=== PATIENT | female | born 1930 | race Caucasian/White ===

== ENCOUNTER 2016-12-13 08:56 | Inpatient (IN) | payer MEDICARE ==
[~2016-12-13] VITALS: Ht 157.5 cm; Wt 67.2 kg
[~2016-12-13 08:56] MED LIST: ACET325T9 PO; ALPR0.25 PO; AMLO5TAB2 PO; ASPI-482 PO; ASPI-630 PO; ASPI325T11 PO; ATOR20TA PO; CA C1TAB28 PO; CHOL10003 PO; CITA20TA5 PO; CLOP75TA PO; CLOP75TA57 PO; DILT240C2 PO; DILT240C32 PO; FERR-26 PO; GABA-585 PO; GUAR1TAB6 PO; LOSA25TA4 PO; LOSA50TA6 PO; METO25TA4 PO; MULT-245 PO; NAPR-634 PO; NAPR500T3 PO; OMEG1CAP38 PO; PANT40TA3 PO; PRAV40TA2 PO; SUCR1TAB PO
--- NOTE | 2016-12-13 09:10 | PHYS DOC ---
Past Medical History Past Medical History: A-Fib, Arthritis, Depression, GERD, GI Bleed, High Cholesterol, Hypertension Additional Past Medical Histor: esophageal varices, GI bleedx2 Past Surgical History: Angioplasty, Appendectomy, Cholecystectomy, Hysterectomy , Knee Replacement, Pacemaker Additional Past Surgical Histo: esophageal dilation,STENT PLACEMENT Alcohol Use: None Drug Use: None Adult General HPI HPI Patient is a 86 year old female with history of upper GI bleed, A. fib, pacemaker, hypertension, depression and anxiety who presents today complaining of not feeling good for the last 2 weeks. Patient states she's had intermittent episodes of midepigastric abdominal pain sharp in nature rated at 7 out of 10 nonradiating for the last 2 weeks. Patient is also complaining of intermittent episodes of nausea and vomiting since this morning. Patient denies any hematemesis. Denies any diarrhea or melena. She states she was supposed to see her PCP this morning but she felt too sick to go to the doctor's office. PCP is Dr. Lucio Riley. Patient denies any fever or chest pain urgency frequency or dysuria. Review of Systems Review of Systems Constitutional: Denies fever or chills [] Eyes: Denies change in visual acuity, redness, or eye pain [] HENT: Denies nasal congestion or sore throat [] Respiratory: Denies cough or shortness of breath [] Cardiovascular: No additional information not addressed in HPI [] GI: epigastric abdominal pain, nausea, vomiting, denies bloody stools or diarrhea [] : Denies dysuria or hematuria [] Musculoskeletal: Denies back pain or joint pain [] Integument: Denies rash or skin lesions [] Neurologic: Denies headache, focal weakness or sensory changes [] Endocrine: Denies polyuria or polydipsia [] Current Medications Current Medications Current Medications Medications (Trade) Dose Ordered Sig/Mariajose Start Time Stop Time Status Last Admin Dose Admin Famotidine (Pepcid) 20 mg 1X ONCE 12/13/16 09:15 12/13/16 09:16 DC 12/13/16 09:26 20 MG Fentanyl Citrate (Fentanyl 2ml Vial) 50 mcg 1X ONCE 12/13/16 11:00 12/13/16 11:01 DC 12/13/16 11:13 50 MCG Ondansetron HCl (Zofran) 4 mg 1X ONCE 8/14/17 09:15 12/13/16 09:16 DC 12/13/16 09:25 4 MG Sodium Chloride 1,000 ml @ 1,000 mls/hr 1X ONCE 12/13/16 09:15 12/13/16 10:14 DC 12/13/16 09:26 1,000 MLS/HR Allergies Allergies Allergies Coded Allergies Type Severity Reaction Last Updated Verified No Known Drug Allergies 11/14/15 No Physical Exam Physical Exam Constitutional: Well developed, well nourished, no acute distress, non-toxic appearance. [] HENT: Normocephalic, atraumatic, bilateral external ears normal, oropharynx moist, no oral exudates, nose normal. [] Eyes: PERRLA, EOMI, conjunctiva normal, no discharge. [] Neck: Normal range of motion, no tenderness, supple, no stridor. [] Cardiovascular:Heart rate regular rhythm, no murmur [] Lungs & Thorax: Bilateral breath sounds clear to auscultation [] Abdomen: Hiatal hernia present. Mild mid epigastric tenderness. Bowel sounds normal, soft,no RLQ tenderness, no masses, no pulsatile masses. [] Skin: Warm, dry, no erythema, no rash. [] Back: No tenderness, no CVA tenderness. [] Extremities: No tenderness, no cyanosis, no clubbing, ROM intact, no edema. [] Neurologic: Alert and oriented X 3, normal motor function, normal sensory function, no focal deficits noted. [] Psychologic: Affect normal, judgement normal, mood normal. [] Current Patient Data Vital Signs Vital Signs Date Time Temp Pulse Resp B/P (MAP) Pulse Ox O2 Delivery O2 Flow Rate FiO2 12/13/16 11:13 20 98 Room Air 12/13/16 11:11 98.2 93 145/76 (99) 98.2 Lab Values Laboratory Tests Test 12/13/16 09:10 12/13/16 10:40 White Blood Count 7.5 x10^3/uL (4.0-11.0) Red Blood Count 4.47 x10^6/uL (3.50-5.40) Hemoglobin 12.6 g/dL (12.0-15.5) Hematocrit 37.5 % (36.0-47.0) Mean Corpuscular Volume 84 fL (79-100) Mean Corpuscular Hemoglobin 28 pg (25-35) Mean Corpuscular Hemoglobin Concent 34 g/dL (31-37) Red Cell Distribution Width 14.3 % (11.5-14.5) Platelet Count 260 x10^3/uL (140-400) Neutrophils (%) (Auto) 68 % (31-73) Lymphocytes (%) (Auto) 22 % (24-48) L Monocytes (%) (Auto) 7 % (0-9) Eosinophils (%) (Auto) 3 % (0-3) Basophils (%) (Auto) 1 % (0-3) Neutrophils # (Auto) 5.1 x10^3uL (1.8-7.7) Lymphocytes # (Auto) 1.6 x10^3/uL (1.0-4.8) Monocytes # (Auto) 0.5 x10^3/uL (0.0-1.1) Eosinophils # (Auto) 0.2 x10^3/uL (0.0-0.7) Basophils # (Auto) 0.1 x10^3/uL (0.0-0.2) Prothrombin Time 12.7 SEC (11.7-14.0) Prothrombin Time INR 1.0 (0.8-1.1) PTT 26 SEC (24-38) Sodium Level 138 mmol/L (136-145) Potassium Level 3.7 mmol/L (3.5-5.1) Chloride Level 103 mmol/L (98-107) Carbon Dioxide Level 27 mmol/L (21-32) Anion Gap 8 (6-14) Blood Urea Nitrogen 21 mg/dL (7-20) H Creatinine 1.2 mg/dL (0.6-1.0) H Estimated GFR (Cockcroft-Gault) 42.7 BUN/Creatinine Ratio 18 (6-20) Glucose Level 182 mg/dL (70-99) H Calcium Level 8.3 mg/dL (8.5-10.1) L Total Bilirubin 0.4 mg/dL (0.2-1.0) Aspartate Amino Transferase (AST) 16 U/L (15-37) Alanine Aminotransferase (ALT) 23 U/L (14-59) Alkaline Phosphatase 100 U/L (46-116) Creatine Kinase 35 U/L (26-192) Creatine Kinase MB (Mass) 0.5 ng/mL (0.0-3.6) Creatine Kinase MB Relative Index % (0-4) Troponin I Quantitative < 0.017 ng/mL (0.000-0.055) Total Protein 7.2 g/dL (6.4-8.2) Albumin 3.4 g/dL (3.4-5.0) Albumin/Globulin Ratio 0.9 (1.0-1.7) L Lipase 190 U/L (73-393) Urine Collection Type Unknown Urine Color Yellow Urine Clarity Clear Urine pH 5.5 Urine Specific [place] 1.010 Urine Protein Negative mg/dL (NEG-TRACE) Urine Glucose (UA) Negative mg/dL (NEG) Urine Ketones (Stick) Negative mg/dL (NEG) Urine Blood Negative (NEG) Urine Nitrite Negative (NEG) Urine Bilirubin Negative (NEG) Urine Urobilinogen Dipstick 0.2 mg/dL (0.2 mg/dL) Urine Leukocyte Esterase Trace (NEG) Urine RBC 0 /HPF (0-2) Urine WBC Occ /HPF (0-4) Urine Squamous Epithelial Cells Occ /LPF Urine Bacteria 0 /HPF (0-FEW) Urine Hyaline Casts Few /HPF Urine Mucus Mod /LPF Laboratory Tests 12/13/16 09:10 Laboratory Tests 12/13/16 09:10 EKG EKG 09:[address] Taylor sinus rhythm, leftward axis, HR 71 no STEMI[] Radiology/Procedures Radiology/Procedures [] Course & Med Decision Making Course & Med Decision Making Pertinent Labs and Imaging studies reviewed. (See chart for details) This is a 86-year-old female patient with history of upper GI bleed who presents today complaining of intermittent episodes of abdominal pain for 2 weeks and nausea and vomiting since this morning. Patient states she was supposed to follow up with GI today at 4 PM and is scheduled for an upper endoscopy. Patient has been given IV fluid nausea medicine and pain medicine with good relief of her symptoms. She wants to be admitted and hopefully get upper GI endoscopy in AM CBC CMP lipase with no acute findings. Vitals are stable. 11:[address] Riley who accepted patient for admission 11:19 Consulted with Erica Polanco who accepted patient for GI. [place] Disclaimer Dragon Disclaimer This electronic medical record was generated, in whole or in part, using a voice recognition dictation system. Departure Departure Impression: Primary Impression: Abdominal pain Additional Impression: Nausea & vomiting Disposition: ADMITTED INPATIENT Condition: STABLE Referrals: LUCIO RILEY MD (PCP) Problem Qualifiers Primary Impression: Abdominal pain Abdominal location: epigastric Qualified Codes: R10.13 - Epigastric pain Additional Impression: Nausea & vomiting Vomiting type: unspecified Vomiting Intractability: non-intractable Qualified Codes: R11.2 - Nausea with vomiting, unspecified MUTCHELITA ALEXANDRE CAROUSEL ATTENDANT Dec 13, 2016 09:10
[2016-12-13] MEDS ORDERED: FAMOTIDINE 20 MG/2 ML VIAL IVP ONE (09:15)
[2016-12-13] MEDS ORDERED: IV NORMAL SALINE 1000ML BAG 1,000 ML IV ONE ×2 (09:15→11:45)
[2016-12-13] MEDS ORDERED: ONDANSETRON PF 4 MG/2 ML VIAL. IV ONE (09:15)
--- NOTE | 2016-12-13 09:18 | EKG ---
[facility] [address] [place] [address] Test Date: 2016-12-13 Test Time: 09:14:52 Pat Name: SAILAJA SUTHERLAND Department: Room: Gender: F Tool Clerk: MAXIMILIANO : [id number] Requested By: CHELITA HARRIS Order Number: [id number] Reading MD: Miriam Magaña Measurements Intervals [place] Rate: 71 P: 24 ND: 192 QRS: -18 QRSD: 74 T: 75 QT: 408 QTc: 443 Interpretive Statements SINUS RHYTHM LEFTWARD AXIS QRS(T) CONTOUR ABNORMALITY CONSISTENT WITH ANTEROSEPTAL INFARCT PROBABLY OLD Electronically Signed On 12-15-2016 20:04:38 CDT by Miriam Magaña
[2016-12-13 09:30] LABS: BASO # 0.1 x10^3/uL (0.0-0.2); BASO % 1 % (0-3); EOS % 3 % (0-3); HEMATOCRIT 37.5 % (36.0-47.0); HEMOGLOBIN 12.6 g/dL (12.0-15.5); LYMPH # 1.6 x10^3/uL (1.0-4.8); LYMPH % 22 % (24-48); MEAN CORPUSCULAR HEMOGLOBIN 28 pg (25-35); MEAN CORPUSCULAR HGB CONC 34 g/dL (31-37); MEAN CORPUSCULAR VOLUME 84 fL (79-100); MONO % 7 % (0-9); NEUT % 68 % (31-73); PLATELET COUNT 260 x10^3/uL (140-400); RED BLOOD COUNT 4.47 x10^6/uL (3.50-5.40); RED CELL DISTRIBUTION WIDTH 14.3 % (11.5-14.5); WHITE BLOOD COUNT 7.5 x10^3/uL (4.0-11.0)
[2016-12-13 09:37] LABS: CALCIUM 8.3 mg/dL (8.5-10.1); CREATININE 1.2 mg/dL (0.6-1.0); GFR 42.7; POTASSIUM 3.7 mmol/L (3.5-5.1)
[2016-12-13 09:46] LABS: ALBUMIN 3.4 g/dL (3.4-5.0); ALBUMIN/GLOBULIN RATIO 0.9 (1.0-1.7); TOTAL BILIRUBIN 0.4 mg/dL (0.2-1.0); TOTAL PROTEIN 7.2 g/dL (6.4-8.2)
[2016-12-13 09:50] LABS: CKMB MASS 0.5 ng/mL (0.0-3.6); CREATINE KINASE 35 U/L (26-192)
[2016-12-13 09:53] LABS: PROTHROMBIN TIME PATIENT 12.7 SEC (11.7-14.0)
[2016-12-13] MEDS ORDERED: fentaNYL PF VIAL 100 MCG/2 ML VIAL IV ONE (11:00)
[2016-12-13 11:09] LABS: BILIRUBIN,URINE NEGATIVE (NEG); GLUCOSE,URINE NEGATIVE (NEG); NITRITE,URINE NEGATIVE (NEG); PH,URINE 5.5; PROTEIN,URINE NEGATIVE (NEG-TRACE); UROBILINOGEN,URINE 0.2 mg/dL (0.2 mg/dL)
[2016-12-13 11:27] LABS: SQUAMOUS EPITHELIAL CELL,UR OCC /LPF
[2016-12-13 11:28] LABS: BACTERIA,URINE 0 /HPF (0-FEW); RBC,URINE 0 /HPF (0-2); WBC,URINE OCC /HPF (0-4)
[2016-12-13] MEDS ORDERED: ONDANSETRON PF 4 MG/2 ML VIAL. IV PRN (11:45)
--- NOTE | 2016-12-13 12:24 | ACF ---
Admit Criteria Forms Admit Criteria Forms Admit Criteria Forms VOMITING Clinical Indications for Admission to Inpatient Care ( Place 'X' for any and all applicable criteria): Admission is indicated for 1 or more of the following(1)(2)(3): [ ]I. Complete or partial gastrointestinal obstruction [ ]II. Vomiting due to significant metabolic derangement (eg, severe hypercalcemia, diabetic ketoacidosis) [ ]III. Other cause of vomiting requiring hospitalization (eg, poisoning, increased intracranial pressure) [ ]IV. Inpatient admission required rather than observation care because of 1 or more of the following [ ]i) Hemodynamic instability [ ]ii) Vomiting that is severe or persistent indicated by 1 or more of the following 1) Numerous episodes of vomiting in past 24hours (eg, every 1 to 2 hours) 2) Suggests severe underlying cause or complication (eg , projectile, feculent, bilious, coffee ground, bloody) 3) Appropriate antiemetic treatment (eg, repeated oral or parenteral dosing) does not sufficiently reduce vomiting within 12 to 24 hours of treatment 4) Treatment regimen necessary to adequately control vomiting requires inpatient level of care (eg, not immediately available in outpatient setting) [ ]iii) Severe electrolyte abnormalities requiring inpatient care [X) iv) Severe pain requiring acute inpatient management( Continuous or frequent (eg, every 2 to 4 hours) parental analgesics or analgesic regimen that can only be performed or initiated in inpatient setting) [ ]v) High fever or infection requiring inpatient admission as indicated by 1 or more of the following(7)(8): [ ]1) Appropriate outpatient or observation care antimicrobial treatment unavailable, not effective, or not feasible [ ]2) Documented bacteremia [ ]3) Temp >104.9 degrees F (40.5 degrees C) (oral) [ ]4) Temp >103.1 degrees F (39.5 C) (oral) or <96.8 degrees F (36 C) (rectal) that does not respond to all emergency treatment measures [ ]vi) Acute renal failure [ ]vii) IV fluid required rather than oral rehydration to replace significant on going losses (greater than 3 L/m2 per day) [ ]viii) Parenteral nutrition regimen that must be implemented on inpatient basis [ ]ix) Other condition, treatment or monitoring requiring inpatient admission Extended stay beyond goal length of stay may be needed for(1)(4): [ ]a) Severe vomiting [ ]b) Persistent vomiting, vital sign changes, severe electrolyte imbalance , or diagnosed cause of vomiting that requires continued hospitalization (eg, gastrointestinal obstruction , increased intracranial pressure) [ ]c) Surgery to treat identified causes of vomiting (eg, bowel obstruction , intracranial process) [ ]d) Comorbid illness that requires inpatient care (eg, acute heart failure , renal failure) [ ]e) Need for inpatient endoscopy The original [employer] content created by [employer] has been revised. The portions of the content which have been revised are identified through the use of italic text or in bold, and [facility] has neither reviewed nor approved the modified material. All other unmodified content is copyright [employer]. Please see references footnoted in the original [employer] edition 2016 EMME ANDRADE Dec 13, 2016 12:24
[2016-12-13 12:59] VITALS: BP 123/60
[2016-12-13 13:00] VITALS: BP 123/60
--- NOTE | 2016-12-13 13:04 | PDOC2 ---
GI CONSULT Reason For Consult: Abd pain, n/v HPI: HPI: 86 y/o female seen in ER w/ planned admission to regular floor. Last evaluated by GI/Dr. Polanco in 10/2015 for epigastric pain w/ hematemesis, dark stools, and anemia. 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 At home, on PPI (pantoprazole 40mg-80mg QD) w/ good control of GERD for the most part, iron, ASA, and Plavix. Uses Tylenol, no NSAIDs. H/o dysphagia w/ solids, liquids, and pills. Last colonoscopy in 2003 w/ diverticulosis. On this occasion, reports 2 weeks of upper abdominal pain worse w/ eating and movement. Improved w/ laying still and nitro, "I couldn't tell if it was my heart or not." Actually has appt w/ Dr. Polanco this afternoon but pain was "unbearable" this morning, associated w / n/v, so came to ER. Bowels slower lately considering not eating as much, did had normal stool yesterday. No hematemesis, hematochezia, melena. Labs show unrevealing, note BUN 21 w/ Cr 1.2. Per ER notes, EKG w/o STEMI. No abd imaging. Case previously discussed w/ Marlen Lopez. YASMEEN, hopeful for EGD tomorrow. PMH: PMH: (per HPI) CAD s/p stents (last 04/2016), A Fib, HTN, HLD, peripheral neuropathy , OA, anxiety/depression, cholecystectomy, hysterectomy, cataract removal FH: Family History: No pertinent hx Social History: Smoke: No ALCOHOL: none Drugs: None ROS: GEN: Denies fevers, chills, sweats HEENT: Denies blurred vision, sore throat CV: Denies chest pain RESP: Denies shortness of air, cough GI: Per HPI : Denies hematuria, dysuria ENDO: Denies weight changes NEURO: Denies confusion, dizziness MSK: Denies weakness, joint pain/swelling SKIN: Denies jaundice, pruritus Vitals: Vitals: Vital Signs Date Time Temp Pulse Resp B/P (MAP) Pulse Ox O2 Delivery O2 Flow Rate FiO2 12/13/16 11:13 20 98 Room Air 12/13/16 11:11 98.2 93 145/76 (99) 98.2 Labs: Labs: Laboratory Tests Test 12/13/16 09:10 12/13/16 10:40 White Blood Count 7.5 x10^3/uL (4.0-11.0) Red Blood Count 4.47 x10^6/uL (3.50-5.40) Hemoglobin 12.6 g/dL (12.0-15.5) Hematocrit 37.5 % (36.0-47.0) Mean Corpuscular Volume 84 fL (79-100) Mean Corpuscular Hemoglobin 28 pg (25-35) Mean Corpuscular Hemoglobin Concent 34 g/dL (31-37) Red Cell Distribution Width 14.3 % (11.5-14.5) Platelet Count 260 x10^3/uL (140-400) Neutrophils (%) (Auto) 68 % (31-73) Lymphocytes (%) (Auto) 22 % (24-48) Monocytes (%) (Auto) 7 % (0-9) Eosinophils (%) (Auto) 3 % (0-3) Basophils (%) (Auto) 1 % (0-3) Neutrophils # (Auto) 5.1 x10^3uL (1.8-7.7) Lymphocytes # (Auto) 1.6 x10^3/uL (1.0-4.8) Monocytes # (Auto) 0.5 x10^3/uL (0.0-1.1) Eosinophils # (Auto) 0.2 x10^3/uL (0.0-0.7) Basophils # (Auto) 0.1 x10^3/uL (0.0-0.2) Prothrombin Time 12.7 SEC (11.7-14.0) Prothromb Time International Ratio 1.0 (0.8-1.1) Activated Partial Thromboplast Time 26 SEC (24-38) Sodium Level 138 mmol/L (136-145) Potassium Level 3.7 mmol/L (3.5-5.1) Chloride Level 103 mmol/L (98-107) Carbon Dioxide Level 27 mmol/L (21-32) Anion Gap 8 (6-14) Blood Urea Nitrogen 21 mg/dL (7-20) Creatinine 1.2 mg/dL (0.6-1.0) Estimated GFR (Cockcroft-Gault) 42.7 BUN/Creatinine Ratio 18 (6-20) Glucose Level 182 mg/dL (70-99) Calcium Level 8.3 mg/dL (8.5-10.1) Total Bilirubin 0.4 mg/dL (0.2-1.0) Aspartate Amino Transf (AST/SGOT) 16 U/L (15-37) Alanine Aminotransferase (ALT/SGPT) 23 U/L (14-59) Alkaline Phosphatase 100 U/L (46-116) Creatine Kinase 35 U/L (26-192) Creatine Kinase MB (Mass) 0.5 ng/mL (0.0-3.6) Creatine Kinase MB Relative Index % (0-4) Troponin I Quantitative < 0.017 ng/mL (0.000-0.055) Total Protein 7.2 g/dL (6.4-8.2) Albumin 3.4 g/dL (3.4-5.0) Albumin/Globulin Ratio 0.9 (1.0-1.7) Lipase 190 U/L (73-393) Urine Collection Type Unknown Urine Color Yellow Urine Clarity Clear Urine pH 5.5 Urine Specific [place] 1.010 Urine Protein Negative mg/dL (NEG-TRACE) Urine Glucose (UA) Negative mg/dL (NEG) Urine Ketones (Stick) Negative mg/dL (NEG) Urine Blood Negative (NEG) Urine Nitrite Negative (NEG) Urine Bilirubin Negative (NEG) Urine Urobilinogen Dipstick 0.2 mg/dL (0.2 mg/dL) Urine Leukocyte Esterase Trace (NEG) Urine RBC 0 /HPF (0-2) Urine WBC Occ /HPF (0-4) Urine Squamous Epithelial Cells Occ /LPF Urine Bacteria 0 /HPF (0-FEW) Urine Hyaline Casts Few /HPF Urine Mucus Mod /LPF Allergies: Coded Allergies: No Known Drug Allergies (Unverified , 11/14/15) Medications: Current Medications Medications (Trade) Dose Ordered Sig/Mariajose Route PRN Reason Start Time Stop Time Status Last Admin Dose Admin Famotidine (Pepcid) 20 mg 1X ONCE IVP 12/13/16 09:15 12/13/16 09:16 DC 12/13/16 09:26 Ondansetron HCl (Zofran) 4 mg 1X ONCE IV 12/13/16 09:15 12/13/16 09:16 DC 12/13/16 09:25 Sodium Chloride 1,000 ml @ 1,000 mls/hr 1X ONCE IV 12/13/16 09:15 12/13/16 10:14 DC 12/13/16 09:26 Fentanyl Citrate (Fentanyl 2ml Vial) 50 mcg 1X ONCE IV 12/13/16 11:00 12/13/16 11:01 DC 12/13/16 11:13 Imaging: Imaging: (previous) Abd US 01/2016 Impression: Suboptimal evaluation of the retroperitoneal structures, otherwise unremarkable study. MPI 12/2015 Conclusion 1. Regadenoson cardioisotope stress test did not show any evidence of ischemia or infarct. 2. Normal left ventricular systolic function with ejection fraction calculated at 84%. 3. Low risk for cardiac events. PE: GEN: NAD HEENT: Atraumatic, PERRL LUNGS: CTAB anteriorly HEART: RRR ABD: NABS, epigastric/periumbilical, some LUQ EXTREMITY: No edema SKIN: No rashes, no jaundice NEURO/PSYCH: A & O 3 A/P: A/P: Upper abd pain w/ n/v -pain bothersome x 2 weeks, worse w/ movement and after eating, improved w/ nitro and laying still GERD, hiatal hernia -last EGD 10/2015, Augusto lesions noted Dysphagia, h/o Schatzki's ring, presbyesophagus -felt w/ solids, liquids, pills -last esophageal dilation 10/2015 CRC screen -colonoscopy 2003 w/ diverticulosis CAD on Plavix, ASA -- Reviewed w/ Dr. Polanco - considering h/o hiatal hernia, will check acute abd series. Pending findings, upper GI series vs EGD later. NPO ordered, started on IV H2 eliezer. EDWIN BARROW Dec 13, 2016 13:04
[2016-12-13] MEDS ORDERED: OMEG100021 PO (13:06)
[2016-12-13] MEDS: fentaNYL PF VIAL 100 MCG/2 ML VIAL IV PRN ×2 (13:45→20:26)
[2016-12-13 14:44] VITALS: BP 138/56
--- NOTE | 2016-12-13 15:38 | RAD ---
Acute abdominal series with single view chest 12/13/2016 Indication: Abdominal pain, hiatal hernia Comparison: Chest radiograph 05/27/2015, abdominal radiograph 08/01/2008 Technique: Frontal view of the chest, upright view of the abdomen and supine view the abdomen are provided. Findings: Cardiomediastinal silhouette is within normal limits. Left chest wall cardiac device is identified with leads projecting over the right atrium and right ventricle. There is mild pulmonary vascular congestion. No pleural effusions or pneumothorax. Cholecystectomy clips are identified in the right upper quadrant. There is no free intraperitoneal air. No dilated loops of small or large bowel. No suspicious calcifications identified along the course of the kidneys, ureters or urinary bladder. Abdominal aortic vascular calcification is noted. Phleboliths are identified within the pelvis. Hiatal hernia is present. Impression: 1. Mild pulmonary vascular congestion. 2. Nonobstructive bowel gas pattern.
[2016-12-13 19:23] VITALS: BP 137/60
[2016-12-13] MEDS: GABAPENTIN 100 MG CAPSULE. PO SCH (21:48)
[2016-12-13] MEDS: FAMOTIDINE 20 MG/2 ML VIAL IVP SCH (21:48)
[2016-12-13] MEDS: ALPRAZolam 0.25 MG TABLET PO PRN (21:49)
[2016-12-13] MEDS: ATORVASTATIN CALCIUM 20 MG TABLET PO SCH (21:51)
[2016-12-13 23:12] VITALS: BP 123/62
[2016-12-14] MEDS: fentaNYL PF VIAL 100 MCG/2 ML VIAL IV PRN ×2 (01:00→10:09)
[2016-12-14 02:22] VITALS: BP 128/49
[2016-12-14 04:59] LABS: BASO # 0.1 x10^3/uL (0.0-0.2); BASO % 1 % (0-3); EOS % 5 % (0-3); HEMATOCRIT 32.3 % (36.0-47.0); HEMOGLOBIN 10.6 g/dL (12.0-15.5); LYMPH # 2.3 x10^3/uL (1.0-4.8); LYMPH % 33 % (24-48); MEAN CORPUSCULAR HEMOGLOBIN 28 pg (25-35); MEAN CORPUSCULAR HGB CONC 33 g/dL (31-37); MEAN CORPUSCULAR VOLUME 86 fL (79-100); MONO % 8 % (0-9); NEUT % 54 % (31-73); PLATELET COUNT 196 x10^3/uL (140-400); RED BLOOD COUNT 3.77 x10^6/uL (3.50-5.40); RED CELL DISTRIBUTION WIDTH 14.2 % (11.5-14.5)
[2016-12-14 05:24] LABS: ALBUMIN 2.8 g/dL (3.4-5.0); ALBUMIN/GLOBULIN RATIO 0.9 (1.0-1.7); CALCIUM 7.5 mg/dL (8.5-10.1); GFR 52.7; POTASSIUM 4.3 mmol/L (3.5-5.1); TOTAL BILIRUBIN 0.3 mg/dL (0.2-1.0); TOTAL PROTEIN 5.8 g/dL (6.4-8.2)
[2016-12-14 07:05] VITALS: BP 121/52
[2016-12-14] MEDS ORDERED: BARIUM SULFATE 60% 355 ML SUSP PO ONE (07:30)
[2016-12-14] MEDS ORDERED: SIMETHICONE/SOD BICARB/CITRIC ACID PACKET. PO ONE (07:30)
[2016-12-14] MEDS ORDERED: BARIUM SULFATE 340 GM SUSPENSION. PO ONE (07:30)
--- NOTE | 2016-12-14 08:31 | PDOC ---
Provider Note Provider Note [id number] LUCIO RILEY MD Dec 14, 2016 08:31
--- NOTE | 2016-12-14 08:46 | HP ---
ADMIT DATE: 12/13/2016 CHIEF COMPLAINT: Upper abdominal pain. HISTORY OF PRESENT ILLNESS: An 86-year-old white female who has had episodes of cardiac disease and also GI disease, came in with poorly-described upper abdominal discomfort. She has been taking pantoprazole, there is pretty good report of improvement, but has been having episodic upper abdominal pain associated with eating. She was scheduled to see Dr. Polanco for an EGD ____ came to the ER and was admitted for this. PAST MEDICAL HISTORY: Coronary stents, last about 8 months ago, she takes low-dose aspirin and Plavix for these as well as multiple other meds. She has had hysterectomy and cholecystectomy as well. SOCIAL HISTORY: , nonsmoker, nondrinker, not physically active. FAMILY HISTORY: Unremarkable. REVIEW OF SYSTEMS: No other problems. OBJECTIVE: ENT: All within normal limits. NECK: No masses, nodes, or thyroid enlargement. CARDIOVASCULAR: Regular rate. No irregular beat, murmur, or tachycardia. ABDOMEN: Soft, benign. Mildly tender in the epigastrium. No masses are felt. EXTREMITIES: Good pedal and radial pulses. No joint or skin lesions or nail bed findings. NEUROLOGIC: Physiologic and nonfocal. ASSESSMENT: Diffuse upper abdominal pain with history of both esophageal and gastric disease and coronary artery disease as well. PLAN: As ordered. LUCIO RILEY MD DR: GEETA/jenni JOB#: [id number] / [id number]
[2016-12-14] MEDS: CLOPIDOGREL BISULFATE 75 MG TABLET PO SCH (10:07)
[2016-12-14] MEDS: FERROUS SULFATE 325 MG TABLET. PO SCH (10:07)
[2016-12-14] MEDS: LOSARTAN POTASSIUM 50 MG TABLET. PO SCH (10:08)
[2016-12-14] MEDS: CHOLECALCIFEROL (VITAMIN D3) 1,000 UNIT TABLET PO SCH (10:08)
[2016-12-14] MEDS: PANTOPRAZOLE 40 MG TABLET.DR. PO SCH (10:08)
[2016-12-14] MEDS: CITALOPRAM 20 MG TABLET. PO SCH (10:08)
[2016-12-14] MEDS: FAMOTIDINE 20 MG/2 ML VIAL IVP SCH ×2 (10:08→20:08)
[2016-12-14] MEDS: ASPIRIN ENTERIC COATED 325 MG TABLET.DR. PO SCH (10:08)
--- NOTE | 2016-12-14 10:41 | RAD ---
Double contrast upper GI with small bowel follow-through, 12/14/2016: History: Abdominal pain and nausea The study was performed utilizing high density barium and gas-forming crystals followed by regular liquid barium. 4.4 minutes of fluoroscopy time was utilized. 18 fluoroscopic images were recorded. Comparison is made to a study from 07/20/2012. The preliminary abdominal image demonstrates a nonspecific gas pattern. Scattered arterial calcifications are present. There is a mild lumbar scoliosis with multilevel degenerative change. A small Zenker's diverticulum is again noted. No obstructive process is seen in the cervical esophagus. The thoracic esophageal peristalsis is poor with scattered tertiary contractions. There is a large hiatal hernia. There is mild smooth narrowing of the esophagus at the GE junction level which in conjunction with the abnormal esophageal peristalsis results in delay in passage of the barium from the esophagus into the stomach, particularly in the upright position. No gastric mass or ulceration is seen. The duodenal bulb is unremarkable. The small bowel loops are of normal caliber with no evidence of thickening of their folds. There is normal transit of the barium through the small bowel to the colon. The terminal ileum is unremarkable. IMPRESSION: 1. Large hiatal hernia. 2. Abnormal esophageal peristalsis with scattered tertiary contractions. 3. Mild smooth narrowing of the esophagus at the GE junction level. 4. Small Zenker's diverticulum. 5. No significant small bowel abnormality is detected.
[2016-12-14 10:54] VITALS: BP 148/64
--- NOTE | 2016-12-14 11:27 | PDOC ---
Subjective: Subjective: Not feeling well, says not ready to go home, really wants EGD while she's here. Epigastric pain. No vomiting. is ill at home, says she needs to get better so she can care for him. Objective: Objective: D/w RN - pt thought she was having UGI/SBFT and EGD today, really wants EGD. Vital Signs: Vital Signs Date Time Temp Pulse Resp B/P (MAP) Pulse Ox O2 Delivery O2 Flow Rate FiO2 12/14/16 10:54 97.6 59 18 148/64 (92) 90 Nasal Cannula 97.6 12/14/16 10:09 1.0 Labs: Laboratory Tests Test 12/14/16 04:21 White Blood Count 7.0 x10^3/uL Red Blood Count 3.77 x10^6/uL Hemoglobin 10.6 g/dL Hematocrit 32.3 % Mean Corpuscular Volume 86 fL Mean Corpuscular Hemoglobin 28 pg Mean Corpuscular Hemoglobin Concent 33 g/dL Red Cell Distribution Width 14.2 % Platelet Count 196 x10^3/uL Neutrophils (%) (Auto) 54 % Lymphocytes (%) (Auto) 33 % Monocytes (%) (Auto) 8 % Eosinophils (%) (Auto) 5 % Basophils (%) (Auto) 1 % Neutrophils # (Auto) 3.7 x10^3uL Lymphocytes # (Auto) 2.3 x10^3/uL Monocytes # (Auto) 0.6 x10^3/uL Eosinophils # (Auto) 0.3 x10^3/uL Basophils # (Auto) 0.1 x10^3/uL Sodium Level 142 mmol/L Potassium Level 4.3 mmol/L Chloride Level 109 mmol/L Carbon Dioxide Level 28 mmol/L Anion Gap 5 Blood Urea Nitrogen 17 mg/dL Creatinine 1.0 mg/dL Estimated GFR (Cockcroft-Gault) 52.7 BUN/Creatinine Ratio 17 Glucose Level 89 mg/dL Calcium Level 7.5 mg/dL Total Bilirubin 0.3 mg/dL Aspartate Amino Transf (AST/SGOT) 14 U/L Alanine Aminotransferase (ALT/SGPT) 19 U/L Alkaline Phosphatase 77 U/L Total Protein 5.8 g/dL Albumin 2.8 g/dL Albumin/Globulin Ratio 0.9 Imaging: UGI w/ SBFT 12/14/16 IMPRESSION: 1. Large hiatal hernia. 2. Abnormal esophageal peristalsis with scattered tertiary contractions. 3. Mild smooth narrowing of the esophagus at the GE junction level. 4. Small Zenker's diverticulum. 5. No significant small bowel abnormality is detected. 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 Chart reviewed. Pt has hx of esophageal dysphagia. Eval w/o evidence of oropharyngeal dysphagia or aspiration on tested consistencies. IMPRESSIONS: Functional oropharyngeal swallow. GI following re:esophageal issues. RECOMMENDATIONS: Diet as willy per GI. No need for consistency restrictions based on this eval. PE: GEN: NAD, laying in bed w/ breakfast tray LUNGS: clear HEART: S1S2 ABD: epigastric tenderness NEURO/PSYCH: A & O 3 A/P: Upper abd pain, hiatal hernia -UGI/SBFT as above -last EGD 10/2015, Augusto lesions noted Dysphagia -last esophageal dilation 10/2015 -h/o Schatzki's ring, presbyesophagus/tertiary contractions -narrowing of esophagus at GE junction as above, also Zenker's -- Reviewed w/ Dr. Polanco - EGD tomorrow afternoon. EDWIN BARROW Dec 14, 2016 11:27
[2016-12-14 15:23] VITALS: BP 135/48
[2016-12-14 19:00] VITALS: BP 144/67
[2016-12-14] MEDS: ATORVASTATIN CALCIUM 20 MG TABLET PO SCH (20:08)
[2016-12-14] MEDS: GABAPENTIN 100 MG CAPSULE. PO SCH (20:08)
[2016-12-14] MEDS: ALPRAZolam 0.25 MG TABLET PO PRN (20:27)
[2016-12-14] MEDS: ACETAMINOPHEN 325 MG TABLET. PO PRN (20:27)
[2016-12-14 23:00] VITALS: BP 123/50
[2016-12-15] VITALS (7 sets, daily range): BP systolic 106–132; BP diastolic 46–75
[2016-12-15] MEDS ORDERED: fentaNYL PF VIAL 100 MCG/2 ML VIAL IV PRN ×2 (07:00)
[2016-12-15] MEDS ORDERED: HYDROmorphone 2 MG/ML VIAL IV PRN (07:00)
[2016-12-15] MEDS ORDERED: MORPHINE SULFATE 2 MG/ML DISP.SYRIN. IV PRN (07:00)
[2016-12-15] MEDS ORDERED: IV RINGERS,LACTATED 1000ML 1,000 ML IV SCH (07:00)
[2016-12-15] MEDS ORDERED: LIDOCAINE 1% 1 ML SYRINGE. ID PRN (07:00)
[2016-12-15] MEDS ORDERED: PROCHLORPERAZINE 10 MG/2 ML VIAL. IV PRN (07:00)
[2016-12-15] MEDS: PANTOPRAZOLE 40 MG TABLET.DR. PO SCH (07:30)
[2016-12-15] MEDS: CLOPIDOGREL BISULFATE 75 MG TABLET PO SCH (08:00)
[2016-12-15] MEDS: ASPIRIN ENTERIC COATED 325 MG TABLET.DR. PO SCH (08:00)
--- NOTE | 2016-12-15 08:31 | PDOC ---
Provider Note Provider Note VSS, URINE CULT NEG, LABS OK- FOR EGD TODAY , LARGE HH ON BARIUM SWALLOW LUCIO RILEY MD Dec 15, 2016 08:31
[2016-12-15] MEDS: LOSARTAN POTASSIUM 50 MG TABLET. PO SCH (09:00)
[2016-12-15] MEDS: CHOLECALCIFEROL (VITAMIN D3) 1,000 UNIT TABLET PO SCH (09:00)
[2016-12-15] MEDS: FERROUS SULFATE 325 MG TABLET. PO SCH (09:00)
[2016-12-15] MEDS: FAMOTIDINE 20 MG/2 ML VIAL IVP SCH ×2 (09:00→21:03)
[2016-12-15] MEDS: CITALOPRAM 20 MG TABLET. PO SCH (09:00)
[2016-12-15] MEDS ORDERED: PROPOFOL 20 ML IV ONE (13:04)
--- NOTE | 2016-12-15 13:28 | PDOC4 ---
Operative Note Operative Note EGD with dilation Meds propofol per anesthesia Pre-op dx abd pain/dysphagia/abnl xray post-op dx hiatal hernia Schatzki ring non-erosive gastritis Plan advance diet and activity as tolerated release home if tolerates as patient poor candidate for Ramin fundoplication RO YARBROUGH MD Dec 15, 2016 13:28
[2016-12-15] MEDS: ATORVASTATIN CALCIUM 20 MG TABLET PO SCH (21:03)
[2016-12-15] MEDS: GABAPENTIN 100 MG CAPSULE. PO SCH (21:03)
[2016-12-15] MEDS: ALPRAZolam 0.25 MG TABLET PO PRN (21:07)
[2016-12-16] MEDS: ACETAMINOPHEN 325 MG TABLET. PO PRN (02:38)
[2016-12-16 02:40] VITALS: BP 126/77
[2016-12-16] MEDS: PANTOPRAZOLE 40 MG TABLET.DR. PO SCH (06:00)
[2016-12-16 07:15] VITALS: BP 135/75
--- NOTE | 2016-12-16 08:10 | DISCH ---
DISCHARGE INSTRUCTIONS Condition on Discharge Condition on Discharge: Stable Activity After Discharge Activity Instructions for Disc: No restrictions Diet after Discharge Diet after Discharge: Regular Follow-Up Follow up with: LUCIO Arambula MD Dec 16, 2016 08:10
--- NOTE | 2016-12-16 08:13 | PDOC ---
Provider Note Provider Note [id number] LUCIO RILEY MD Dec 16, 2016 08:13
--- NOTE | 2016-12-16 08:46 | DS ---
DATE OF DISCHARGE: 12/16/2016 HOSPITAL SUMMARY: An 86-year-old who came in with upper abdominal pain, with previous history of hiatal hernia and gastritis. Hence she was scheduled for endoscopy any way. CBC, chemistry profile, and cardiac enzymes were all within normal limits, as was urinalysis and urine culture. Barium swallow showed evidence of a large hiatal hernia, with some abnormal distal esophageal peristalsis, with no sign of any specific significant stenosis. She was given IV fluids GI saw her and scheduled an endoscopy, which was done 12/15, and the results are not available, but she was told that no new acute findings were found and she was not a surgical candidate for the hiatal hernia. She was comfortable to be discharged as an outpatient at this time. FINAL DIAGNOSES: Epigastric pain, secondary to hiatal hernia. OPERATIONS AND PROCEDURES: EGD. COMPLICATIONS: None. CONSULTATIONS: Dr. Polanco. DISPOSITION: All home meds remain the same. ACTIVITY: As tolerated: DIET: Regular. FOLLOWUP: As needed for medical concerns. PROGNOSIS: Guarded. LUCIO RILEY MD DR: GEETA/jenni JOB#: [id number] / [id number]
[2016-12-16] MEDS: FAMOTIDINE 20 MG/2 ML VIAL IVP SCH (08:51)
[2016-12-16] MEDS: CLOPIDOGREL BISULFATE 75 MG TABLET PO SCH (08:51)
[2016-12-16] MEDS: CITALOPRAM 20 MG TABLET. PO SCH (08:51)
[2016-12-16] MEDS: CHOLECALCIFEROL (VITAMIN D3) 1,000 UNIT TABLET PO SCH (08:51)
[2016-12-16] MEDS: ASPIRIN ENTERIC COATED 325 MG TABLET.DR. PO SCH (08:51)
[2016-12-16] MEDS: FERROUS SULFATE 325 MG TABLET. PO SCH (08:51)
[2016-12-16 08:52] VITALS: BP 135/75
[2016-12-16] MEDS: LOSARTAN POTASSIUM 50 MG TABLET. PO SCH (08:52)
== END 2016-12-16 10:29 | disposition home or self-care (01) | DRG 392 ==
LOC: ER 08:56 → 6 SOUTH 11:03
PROVIDERS: ADMIT Family Medicine; ATTEND Family Medicine
PROC: 0D758ZZ Dilation of Esophagus, Via Natural or Artificial Opening Endoscopic (ICD-10-PCS; principal; 2016-12-13)
DX: K44.9 Diaphragmatic hernia without obstruction or gangrene (principal); G62.9 Polyneuropathy, unspecified; I48.91 Unspecified atrial fibrillation; I10 Essential (primary) hypertension; E78.5 Hyperlipidemia, unspecified; F32.9 Major depressive disorder, single episode, unspecified; F41.9 Anxiety disorder, unspecified; I25.10 Atherosclerotic heart disease of native coronary artery without angina pectoris; K22.5 Diverticulum of esophagus, acquired; K21.9 Gastro-esophageal reflux disease without esophagitis; K29.70 Gastritis, unspecified, without bleeding; E78.00 Pure hypercholesterolemia, unspecified; Z96.659 Presence of unspecified artificial knee joint; M19.90 Unspecified osteoarthritis, unspecified site; Z90.710 Acquired absence of both cervix and uterus; Z90.49 Acquired absence of other specified parts of digestive tract; Z79.82 Long term (current) use of aspirin; Z95.5 Presence of coronary angioplasty implant and graft
CPT/HCPCS: 36415; 74022; 74249; 80053; 81001; 82553; 83690; 84484; 85025; 85610; 85730; 87086; 93005; 96361; 96374; 96375; J2405; J2704; J3010; J7030; J7120; S0028; 92610; 99285-25

== ENCOUNTER 2016-12-20 08:58 | Inpatient (IN) | payer MEDICARE ==
[~2016-12-20] VITALS: Ht 157.5 cm; Wt 67.1 kg
[~2016-12-20 08:58] MED LIST changes: +OMEG100021 PO
--- NOTE | 2016-12-20 09:09 | PHYS DOC ---
Past Medical History Past Medical History: A-Fib, Arthritis, Depression, GERD, GI Bleed, High Cholesterol, Hypertension Additional Past Medical Histor: esophageal varices, GI bleedx2 Past Surgical History: Angioplasty, Appendectomy, Cholecystectomy, Hysterectomy , Knee Replacement, Pacemaker Additional Past Surgical Histo: esophageal dilation,STENT PLACEMENT Alcohol Use: None Drug Use: None Adult General Chief Complaint Chief Complaint: ABDOMINAL PAIN HPI HPI Patient is a 86 year old female who presents with periumbilical abdominal pain. She states his same pain she had recently was admitted for but has not gotten better. She states it's constant pain surrounding her umbilical area and then radiated up into her chest. She took some Xanax and that hasn't made her feel better but this morning the pain got worse she took a nitroglycerin and that actually made her pain get better. She denies shortness of breath, but states she feels nauseated and did vomit once this morning. She states she hasn't had a bowel movement since Tuesday. She states that she had a scope by Dr. Salguero last week when she was here. Review of Systems Review of Systems Constitutional: Denies fever or chills [] Eyes: Denies change in visual acuity, redness, or eye pain [] HENT: Denies nasal congestion or sore throat [] Respiratory: Denies cough or shortness of breath [] Cardiovascular: No additional information not addressed in HPI [] GI: Denies abdominal pain, nausea, vomiting, bloody stools or diarrhea [] : Denies dysuria or hematuria [] Musculoskeletal: Denies back pain or joint pain [] Integument: Denies rash or skin lesions [] Neurologic: Denies headache, focal weakness or sensory changes [] Endocrine: Denies polyuria or polydipsia [] Current Medications Current Medications Current Medications Medications (Trade) Dose Ordered Sig/Mariajose Start Time Stop Time Status Last Admin Dose Admin Fentanyl Citrate (Fentanyl 2ml Vial) 25 mcg PRN Q15MIN PRN 12/20/16 09:45 12/21/16 09:44 12/20/16 11:23 25 MCG Info (Do NOT chart on this entry -- for MONITORING) 1 each PRN DAILY PRN 12/20/16 10:45 12/22/16 10:44 Iohexol (Omnipaque 240 Mg/ml) 30 ml 1X ONCE 12/20/16 10:30 12/20/16 10:31 DC 12/20/16 12:03 30 ML Iohexol (Omnipaque 300 Mg/ml) 60 ml 1X ONCE 12/20/16 10:30 12/20/16 10:31 DC 12/20/16 12:03 60 ML Ondansetron HCl (Zofran) 4 mg 1X ONCE 12/20/16 09:45 12/20/16 09:46 DC 12/20/16 09:50 4 MG Pantoprazole Sodium (Protonix Vial) 80 mg 1X ONCE 12/20/16 11:45 12/20/16 11:46 DC 12/20/16 12:31 80 MG Pantoprazole Sodium 80 mg/ Sodium Chloride 100 ml @ 10 mls/hr Q10H 12/20/16 12:00 12/20/16 11:57 10 MLS/HR Promethazine HCl 25 mg/Sodium Chloride 51 ml @ 101 mls/hr 1X ONCE 12/20/16 11:00 12/20/16 11:30 DC 12/20/16 11:24 101 MLS/HR Allergies Allergies Allergies Coded Allergies Type Severity Reaction Last Updated Verified No Known Drug Allergies 12/15/16 No Physical Exam Physical Exam Constitutional: Well developed, well nourished, no acute distress, non-toxic appearance. [] HENT: Normocephalic, atraumatic, bilateral external ears normal, oropharynx moist, no oral exudates, nose normal. [] Eyes: PERRLA, EOMI, conjunctiva normal, no discharge. [] Neck: Normal range of motion, no tenderness, supple, no stridor. [] Cardiovascular:Heart rate regular rhythm, no murmur [] Lungs & Thorax: Bilateral breath sounds clear to auscultation [] Abdomen: Bowel sounds normal, soft, no tenderness, no masses, no pulsatile masses. [] Skin: Warm, dry, no erythema, no rash. [] Back: No tenderness, no CVA tenderness. [] Extremities: No tenderness, no cyanosis, no clubbing, ROM intact, no edema. [] Neurologic: Alert and oriented X 3, normal motor function, normal sensory function, no focal deficits noted. [] Psychologic: Affect normal, judgement normal, mood normal. [] Current Patient Data Vital Signs Vital Signs Date Time Temp Pulse Resp B/P (MAP) Pulse Ox O2 Delivery O2 Flow Rate FiO2 12/20/16 11:23 24 94 Room Air 12/20/16 10:30 84 100/63 (75) 12/20/16 08:58 98.1 98.1 Lab Values Laboratory Tests Test 12/20/16 09:20 12/20/16 10:59 12/20/16 11:00 12/20/16 11:15 White Blood Count 8.8 x10^3/uL (4.0-11.0) Red Blood Count 3.88 x10^6/uL (3.50-5.40) Hemoglobin 10.9 g/dL (12.0-15.5) L Hematocrit 33.3 % (36.0-47.0) L Mean Corpuscular Volume 86 fL (79-100) Mean Corpuscular Hemoglobin 28 pg (25-35) Mean Corpuscular Hemoglobin Concent 33 g/dL (31-37) Red Cell Distribution Width 14.5 % (11.5-14.5) Platelet Count 238 x10^3/uL (140-400) Neutrophils (%) (Auto) 70 % (31-73) Lymphocytes (%) (Auto) 21 % (24-48) L Monocytes (%) (Auto) 6 % (0-9) Eosinophils (%) (Auto) 2 % (0-3) Basophils (%) (Auto) 1 % (0-3) Neutrophils # (Auto) 6.2 x10^3uL (1.8-7.7) Lymphocytes # (Auto) 1.8 x10^3/uL (1.0-4.8) Monocytes # (Auto) 0.5 x10^3/uL (0.0-1.1) Eosinophils # (Auto) 0.2 x10^3/uL (0.0-0.7) Basophils # (Auto) 0.1 x10^3/uL (0.0-0.2) Prothrombin Time 13.5 SEC (11.7-14.0) Prothrombin Time INR 1.1 (0.8-1.1) Sodium Level 143 mmol/L (136-145) Potassium Level 4.2 mmol/L (3.5-5.1) Chloride Level 107 mmol/L (98-107) Carbon Dioxide Level 27 mmol/L (21-32) Anion Gap 9 (6-14) Blood Urea Nitrogen 54 mg/dL (7-20) H Creatinine 0.9 mg/dL (0.6-1.0) Estimated GFR (Cockcroft-Gault) 59.5 Glucose Level 118 mg/dL (70-99) H Calcium Level 8.4 mg/dL (8.5-10.1) L Magnesium Level 2.0 mg/dL (1.8-2.4) Total Bilirubin 0.5 mg/dL (0.2-1.0) Direct Bilirubin 0.1 mg/dL (0.0-0.2) Aspartate Amino Transferase (AST) 15 U/L (15-37) Alanine Aminotransferase (ALT) 20 U/L (14-59) Alkaline Phosphatase 82 U/L (46-116) Creatine Kinase 28 U/L (26-192) Creatine Kinase MB (Mass) < 0.5 ng/mL (0.0-3.6) Creatine Kinase MB Relative Index % (0-4) Troponin I Quantitative < 0.017 ng/mL (0.000-0.055) PG-Wuc-A-Type Natriuretic Peptide 210 pg/mL (0-449) Total Protein 5.9 g/dL (6.4-8.2) L Albumin 3.2 g/dL (3.4-5.0) L Lipase 124 U/L (73-393) Urine Collection Type Void Urine Color Yellow Urine Clarity Clear Urine pH 6.0 Urine Specific [place] 1.025 Urine Protein Negative mg/dL (NEG-TRACE) Urine Glucose (UA) Negative mg/dL (NEG) Urine Ketones (Stick) Trace mg/dL (NEG) Urine Blood Negative (NEG) Urine Nitrite Negative (NEG) Urine Bilirubin Negative (NEG) Urine Urobilinogen Dipstick 0.2 mg/dL (0.2 mg/dL) Urine Leukocyte Esterase Trace (NEG) Urine RBC Occ /HPF (0-2) Urine WBC 1-4 /HPF (0-4) Urine Squamous Epithelial Cells Few /LPF Urine Bacteria Few /HPF (0-FEW) Urine Mucus Slight /LPF Gastric Fluid Occult Blood Positive (NEG) Stool Occult Blood Negative (NEG) Laboratory Tests 12/20/16 09:20 Laboratory Tests 12/20/16 09:20 EKG EKG EKG shows sinus rhythm with a rate of [address] elevations or T- wave inversions, axis deviation noted, QTC 463 ms, 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 PHYSICIAN: MERLY BAILEY MD REASON: chest pain, UPPER ABDOMEN PAIN, X 1 WEEK PROCEDURE: PORTABLE CHEST 1V Portable chest, 12/20/2016: History: Chest and upper abdominal pain Comparison is made to a study from 12/13/2016. A left-sided transvenous pacemaker remains in place with 2 leads extending into the right heart. There is a retrocardiac gas collection compatible with a moderate-sized hiatal hernia. The heart size is normal. No pulmonary infiltrate is seen. There is no evidence of pleural fluid. There are mild scattered degenerative changes in the spine. IMPRESSION: 1. Moderate sized hiatal hernia. 2. No acute cardiopulmonary abnormality is detected. DICTATED and SIGNED BY: ORIANA BRIGHT MD DATE: 12/20/16950 CC: MERLY BAILEY MD; LUCIO RILEY MD ~ Impressions: Abdominal pain GI bleed Course & Med Decision Making Course & Med Decision Making Pertinent Labs and Imaging studies reviewed. (See chart for details) Patient's was having abdominal pain and then vomited black emesis which was heme positive. She started on a Protonix drip and is in stable condition this time. She's being admitted to Dr. Lucio Riley consultations to GI. Interim orders have been written. Dragon Disclaimer Dragon Disclaimer This electronic medical record was generated, in whole or in part, using a voice recognition dictation system. Departure Departure Impression: Primary Impression: GI bleed Disposition: ADMITTED INPATIENT Admitting Physician: Lucio Riley Condition: STABLE Referrals: LUCIO RILEY MD (PCP) Problem Qualifiers Primary Impression: GI bleed GI bleed type/associated pathology: gastrointestinal hemorrhage with hematemesis Qualified Codes: K92.0 - HematemesMERLY Franco MD Dec 20, 2016 09:09
[2016-12-20 09:39] LABS: BASO # 0.1 x10^3/uL (0.0-0.2); BASO % 1 % (0-3); EOS % 2 % (0-3); HEMATOCRIT 33.3 % (36.0-47.0); HEMOGLOBIN 10.9 g/dL (12.0-15.5); LYMPH # 1.8 x10^3/uL (1.0-4.8); LYMPH % 21 % (24-48); MEAN CORPUSCULAR HEMOGLOBIN 28 pg (25-35); MEAN CORPUSCULAR HGB CONC 33 g/dL (31-37); MEAN CORPUSCULAR VOLUME 86 fL (79-100); MONO % 6 % (0-9); NEUT % 70 % (31-73); PLATELET COUNT 238 x10^3/uL (140-400); RED BLOOD COUNT 3.88 x10^6/uL (3.50-5.40); RED CELL DISTRIBUTION WIDTH 14.5 % (11.5-14.5); WHITE BLOOD COUNT 8.8 x10^3/uL (4.0-11.0)
[2016-12-20 09:44] LABS: CALCIUM 8.4 mg/dL (8.5-10.1); CREATININE 0.9 mg/dL (0.6-1.0); GFR 59.5; POTASSIUM 4.2 mmol/L (3.5-5.1)
[2016-12-20] MEDS ORDERED: ONDANSETRON PF 4 MG/2 ML VIAL. IV ONE (09:45)
[2016-12-20 09:49] LABS: ALBUMIN 3.2 g/dL (3.4-5.0); DIRECT BILIRUBIN 0.1 mg/dL (0.0-0.2); TOTAL BILIRUBIN 0.5 mg/dL (0.2-1.0); TOTAL PROTEIN 5.9 g/dL (6.4-8.2)
[2016-12-20] MEDS: fentaNYL PF VIAL 100 MCG/2 ML VIAL IV PRN ×2 (09:50→11:23)
--- NOTE | 2016-12-20 09:55 | RAD ---
Portable chest, 12/20/2016: History: Chest and upper abdominal pain Comparison is made to a study from 12/13/2016. A left-sided transvenous pacemaker remains in place with 2 leads extending into the right heart. There is a retrocardiac gas collection compatible with a moderate-sized hiatal hernia. The heart size is normal. No pulmonary infiltrate is seen. There is no evidence of pleural fluid. There are mild scattered degenerative changes in the spine. IMPRESSION: 1. Moderate sized hiatal hernia. 2. No acute cardiopulmonary abnormality is detected.
--- NOTE | 2016-12-20 09:59 | EKG ---
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
[2016-12-20 10:00] LABS: CREATINE KINASE 28 U/L (26-192)
[2016-12-20 10:01] LABS: CKMB MASS < 0.5 ng/mL (0.0-3.6)
[2016-12-20 10:04] LABS: INR 1.1 (0.8-1.1); PROTHROMBIN TIME PATIENT 13.5 SEC (11.7-14.0)
[2016-12-20] MEDS ORDERED: IOHEXOL 240 MG/ML 50ML VIAL. PO ONE (10:30)
[2016-12-20] MEDS ORDERED: IOHEXOL 300 MG/ML 75 ML VIAL IV ONE (10:30)
[2016-12-20] MEDS ORDERED: CONTRAST GIVEN MC PRN (10:45)
[2016-12-20] MEDS ORDERED: PROMETHAZINE 25 MG in IV NORMAL SALINE 50ML 50 ML IV ONE (11:00)
[2016-12-20 11:23] LABS: BILIRUBIN,URINE NEGATIVE (NEG); GLUCOSE,URINE NEGATIVE (NEG); NITRITE,URINE NEGATIVE (NEG); PROTEIN,URINE NEGATIVE (NEG-TRACE); UROBILINOGEN,URINE 0.2 mg/dL (0.2 mg/dL)
[2016-12-20 11:32] LABS: NEG OBC FOB NEG; POS OBC FOB POS
[2016-12-20 11:32] LABS: NEG OBC GOB NEG; POS OBC GOB POS
[2016-12-20 11:34] LABS: BACTERIA,URINE FEW /HPF (0-FEW); RBC,URINE OCC /HPF (0-2); SQUAMOUS EPITHELIAL CELL,UR FEW /LPF
[2016-12-20] MEDS ORDERED: PANTOPRAZOLE IV PUSH 40 MG VIAL. IVP ONE (11:45)
[2016-12-20] MEDS: PANTOPRAZOLE SODIUM IV 80 MG in IV NORMAL SALINE 100ML 100 ML IV SCH ×2 (11:57→22:10)
--- NOTE | 2016-12-20 12:39 | RAD ---
CT abdomen/pelvis with IV contrast Indication: 86-year-old female with abdominal pain. Technique: CT abdomen/pelvis with 60 mL of Omnipaque 300 and 30 mL of Omnipaque 240 with multiplanar reformats. Comparison: Prior CT abdomen/pelvis from 2010 Findings: Heart is normal in size. Pacemaker leads are seen projecting in the right atrium and right ventricle. Areas of groundglass opacity seen within the lung bases with bibasilar atelectasis. Scattered punctate calcifications seen within liver likely healed granulomatous disease. No suspicious liver lesion. Spleen within normal limits. Status post cholecystectomy. No intrahepatic biliary duct dilation. Large sliding hiatal hernia. Pancreas is within normal limits. Adrenal glands show no focal lesion. Stable 7 millimeter low attenuating lesion within the right kidney likely simple cyst. No hydronephrosis. No abdominal or pelvic adenopathy. Streak artifact from retained barium contrast from recent upper GI study limits evaluation of adjacent soft tissue. No bowel obstruction. The descending and sigmoid colon diverticulosis. Bladder within normal limits. Uterus not visualized. Scattered atherosclerotic disease of abdominal aorta and bilateral proximal iliac arteries. Evidence of healed right inferior pubic ramus fracture. Diffuse osteopenia of the bones. Degenerative disc disease in the lower lumbar spine. Levoscoliosis of the upper lumbar spine. Impression: 1. No bowel obstruction. 2. Large sliding hiatal hernia. Descending colon and sigmoid colon diverticulosis.
--- NOTE | 2016-12-20 12:57 | ACF ---
Admit Criteria Forms Admit Criteria Forms Admit Criteria Forms GASTROINTESTINAL BLEEDING, UPPER Clinical Indications for Admission to Inpatient Care ( curyung/check or initial the applicable condition/criteria) Admission is indicated for 1 or more of the following(1)(2)(3)(4)(5)(6): (X) I. Active bleeding (eg, fresh voluminous blood in emesis or nasogastric aspirate) II. High-risk endoscopic features (arterial bleeding, adherent clot, nonbleeding visible vessel, varices, flat red spots, ulcer size greater than 2 cm, or portal hypertensive gastropathy) III. Severe liver disease (eg, cirrhosis) IV. Significant active comorbid disease (e.g. symptomatic heart failure, COPD) V. Previous aortic graft placement or known aortic aneurysm . Coagulopathy (eg advanced liver disease, irreversible anticoagulation therapy) VII. Syncope VIII. Associated conditions requiring hospitalization (e.g., perforation, obstruction from ulcer) IX. Inpatient admission required rather than observation care (Also use Gastrointestinal Bleeding, Upper: Observation Care as appropriate) because of 1 or more of the following (7)(8) : a) Hemodynamic instability that is severe or persistent b) Anemia requiring inpatient admission as indicated by ALL of the followin) Presence of significant clinical finding indicated by 1 or more of the following: A. Tachycardia for age B. Orthostatic vital sign changes C. Cognitive impairment D. Heart failure E. Chest pain F. Exertional dyspnea G. Other findings suggesting inadequate perfusion (eg, peripheral or myocardial ischemia, end organ dysfunction) 2) Initial (eg, emergency department, observation care ) treatment with transfusion or volume replacement is judged inappropriate (due to severity of the finding) or has been ineffective c) Severe pain requiring acute inpatient management d) High-risk low platelet count e) IV fluid to replace significant ongoing losses (greater than 3 L/m2 per day) f) Immediate inpatient surgery g) Other condition, treatment or monitoring requiring inpatient admission Extended stay beyond goal length of stay may be needed for(1))(3)(4)(5)(18): a) Emergency surgery(19)(20) b) Persistent coagulation abnormalities(9) c) Recurrent, obscure, or persistent bleeding or continued Hemodynamic instability(2)(5)(9)(19)(20)(21)(22)(23)(24) d) Associated conditions requiring surgery (eg, perforated gastric ulcer, gastric outlet obstruction, aortoentric fistula) e) Active comorbidities (eg, renal insufficiency, malignancy, heart failure , liver disease,respiratory failure, malnutrition) (29)(30)(31) The original [facility] [employer] content created by [facility] has been revised. The portions of the content which have been revised are identified through the use of italic text or in bold, and [facility] has neither reviewed nor approved the modified material. All other unmodified content is copyright [facility]. Please see references footnoted in the original [facility] [employer] edition 2017 MEME ANDRADE Dec 20, 2016 12:57
[2016-12-20] MEDS ORDERED: ONDANSETRON PF 4 MG/2 ML VIAL. IV PRN (13:00)
--- NOTE | 2016-12-20 14:06 | PDOC ---
Subjective: Subjective: See GI consult from 12/13/16. Upper GI 12/14/16: large hiatal hernia, abnormal esophageal peristalsis with scattered tertiary contractions, mild smooth narrowing of the esophagus at the GE junction level, small Zenker's diverticulum. EGD 12/15/16: hiatal hernia, Schatzki's ring (dilated), non-erosive gastritis. Surgical consult was discussed; however, poor candidate considering age, co- morbidities, and presbyesophagus/dysphagia. Daughter reports didn't really feel better after discharge last week, disappointed she was sent home without "a fix." Not eating much at home (ate fish yesterday), still epigastric/LUQ pain, better w/ laying flat. They feel her hiatal hernia is not to blame but instead a ventral hernia - sometimes it "sticks out" causing pain and then gets better after laying flat. This morning vomited "dry black chunks" after drinking contrast for CT (below). Objective: Vital Signs: Vital Signs Date Time Temp Pulse Resp B/P (MAP) Pulse Ox O2 Delivery O2 Flow Rate FiO2 12/20/16 12:14 78 17 119/58 (78) 91 Nasal Cannula 2.0 12/20/16 08:58 98.1 98.1 Labs: Laboratory Tests Test 12/20/16 09:20 12/20/16 10:59 12/20/16 11:00 12/20/16 11:15 White Blood Count 8.8 x10^3/uL Red Blood Count 3.88 x10^6/uL Hemoglobin 10.9 g/dL Hematocrit 33.3 % Mean Corpuscular Volume 86 fL Mean Corpuscular Hemoglobin 28 pg Mean Corpuscular Hemoglobin Concent 33 g/dL Red Cell Distribution Width 14.5 % Platelet Count 238 x10^3/uL Neutrophils (%) (Auto) 70 % Lymphocytes (%) (Auto) 21 % Monocytes (%) (Auto) 6 % Eosinophils (%) (Auto) 2 % Basophils (%) (Auto) 1 % Neutrophils # (Auto) 6.2 x10^3uL Lymphocytes # (Auto) 1.8 x10^3/uL Monocytes # (Auto) 0.5 x10^3/uL Eosinophils # (Auto) 0.2 x10^3/uL Basophils # (Auto) 0.1 x10^3/uL Prothrombin Time 13.5 SEC Prothromb Time International Ratio 1.1 Sodium Level 143 mmol/L Potassium Level 4.2 mmol/L Chloride Level 107 mmol/L Carbon Dioxide Level 27 mmol/L Anion Gap 9 Blood Urea Nitrogen 54 mg/dL Creatinine 0.9 mg/dL Estimated GFR (Cockcroft-Gault) 59.5 Glucose Level 118 mg/dL Calcium Level 8.4 mg/dL Magnesium Level 2.0 mg/dL Total Bilirubin 0.5 mg/dL Direct Bilirubin 0.1 mg/dL Aspartate Amino Transf (AST/SGOT) 15 U/L Alanine Aminotransferase (ALT/SGPT) 20 U/L Alkaline Phosphatase 82 U/L Creatine Kinase 28 U/L Creatine Kinase MB (Mass) < 0.5 ng/mL Creatine Kinase MB Relative Index % Troponin I Quantitative < 0.017 ng/mL NR-Sgl-T-Type Natriuretic Peptide 210 pg/mL Total Protein 5.9 g/dL Albumin 3.2 g/dL Lipase 124 U/L Urine Collection Type Void Urine Color Yellow Urine Clarity Clear Urine pH 6.0 Urine Specific [place] 1.025 Urine Protein Negative mg/dL Urine Glucose (UA) Negative mg/dL Urine Ketones (Stick) Trace mg/dL Urine Blood Negative Urine Nitrite Negative Urine Bilirubin Negative Urine Urobilinogen Dipstick 0.2 mg/dL Urine Leukocyte Esterase Trace Urine RBC Occ /HPF Urine WBC 1-4 /HPF Urine Squamous Epithelial Cells Few /LPF Urine Bacteria Few /HPF Urine Mucus Slight /LPF Gastric Fluid Occult Blood Positive Stool Occult Blood Negative Imaging: CT A/P Impression: 1. No bowel obstruction. 2. Large sliding hiatal hernia. Descending colon and sigmoid colon diverticulosis. PE: GEN: looks uncomfortable LUNGS: clear HEART: RRR ABD: LUQ > epigastric tenderness, BS+ NEURO/PSYCH: A & O 3, drowsy A/P: Recurrent upper abd pain w/ coffee-ground emesis -recently admitted, workup as above -has large hiatal hernia, family also reports ventral hernia -Hgb stable from discharge w/ elevated BUN, on PPI drip, NPO -h/o CAD on Plavix, ASA -- Difficult situation w/ recurrent admissions. Will ask for surgical opinion. EDWIN BARROW Dec 20, 2016 14:05
[2016-12-20] MEDS ORDERED: BISACODYL 10 MG SUPP.RECT. PR ONE (14:15)
[2016-12-20 14:16] LABS: HEMATOCRIT 30.5 % (36.0-47.0); RED BLOOD COUNT 3.53 x10^6/uL (3.50-5.40); RED CELL DISTRIBUTION WIDTH 14.8 % (11.5-14.5); WHITE BLOOD COUNT 9.3 x10^3/uL (4.0-11.0)
[2016-12-20 18:10] VITALS: BP 97/47
[2016-12-20 19:00] VITALS: BP 95/57
[2016-12-20 23:00] VITALS: BP 113/60
[2016-12-21 03:00] VITALS: BP 124/57
[2016-12-21 06:28] LABS: BASO # 0.1 x10^3/uL (0.0-0.2); BASO % 1 % (0-3); EOS % 3 % (0-3); HEMATOCRIT 29.7 % (36.0-47.0); HEMOGLOBIN 9.7 g/dL (12.0-15.5); LYMPH # 2.3 x10^3/uL (1.0-4.8); LYMPH % 25 % (24-48); MEAN CORPUSCULAR HEMOGLOBIN 28 pg (25-35); MEAN CORPUSCULAR HGB CONC 33 g/dL (31-37); MEAN CORPUSCULAR VOLUME 86 fL (79-100); MONO % 7 % (0-9); NEUT % 64 % (31-73); PLATELET COUNT 214 x10^3/uL (140-400); RED BLOOD COUNT 3.44 x10^6/uL (3.50-5.40); WHITE BLOOD COUNT 8.9 x10^3/uL (4.0-11.0)
[2016-12-21 06:39] LABS: CALCIUM 8.2 mg/dL (8.5-10.1); CREATININE 1.4 mg/dL (0.6-1.0); GFR 35.7; POTASSIUM 3.7 mmol/L (3.5-5.1)
[2016-12-21 07:00] VITALS: BP 172/97
[2016-12-21] MEDS: LIDO:MAALOX:DONNATAL 1:1:1 15 ML SINGLE DOSE SWSW PRN ×2 (07:53→12:15)
--- NOTE | 2016-12-21 08:09 | PDOC ---
Provider Note Provider Note [id number] LUCIO RILEY MD Dec 21, 2016 08:09
--- NOTE | 2016-12-21 08:46 | HP ---
ADMIT DATE: 12/20/2016 CHIEF COMPLAINT: Vomiting, abdominal pain. HISTORY OF PRESENT ILLNESS: An 86-year-old white female with history of known large hiatal hernia and some episodic gastritis, had an EGD last week while in the hospital, which showed some nonerosive gastritis. She is felt to be a very poor operative candidate for the hiatal hernia repair and was sent home on meds, but came back in with abdominal pain, nausea and vomiting and "black emesis." Hemoglobin has remained stable around 10. BUN is elevated at 58, creatinine 1.4, where as last week it was 17 and 1.0 respectively. She denies melena, hematochezia, fever or other complaints. PAST MEDICAL HISTORY: Well documented in the old records. ALLERGIES: No allergies known. She has coronary artery disease and stents in place and takes aspirin and Plavix for that reason. SOCIAL HISTORY: , not physically active. Nonsmoker. FAMILY HISTORY: Unremarkable. REVIEW OF SYSTEMS: No other specific complaints. OBJECTIVE: ENT: All within normal limits. Mouth is dry. NECK: No masses, nodes or bruits. LUNGS: Decreased breath sounds. No wheezes. CARDIOVASCULAR: Regular rate. No irregular beat, murmur or tachycardia. ABDOMEN: Tender in the epigastrium. No discrete masses, hernias or lesions are felt. EXTREMITIES: Good pedal and radial pulses. SKIN: Turgor mildly decreased. NEUROLOGIC: Physiologic, nonfocal. Gait not tested, oriented x 4. ASSESSMENT: Recurrent upper abdominal pain with a history of hiatal hernia and nonerosive gastritis and some esophageal strictures. PLAN: We will rehydrate IV ____ regarding her preanal azotemia while she is on Protonix and surgical and GI consultations have been obtained. LUCIO RILEY MD DR: GEETA/jenni JOB#: [id number] / [id number]
[2016-12-21] MEDS: PANTOPRAZOLE SODIUM IV 80 MG in IV NORMAL SALINE 100ML 100 ML IV SCH (09:37)
[2016-12-21] MEDS: POTASSIUM CL 20MEQ D5-0.45NACL 1,000 ML IV SCH ×2 (09:37→20:51)
--- NOTE | 2016-12-21 10:40 | PDOC2 ---
DANGELO HOFFMAN SEAM FINISHER 12/21/16 1040: CONSULT Date of Consult Date of Consult DATE: 12/21/16 TIME: 10:32 Reason for Consult Reason for Consult: hiatal hernia Referring Physician Referring Physician: Dr Polanco Identification/Chief Complaint Chief Complaint abdominal pain Problems: Source Source: Chart review, Patient History of Present Illness Reason for Visit: She has been having abdominal pain, epigastric with radiation to her back for two weeks. She has had a poor appetite and increased weakness at home. Eating does seem to aggravate the pain. She reports a long standing history of vomiting and needing dilated by scope(she feels that this is not a new issue), however the epigastric pain is new. She also feels at times there is a bugle in her abdomen near RUQ scar and that will cause increased pain at times. Laying flat improves her pain. She did have coffee ground emesis in ER last night, she does have a history of bleeding ulcer per family. Past Medical History Cardiovascular: AFIB, CAD, HTN, Hyperlipidemia, Other CENTRAL NERVOUS SYSTEM: Periperal neuropathy Psych: Anxiety, Depression Musculoskeletal: Osteoarthritis Past Surgical History Past Surgical History: Pacemaker, Cholecystectomy, Cataract Removal, Hysterectomy, Other Family History Family History: Stroke, Other Social History No ALCOHOL: none Drugs: None Lives: with Family Domestic Violence: Neg Current Problem List Problem List Problems Medical Problems: (1) GI bleed Status: Acute Current Medications Current Medications Current Medications Fentanyl Citrate (Fentanyl 2ml Vial) 25 mcg PRN Q15MIN PRN IV PAIN GREATER THAN 3/10 Last administered on 12/20/16 11:23; Start 12/20/16 at 09:45; Stop at 09:44; Status DC Ondansetron HCl (Zofran) 4 mg 1X ONCE IV Last administered on 12/20/16 09:50 ; Start 12/20/16 at 09:45; Stop 12/20/16 at 09:46; Status DC Iohexol (Omnipaque 240 Mg/ml) 30 ml 1X ONCE PO Last administered on 12/20/16 12:03; Start 12/20/16 at 10:30; Stop 12/20/16 at 10:31; Status DC Iohexol (Omnipaque 300 Mg/ml) 60 ml 1X ONCE IV Last administered on 12/20/16 12:03; Start 12/20/16 at 10:30; Stop 12/20/16 at 10:31; Status DC Info (Do NOT chart on this entry -- for MONITORING) 1 each PRN DAILY PRN MC SEE COMMENTS; Start 12/20/16 at 10:45; Stop 12/22/16 at 10:44 Promethazine HCl 25 mg/Sodium Chloride 51 ml @ 101 mls/hr 1X ONCE IV Last administered on 12/20/16 11:24; Start 12/20/16 at 11:00; Stop 12/20/16 at 11:30 ; Status DC Pantoprazole Sodium (Protonix Vial) 80 mg 1X ONCE IVP Last administered on 12:31; Start 12/20/16 at 11:45; Stop 12/20/16 at 11:46; Status DC Pantoprazole Sodium 80 mg/ Sodium Chloride 100 ml @ 10 mls/hr Q10H IV Last administered on 12/21/16 09:37; Start 12/20/16 at 12:00 Ondansetron HCl (Zofran) 4 mg PRN Q8HRS PRN IV NAUSEA/VOMITING; Start 12/20/16 at 13:00; Stop 12/21/16 at 12:59 Bisacodyl (Dulcolax Supp) 10 mg 1X ONCE MO Last administered on 12/20/16 15: 35; Start 12/20/16 at 14:15; Stop 12/20/16 at 14:16; Status DC Multi-Ingredient Mouthwash/Gargle (Gi Cocktail Single Dose) 15 ml Q3HRS PRN SWSW CHEST PAIN Last administered on 12/21/16 07:53; Start 12/21/16 at 07:45 Potassium Chloride/Dextrose/ Sod Cl 1,000 ml @ 100 mls/hr Q10H IV Last administered on 12/21/16 09:37; Start 12/21/16 at 08:15 Active Scripts Active Lipitor (Atorvastatin Calcium) 20 Mg Tablet 20 Mg PO QHS Reported Fish Oil 1,000 mg Softgel ([place]-3/Dha/Epa/Fish Oil) 1,000 Mg Capsule 1,000 Mg PO Aspirin Ec (Aspirin) 325 Mg Tablet.dr 1 Tab PO DAILY Plavix (Clopidogrel Bisulfate) 75 Mg Tablet 1 Tab PO DAILY Ferrous Sulfate 325 Mg Tablet 325 Mg PO DAILY Vitamin D3 (Cholecalciferol (Vitamin D3)) 1,000 Unit Tablet 1,000 Unit PO DAILY Losartan Potassium 50 Mg Tablet 50 Mg PO DAILY Gabapentin 100 Mg Capsule 200 Mg PO QHS Protonix (Pantoprazole Sodium) 40 Mg Tablet.dr 40 Mg PO DAILY Diltiazem 24HR Cd (Diltiazem Hcl) 240 Mg Cap.er.24h 240 Mg PO DAILY Tylenol (Acetaminophen) 325 Mg Tablet 650 Mg PO PRN Q6HRS PRN as needed Xanax (Alprazolam) 0.25 Mg Tablet 0.125 Mg PO PRN Q8HRS PRN Next dose: as needed Citalopram Hbr (Citalopram Hydrobromide) 20 Mg Tablet 20 Mg PO DAILY Allergies Allergies: Coded Allergies: No Known Drug Allergies (Unverified , 12/15/16) ROS General: YES: Chills, Night Sweats, No: Other (fevers) PSYCHOLOGICAL ROS: YES: Anxiety, Depression Eyes: No Blurry vision, No Double vision HEENT: No: Heacaches, Sore Throat Hematological and Lymphatic: YES: Bleeding Problems, Brusing Respiratory: YES: SOB with excertion Cardiovascular: yes Chest Pain (due to acute upper abdominal pain) Gastrointestinal: Yes Constipation Genitourinary: No Dysuria, No Hematuria Musculoskeletal: No Joint Pain, No Muscle Pain Neurological: No Impaired Coord/balance, No Memory Loss Skin: No Pruritus, No Rash Physical Exam General: Alert, Oriented X3, Cooperative, No acute distress HEENT: PERRLA, Mucous membr. moist/pink Lungs: Clear to auscultation, Normal air movement Heart: Regular rate, Normal S1, Normal S2, No murmurs Abdomen: Soft, Other (ND, epigastric tenderness, I could not palpate a abdominal hernia on exam with patient laying and sitting, midline and RUQ scars from previous surgeries ) Extremities: No clubbing, No cyanosis Skin: No rashes, No breakdown Neuro: Normal gait, Normal speech Psych/Mental Status: Mental status NL, Mood NL MUSCULOSKELETAL: No deformity, No swelling Vitals VITALS Vital Signs Date Time Temp Pulse Resp B/P (MAP) Pulse Ox O2 Delivery O2 Flow Rate FiO2 12/21/16 07:00 98.2 63 20 172/97 (122) 98 Room Air 98.2 12/21/16 03:00 2.0 Labs Labs Laboratory Tests Test 12/20/16 09:20 12/20/16 10:59 12/20/16 11:00 12/20/16 11:15 White Blood Count 8.8 x10^3/uL (4.0-11.0) Red Blood Count 3.88 x10^6/uL (3.50-5.40) Hemoglobin 10.9 g/dL (12.0-15.5) Hematocrit 33.3 % (36.0-47.0) Mean Corpuscular Volume 86 fL (79-100) Mean Corpuscular Hemoglobin 28 pg (25-35) Mean Corpuscular Hemoglobin Concent 33 g/dL (31-37) Red Cell Distribution Width 14.5 % (11.5-14.5) Platelet Count 238 x10^3/uL (140-400) Neutrophils (%) (Auto) 70 % (31-73) Lymphocytes (%) (Auto) 21 % (24-48) Monocytes (%) (Auto) 6 % (0-9) Eosinophils (%) (Auto) 2 % (0-3) Basophils (%) (Auto) 1 % (0-3) Neutrophils # (Auto) 6.2 x10^3uL (1.8-7.7) Lymphocytes # (Auto) 1.8 x10^3/uL (1.0-4.8) Monocytes # (Auto) 0.5 x10^3/uL (0.0-1.1) Eosinophils # (Auto) 0.2 x10^3/uL (0.0-0.7) Basophils # (Auto) 0.1 x10^3/uL (0.0-0.2) Prothrombin Time 13.5 SEC (11.7-14.0) Prothromb Time International Ratio 1.1 (0.8-1.1) Sodium Level 143 mmol/L (136-145) Potassium Level 4.2 mmol/L (3.5-5.1) Chloride Level 107 mmol/L (98-107) Carbon Dioxide Level 27 mmol/L (21-32) Anion Gap 9 (6-14) Blood Urea Nitrogen 54 mg/dL (7-20) Creatinine 0.9 mg/dL (0.6-1.0) Estimated GFR (Cockcroft-Gault) 59.5 Glucose Level 118 mg/dL (70-99) Calcium Level 8.4 mg/dL (8.5-10.1) Magnesium Level 2.0 mg/dL (1.8-2.4) Total Bilirubin 0.5 mg/dL (0.2-1.0) Direct Bilirubin 0.1 mg/dL (0.0-0.2) Aspartate Amino Transf (AST/SGOT) 15 U/L (15-37) Alanine Aminotransferase (ALT/SGPT) 20 U/L (14-59) Alkaline Phosphatase 82 U/L (46-116) Creatine Kinase 28 U/L (26-192) Creatine Kinase MB (Mass) < 0.5 ng/mL (0.0-3.6) Creatine Kinase MB Relative Index % (0-4) Troponin I Quantitative < 0.017 ng/mL (0.000-0.055) HR-Zik-E-Type Natriuretic Peptide 210 pg/mL (0-449) Total Protein 5.9 g/dL (6.4-8.2) Albumin 3.2 g/dL (3.4-5.0) Lipase 124 U/L (73-393) Urine Collection Type Void Urine Color Yellow Urine Clarity Clear Urine pH 6.0 Urine Specific [place] 1.025 Urine Protein Negative mg/dL (NEG-TRACE) Urine Glucose (UA) Negative mg/dL (NEG) Urine Ketones (Stick) Trace mg/dL (NEG) Urine Blood Negative (NEG) Urine Nitrite Negative (NEG) Urine Bilirubin Negative (NEG) Urine Urobilinogen Dipstick 0.2 mg/dL (0.2 mg/dL) Urine Leukocyte Esterase Trace (NEG) Urine RBC Occ /HPF (0-2) Urine WBC 1-4 /HPF (0-4) Urine Squamous Epithelial Cells Few /LPF Urine Bacteria Few /HPF (0-FEW) Urine Mucus Slight /LPF Gastric Fluid Occult Blood Positive (NEG) Stool Occult Blood Negative (NEG) Test 12/20/16 13:53 12/20/16 18:55 12/21/16 00:42 12/21/16 05:20 White Blood Count 9.3 x10^3/uL (4.0-11.0) 8.9 x10^3/uL (4.0-11.0) Red Blood Count 3.53 x10^6/uL (3.50-5.40) 3.44 x10^6/uL (3.50-5.40) Hemoglobin 10.0 g/dL (12.0-15.5) 9.7 g/dL (12.0-15.5) Hematocrit 30.5 % (36.0-47.0) 29.7 % (36.0-47.0) Mean Corpuscular Volume 86 fL (79-100) 86 fL (79-100) Mean Corpuscular Hemoglobin 29 pg (25-35) 28 pg (25-35) Mean Corpuscular Hemoglobin Concent 33 g/dL (31-37) 33 g/dL (31-37) Red Cell Distribution Width 14.8 % (11.5-14.5) 15.0 % (11.5-14.5) Platelet Count 223 x10^3/uL (140-400) 214 x10^3/uL (140-400) Troponin I Quantitative < 0.017 ng/mL (0.000-0.055) < 0.017 ng/mL (0.000-0.055) Neutrophils (%) (Auto) 64 % (31-73) Lymphocytes (%) (Auto) 25 % (24-48) Monocytes (%) (Auto) 7 % (0-9) Eosinophils (%) (Auto) 3 % (0-3) Basophils (%) (Auto) 1 % (0-3) Neutrophils # (Auto) 5.7 x10^3uL (1.8-7.7) Lymphocytes # (Auto) 2.3 x10^3/uL (1.0-4.8) Monocytes # (Auto) 0.6 x10^3/uL (0.0-1.1) Eosinophils # (Auto) 0.3 x10^3/uL (0.0-0.7) Basophils # (Auto) 0.1 x10^3/uL (0.0-0.2) Sodium Level 143 mmol/L (136-145) Potassium Level 3.7 mmol/L (3.5-5.1) Chloride Level 108 mmol/L (98-107) Carbon Dioxide Level 28 mmol/L (21-32) Anion Gap 7 (6-14) Blood Urea Nitrogen 58 mg/dL (7-20) Creatinine 1.4 mg/dL (0.6-1.0) Estimated GFR (Cockcroft-Gault) 35.7 Glucose Level 99 mg/dL (70-99) Calcium Level 8.2 mg/dL (8.5-10.1) Laboratory Tests Test 12/20/16 10:59 12/20/16 11:00 12/20/16 11:15 12/20/16 13:53 Urine Collection Type Void Urine Color Yellow Urine Clarity Clear Urine pH 6.0 Urine Specific [place] 1.025 Urine Protein Negative mg/dL (NEG-TRACE) Urine Glucose (UA) Negative mg/dL (NEG) Urine Ketones (Stick) Trace mg/dL (NEG) Urine Blood Negative (NEG) Urine Nitrite Negative (NEG) Urine Bilirubin Negative (NEG) Urine Urobilinogen Dipstick 0.2 mg/dL (0.2 mg/dL) Urine Leukocyte Esterase Trace (NEG) Urine RBC Occ /HPF (0-2) Urine WBC 1-4 /HPF (0-4) Urine Squamous Epithelial Cells Few /LPF Urine Bacteria Few /HPF (0-FEW) Urine Mucus Slight /LPF Gastric Fluid Occult Blood Positive (NEG) Stool Occult Blood Negative (NEG) White Blood Count 9.3 x10^3/uL (4.0-11.0) Red Blood Count 3.53 x10^6/uL (3.50-5.40) Hemoglobin 10.0 g/dL (12.0-15.5) Hematocrit 30.5 % (36.0-47.0) Mean Corpuscular Volume 86 fL (79-100) Mean Corpuscular Hemoglobin 29 pg (25-35) Mean Corpuscular Hemoglobin Concent 33 g/dL (31-37) Red Cell Distribution Width 14.8 % (11.5-14.5) Platelet Count 223 x10^3/uL (140-400) Test 12/20/16 18:55 12/21/16 00:42 12/21/16 05:20 Troponin I Quantitative < 0.017 ng/mL (0.000-0.055) < 0.017 ng/mL (0.000-0.055) White Blood Count 8.9 x10^3/uL (4.0-11.0) Red Blood Count 3.44 x10^6/uL (3.50-5.40) Hemoglobin 9.7 g/dL (12.0-15.5) Hematocrit 29.7 % (36.0-47.0) Mean Corpuscular Volume 86 fL (79-100) Mean Corpuscular Hemoglobin 28 pg (25-35) Mean Corpuscular Hemoglobin Concent 33 g/dL (31-37) Red Cell Distribution Width 15.0 % (11.5-14.5) Platelet Count 214 x10^3/uL (140-400) Neutrophils (%) (Auto) 64 % (31-73) Lymphocytes (%) (Auto) 25 % (24-48) Monocytes (%) (Auto) 7 % (0-9) Eosinophils (%) (Auto) 3 % (0-3) Basophils (%) (Auto) 1 % (0-3) Neutrophils # (Auto) 5.7 x10^3uL (1.8-7.7) Lymphocytes # (Auto) 2.3 x10^3/uL (1.0-4.8) Monocytes # (Auto) 0.6 x10^3/uL (0.0-1.1) Eosinophils # (Auto) 0.3 x10^3/uL (0.0-0.7) Basophils # (Auto) 0.1 x10^3/uL (0.0-0.2) Sodium Level 143 mmol/L (136-145) Potassium Level 3.7 mmol/L (3.5-5.1) Chloride Level 108 mmol/L (98-107) Carbon Dioxide Level 28 mmol/L (21-32) Anion Gap 7 (6-14) Blood Urea Nitrogen 58 mg/dL (7-20) Creatinine 1.4 mg/dL (0.6-1.0) Estimated GFR (Cockcroft-Gault) 35.7 Glucose Level 99 mg/dL (70-99) Calcium Level 8.2 mg/dL (8.5-10.1) Images Images reviewed CT Impression: 1. No bowel obstruction. 2. Large sliding hiatal hernia. Descending colon and sigmoid colon diverticulosis. Assessment/Plan Assessment/Plan Hiatal hernia epigastric abdominal pain recent UGI and EGD multiple comorbidities including Afib, HTN, HLD. CAD, Stents, on ASA and Plavix Will review with RO Mathew MD 12/21/16 1655: CONSULT Allergies Allergies: Coded Allergies: No Known Drug Allergies (Unverified , 12/15/16) Assessment/Plan Assessment/Plan Pt seen and examined by myself; 86 year old female who reports having assisted problems with intermittent vomiting (nearly 30 years). She states that she normally can manage it with dietary changes, and occasionally gets her esophagus "stretched" which helps. She is aware of having a hiatal hernia but states she doesn't want anything for that. She is more concerned about a ventral hernia that she was told she has. She states someone noticed a bulge in the upper abdomen and she believes her pain is from that. PMH/PSH/ROS/SH as above; exam: alert, oriented, appears tired but no distress, no scleral icterus, neck supple, lungs clear, heart RR and R, abdomen soft, healed R subcostal scar, no palpable hernia defect noted, ext neg for edema, appears mildly weak in lower extremities; Recent upper GI reviewed, confirms large hiatal hernia without obstruction. A/P) Large hiatal hernia, difficult to know for certain its contribution to her symptoms particularly given her symptom duration. I did discuss details of surgical treatment, and at this time she is not interested. I discussed potential complications of large hiatal hernias, and she is aware. I am not able to identify a ventral hernia on exam or on CT scan. No surgical plans at this time. DANGELO HOFFMAN APRN Dec 21, 2016 10:40 RO BO MD Dec 21, 2016 16:55
[2016-12-21 11:00] VITALS: BP 124/57
--- NOTE | 2016-12-21 13:18 | PDOC ---
Subjective: Subjective: Daughter says Dr. Santoro stopped by. Pt doesn't want hiatal hernia repair. Discussed pain management and abd binder. She doesn't like the binder she has at home and plans to order on online. Still NPO, daughter wonders why and concerned for weakness. Objective: Vital Signs: Vital Signs Date Time Temp Pulse Resp B/P (MAP) Pulse Ox O2 Delivery O2 Flow Rate FiO2 12/21/16 07:00 98.2 63 20 172/97 (122) 98 Room Air 98.2 12/21/16 03:00 2.0 Labs: Laboratory Tests Test 12/20/16 13:53 12/20/16 18:55 12/21/16 00:42 12/21/16 05:20 White Blood Count 9.3 x10^3/uL 8.9 x10^3/uL Red Blood Count 3.53 x10^6/uL 3.44 x10^6/uL Hemoglobin 10.0 g/dL 9.7 g/dL Hematocrit 30.5 % 29.7 % Mean Corpuscular Volume 86 fL 86 fL Mean Corpuscular Hemoglobin 29 pg 28 pg Mean Corpuscular Hemoglobin Concent 33 g/dL 33 g/dL Red Cell Distribution Width 14.8 % 15.0 % Platelet Count 223 x10^3/uL 214 x10^3/uL Troponin I Quantitative < 0.017 ng/mL < 0.017 ng/mL Neutrophils (%) (Auto) 64 % Lymphocytes (%) (Auto) 25 % Monocytes (%) (Auto) 7 % Eosinophils (%) (Auto) 3 % Basophils (%) (Auto) 1 % Neutrophils # (Auto) 5.7 x10^3uL Lymphocytes # (Auto) 2.3 x10^3/uL Monocytes # (Auto) 0.6 x10^3/uL Eosinophils # (Auto) 0.3 x10^3/uL Basophils # (Auto) 0.1 x10^3/uL Sodium Level 143 mmol/L Potassium Level 3.7 mmol/L Chloride Level 108 mmol/L Carbon Dioxide Level 28 mmol/L Anion Gap 7 Blood Urea Nitrogen 58 mg/dL Creatinine 1.4 mg/dL Estimated GFR (Cockcroft-Gault) 35.7 Glucose Level 99 mg/dL Calcium Level 8.2 mg/dL PE: GEN: NAD, up to chair, looks better today ABD: NABS, S/ND/NT NEURO/PSYCH: A & O 3 A/P: Recurrent upper abd pain w/ coffee-ground emesis -previous workup per note 12/20; includes EGD, CT, UGI -large hiatal hernia -some drift in Hgb since last admission -- Has seen Dr. Santoro - says discussed pain management + abd binder. Try clears, ADAT. Stop IV PPI, change to PO. Add Miralax BID. DC per primary. EDWIN BARROW Dec 21, 2016 13:18
[2016-12-21 15:00] VITALS: BP 120/67
[2016-12-21] MEDS: POLYETHYLENE GLYCOL 3350 17 GM PACKET. PO SCH ×2 (15:08→20:52)
[2016-12-21 19:00] VITALS: BP 107/62
[2016-12-21] MEDS ORDERED: ACETAMINOPHEN 325 MG TABLET. PO PRN (22:45)
[2016-12-21] MEDS ORDERED: ALPRAZolam 0.25 MG TABLET PO PRN (22:45)
[2016-12-21 23:00] VITALS: BP 123/55
[2016-12-22 03:00] VITALS: BP 112/43
[2016-12-22] MEDS: POTASSIUM CL 20MEQ D5-0.45NACL 1,000 ML IV SCH (05:53)
[2016-12-22 07:00] VITALS: BP 130/58
[2016-12-22] MEDS ORDERED: PANTOPRAZOLE 40 MG TABLET.DR. PO SCH ×2 (07:30)
[2016-12-22 07:54] LABS: CALCIUM 7.9 mg/dL (8.5-10.1); GFR 52.7; POTASSIUM 3.6 mmol/L (3.5-5.1)
[2016-12-22] MEDS: POLYETHYLENE GLYCOL 3350 17 GM PACKET. PO SCH (08:31)
--- NOTE | 2016-12-22 08:36 | DISCH ---
DISCHARGE INSTRUCTIONS Condition on Discharge Condition on Discharge: Stable Activity After Discharge Activity Instructions for Disc: No restrictions Diet after Discharge Diet after Discharge: Regular Follow-Up Follow up with: dr kuhn as scheduled LUCIO RILEY MD Dec 22, 2016 08:36
--- NOTE | 2016-12-22 08:39 | PDOC ---
Provider Note Provider Note [id number] LUCIO RILEY MD Dec 22, 2016 08:39
[2016-12-22] MEDS ORDERED: CITALOPRAM 20 MG TABLET. PO SCH (09:00)
[2016-12-22] MEDS ORDERED: OMEGA-3 FATTY ACIDS/FISH OIL 1,000 MG CAPSULE. PO SCH (09:00)
[2016-12-22] MEDS ORDERED: FERROUS SULFATE 325 MG TABLET. PO SCH (09:00)
[2016-12-22] MEDS ORDERED: ASPIRIN ENTERIC COATED 325 MG TABLET.DR. PO SCH (09:00)
[2016-12-22] MEDS ORDERED: LOSARTAN POTASSIUM 50 MG TABLET. PO SCH (09:00)
[2016-12-22] MEDS ORDERED: CHOLECALCIFEROL (VITAMIN D3) 1,000 UNIT TABLET PO SCH (09:00)
[2016-12-22] MEDS ORDERED: CLOPIDOGREL BISULFATE 75 MG TABLET PO SCH (09:00)
--- NOTE | 2016-12-22 09:20 | DS ---
DATE OF DISCHARGE: 12/22/2016 HOSPITAL SUMMARY: An 86-year-old white female came in with nausea and epigastric pain that she attributes to hiatal hernia. Recent EGD had been unrevealing. Hemoglobin was stable around 10. Chemistry profile showed an elevated BUN of 58, creatinine 1.4, which came down to 29 and 1.0 with hydration. Urine was clear. Stool for occult blood was negative. Gastric occult blood was positive. Urine culture had no growth. CT scan and chest x-ray showed no acute change. Large hiatal hernia was noted. No obstruction was noted or evidence of any other ventral hernias. She was seen by GI and General Surgery and she decided against consideration of surgical repair of the hiatal hernia. She was eating and drinking and hydrated and comfortable to be followed as an outpatient at this time. FINAL DIAGNOSES: 1. Epigastric pain secondary to hiatal hernia and secondary gastritis. 2. Prerenal azotemia, resolved. OPERATIONS, PROCEDURES, COMPLICATIONS: None. CONSULTATIONS: Dr. Santoro, Dr. Polanco. DISPOSITION: I recommended reducing her aspirin dose to 81 mg every other day and considering stopping the Plavix that she takes as she has been on this for 18 months since her last stent. She will discuss this with her supervisor receiving and processing before making this decision. Rest of meds remain the same. DIET: Regular. ACTIVITY: As tolerated. She is considering abdominal binder, although I am not sure how physically compression from the outside would be of any physical benefit to her. PROGNOSIS: Guarded. LUCIO RILEY MD DR: GEETA/jenni JOB#: [id number] / [id number]
[2016-12-22 11:00] VITALS: BP 133/48
[2016-12-22] MEDS ORDERED: ATORVASTATIN CALCIUM 20 MG TABLET PO SCH (21:00)
[2016-12-22] MEDS ORDERED: GABAPENTIN 100 MG CAPSULE. PO SCH (21:00)
[2016-12-23] MEDS ORDERED: ASPIRIN ENTERIC COATED 81 MG TABLET.DR. PO SCH (16:00)
== END 2016-12-22 11:30 | disposition home or self-care (01) | DRG 391 ==
LOC: ER 08:58 → 6 SOUTH 11:45 → ED HOLD 14:11 → 5 SOUTH 16:56
PROVIDERS: ADMIT Family Medicine; ATTEND Family Medicine
DX: K29.70 Gastritis, unspecified, without bleeding (principal); K25.4 Chronic or unspecified gastric ulcer with hemorrhage; J96.10 Chronic respiratory failure, unspecified whether with hypoxia or hypercapnia; G62.9 Polyneuropathy, unspecified; D62 Acute posthemorrhagic anemia; I48.91 Unspecified atrial fibrillation; K22.2 Esophageal obstruction; I10 Essential (primary) hypertension; F32.9 Major depressive disorder, single episode, unspecified; K26.4 Chronic or unspecified duodenal ulcer with hemorrhage; K44.9 Diaphragmatic hernia without obstruction or gangrene; E78.5 Hyperlipidemia, unspecified; F41.9 Anxiety disorder, unspecified; I25.10 Atherosclerotic heart disease of native coronary artery without angina pectoris; M19.90 Unspecified osteoarthritis, unspecified site; Z95.5 Presence of coronary angioplasty implant and graft; Z79.02 Long term (current) use of antithrombotics/antiplatelets; Z79.82 Long term (current) use of aspirin; Z90.49 Acquired absence of other specified parts of digestive tract; Z90.710 Acquired absence of both cervix and uterus; Z82.3 Family history of stroke; K21.9 Gastro-esophageal reflux disease without esophagitis; E78.00 Pure hypercholesterolemia, unspecified
CPT/HCPCS: 36415; 71010; 74177; 80048; 80076; 81001; 82271; 82274; 82553; 83690; 83735; 83880; 84484; 85025; 85027; 85610; 86850; 86870; 86900; 86901; 87086; 93005; 96365; 96375; C9113; J2405; J2550; J3010; Q9966; Q9967; 99285-25

== ENCOUNTER 2017-02-11 14:24 | Inpatient (IN) | payer MEDICARE ==
[~2017-02-11] VITALS: Ht 157.5 cm; Wt 69.1 kg
[~2017-02-11 14:24] MED LIST changes: -NAPR500T3 PO; +NAPR500T4 PO
--- NOTE | 2017-02-11 15:18 | EKG ---
[facility] [address] [place] [address] Test Date: 2017-02-11 Test Time: 15:06:35 Pat Name: SAILAJA SUTHERLAND Department: Room: Gender: F Instrumentation Manager: : [id number] Requested By: MAIRA MADERA Order Number: [id number] Reading MD: Miriam Magaña Measurements Intervals [place] Rate: 76 P: IA: QRS: 0 QRSD: 80 T: 74 QT: 400 QTc: 455 Interpretive Statements SINUS RHYTHM, LEFTWARD AXIS T ABNORMALITY IN HIGH LATERAL LEADS Electronically Signed On 02-13-2017 19:08:57 CDT by Miriam Magaña
[2017-02-11 15:27] LABS: HEMOGLOBIN 9.5 g/dL (12.0-15.5); RED BLOOD COUNT 3.87 x10^6/uL (3.50-5.40)
[2017-02-11 15:28] LABS: BASO # 0.1 x10^3/uL (0.0-0.2); BASO % 2 % (0-3); EOS % 4 % (0-3); LYMPH # 1.9 x10^3/uL (1.0-4.8); LYMPH % 24 % (24-48); MEAN CORPUSCULAR HEMOGLOBIN 25 pg (25-35); MEAN CORPUSCULAR HGB CONC 33 g/dL (31-37); MEAN CORPUSCULAR VOLUME 75 fL (79-100); MONO % 8 % (0-9); NEUT % 63 % (31-73); PLATELET COUNT 342 x10^3/uL (140-400); RED CELL DISTRIBUTION WIDTH 18.9 % (11.5-14.5)
[2017-02-11 15:29] LABS: BILIRUBIN,URINE NEGATIVE (NEG); GLUCOSE,URINE NEGATIVE (NEG); NITRITE,URINE NEGATIVE (NEG); PROTEIN,URINE NEGATIVE (NEG-TRACE); UROBILINOGEN,URINE 0.2 mg/dL (0.2 mg/dL)
--- NOTE | 2017-02-11 15:38 | ED.ADGEN ---
Past Medical History Past Medical History: A-Fib, Arthritis, Depression, GERD, GI Bleed, High Cholesterol, Hypertension, Other Additional Past Medical Histor: esophageal varices, GI bleedx2 Past Surgical History: Angioplasty, Appendectomy, Cholecystectomy, Hysterectomy , Knee Replacement, Pacemaker Additional Past Surgical Histo: esophageal dilation,STENT PLACEMENT Alcohol Use: None Drug Use: None Adult General Chief Complaint Chief Complaint: MULTIPLE COMPLAINTS HPI HPI Patient is a 86 year old woman, with history of CAD status post stent placement , atrial fibrillation, hypertension, hyperlipidemia, hiatal hernia, GERD, who presents to the emergency department with multiple complaints. Patient states that she's been feeling increasing fatigue over the past several weeks. She states that she had a CAT scan of the chest performed last week which was "abnormal", as she is attended to follow-up with pulmonary however cannot get an appointment for about a month. She states that she is experiencing a cough productive of brownish sputum, with increasing chest pressure is worse today, and increasing dyspnea on exertion is worse today. She denies any fevers or chills, denies any focal weakness, numbness or tingling, although she states she sometimes does have tingling and weakness in the upper extremities. She denies any injuries, any changes in medication or missed doses of medication, any recent travel or surgery, any swelling extremities, any rashes. Review of Systems Review of Systems Constitutional: Denies fever or chills. []Generalized fatigue and malaise. Eyes: Denies change in visual acuity. [] HENT: Denies nasal congestion or sore throat. [] Respiratory: Cough productive of brownish sputum and worsening shortness of breath. Cardiovascular: Chest pressure, no edema. GI: Denies abdominal pain, nausea, vomiting, bloody stools or diarrhea. [] : Denies dysuria. [] Musculoskeletal: Denies back pain or joint pain. [] Integument: Denies rash. [] Neurologic: Denies headache, focal weakness or sensory changes. [] Endocrine: Denies polyuria or polydipsia. [] Lymphatic: Denies swollen glands. [] Psychiatric: Denies depression or anxiety. [] Current Medications Current Medications Current Medications Medications (Trade) Dose Ordered Sig/Mariajose Start Time Stop Time Status Last Admin Dose Admin Acetaminophen (Tylenol) 650 mg PRN Q4HRS PRN 02/11/17 18:15 02/12/17 18:14 Ondansetron HCl (Zofran) 4 mg PRN Q8HRS PRN 02/11/17 18:15 02/12/17 18:14 Allergies Allergies Allergies Coded Allergies Type Severity Reaction Last Updated Verified No Known Drug Allergies 12/15/16 No Physical Exam Physical Exam Constitutional: Well developed, well nourished, no acute distress, non-toxic appearance. [] HENT: Normocephalic, atraumatic, bilateral external ears normal, oropharynx moist, no oral exudates, nose normal. [] Eyes: PERRLA, EOMI, conjunctiva normal, no discharge. [] Neck: Normal range of motion, no tenderness, supple, no stridor. [] Cardiovascular:Heart rate regular rhythm, no murmur, S1, S2, no rubs or gallops. [] Lungs & Thorax: Patient with crackles noted throughout, no rhonchi, no wheezing. No chest or crepitus or tenderness.[] Abdomen: Bowel sounds normal, soft, no rebound, rigidity, guarding no tenderness , no masses, no pulsatile masses. [] Skin: Warm, dry, no erythema, no rash. [] Back: No tenderness, no CVA tenderness. [] Extremities: No tenderness, no cyanosis, no clubbing, ROM intact, no edema. Negative Homans sign.[] Neurologic: Alert and oriented X 3, normal motor function, normal sensory function, no focal deficits noted. [] Psychologic: Affect normal, judgement normal, mood normal. [] Current Patient Data Vital Signs Vital Signs Date Time Temp Pulse Resp B/P (MAP) Pulse Ox O2 Delivery O2 Flow Rate FiO2 02/11/17 18:23 79 19 155/73 (100) 96 Nasal Cannula 2.0 02/11/17 14:51 98.0 98.0 Lab Values Laboratory Tests Test 02/11/17 15:20 02/11/17 15:25 White Blood Count 8.0 x10^3/uL (4.0-11.0) Red Blood Count 3.87 x10^6/uL (3.50-5.40) Hemoglobin 9.5 g/dL (12.0-15.5) L Hematocrit 29.0 % (36.0-47.0) L Mean Corpuscular Volume 75 fL (79-100) L Mean Corpuscular Hemoglobin 25 pg (25-35) Mean Corpuscular Hemoglobin Concent 33 g/dL (31-37) Red Cell Distribution Width 18.9 % (11.5-14.5) H Platelet Count 342 x10^3/uL (140-400) Neutrophils (%) (Auto) 63 % (31-73) Lymphocytes (%) (Auto) 24 % (24-48) Monocytes (%) (Auto) 8 % (0-9) Eosinophils (%) (Auto) 4 % (0-3) H Basophils (%) (Auto) 2 % (0-3) Neutrophils # (Auto) 5.0 x10^3uL (1.8-7.7) Lymphocytes # (Auto) 1.9 x10^3/uL (1.0-4.8) Monocytes # (Auto) 0.6 x10^3/uL (0.0-1.1) Eosinophils # (Auto) 0.4 x10^3/uL (0.0-0.7) Basophils # (Auto) 0.1 x10^3/uL (0.0-0.2) Urine Collection Type Unknown Urine Color Yellow Urine Clarity Clear Urine pH 6.0 Urine Specific [place] <=1.005 Urine Protein Negative mg/dL (NEG-TRACE) Urine Glucose (UA) Negative mg/dL (NEG) Urine Ketones (Stick) Negative mg/dL (NEG) Urine Blood Negative (NEG) Urine Nitrite Negative (NEG) Urine Bilirubin Negative (NEG) Urine Urobilinogen Dipstick 0.2 mg/dL (0.2 mg/dL) Urine Leukocyte Esterase Negative (NEG) Urine RBC 1-2 /HPF (0-2) Urine WBC Rare /HPF (0-4) Urine Bacteria 0 /HPF (0-FEW) Sodium Level 141 mmol/L (136-145) Potassium Level 3.7 mmol/L (3.5-5.1) Chloride Level 105 mmol/L (98-107) Carbon Dioxide Level 27 mmol/L (21-32) Anion Gap 9 (6-14) Blood Urea Nitrogen 19 mg/dL (7-20) Creatinine 1.0 mg/dL (0.6-1.0) Estimated GFR (Cockcroft-Gault) 52.7 BUN/Creatinine Ratio 19 (6-20) Glucose Level 148 mg/dL (70-99) H Calcium Level 9.0 mg/dL (8.5-10.1) Total Bilirubin 0.2 mg/dL (0.2-1.0) Aspartate Amino Transferase (AST) 17 U/L (15-37) Alanine Aminotransferase (ALT) 21 U/L (14-59) Alkaline Phosphatase 91 U/L (46-116) Troponin I Quantitative < 0.017 ng/mL (0.000-0.055) EZ-Xjh-M-Type Natriuretic Peptide 290 pg/mL (0-449) Total Protein 7.4 g/dL (6.4-8.2) Albumin 3.5 g/dL (3.4-5.0) Albumin/Globulin Ratio 0.9 (1.0-1.7) L Influenza Type A Antigen Negative (NEGATIVE) Influenza Type B Antigen Negative (NEGATIVE) Laboratory Tests 02/11/17 15:20 Laboratory Tests 02/11/17 15:20 EKG EKG EC: Atrial fibrillation, heart rate of 76 bpm, left axis deviation, QTC of 455, QRS of 80, abnormal ECG, no ST depressions or elevations, does not meet STEMI criteria. As interpreted by me. Radiology/Procedures Radiology/Procedures [][facility] [address] [place], [place] [id number] IMAGING REPORT Signed PATIENT: SAILAJA SUTHERLAND ACCOUNT: [id number] : 1930 LOCATION: ER AGE: 86 SEX: F EXAM STATUS: PRE ER ORD. PHYSICIAN: MAIRA MADERA DO REASON: Cough/SHORT OF BREATH PROCEDURE: CHEST PA & LATERAL Indication cough and shortness of breath. Frontal and lateral views of the chest were obtained. Comparison is made to an exam 12/20/2016. There are background changes likely reflecting emphysema or fibrosis. Heart size is at the upper limits of normal. There is no consolidated pneumonia. Hiatus hernia is noted. There is a bipolar cardiac pacing device. There is probable bony demineralization. Moderate scoliosis is noted. IMPRESSION: Chronic changes. No definite acute finding apparent in the chest DICTATED and SIGNED BY: GUANAKITO CELESTIN MD DATE: 02/11/17 1602 CC: LUCIO RILEY MD; MAIRA MADERA DO ~ Course & Med Decision Making Course & Med Decision Making Pertinent Labs and Imaging studies reviewed. (See chart for details) Patient's laboratory studies revealed no significant changes from prior, CT chest results from 02/04/17 obtained from patient's primary care provider, report states that there is moderate diffuse interstitial infiltrates of uncertain chronicity, possibility the chronic fibrotic inflammatory or edema. No pleural effusion or edema. Hiatal hernia is again noted. Patient's laboratory studies, imaging, and complaints of generalized weakness and malaise discussed with Dr. Riley, the patient's primary care provider. As patient states that she feels increasingly weak, and short of breath, with the inability to follow-up with pulmonary for several weeks, Dr. Riley request the patient be admitted to the hospital as a full admission under his service, and a consultation placed for the patient be seen by pulmonary critical care, the patient be continued monitoring the hospital. Consultation placed for irlanda Muniz orders entered per discussion. Dragon Disclaimer Dragon Disclaimer This electronic medical record was generated, in whole or in part, using a voice recognition dictation system. Departure Impression: Primary Impression: Shortness of breath Additional Impression: Weakness Disposition: ADMITTED INPATIENT Admitting Physician: Lucio Riley Condition: STABLE Problem Qualifiers MAIRA MADERA DO Feb 11, 2017 15:38
[2017-02-11 15:42] LABS: GFR 52.7; POTASSIUM 3.7 mmol/L (3.5-5.1)
[2017-02-11 15:47] LABS: ALBUMIN 3.5 g/dL (3.4-5.0); ALBUMIN/GLOBULIN RATIO 0.9 (1.0-1.7); TOTAL BILIRUBIN 0.2 mg/dL (0.2-1.0); TOTAL PROTEIN 7.4 g/dL (6.4-8.2)
[2017-02-11 15:54] LABS: BACTERIA,URINE 0 /HPF (0-FEW); WBC,URINE RARE /HPF (0-4)
--- NOTE | 2017-02-11 16:07 | RAD ---
Indication cough and shortness of breath. Frontal and lateral views of the chest were obtained. Comparison is made to an exam 12/20/2016. There are background changes likely reflecting emphysema or fibrosis. Heart size is at the upper limits of normal. There is no consolidated pneumonia. Hiatus hernia is noted. There is a bipolar cardiac pacing device. There is probable bony demineralization. Moderate scoliosis is noted. IMPRESSION: Chronic changes. No definite acute finding apparent in the chest
[2017-02-11 16:35] LABS: OBC FLU VALID
[2017-02-11] MEDS ORDERED: ONDANSETRON PF 4 MG/2 ML VIAL. IV PRN (18:15)
[2017-02-11] MEDS ORDERED: ACETAMINOPHEN 325 MG TABLET. PO PRN ×2 (18:15→22:15)
[2017-02-11 19:00] VITALS: BP 140/62
[2017-02-11] MEDS ORDERED: ASPI-482 PO (21:58)
[2017-02-11] MEDS ORDERED: oxyCODONE/APAP 5/325 1 TAB TABLET PO PRN (22:30)
[2017-02-11] MEDS: ALPRAZolam 0.25 MG TABLET PO PRN (22:42)
[2017-02-11] MEDS: GABAPENTIN 100 MG CAPSULE. PO SCH (22:42)
[2017-02-11 23:00] VITALS: BP 139/54
[2017-02-12 03:06] VITALS: BP 102/46
[2017-02-12 05:20] LABS: BASO # 0.1 x10^3/uL (0.0-0.2); BASO % 1 % (0-3); EOS % 6 % (0-3); HEMATOCRIT 25.7 % (36.0-47.0); HEMOGLOBIN 8.2 g/dL (12.0-15.5); LYMPH # 2.1 x10^3/uL (1.0-4.8); LYMPH % 31 % (24-48); MEAN CORPUSCULAR HEMOGLOBIN 24 pg (25-35); MEAN CORPUSCULAR HGB CONC 32 g/dL (31-37); MEAN CORPUSCULAR VOLUME 75 fL (79-100); MONO % 8 % (0-9); NEUT % 54 % (31-73); PLATELET COUNT 291 x10^3/uL (140-400); RED BLOOD COUNT 3.42 x10^6/uL (3.50-5.40); RED CELL DISTRIBUTION WIDTH 18.4 % (11.5-14.5); WHITE BLOOD COUNT 6.9 x10^3/uL (4.0-11.0)
[2017-02-12 05:50] LABS: CALCIUM 8.5 mg/dL (8.5-10.1); CREATININE 1.1 mg/dL (0.6-1.0); GFR 47.2; POTASSIUM 3.9 mmol/L (3.5-5.1)
[2017-02-12 07:00] VITALS: BP 103/51
[2017-02-12] MEDS: PANTOPRAZOLE 40 MG TABLET.DR. PO SCH (08:40)
[2017-02-12] MEDS: CLOPIDOGREL BISULFATE 75 MG TABLET PO SCH (08:40)
[2017-02-12] MEDS: CHOLECALCIFEROL (VITAMIN D3) 1,000 UNIT TABLET PO SCH (08:40)
[2017-02-12] MEDS: OMEGA-3 FATTY ACIDS/FISH OIL 1,000 MG CAPSULE. PO SCH (08:41)
[2017-02-12] MEDS: CITALOPRAM 20 MG TABLET. PO SCH (08:41)
[2017-02-12] MEDS: LOSARTAN POTASSIUM 50 MG TABLET. PO SCH (08:41)
[2017-02-12] MEDS ORDERED: ASPIRIN ENTERIC COATED 81 MG TABLET.DR. PO SCH (09:00)
[2017-02-12] MEDS ORDERED: FERROUS SULFATE 325 MG TABLET. PO SCH (09:00)
[2017-02-12] MEDS ORDERED: IPRATRPIUM/ALBUTEROL 0.5/2.5MG 3 ML NEBU. NEB SCH (09:00)
[2017-02-12 11:00] VITALS: BP 118/56
[2017-02-12] MEDS: IPRATRPIUM/ALBUTEROL 0.5/2.5MG 3 ML NEBU. NEB SCH ×3 (11:08→20:59)
--- NOTE | 2017-02-12 11:10 | PDOC ---
Provider Note Provider Note dictated LUCIO RILEY MD Feb 12, 2017 11:10
[2017-02-12] MEDS: ALPRAZolam 0.25 MG TABLET PO PRN ×2 (12:11→21:19)
--- NOTE | 2017-02-12 12:48 | PDOC ---
Provider Note Provider Note [id number] dyspnea ? vte, cp, ? cardiac anemia cad gerd see orders DONOVAN ECHEVERRIA MD Feb 12, 2017 12:48
--- NOTE | 2017-02-12 13:10 | PDOC2 ---
CONSULT Date of Consult Date of Consult DATE: 02/12/17 TIME: 13:03 Reason for Consult Reason for Consult: SOB, chest pain Referring Physician Referring Physician: Dr. Chowdhury Identification/Chief Complaint Chief Complaint weakness, SOB Problems: Source Source: Patient History of Present Illness Reason for Visit: The patient is an 86-year-old female who was admitted from the emergency room with complaints of increasing weakness, shortness of breath and chest pain. Patient's initial chest x-ray showed a cardiac pacemaker and no acute changes. Initial troponin has been negative. EKG shows a sinus rhythm with nonspecific ST -T wave changes. Patient is been treated overnight and is feeling better today. Her pain has resolved. She is resting comfortably in bed but reports continued fatigue. Past Medical History Cardiovascular: AFIB, CAD, HTN, Hyperlipidemia, Other CENTRAL NERVOUS SYSTEM: Periperal neuropathy GI: GERD, GI bleed Psych: Anxiety, Depression Musculoskeletal: Osteoarthritis Past Surgical History Past Surgical History: Pacemaker, Cholecystectomy, Cataract Removal, Hysterectomy, Other (esophageal dilatation.) Family History Family History: Hypertension, Stroke, Other Social History No ALCOHOL: none Drugs: None Lives: with Family Domestic Violence: Neg Current Problem List Problem List Problems Medical Problems: (1) Shortness of breath Status: Acute (2) Weakness Status: Acute Current Medications Current Medications Current Medications Ondansetron HCl (Zofran) 4 mg PRN Q8HRS PRN IV NAUSEA/VOMITING; Start at 18:15; Stop 02/12/17 at 18:14 Acetaminophen (Tylenol) 650 mg PRN Q4HRS PRN PO FEVER; Start 02/11/17 at 18:15 ; Stop 02/11/17 at 22:14; Status DC Acetaminophen (Tylenol) 650 mg PRN Q6HRS PRN PO MILD PAIN; Start 02/11/17 at 22:15 Alprazolam (Xanax) 0.25 mg PRN Q8HRS PRN PO ANXIETY Last administered on 12:11; Start 02/11/17 at 22:15 Aspirin (Ecotrin) 81 mg DAILY PO Last administered on 02/12/17 08:40; Start 02/12/17 at 09:00; Stop 02/12/17 at 10:46; Status DC Vitamin D (Vitamin D3) 1,000 unit DAILY PO Last administered on 02/12/17 08: 40; Start 02/12/17 at 09:00 Citalopram Hydrobromide (CeleXA) 20 mg DAILY PO Last administered on 08:41; Start 02/12/17 at 09:00 Clopidogrel Bisulfate (Plavix) 75 mg DAILY PO Last administered on 02/12/17 08:40; Start 02/12/17 at 09:00 Diltiazem HCl (Cardizem 24hr Cd) 240 mg DAILY PO Last administered on 08:40; Start 02/12/17 at 09:00 Ferrous Sulfate (Feosol) 325 mg DAILY PO Last administered on 02/12/17 08:41 ; Start 02/12/17 at 09:00; Stop 02/12/17 at 10:44; Status DC Gabapentin (Neurontin) 200 mg QHS PO Last administered on 02/11/17 22:42; Start 02/11/17 at 23:00 Losartan Potassium (Cozaar) 50 mg DAILY PO Last administered on 02/12/17 08: 41; Start 02/12/17 at 09:00 Pantoprazole Sodium (Protonix) 40 mg DAILYAC PO Last administered on 08:40; Start 02/12/17 at 07:30 Fish Oil (Fish Oil) 1,000 mg DAILY PO Last administered on 02/12/17 08:41; Start 02/12/17 at 09:00 Oxycodone/ Acetaminophen (Percocet 5/325) 1 tab PRN Q6HRS PRN PO SEVERE PAIN Last administered on 02/11/17 22:42; Start 02/11/17 at 22:30 Albuterol/ Ipratropium (Duoneb) 3 ml Q4HRS NEB ; Start 02/12/17 at 09:00; Stop 02/12/17 at 10:44; Status DC Ferrous Sulfate (Feosol) 325 mg BIDAFTMEAL PO ; Start 02/12/17 at 18:00 Albuterol/ Ipratropium (Duoneb) 3 ml RTQID NEB Last administered on 02/12/17 11:08; Start 02/12/17 at 12:00 Aspirin (Ecotrin) 81 mg QODAY PO ; Start 02/14/17 at 09:00 Active Scripts Active Reported Aspir 81 (Aspirin) 81 Mg Tablet.dr 1 Tab PO DAILY Fish Oil 1,000 mg Softgel ([place]-3/Dha/Epa/Fish Oil) 1,000 Mg Capsule 1,000 Mg PO DAILY Plavix (Clopidogrel Bisulfate) 75 Mg Tablet 1 Tab PO DAILY Ferrous Sulfate 325 Mg Tablet 325 Mg PO DAILY Vitamin D3 (Cholecalciferol (Vitamin D3)) 1,000 Unit Tablet 1,000 Unit PO DAILY Losartan Potassium 50 Mg Tablet 50 Mg PO DAILY Gabapentin 100 Mg Capsule 200 Mg PO QHS Protonix (Pantoprazole Sodium) 40 Mg Tablet.dr 40 Mg PO DAILY Diltiazem 24HR Cd (Diltiazem Hcl) 240 Mg Cap.er.24h 240 Mg PO DAILY Tylenol (Acetaminophen) 325 Mg Tablet 650 Mg PO PRN Q6HRS PRN as needed Xanax (Alprazolam) 0.25 Mg Tablet 0.25 Mg PO PRN Q8HRS PRN Next dose: as needed Citalopram Hbr (Citalopram Hydrobromide) 20 Mg Tablet 20 Mg PO DAILY Allergies Allergies: Coded Allergies: No Known Drug Allergies (Unverified , 12/15/16) ROS General: YES: Fatigue, Malaise Respiratory: YES: Shortness of breath, SOB with excertion Cardiovascular: yes Chest Pain Physical Exam General: mild distress HEENT: Atraumatic Lungs: Other (slightly decreased breath sounds) Heart: Regular rate Abdomen: Normal bowel sounds Vitals VITALS Vital Signs Date Time Temp Pulse Resp B/P (MAP) Pulse Ox O2 Delivery O2 Flow Rate FiO2 02/12/17 11:11 97 Nasal Cannula 2.0 02/12/17 11:00 98.2 61 20 118/56 (76) 98.2 Labs Labs Laboratory Tests Test 02/11/17 15:20 02/11/17 15:25 02/12/17 05:00 02/12/17 11:45 White Blood Count 8.0 x10^3/uL (4.0-11.0) 6.9 x10^3/uL (4.0-11.0) Red Blood Count 3.87 x10^6/uL (3.50-5.40) 3.42 x10^6/uL (3.50-5.40) Hemoglobin 9.5 g/dL (12.0-15.5) 8.2 g/dL (12.0-15.5) Hematocrit 29.0 % (36.0-47.0) 25.7 % (36.0-47.0) Mean Corpuscular Volume 75 fL (79-100) 75 fL (79-100) Mean Corpuscular Hemoglobin 25 pg (25-35) 24 pg (25-35) Mean Corpuscular Hemoglobin Concent 33 g/dL (31-37) 32 g/dL (31-37) Red Cell Distribution Width 18.9 % (11.5-14.5) 18.4 % (11.5-14.5) Platelet Count 342 x10^3/uL (140-400) 291 x10^3/uL (140-400) Neutrophils (%) (Auto) 63 % (31-73) 54 % (31-73) Lymphocytes (%) (Auto) 24 % (24-48) 31 % (24-48) Monocytes (%) (Auto) 8 % (0-9) 8 % (0-9) Eosinophils (%) (Auto) 4 % (0-3) 6 % (0-3) Basophils (%) (Auto) 2 % (0-3) 1 % (0-3) Neutrophils # (Auto) 5.0 x10^3uL (1.8-7.7) 3.7 x10^3uL (1.8-7.7) Lymphocytes # (Auto) 1.9 x10^3/uL (1.0-4.8) 2.1 x10^3/uL (1.0-4.8) Monocytes # (Auto) 0.6 x10^3/uL (0.0-1.1) 0.5 x10^3/uL (0.0-1.1) Eosinophils # (Auto) 0.4 x10^3/uL (0.0-0.7) 0.4 x10^3/uL (0.0-0.7) Basophils # (Auto) 0.1 x10^3/uL (0.0-0.2) 0.1 x10^3/uL (0.0-0.2) Urine Collection Type Unknown Urine Color Yellow Urine Clarity Clear Urine pH 6.0 Urine Specific [place] <=1.005 Urine Protein Negative mg/dL (NEG-TRACE) Urine Glucose (UA) Negative mg/dL (NEG) Urine Ketones (Stick) Negative mg/dL (NEG) Urine Blood Negative (NEG) Urine Nitrite Negative (NEG) Urine Bilirubin Negative (NEG) Urine Urobilinogen Dipstick 0.2 mg/dL (0.2 mg/dL) Urine Leukocyte Esterase Negative (NEG) Urine RBC 1-2 /HPF (0-2) Urine WBC Rare /HPF (0-4) Urine Bacteria 0 /HPF (0-FEW) Sodium Level 141 mmol/L (136-145) 142 mmol/L (136-145) Potassium Level 3.7 mmol/L (3.5-5.1) 3.9 mmol/L (3.5-5.1) Chloride Level 105 mmol/L (98-107) 106 mmol/L (98-107) Carbon Dioxide Level 27 mmol/L (21-32) 29 mmol/L (21-32) Anion Gap 9 (6-14) 7 (6-14) Blood Urea Nitrogen 19 mg/dL (7-20) 20 mg/dL (7-20) Creatinine 1.0 mg/dL (0.6-1.0) 1.1 mg/dL (0.6-1.0) Estimated GFR (Cockcroft-Gault) 52.7 47.2 BUN/Creatinine Ratio 19 (6-20) Glucose Level 148 mg/dL (70-99) 90 mg/dL (70-99) Calcium Level 9.0 mg/dL (8.5-10.1) 8.5 mg/dL (8.5-10.1) Total Bilirubin 0.2 mg/dL (0.2-1.0) Aspartate Amino Transf (AST/SGOT) 17 U/L (15-37) Alanine Aminotransferase (ALT/SGPT) 21 U/L (14-59) Alkaline Phosphatase 91 U/L (46-116) Troponin I Quantitative < 0.017 ng/mL (0.000-0.055) GM-Qbm-M-Type Natriuretic Peptide 290 pg/mL (0-449) Total Protein 7.4 g/dL (6.4-8.2) Albumin 3.5 g/dL (3.4-5.0) Albumin/Globulin Ratio 0.9 (1.0-1.7) Influenza Type A Antigen Negative (NEGATIVE) Influenza Type B Antigen Negative (NEGATIVE) Erythrocyte Sedimentation Rate 27 (0-25) Thyroid Stimulating Hormone (TSH) 1.559 uIU/mL (0.358-3.74) Laboratory Tests Test 02/11/17 15:20 02/11/17 15:25 02/12/17 05:00 02/12/17 11:45 White Blood Count 8.0 x10^3/uL (4.0-11.0) 6.9 x10^3/uL (4.0-11.0) Red Blood Count 3.87 x10^6/uL (3.50-5.40) 3.42 x10^6/uL (3.50-5.40) Hemoglobin 9.5 g/dL (12.0-15.5) 8.2 g/dL (12.0-15.5) Hematocrit 29.0 % (36.0-47.0) 25.7 % (36.0-47.0) Mean Corpuscular Volume 75 fL (79-100) 75 fL (79-100) Mean Corpuscular Hemoglobin 25 pg (25-35) 24 pg (25-35) Mean Corpuscular Hemoglobin Concent 33 g/dL (31-37) 32 g/dL (31-37) Red Cell Distribution Width 18.9 % (11.5-14.5) 18.4 % (11.5-14.5) Platelet Count 342 x10^3/uL (140-400) 291 x10^3/uL (140-400) Neutrophils (%) (Auto) 63 % (31-73) 54 % (31-73) Lymphocytes (%) (Auto) 24 % (24-48) 31 % (24-48) Monocytes (%) (Auto) 8 % (0-9) 8 % (0-9) Eosinophils (%) (Auto) 4 % (0-3) 6 % (0-3) Basophils (%) (Auto) 2 % (0-3) 1 % (0-3) Neutrophils # (Auto) 5.0 x10^3uL (1.8-7.7) 3.7 x10^3uL (1.8-7.7) Lymphocytes # (Auto) 1.9 x10^3/uL (1.0-4.8) 2.1 x10^3/uL (1.0-4.8) Monocytes # (Auto) 0.6 x10^3/uL (0.0-1.1) 0.5 x10^3/uL (0.0-1.1) Eosinophils # (Auto) 0.4 x10^3/uL (0.0-0.7) 0.4 x10^3/uL (0.0-0.7) Basophils # (Auto) 0.1 x10^3/uL (0.0-0.2) 0.1 x10^3/uL (0.0-0.2) Urine Collection Type Unknown Urine Color Yellow Urine Clarity Clear Urine pH 6.0 Urine Specific [place] <=1.005 Urine Protein Negative mg/dL (NEG-TRACE) Urine Glucose (UA) Negative mg/dL (NEG) Urine Ketones (Stick) Negative mg/dL (NEG) Urine Blood Negative (NEG) Urine Nitrite Negative (NEG) Urine Bilirubin Negative (NEG) Urine Urobilinogen Dipstick 0.2 mg/dL (0.2 mg/dL) Urine Leukocyte Esterase Negative (NEG) Urine RBC 1-2 /HPF (0-2) Urine WBC Rare /HPF (0-4) Urine Bacteria 0 /HPF (0-FEW) Sodium Level 141 mmol/L (136-145) 142 mmol/L (136-145) Potassium Level 3.7 mmol/L (3.5-5.1) 3.9 mmol/L (3.5-5.1) Chloride Level 105 mmol/L (98-107) 106 mmol/L (98-107) Carbon Dioxide Level 27 mmol/L (21-32) 29 mmol/L (21-32) Anion Gap 9 (6-14) 7 (6-14) Blood Urea Nitrogen 19 mg/dL (7-20) 20 mg/dL (7-20) Creatinine 1.0 mg/dL (0.6-1.0) 1.1 mg/dL (0.6-1.0) Estimated GFR (Cockcroft-Gault) 52.7 47.2 BUN/Creatinine Ratio 19 (6-20) Glucose Level 148 mg/dL (70-99) 90 mg/dL (70-99) Calcium Level 9.0 mg/dL (8.5-10.1) 8.5 mg/dL (8.5-10.1) Total Bilirubin 0.2 mg/dL (0.2-1.0) Aspartate Amino Transf (AST/SGOT) 17 U/L (15-37) Alanine Aminotransferase (ALT/SGPT) 21 U/L (14-59) Alkaline Phosphatase 91 U/L (46-116) Troponin I Quantitative < 0.017 ng/mL (0.000-0.055) YN-Eje-J-Type Natriuretic Peptide 290 pg/mL (0-449) Total Protein 7.4 g/dL (6.4-8.2) Albumin 3.5 g/dL (3.4-5.0) Albumin/Globulin Ratio 0.9 (1.0-1.7) Influenza Type A Antigen Negative (NEGATIVE) Influenza Type B Antigen Negative (NEGATIVE) Erythrocyte Sedimentation Rate 27 (0-25) Thyroid Stimulating Hormone (TSH) 1.559 uIU/mL (0.358-3.74) Images Images Chest x-ray with no acute changes. Assessment/Plan Assessment/Plan 1. Progressive weakness. Patient has multiple medical problems. Patient being evaluated by her primary physician. Weakness has been gradually increasing. No severe abnormalities are noted on chest x-ray or lab testing. 2. Shortness of breath. Patient has a history of some pulmonary disease as well as coronary artery disease. No acute EKG changes. Will continue medications with mild diuresis. Check cardiac enzymes and monitor lab. Echocardiogram. 3. Chest discomfort. No acute EKG changes. Troponin 1 is normal. Patient does have a history 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 A nuclear stress test done on [id number] showed normal perfusion and normal ejection fraction. We'll rule out for myocardial infarction. Continue medical treatment. Consider further cardiac testing once troponins have been completed 4. Hypertension. Continue present medications and monitor. 5. Gastroesophageal reflux disease with previous esophageal dilatations. Continue medical treatment and monitor. 6. History of atrial fibrillation. Patient continues in a sinus rhythm. 7. Hyperlipidemia. Continue medications and check lab. 8. Permanent pacemaker. Will check recent interrogation. Thank you for allowing us to participate in the care of your patient. SILVIANO LESLIE MD Feb 12, 2017 13:10
--- NOTE | 2017-02-12 13:12 | CONS ---
DATE OF CONSULTATION: 02/12/2017 I was asked to see this 86-year-old lady for shortness of breath. HISTORY OF PRESENT ILLNESS: She is a lifelong nonsmoker. She does not have any pulmonary disease. She has not felt good for the past 2-3 weeks. She does have shortness of breath which is worse with activity. She has not been active. She has had chest pain. She has cough with some sputum production. She denies runny nose. She has gastroesophageal reflux symptoms. PAST MEDICAL HISTORY: Atrial fibrillation, arthritis, gastroesophageal reflux disease, hiatal hernia, GI bleeding, hyperlipidemia, hypertension, esophageal varices. Coronary artery disease, stent placement, pacemaker placement. ALLERGIES: No known drug allergies. MEDICATIONS: Currently, she is on aspirin, ferrous sulfate, DuoNeb, fish oil, Cozaar, Cardizem, Plavix, Celexa, vitamin D, Protonix, oxycodone. SOCIAL HISTORY: She is a lifelong nonsmoker. FAMILY HISTORY: Positive for hypertension. REVIEW OF SYSTEMS: As mentioned as above, other systems otherwise negative. PHYSICAL EXAMINATION: GENERAL: This is a well-developed lady. VITAL SIGNS: Her O2 saturation on 2 liters of oxygen is 97%, respiratory rate 20, heart rate 61, blood pressure 118/56, temperature 98.2. HEENT: Normocephalic, atraumatic. Pupils equal, round, reactive to light. Throat is clear. Nose is clear. NECK: There is no JVD, lymphadenopathy or thyromegaly. CARDIOVASCULAR: Irregularly irregular rate and rhythm. PMI is not displaced. CHEST: Inspection is normal. LUNGS: There are bibasilar crackles, dullness at the bases. ABDOMEN: Soft. Bowel sounds are good. There is no mass. EXTREMITIES: Trace edema. LYMPHATICS: There is no lymphadenopathy. NEUROLOGIC: Alert and oriented x 3. SKIN: Chronic changes. LYMPHATICS: There is no lymphadenopathy. LABORATORY DATA: I reviewed the following lab data: Chest x-ray shows chronic changes. WBC 6.9, hemoglobin 8.2, platelets 291. Sodium 142, potassium 3.9, chloride 106, CO2 of 29, glucose 90, BUN 20, creatinine 1.1. GFR 47.2. Troponin less than 0.017. BNP 290. IMPRESSION: 1. Dyspnea and chest pain ?etiology. Rule out thromboembolic disease versus cardiac etiology versus others. 2. Anemia, ?etiology. Rule out gastrointestinal bleeding. Anemia can cause dyspnea. 3. Acute versus chronic kidney injury. 4. Atrial fibrillation. 5. Gastroesophageal reflux disease. 6. Hypertension. 7. Coronary artery disease, status post stent placement. 8. Permanent pacemaker. PLAN AND RECOMMENDATIONS: 1. Titrate FiO2 to keep O2 saturation 92%. 2. I agree with bronchodilator. 3. I will do a lower extremity venous Doppler and V/Q scan to rule out thromboembolic disease. 4. She had a CT of the chest about a week ago, which reportedly has been abnormal. We need to obtain the results. We may need to repeat CT of the chest. 5. Monitor hemoglobin very closely. 6. Continue Protonix. 7. I agree with cardiology consultation. 8. The findings and recommendations were discussed with the patient and her daughter. They understood and agreed to proceed with the plan. I have answered all of their questions. Thank you very much for allowing me to participate in the care of this very nice lady. DONOVAN ECHEVERRIA M.D. : Juan Daniel JOB#: [id number] / [id number]
--- NOTE | 2017-02-12 13:37 | RAD ---
Right leg venous Doppler study: Clinical indications: Right leg swelling and pain. Shortness of breath. Findings: Duplex sonography (including costello scale evaluation and color flow and waveform spectral analysis) of the proximal aspect of the greater saphenous vein and proximal aspect of the profunda femoral vein and the entire length of the common femoral and superficial femoral and popliteal veins and the tibioperoneal trunk and the proximal aspect of the posterior tibial and peroneal veins of the right leg was performed. Normal compressibility, augmentation of color Doppler flow after calf compression, and respiratory variation of Doppler flow is seen. Thus, there are no sonographic findings of deep venous thrombosis within these veins. Impression: There are no sonographic findings of deep venous thrombosis within the veins discussed above of the right lower extremity. Left leg venous Doppler study: Clinical indications: Left leg swelling and pain. Shortness of breath. Findings: Duplex sonography (including costello scale evaluation and color flow and waveform spectral analysis) of the proximal aspect of the greater saphenous vein and the proximal aspect of the profunda femoral vein and the entire length of the common femoral and superficial femoral and popliteal veins and the tibioperoneal trunk and the proximal aspect of the posterior tibial and peroneal veins of the left leg was performed. Normal compressibility, augmentation of color Doppler flow after calf compression, and respiratory variation of Doppler flow is seen. Thus, there are no sonographic findings of deep venous thrombosis within these veins. Impression: There are no sonographic findings of deep venous thrombosis within the veins discussed above of the left lower extremity.
[2017-02-12 15:00] VITALS: BP 98/46
[2017-02-12] MEDS: FERROUS SULFATE 325 MG TABLET. PO SCH (17:36)
[2017-02-12 19:00] VITALS: BP 111/41
--- NOTE | 2017-02-12 19:40 | RAD ---
V/Q lung scan HISTORY: Shortness of breath. COMPARISON: Chest x-ray dated February 11, 2017. No previous lung scan available. TECHNIQUE: After inhalation of 15 mCi of xenon-133 gas, anterior and posterior planar images of both lung joshua were performed in the single breath and equilibrium and washout phases. After IV infusion of 5 mCi of technetium 99m MDP, multiplanar images of both lung joshua were performed. FINDINGS: Bilateral ventilatory defects are seen peripherally. No significant retention of radiotracer activity is seen otherwise. Matching perfusion defects are seen bilaterally. No other nonmatched segmental perfusion defects are seen. Interstitial lung disease is present on the chest x-ray. IMPRESSION: Matched ventilatory perfusion defects. Overall probability for pulmonary embolism is low. Electronically signed by: Tommy Sheets MD (02/12/2017 7:36 PM) [facility]
[2017-02-12] MEDS: GABAPENTIN 100 MG CAPSULE. PO SCH (21:04)
[2017-02-12 23:00] VITALS: BP 86/41
[2017-02-13] VITALS (8 sets, daily range): BP systolic 110–140; BP diastolic 50–65
[2017-02-13 05:41] LABS: CALCIUM 8.3 mg/dL (8.5-10.1); CREATININE 1.4 mg/dL (0.6-1.0); GFR 35.7; POTASSIUM 3.7 mmol/L (3.5-5.1)
[2017-02-13 07:48] LABS: HEMOGLOBIN 7.7 g/dL (12.0-15.5); RED BLOOD COUNT 3.19 x10^6/uL (3.50-5.40); RED CELL DISTRIBUTION WIDTH 18.4 % (11.5-14.5); WHITE BLOOD COUNT 7.2 x10^3/uL (4.0-11.0)
[2017-02-13] MEDS: IPRATRPIUM/ALBUTEROL 0.5/2.5MG 3 ML NEBU. NEB SCH ×4 (08:17→19:16)
[2017-02-13] MEDS: LOSARTAN POTASSIUM 50 MG TABLET. PO SCH (09:00)
--- NOTE | 2017-02-13 09:45 | HP ---
ADMIT DATE: 02/11/2017 CHIEF COMPLAINT: Weakness. HISTORY OF PRESENT ILLNESS: An 86-year-old white female who has had ongoing and persistent generalized weakness for several months. She has a history of coronary artery disease and had a stent placed, last in 04/[address] Trejo. She has known chronic anemia, but has been stable over several months and takes iron for what was presumed to be hiatal hernia source of irritation along with aspirin and Plavix. She does have a bit of chronic cough and some mild exertional dyspnea. She does have mildly abnormal CT scan of the chest and was scheduled to see a lung doctor, but her ____ month away and her weakness caused family to bring her to the ER for evaluation of patient. She has scant sputum production, does cough at times, but no overt wheezing, orthopnea, PND, hemoptysis, fever, chills, weight loss or other systemic symptoms. She just feels "weak" but does not really describe much chest pain ____ takes nitroglycerin. PAST MEDICAL HISTORY: Coronary stents in the past, last 04/2016. MEDICATIONS: Include aspirin, Plavix, pantoprazole and diltiazem as well as ____ for depression and iron pills. ALLERGIES: No allergies are known. SOCIAL HISTORY: , family in the area. Retired, sedentary, nonsmoker, nondrinker. FAMILY HISTORY: Unremarkable. REVIEW OF SYSTEMS: No other specific complaints. OBJECTIVE: ENT: Mild pallor, otherwise all within normal limits. NECK: No carotid bruits, nodes, thyroid enlargement or masses. LUNGS: A few basilar crackles. No overt wheezes are heard. CARDIOVASCULAR: Regular rate. Heart tones are distant. No murmurs heard. ABDOMEN: Soft, benign and nontender. EXTREMITIES: Good pedal and radial pulses. No clubbing, cyanosis or edema. There is no pretibial edema in the legs. NEUROLOGIC: Physiologic, alert and nonfocal. Mildly depressed, but oriented x 4. GENITOURINARY AND RECTAL: Deferred. ASSESSMENT: Ongoing nonspecific fatigue with some degree of exertional dyspnea. She has known coronary artery disease with no cardiomyopathy and also known chronic anemia which appears to be stable. She has some abnormal CT ____ findings, which are nonspecific and may or may not be contributing to these symptoms. PLAN: TSH, sed rate, exercise, oximetry, as well as pulmonary and cardiovascular consultation. We will follow the anemia as well and she may need to consider red cell transfusion. LUCIO RILEY MD DR: GEETA/nts JOB#: [id number] / [id number]
--- NOTE | 2017-02-13 09:47 | PDOC ---
Provider Note Provider Note will stop both losartan and diltiazem re low bp, perhaps contributing to weakness- give 1 u prbc re lower hct - cont duoneb- op ct showed no PE, and studies here confirm same - tsh, sed rate ok- have doubled po iron, need to consider stopping plavix now as risk> benefit, on x 10 months LUCIO RILEY MD Feb 13, 2017 09:47
[2017-02-13] MEDS: CLOPIDOGREL BISULFATE 75 MG TABLET PO SCH (09:55)
[2017-02-13] MEDS: CITALOPRAM 20 MG TABLET. PO SCH (09:55)
[2017-02-13] MEDS: OMEGA-3 FATTY ACIDS/FISH OIL 1,000 MG CAPSULE. PO SCH (09:55)
[2017-02-13] MEDS: PANTOPRAZOLE 40 MG TABLET.DR. PO SCH (09:55)
[2017-02-13] MEDS: CHOLECALCIFEROL (VITAMIN D3) 1,000 UNIT TABLET PO SCH (09:55)
[2017-02-13] MEDS: FERROUS SULFATE 325 MG TABLET. PO SCH ×2 (09:55→17:59)
[2017-02-13] MEDS: ALPRAZolam 0.25 MG TABLET PO PRN ×2 (09:56→20:44)
--- NOTE | 2017-02-13 12:04 | PDOC ---
PROGRESS NOTES Subjective Subjective Patient seen and examined The patient feels better today. Objective Objective Vital Signs Date Time Temp Pulse Resp B/P (MAP) Pulse Ox O2 Delivery O2 Flow Rate FiO2 02/13/17 11:00 98.1 76 18 130/65 (86) 92 Nasal Cannula 2.0 98.1 Physical Exam Abdomen: Normal bowel sounds Heart: Regular rate General: mild distress Lungs: Other (slightly decreased breath sounds) Assessment Assessment Problems Medical Problems: (1) Shortness of breath Status: Acute (2) Weakness Status: Acute 1. Progressive weakness. Patient has multiple medical problems. She is feeling better today. Medications are being tapered. Hemoglobin and hematocrit have fallen to 7.7 and 24.0 and the patient is being transfused. No severe abnormalities are noted on chest x-ray or lab testing. 2. Shortness of breath. Patient has a history of some pulmonary disease as well as coronary artery disease. No acute EKG changes. Improved. Echocardiogram pending. 3. Chest discomfort. No acute EKG changes. Troponin 1 is normal. Patient does have a history of coronary disease. Catheterization on 09-10-14 showed an occluded right coronary artery which was opened with a 2.5 drug-eluting stent. A nuclear stress test done on [id number] showed normal perfusion and normal ejection fraction. No acute myocardial infarction. Continue medical treatment. 4. Hypertension. Tapering medications. 5. Gastroesophageal reflux disease with previous esophageal dilatations. Continue medical treatment and monitor. 6. History of atrial fibrillation. Patient continues in a sinus rhythm. 7. Hyperlipidemia. Continue medications. 8. Permanent pacemaker. Will check recent interrogation. Comment Review of Relevant I have reviewed the following items arden (where applicable) has been applied. Labs Laboratory Tests Test 02/11/17 15:20 02/11/17 15:25 02/12/17 05:00 02/12/17 11:45 White Blood Count 8.0 x10^3/uL (4.0-11.0) 6.9 x10^3/uL (4.0-11.0) Red Blood Count 3.87 x10^6/uL (3.50-5.40) 3.42 x10^6/uL (3.50-5.40) Hemoglobin 9.5 g/dL (12.0-15.5) 8.2 g/dL (12.0-15.5) Hematocrit 29.0 % (36.0-47.0) 25.7 % (36.0-47.0) Mean Corpuscular Volume 75 fL (79-100) 75 fL (79-100) Mean Corpuscular Hemoglobin 25 pg (25-35) 24 pg (25-35) Mean Corpuscular Hemoglobin Concent 33 g/dL (31-37) 32 g/dL (31-37) Red Cell Distribution Width 18.9 % (11.5-14.5) 18.4 % (11.5-14.5) Platelet Count 342 x10^3/uL (140-400) 291 x10^3/uL (140-400) Neutrophils (%) (Auto) 63 % (31-73) 54 % (31-73) Lymphocytes (%) (Auto) 24 % (24-48) 31 % (24-48) Monocytes (%) (Auto) 8 % (0-9) 8 % (0-9) Eosinophils (%) (Auto) 4 % (0-3) 6 % (0-3) Basophils (%) (Auto) 2 % (0-3) 1 % (0-3) Neutrophils # (Auto) 5.0 x10^3uL (1.8-7.7) 3.7 x10^3uL (1.8-7.7) Lymphocytes # (Auto) 1.9 x10^3/uL (1.0-4.8) 2.1 x10^3/uL (1.0-4.8) Monocytes # (Auto) 0.6 x10^3/uL (0.0-1.1) 0.5 x10^3/uL (0.0-1.1) Eosinophils # (Auto) 0.4 x10^3/uL (0.0-0.7) 0.4 x10^3/uL (0.0-0.7) Basophils # (Auto) 0.1 x10^3/uL (0.0-0.2) 0.1 x10^3/uL (0.0-0.2) Urine Collection Type Unknown Urine Color Yellow Urine Clarity Clear Urine pH 6.0 Urine Specific Allen <=1.005 Urine Protein Negative mg/dL (NEG-TRACE) Urine Glucose (UA) Negative mg/dL (NEG) Urine Ketones (Stick) Negative mg/dL (NEG) Urine Blood Negative (NEG) Urine Nitrite Negative (NEG) Urine Bilirubin Negative (NEG) Urine Urobilinogen Dipstick 0.2 mg/dL (0.2 mg/dL) Urine Leukocyte Esterase Negative (NEG) Urine RBC 1-2 /HPF (0-2) Urine WBC Rare /HPF (0-4) Urine Bacteria 0 /HPF (0-FEW) Sodium Level 141 mmol/L (136-145) 142 mmol/L (136-145) Potassium Level 3.7 mmol/L (3.5-5.1) 3.9 mmol/L (3.5-5.1) Chloride Level 105 mmol/L (98-107) 106 mmol/L (98-107) Carbon Dioxide Level 27 mmol/L (21-32) 29 mmol/L (21-32) Anion Gap 9 (6-14) 7 (6-14) Blood Urea Nitrogen 19 mg/dL (7-20) 20 mg/dL (7-20) Creatinine 1.0 mg/dL (0.6-1.0) 1.1 mg/dL (0.6-1.0) Estimated GFR (Cockcroft-Gault) 52.7 47.2 BUN/Creatinine Ratio 19 (6-20) Glucose Level 148 mg/dL (70-99) 90 mg/dL (70-99) Calcium Level 9.0 mg/dL (8.5-10.1) 8.5 mg/dL (8.5-10.1) Total Bilirubin 0.2 mg/dL (0.2-1.0) Aspartate Amino Transf (AST/SGOT) 17 U/L (15-37) Alanine Aminotransferase (ALT/SGPT) 21 U/L (14-59) Alkaline Phosphatase 91 U/L (46-116) Troponin I Quantitative < 0.017 ng/mL (0.000-0.055) XK-Pif-M-Type Natriuretic Peptide 290 pg/mL (0-449) Total Protein 7.4 g/dL (6.4-8.2) Albumin 3.5 g/dL (3.4-5.0) Albumin/Globulin Ratio 0.9 (1.0-1.7) Influenza Type A Antigen Negative (NEGATIVE) Influenza Type B Antigen Negative (NEGATIVE) Erythrocyte Sedimentation Rate 27 (0-25) Thyroid Stimulating Hormone (TSH) 1.559 uIU/mL (0.358-3.74) Test 02/13/17 05:00 White Blood Count 7.2 x10^3/uL (4.0-11.0) Red Blood Count 3.19 x10^6/uL (3.50-5.40) Hemoglobin 7.7 g/dL (12.0-15.5) Hematocrit 24.0 % (36.0-47.0) Mean Corpuscular Volume 75 fL (79-100) Mean Corpuscular Hemoglobin 24 pg (25-35) Mean Corpuscular Hemoglobin Concent 32 g/dL (31-37) Red Cell Distribution Width 18.4 % (11.5-14.5) Platelet Count 277 x10^3/uL (140-400) Sodium Level 139 mmol/L (136-145) Potassium Level 3.7 mmol/L (3.5-5.1) Chloride Level 104 mmol/L (98-107) Carbon Dioxide Level 28 mmol/L (21-32) Anion Gap 7 (6-14) Blood Urea Nitrogen 23 mg/dL (7-20) Creatinine 1.4 mg/dL (0.6-1.0) Estimated GFR (Cockcroft-Gault) 35.7 Glucose Level 97 mg/dL (70-99) Calcium Level 8.3 mg/dL (8.5-10.1) Troponin I Quantitative < 0.017 ng/mL (0.000-0.055) Triglycerides Level 87 mg/dL (0-150) Cholesterol Level 113 mg/dL (0-200) LDL Cholesterol, Calculated 58 mg/dL (0-100) VLDL Cholesterol, Calculated 17 mg/dL (0-40) Non-HDL Cholesterol Calculated 75 mg/dL (0-129) HDL Cholesterol 38 mg/dL (40-60) Cholesterol/HDL Ratio 3.0 Laboratory Tests Test 02/13/17 05:00 White Blood Count 7.2 x10^3/uL (4.0-11.0) Red Blood Count 3.19 x10^6/uL (3.50-5.40) Hemoglobin 7.7 g/dL (12.0-15.5) Hematocrit 24.0 % (36.0-47.0) Mean Corpuscular Volume 75 fL (79-100) Mean Corpuscular Hemoglobin 24 pg (25-35) Mean Corpuscular Hemoglobin Concent 32 g/dL (31-37) Red Cell Distribution Width 18.4 % (11.5-14.5) Platelet Count 277 x10^3/uL (140-400) Sodium Level 139 mmol/L (136-145) Potassium Level 3.7 mmol/L (3.5-5.1) Chloride Level 104 mmol/L (98-107) Carbon Dioxide Level 28 mmol/L (21-32) Anion Gap 7 (6-14) Blood Urea Nitrogen 23 mg/dL (7-20) Creatinine 1.4 mg/dL (0.6-1.0) Estimated GFR (Cockcroft-Gault) 35.7 Glucose Level 97 mg/dL (70-99) Calcium Level 8.3 mg/dL (8.5-10.1) Troponin I Quantitative < 0.017 ng/mL (0.000-0.055) Triglycerides Level 87 mg/dL (0-150) Cholesterol Level 113 mg/dL (0-200) LDL Cholesterol, Calculated 58 mg/dL (0-100) VLDL Cholesterol, Calculated 17 mg/dL (0-40) Non-HDL Cholesterol Calculated 75 mg/dL (0-129) HDL Cholesterol 38 mg/dL (40-60) Cholesterol/HDL Ratio 3.0 Medications Current Medications Ondansetron HCl (Zofran) 4 mg PRN Q8HRS PRN IV NAUSEA/VOMITING; Start at 18:15; Stop 02/12/17 at 18:14; Status DC Acetaminophen (Tylenol) 650 mg PRN Q4HRS PRN PO FEVER; Start 02/11/17 at 18:15 ; Stop 02/11/17 at 22:14; Status DC Acetaminophen (Tylenol) 650 mg PRN Q6HRS PRN PO MILD PAIN Last administered on 02/12/17 21:19; Start 02/11/17 at 22:15 Alprazolam (Xanax) 0.25 mg PRN Q8HRS PRN PO ANXIETY Last administered on 09:56; Start 02/11/17 at 22:15 Aspirin (Ecotrin) 81 mg DAILY PO Last administered on 02/12/17 08:40; Start 02/12/17 at 09:00; Stop 02/12/17 at 10:46; Status DC Vitamin D (Vitamin D3) 1,000 unit DAILY PO Last administered on 02/13/17 09: 55; Start 02/12/17 at 09:00 Citalopram Hydrobromide (CeleXA) 20 mg DAILY PO Last administered on 09:55; Start 02/12/17 at 09:00 Clopidogrel Bisulfate (Plavix) 75 mg DAILY PO Last administered on 02/13/17 09:55; Start 02/12/17 at 09:00 Diltiazem HCl (Cardizem 24hr Cd) 240 mg DAILY PO Last administered on 08:40; Start 02/12/17 at 09:00; Stop 02/13/17 at 09:24; Status DC Ferrous Sulfate (Feosol) 325 mg DAILY PO Last administered on 02/12/17 08:41 ; Start 02/12/17 at 09:00; Stop 02/12/17 at 10:44; Status DC Gabapentin (Neurontin) 200 mg QHS PO Last administered on 02/12/17 21:04; Start 02/11/17 at 23:00 Losartan Potassium (Cozaar) 50 mg DAILY PO Last administered on 02/12/17 08: 41; Start 02/12/17 at 09:00; Stop 02/13/17 at 09:43; Status DC Pantoprazole Sodium (Protonix) 40 mg DAILYAC PO Last administered on 09:55; Start 02/12/17 at 07:30 Fish Oil (Fish Oil) 1,000 mg DAILY PO Last administered on 02/13/17 09:55; Start 02/12/17 at 09:00 Oxycodone/ Acetaminophen (Percocet 5/325) 1 tab PRN Q6HRS PRN PO SEVERE PAIN Last administered on 02/11/17 22:42; Start 02/11/17 at 22:30 Albuterol/ Ipratropium (Duoneb) 3 ml Q4HRS NEB ; Start 02/12/17 at 09:00; Stop 02/12/17 at 10:44; Status DC Ferrous Sulfate (Feosol) 325 mg BIDAFTMEAL PO Last administered on 02/13/17 09:55; Start 02/12/17 at 18:00 Albuterol/ Ipratropium (Duoneb) 3 ml RTQID NEB Last administered on 02/13/17 08:17; Start 02/12/17 at 12:00 Aspirin (Ecotrin) 81 mg QODAY PO ; Start 02/14/17 at 09:00 Active Scripts Active Reported Aspir 81 (Aspirin) 81 Mg Tablet.dr 1 Tab PO DAILY Fish Oil 1,000 mg Softgel ([place]-3/Dha/Epa/Fish Oil) 1,000 Mg Capsule 1,000 Mg PO DAILY Plavix (Clopidogrel Bisulfate) 75 Mg Tablet 1 Tab PO DAILY Ferrous Sulfate 325 Mg Tablet 325 Mg PO DAILY Vitamin D3 (Cholecalciferol (Vitamin D3)) 1,000 Unit Tablet 1,000 Unit PO DAILY Losartan Potassium 50 Mg Tablet 50 Mg PO DAILY Gabapentin 100 Mg Capsule 200 Mg PO QHS Protonix (Pantoprazole Sodium) 40 Mg Tablet.dr 40 Mg PO DAILY Diltiazem 24HR Cd (Diltiazem Hcl) 240 Mg Cap.er.24h 240 Mg PO DAILY Tylenol (Acetaminophen) 325 Mg Tablet 650 Mg PO PRN Q6HRS PRN as needed Xanax (Alprazolam) 0.25 Mg Tablet 0.25 Mg PO PRN Q8HRS PRN Next dose: as needed Citalopram Hbr (Citalopram Hydrobromide) 20 Mg Tablet 20 Mg PO DAILY Vitals/I & O Vital Sign - Last 24 Hours 02/12/17 02/12/17 02/12/17 02/12/17 15:00 15:13 19:00 20:00 Temp 98.5 97.6 98.5 97.6 Pulse 65 67 Resp 20 19 B/P (MAP) 98/46 (63) 111/41 (64) Pulse Ox 92 90 90 O2 Delivery Nasal Cannula Room Air Nasal Cannula Nasal Cannula O2 Flow Rate 2.0 2.0 02/12/17 02/12/17 02/13/17 02/13/17 21:00 23:00 03:00 07:00 Temp 97.6 97.6 97.8 97.6 97.6 97.8 Pulse 70 67 66 Resp 19 17 18 B/P (MAP) 86/41 (56) 110/51 (70) 114/63 (80) Pulse Ox 90 91 90 92 O2 Delivery Room Air Nasal Cannula Nasal Cannula Nasal Cannula O2 Flow Rate 2.0 2.0 2.0 02/13/17 02/13/17 02/13/17 08:00 08:19 11:00 Temp 98.1 98.1 Pulse 76 Resp 18 B/P (MAP) 130/65 (86) Pulse Ox 92 92 O2 Delivery Nasal Cannula Room Air Nasal Cannula O2 Flow Rate 2.0 2.0 SILVIANO LESLIE MD Feb 13, 2017 12:04
--- NOTE | 2017-02-13 15:25 | PDOC ---
PULMONARY PROGRESS NOTES Subjective PT STILL NOT WELL COUGH MOSTLY NON P Vitals Vital Signs Date Time Temp Pulse Resp B/P (MAP) Pulse Ox O2 Delivery O2 Flow Rate FiO2 02/13/17 12:18 Room Air 02/13/17 11:00 98.1 76 18 130/65 (86) 92 2.0 98.1 General: Alert Lungs: Wheezing, Crackles Cardiovascular: S1, S2 Abdomen: Soft Neuro Exam: Alert Skin: Warm Labs Laboratory Tests Test 02/12/17 05:00 02/12/17 11:45 02/13/17 05:00 White Blood Count 6.9 x10^3/uL (4.0-11.0) 7.2 x10^3/uL (4.0-11.0) Red Blood Count 3.42 x10^6/uL (3.50-5.40) 3.19 x10^6/uL (3.50-5.40) Hemoglobin 8.2 g/dL (12.0-15.5) 7.7 g/dL (12.0-15.5) Hematocrit 25.7 % (36.0-47.0) 24.0 % (36.0-47.0) Mean Corpuscular Volume 75 fL (79-100) 75 fL (79-100) Mean Corpuscular Hemoglobin 24 pg (25-35) 24 pg (25-35) Mean Corpuscular Hemoglobin Concent 32 g/dL (31-37) 32 g/dL (31-37) Red Cell Distribution Width 18.4 % (11.5-14.5) 18.4 % (11.5-14.5) Platelet Count 291 x10^3/uL (140-400) 277 x10^3/uL (140-400) Neutrophils (%) (Auto) 54 % (31-73) Lymphocytes (%) (Auto) 31 % (24-48) Monocytes (%) (Auto) 8 % (0-9) Eosinophils (%) (Auto) 6 % (0-3) Basophils (%) (Auto) 1 % (0-3) Neutrophils # (Auto) 3.7 x10^3uL (1.8-7.7) Lymphocytes # (Auto) 2.1 x10^3/uL (1.0-4.8) Monocytes # (Auto) 0.5 x10^3/uL (0.0-1.1) Eosinophils # (Auto) 0.4 x10^3/uL (0.0-0.7) Basophils # (Auto) 0.1 x10^3/uL (0.0-0.2) Sodium Level 142 mmol/L (136-145) 139 mmol/L (136-145) Potassium Level 3.9 mmol/L (3.5-5.1) 3.7 mmol/L (3.5-5.1) Chloride Level 106 mmol/L (98-107) 104 mmol/L (98-107) Carbon Dioxide Level 29 mmol/L (21-32) 28 mmol/L (21-32) Anion Gap 7 (6-14) 7 (6-14) Blood Urea Nitrogen 20 mg/dL (7-20) 23 mg/dL (7-20) Creatinine 1.1 mg/dL (0.6-1.0) 1.4 mg/dL (0.6-1.0) Estimated GFR (Cockcroft-Gault) 47.2 35.7 Glucose Level 90 mg/dL (70-99) 97 mg/dL (70-99) Calcium Level 8.5 mg/dL (8.5-10.1) 8.3 mg/dL (8.5-10.1) Erythrocyte Sedimentation Rate 27 (0-25) Thyroid Stimulating Hormone (TSH) 1.559 uIU/mL (0.358-3.74) Troponin I Quantitative < 0.017 ng/mL (0.000-0.055) Triglycerides Level 87 mg/dL (0-150) Cholesterol Level 113 mg/dL (0-200) LDL Cholesterol, Calculated 58 mg/dL (0-100) VLDL Cholesterol, Calculated 17 mg/dL (0-40) Non-HDL Cholesterol Calculated 75 mg/dL (0-129) HDL Cholesterol 38 mg/dL (40-60) Cholesterol/HDL Ratio 3.0 Laboratory Tests Test 02/13/17 05:00 White Blood Count 7.2 x10^3/uL (4.0-11.0) Red Blood Count 3.19 x10^6/uL (3.50-5.40) Hemoglobin 7.7 g/dL (12.0-15.5) Hematocrit 24.0 % (36.0-47.0) Mean Corpuscular Volume 75 fL (79-100) Mean Corpuscular Hemoglobin 24 pg (25-35) Mean Corpuscular Hemoglobin Concent 32 g/dL (31-37) Red Cell Distribution Width 18.4 % (11.5-14.5) Platelet Count 277 x10^3/uL (140-400) Sodium Level 139 mmol/L (136-145) Potassium Level 3.7 mmol/L (3.5-5.1) Chloride Level 104 mmol/L (98-107) Carbon Dioxide Level 28 mmol/L (21-32) Anion Gap 7 (6-14) Blood Urea Nitrogen 23 mg/dL (7-20) Creatinine 1.4 mg/dL (0.6-1.0) Estimated GFR (Cockcroft-Gault) 35.7 Glucose Level 97 mg/dL (70-99) Calcium Level 8.3 mg/dL (8.5-10.1) Troponin I Quantitative < 0.017 ng/mL (0.000-0.055) Triglycerides Level 87 mg/dL (0-150) Cholesterol Level 113 mg/dL (0-200) LDL Cholesterol, Calculated 58 mg/dL (0-100) VLDL Cholesterol, Calculated 17 mg/dL (0-40) Non-HDL Cholesterol Calculated 75 mg/dL (0-129) HDL Cholesterol 38 mg/dL (40-60) Cholesterol/HDL Ratio 3.0 Medications Active Scripts Medications Dose Route/Sig Max Daily Dose Days Date Category Dose Instructions Aspir 81 (Aspirin) 81 Mg Tablet.dr 1 Tab PO DAILY 02/11/17 Reported Fish Oil 1,000 mg Softgel (Winifred-3/Dha/Epa/Fish Oil) 1,000 Mg Capsule 1,000 Mg PO DAILY 12/13/16 Reported Plavix (Clopidogrel Bisulfate) 75 Mg Tablet 1 Tab PO DAILY 04/10/16 Reported Ferrous Sulfate 325 Mg Tablet 325 Mg PO DAILY 04/09/16 Reported Vitamin D3 (Cholecalciferol (Vitamin D3)) 1,000 Unit Tablet 1,000 Unit PO DAILY 04/09/16 Reported Losartan Potassium 50 Mg Tablet 50 Mg PO DAILY 04/09/16 Reported Gabapentin 100 Mg Capsule 200 Mg PO QHS 11/12/15 Reported Protonix (Pantoprazole Sodium) 40 Mg Tablet.dr 40 Mg PO DAILY 10/18/14 Reported Diltiazem 24HR Cd (Diltiazem Hcl) 240 Mg Cap.er.24h 240 Mg PO DAILY 02/16/14 Reported Tylenol (Acetaminophen) 325 Mg Tablet 650 Mg PO PRN Q6HRS PRN 09/30/13 Reported as needed Xanax (Alprazolam) 0.25 Mg Tablet 0.25 Mg PO PRN Q8HRS PRN 09/30/13 Reported Next dose: as needed Citalopram Hbr (Citalopram Hydrobromide) 20 Mg Tablet 20 Mg PO DAILY 09/30/13 Reported Impression . 1. Dyspnea sec to Acute Bronchit 2. Anemia work up per PCP 3. Chronic kidney injury. 4. Atrial fibrillation. 5. Gastroesophageal reflux disease. 6. Hypertension. 7. Coronary artery disease, status post stent placement. 8. Permanent pacemaker. Plan . V/Q SCAN REVIEWED NO UNMATCHED PERFUSION DEFECT VENOUS DOPPLER NEGATIVE AVOID CAFFEINE CONTINUE THE SAME ADD PRED LA TOVAR MD Feb 13, 2017 15:25
--- NOTE | 2017-02-13 15:59 | CARD ---
APPROVED REPORT EXAM: Two-dimensional and M-mode echocardiogram with Doppler and color Doppler. Other Information Quality : GoodHR: 73bpm Rhythm : Pacemaker INDICATION Chest Pain Surgery/Intervention Pacemaker: 2D DIMENSIONS Left Atrium(2D)2.7 (1.6-4.0cm)IVSd1.0 (0.7-1.1cm) Aortic Root(2D)2.9 (2.0-3.7cm)LVDd4.0 (3.9-5.9cm) LVOT Diameter1.9 (1.8-2.4cm)PWd1.0 (0.7-1.1cm) LVDs2.5 (2.5-4.0cm)FS (%) 38.6 % SV49.7 mlLVEF(%)69.4 (>50%) Aortic Valve AoV Peak Matias.202.0cm/sAoV VTI41.1cm AO Peak GR.16.3mmHgLVOT Peak Matias.138.1cm/s AO Mean GR.9mmHgAVA (VMAX)1.91cm2 AI P 1/2 Unfq445vq Mitral Valve MV E Wmiwfnsg71.4cm/sMV DECEL KEFT130ml MV A Bkwapylh04.7cm/sE/A Ratio0.9 Tricuspid Valve TR P. Nrfnngab181lv/sRAP FTNZHEID1akRd TR Peak Gr.34mmHg LEFT VENTRICLE The left ventricle is normal size. There is borderline concentric left ventricular hypertrophy. Left ventricle systolic function is normal. The Ejection Fraction is 60-65%. Transmitral Doppler flow luz kyle is Grade I-abnormal relaxation pattern. RIGHT VENTRICLE The right ventricle is normal size. There is normal right ventricular wall thickness. The right ventr icular systolic function is normal. There is a pacemaker lead in the right ventricle. ATRIA The left atrium size is normal. The right atrium size is normal. The interatrial septum is intact wit h no evidence for an atrial septal defect or patent foramen ovale as noted on 2-D or Doppler imaging. AORTIC VALVE The aortic valve is thickened but opens well. Doppler and Color Flow revealed trace significant aorti c regurgitation. There is no significant aortic valvular stenosis. MITRAL VALVE The mitral valve is normal in structure and function. There is no mitral valve stenosis. Doppler and Color-flow revealed trace mitral regurgitation. TRICUSPID VALVE The tricuspid valve is normal in structure and function. Doppler and Color Flow revealed mild tricusp id regurgitation. The PA pressure was estimated at 37 mmHg. There is no tricuspid valve stenosis. PULMONIC VALVE PV not well visualized. Doppler and Color Flow revealed no pulmonic valvular regurgitation. There is no pulmonic valvular stenosis. GREAT VESSELS The aortic root is normal in size. Normal pulmonary venous flow (Doppler). Due to poor image quality, the IVC could not be assessed. PERICARDIAL EFFUSION There is no evidence of significant pericardial effusion. Critical Notification Critical Value: No <Conclusion> The left ventricle is normal size. Left ventricle systolic function is normal. The Ejection Fraction is 60-65%. There is borderline concentric left ventricular hypertrophy. There is no significant aortic valvular stenosis. Doppler and Color Flow revealed trace significant aortic regurgitation. Doppler and Color-flow revealed trace mitral regurgitation. Doppler and Color Flow revealed mild tricuspid regurgitation. The PA pressure was estimated at 37 mmHg.
[2017-02-13] MEDS: predniSONE 10 MG TABLET PO SCH (20:44)
[2017-02-13] MEDS: GABAPENTIN 100 MG CAPSULE. PO SCH (20:44)
[2017-02-13] MEDS ORDERED: ATOR20TA PO (20:48)
[2017-02-14] VITALS (8 sets, daily range): BP systolic 117–148; BP diastolic 46–69
[2017-02-14 05:08] LABS: BASO % 1 % (0-3); EOS % 0 % (0-3); HEMOGLOBIN 10.5 g/dL (12.0-15.5); LYMPH # 0.6 x10^3/uL (1.0-4.8); LYMPH % 9 % (24-48); MEAN CORPUSCULAR HEMOGLOBIN 25 pg (25-35); MEAN CORPUSCULAR HGB CONC 33 g/dL (31-37); MEAN CORPUSCULAR VOLUME 77 fL (79-100); MONO % 1 % (0-9); NEUT % 90 % (31-73); PLATELET COUNT 295 x10^3/uL (140-400); RED BLOOD COUNT 4.15 x10^6/uL (3.50-5.40); RED CELL DISTRIBUTION WIDTH 19.2 % (11.5-14.5); WHITE BLOOD COUNT 7.2 x10^3/uL (4.0-11.0)
[2017-02-14 05:41] LABS: CALCIUM 8.7 mg/dL (8.5-10.1); GFR 52.7; MAGNESIUM 2.3 mg/dL (1.8-2.4); POTASSIUM 4.8 mmol/L (3.5-5.1)
[2017-02-14] MEDS: IPRATRPIUM/ALBUTEROL 0.5/2.5MG 3 ML NEBU. NEB SCH ×3 (07:14→19:38)
--- NOTE | 2017-02-14 08:35 | PDOC ---
Provider Note Provider Note bp better, still nsr, feels a litlle better w/ higher bp and hb 10- cont same, ? dc plavix as risk> benefit- wants to stay another day LUCIO RILEY MD Feb 14, 2017 08:35
[2017-02-14] MEDS ORDERED: ASPIRIN ENTERIC COATED 81 MG TABLET.DR. PO SCH (09:00)
[2017-02-14] MEDS: CITALOPRAM 20 MG TABLET. PO SCH (10:01)
[2017-02-14] MEDS: PANTOPRAZOLE 40 MG TABLET.DR. PO SCH (10:01)
[2017-02-14] MEDS: OMEGA-3 FATTY ACIDS/FISH OIL 1,000 MG CAPSULE. PO SCH (10:02)
[2017-02-14] MEDS: FERROUS SULFATE 325 MG TABLET. PO SCH ×2 (10:02→17:49)
[2017-02-14] MEDS: CLOPIDOGREL BISULFATE 75 MG TABLET PO SCH (10:02)
[2017-02-14] MEDS: predniSONE 10 MG TABLET PO SCH (10:03)
[2017-02-14] MEDS: CHOLECALCIFEROL (VITAMIN D3) 1,000 UNIT TABLET PO SCH (10:04)
[2017-02-14 11:18] LABS: % BASOS 1 % (0-3)
[2017-02-14 11:20] LABS: ANISOCYTOSIS SLIGHT; HYPOCHROMIA SLIGHT; PLT ESTIMATE ADEQUATE (ADEQUATE)
--- NOTE | 2017-02-14 15:16 | PDOC ---
PULMONARY PROGRESS NOTES Subjective LESS SOA AND COUGH Vitals Vital Signs Date Time Temp Pulse Resp B/P (MAP) Pulse Ox O2 Delivery O2 Flow Rate FiO2 02/14/17 10:34 96.1 86 18 141/68 (92) 93 Nasal Cannula 2.0 96.1 General: Alert Lungs: Wheezing, Crackles Cardiovascular: S1, S2 Abdomen: Soft Neuro Exam: Alert Skin: Warm Labs Laboratory Tests Test 02/13/17 05:00 02/14/17 04:50 White Blood Count 7.2 x10^3/uL (4.0-11.0) 7.2 x10^3/uL (4.0-11.0) Red Blood Count 3.19 x10^6/uL (3.50-5.40) 4.15 x10^6/uL (3.50-5.40) Hemoglobin 7.7 g/dL (12.0-15.5) 10.5 g/dL (12.0-15.5) Hematocrit 24.0 % (36.0-47.0) 32.0 % (36.0-47.0) Mean Corpuscular Volume 75 fL (79-100) 77 fL (79-100) Mean Corpuscular Hemoglobin 24 pg (25-35) 25 pg (25-35) Mean Corpuscular Hemoglobin Concent 32 g/dL (31-37) 33 g/dL (31-37) Red Cell Distribution Width 18.4 % (11.5-14.5) 19.2 % (11.5-14.5) Platelet Count 277 x10^3/uL (140-400) 295 x10^3/uL (140-400) Sodium Level 139 mmol/L (136-145) 141 mmol/L (136-145) Potassium Level 3.7 mmol/L (3.5-5.1) 4.8 mmol/L (3.5-5.1) Chloride Level 104 mmol/L (98-107) 107 mmol/L (98-107) Carbon Dioxide Level 28 mmol/L (21-32) 27 mmol/L (21-32) Anion Gap 7 (6-14) 7 (6-14) Blood Urea Nitrogen 23 mg/dL (7-20) 12 mg/dL (7-20) Creatinine 1.4 mg/dL (0.6-1.0) 1.0 mg/dL (0.6-1.0) Estimated GFR (Cockcroft-Gault) 35.7 52.7 Glucose Level 97 mg/dL (70-99) 166 mg/dL (70-99) Calcium Level 8.3 mg/dL (8.5-10.1) 8.7 mg/dL (8.5-10.1) Troponin I Quantitative < 0.017 ng/mL (0.000-0.055) Triglycerides Level 87 mg/dL (0-150) Cholesterol Level 113 mg/dL (0-200) LDL Cholesterol, Calculated 58 mg/dL (0-100) VLDL Cholesterol, Calculated 17 mg/dL (0-40) Non-HDL Cholesterol Calculated 75 mg/dL (0-129) HDL Cholesterol 38 mg/dL (40-60) Cholesterol/HDL Ratio 3.0 Neutrophils (%) (Auto) 90 % (31-73) Lymphocytes (%) (Auto) 9 % (24-48) Monocytes (%) (Auto) 1 % (0-9) Eosinophils (%) (Auto) 0 % (0-3) Basophils (%) (Auto) 1 % (0-3) Neutrophils # (Auto) 6.4 x10^3uL (1.8-7.7) Lymphocytes # (Auto) 0.6 x10^3/uL (1.0-4.8) Monocytes # (Auto) 0.1 x10^3/uL (0.0-1.1) Eosinophils # (Auto) 0.0 x10^3/uL (0.0-0.7) Basophils # (Auto) 0.0 x10^3/uL (0.0-0.2) Segmented Neutrophils % 86 % (35-66) Band Neutrophils % 4 % (0-9) Lymphocytes % 8 % (24-48) Monocytes % 1 % (0-10) Basophils % 1 % (0-3) Platelet Estimate Adequate (ADEQUATE) Hypochromasia Slight Anisocytosis Slight Magnesium Level 2.3 mg/dL (1.8-2.4) Laboratory Tests Test 02/14/17 04:50 White Blood Count 7.2 x10^3/uL (4.0-11.0) Red Blood Count 4.15 x10^6/uL (3.50-5.40) Hemoglobin 10.5 g/dL (12.0-15.5) Hematocrit 32.0 % (36.0-47.0) Mean Corpuscular Volume 77 fL (79-100) Mean Corpuscular Hemoglobin 25 pg (25-35) Mean Corpuscular Hemoglobin Concent 33 g/dL (31-37) Red Cell Distribution Width 19.2 % (11.5-14.5) Platelet Count 295 x10^3/uL (140-400) Neutrophils (%) (Auto) 90 % (31-73) Lymphocytes (%) (Auto) 9 % (24-48) Monocytes (%) (Auto) 1 % (0-9) Eosinophils (%) (Auto) 0 % (0-3) Basophils (%) (Auto) 1 % (0-3) Neutrophils # (Auto) 6.4 x10^3uL (1.8-7.7) Lymphocytes # (Auto) 0.6 x10^3/uL (1.0-4.8) Monocytes # (Auto) 0.1 x10^3/uL (0.0-1.1) Eosinophils # (Auto) 0.0 x10^3/uL (0.0-0.7) Basophils # (Auto) 0.0 x10^3/uL (0.0-0.2) Segmented Neutrophils % 86 % (35-66) Band Neutrophils % 4 % (0-9) Lymphocytes % 8 % (24-48) Monocytes % 1 % (0-10) Basophils % 1 % (0-3) Platelet Estimate Adequate (ADEQUATE) Hypochromasia Slight Anisocytosis Slight Sodium Level 141 mmol/L (136-145) Potassium Level 4.8 mmol/L (3.5-5.1) Chloride Level 107 mmol/L (98-107) Carbon Dioxide Level 27 mmol/L (21-32) Anion Gap 7 (6-14) Blood Urea Nitrogen 12 mg/dL (7-20) Creatinine 1.0 mg/dL (0.6-1.0) Estimated GFR (Cockcroft-Gault) 52.7 Glucose Level 166 mg/dL (70-99) Calcium Level 8.7 mg/dL (8.5-10.1) Magnesium Level 2.3 mg/dL (1.8-2.4) Medications Active Scripts Medications Dose Route/Sig Max Daily Dose Days Date Category Dose Instructions Aspir 81 (Aspirin) 81 Mg Tablet.dr 1 Tab PO DAILY 02/11/17 Reported Fish Oil 1,000 mg Softgel (Adams-3/Dha/Epa/Fish Oil) 1,000 Mg Capsule 1,000 Mg PO DAILY 12/13/16 Reported Plavix (Clopidogrel Bisulfate) 75 Mg Tablet 1 Tab PO DAILY 04/10/16 Reported Ferrous Sulfate 325 Mg Tablet 325 Mg PO DAILY 04/09/16 Reported Vitamin D3 (Cholecalciferol (Vitamin D3)) 1,000 Unit Tablet 1,000 Unit PO DAILY 04/09/16 Reported Losartan Potassium 50 Mg Tablet 50 Mg PO DAILY 04/09/16 Reported Gabapentin 100 Mg Capsule 200 Mg PO QHS 11/12/15 Reported Protonix (Pantoprazole Sodium) 40 Mg Tablet.dr 40 Mg PO DAILY 02/16/14 Reported Diltiazem 24HR Cd (Diltiazem Hcl) 240 Mg Cap.er.24h 240 Mg PO DAILY 02/16/14 Reported Tylenol (Acetaminophen) 325 Mg Tablet 650 Mg PO PRN Q6HRS PRN 09/30/13 Reported as needed Xanax (Alprazolam) 0.25 Mg Tablet 0.25 Mg PO PRN Q8HRS PRN 09/30/13 Reported Next dose: as needed Citalopram Hbr (Citalopram Hydrobromide) 20 Mg Tablet 20 Mg PO DAILY 09/30/13 Reported Impression . 1. Dyspnea sec to Acute Bronchit 2. Anemia work up per PCP 3. Chronic kidney injury. 4. Atrial fibrillation. 5. Gastroesophageal reflux disease. 6. Hypertension. 7. Coronary artery disease, status post stent placement. 8. Permanent pacemaker. Plan . CONTINUE THE SAME OK TO D/C IN AM V/Q SCAN REVIEWED NO UNMATCHED PERFUSION DEFECT VENOUS DOPPLER NEGATIVE AVOID CAFFEINE CONTINUE THE SAME ADD PRED LA TOVAR MD Feb 14, 2017 15:16
--- NOTE | 2017-02-14 16:03 | PDOC ---
CARDIO Progress Notes Date and Time Date of Service 02/14/2017 Time of Evaluation 1550 Subjective Subjective: No Chest Pain, No shortness of breath, No Palpitations Vitals Vitals Vital Signs Date Time Temp Pulse Resp B/P (MAP) Pulse Ox O2 Delivery O2 Flow Rate FiO2 02/14/17 10:34 96.1 86 18 141/68 (92) 93 Nasal Cannula 2.0 96.1 Weight Weight [ ] Laboratory Labs Laboratory Tests Test 02/14/17 04:50 White Blood Count 7.2 x10^3/uL (4.0-11.0) Red Blood Count 4.15 x10^6/uL (3.50-5.40) Hemoglobin 10.5 g/dL (12.0-15.5) Hematocrit 32.0 % (36.0-47.0) Mean Corpuscular Volume 77 fL (79-100) Mean Corpuscular Hemoglobin 25 pg (25-35) Mean Corpuscular Hemoglobin Concent 33 g/dL (31-37) Red Cell Distribution Width 19.2 % (11.5-14.5) Platelet Count 295 x10^3/uL (140-400) Neutrophils (%) (Auto) 90 % (31-73) Lymphocytes (%) (Auto) 9 % (24-48) Monocytes (%) (Auto) 1 % (0-9) Eosinophils (%) (Auto) 0 % (0-3) Basophils (%) (Auto) 1 % (0-3) Neutrophils # (Auto) 6.4 x10^3uL (1.8-7.7) Lymphocytes # (Auto) 0.6 x10^3/uL (1.0-4.8) Monocytes # (Auto) 0.1 x10^3/uL (0.0-1.1) Eosinophils # (Auto) 0.0 x10^3/uL (0.0-0.7) Basophils # (Auto) 0.0 x10^3/uL (0.0-0.2) Segmented Neutrophils % 86 % (35-66) Band Neutrophils % 4 % (0-9) Lymphocytes % 8 % (24-48) Monocytes % 1 % (0-10) Basophils % 1 % (0-3) Platelet Estimate Adequate (ADEQUATE) Hypochromasia Slight Anisocytosis Slight Sodium Level 141 mmol/L (136-145) Potassium Level 4.8 mmol/L (3.5-5.1) Chloride Level 107 mmol/L (98-107) Carbon Dioxide Level 27 mmol/L (21-32) Anion Gap 7 (6-14) Blood Urea Nitrogen 12 mg/dL (7-20) Creatinine 1.0 mg/dL (0.6-1.0) Estimated GFR (Cockcroft-Gault) 52.7 Glucose Level 166 mg/dL (70-99) Calcium Level 8.7 mg/dL (8.5-10.1) Magnesium Level 2.3 mg/dL (1.8-2.4) Physical Exam HEENT: Neck Supple W Full Motion Chest: Symmetric LUNGS: Other (basilar crackles) Heart: S1S2, RRR (SR) Abdomen: Soft N/T Extremities: No Edema, No Calf Tenderness Neurology: alert, oriented, follow commands Assessment Assessment 1. Progressive weakness; most likely from anemia 2. Anemia: Chronic? Also contributing to dyspnea. S/P blood transfusion. Hgb stable now at 10.5 3. CAD; 2014 PCI/stent. Recent MPI 12/2015 unremarkable. 4. HTN; controlled 5. PAFIB; SR 6. HLP 7. PPM insitu: likely for SSS. [employer] Recommendations 1. If no acute bleed and this is chronic then continue DAPT if ok with PCP. Continue with secondary prevention. 2. Not a candidate for high end anticoagulation with anemia, advanced age and risk for falls. 3. Will interrogate device. 4. Pulmonary following NEO DAVIS APRN Feb 14, 2017 16:03
[2017-02-14] MEDS: ALPRAZolam 0.25 MG TABLET PO PRN (17:49)
[2017-02-14] MEDS: GABAPENTIN 100 MG CAPSULE. PO SCH (21:30)
[2017-02-14] MEDS ORDERED: ALPRAZolam 0.25 MG TABLET PO ONE (22:00)
[2017-02-15 03:17] VITALS: BP 136/51
[2017-02-15 04:19] LABS: HEMATOCRIT 28.9 % (36.0-47.0); HEMOGLOBIN 9.2 g/dL (12.0-15.5); RED BLOOD COUNT 3.73 x10^6/uL (3.50-5.40); RED CELL DISTRIBUTION WIDTH 19.6 % (11.5-14.5); WHITE BLOOD COUNT 11.7 x10^3/uL (4.0-11.0)
[2017-02-15 07:00] VITALS: BP 152/69
[2017-02-15] MEDS: IPRATRPIUM/ALBUTEROL 0.5/2.5MG 3 ML NEBU. NEB SCH (07:45)
--- NOTE | 2017-02-15 08:10 | DISCH ---
DISCHARGE INSTRUCTIONS Condition on Discharge Condition on Discharge: Stable Activity After Discharge Activity Instructions for Disc: No restrictions Diet after Discharge Diet after Discharge: Low Sodium 4 gm Follow-Up Follow up with: LUCIO Corral MD Feb 15, 2017 08:10
--- NOTE | 2017-02-15 08:14 | PDOC ---
Provider Note Provider Note [id number] LUCIO RILEY MD Feb 15, 2017 08:14
[2017-02-15] MEDS: PANTOPRAZOLE 40 MG TABLET.DR. PO SCH (08:51)
[2017-02-15] MEDS: CITALOPRAM 20 MG TABLET. PO SCH (08:51)
[2017-02-15] MEDS: FERROUS SULFATE 325 MG TABLET. PO SCH (08:52)
[2017-02-15] MEDS: CLOPIDOGREL BISULFATE 75 MG TABLET PO SCH (08:52)
[2017-02-15] MEDS: OMEGA-3 FATTY ACIDS/FISH OIL 1,000 MG CAPSULE. PO SCH (08:52)
[2017-02-15] MEDS: CHOLECALCIFEROL (VITAMIN D3) 1,000 UNIT TABLET PO SCH (08:53)
[2017-02-15] MEDS: predniSONE 10 MG TABLET PO SCH (08:53)
--- NOTE | 2017-02-15 09:15 | DS ---
DATE OF DISCHARGE: 02/15/2017 HOSPITAL SUMMARY: An 86-year-old white female came in with weakness, generalized fatigue and some cough. Outpatient CT had shown some generalized pulmonary congestion, but no clots or pneumonia. V/Q scan showed no sign of clotting. Ultrasound of the lower extremity showed no DVT and the chest x-ray showed just chronic changes. Her hemoglobin was 9.5 on admission, dropped to a malik of 7.7, then up to 9.2 with 1 unit of packed red blood cells. Sed rate was unremarkable at 27. Chemistry profile was within normal limits with normal creatinine of 1.0 and cholesterol very low and TSH normal at 1.56. Flu test and urine test were negative. She was given 1 unit of packed red blood cells because of anemia and I decided to stop her diltiazem and her losartan because of her borderline low blood pressure to see if her fatigue and weakness would improve. She feels like that her weakness and fatigue has actually improved and is comfortable to be followed as an outpatient at this time. Dr. Swift had her on prednisone low dose, which has seemed to assist her recovery as well. FINAL DIAGNOSES: 1. Weakness secondary to drug-induced hypotension. 2. Chronic anemia secondary dual antiplatelet therapy. 3. History of coronary artery disease. OPERATIONS, PROCEDURES, AND COMPLICATIONS: None. CONSULTATIONS: Dr. Swift and group. DISPOSITION: She will stay off diltiazem and losartan for now and we will follow her in 1 week. Repeat hemoglobin 1 week and encouraged to take her ferrous sulfate tablets twice a day. She has been on Plavix for 10 months since her last stent and it might be briceño to consider stopping Plavix as it is certainly contributing to her chronic GI bleeding along with the aspirin that she has to maintain. This will be discussed with Cardiology as an outpatient whether or not this drug is greater risk than benefit. PROGNOSIS: Guarded. LUCIO RILEY MD DR: GEETA/jenni JOB#: [id number] / [id number]
== END 2017-02-15 10:20 | disposition home or self-care (01) | DRG 312 ==
LOC: ER 14:24 → 5 NORTH 17:47
PROVIDERS: ADMIT Family Medicine; ATTEND Family Medicine
PROC: 30233N1 Transfusion of Nonautologous Red Blood Cells into Peripheral Vein, Percutaneous Approach (ICD-10-PCS; principal; 2017-02-13)
DX: I95.2 Hypotension due to drugs (principal); G62.9 Polyneuropathy, unspecified; I48.0 Paroxysmal atrial fibrillation; D64.89 Other specified anemias; E78.00 Pure hypercholesterolemia, unspecified; E78.5 Hyperlipidemia, unspecified; F32.9 Major depressive disorder, single episode, unspecified; J20.9 Acute bronchitis, unspecified; F41.9 Anxiety disorder, unspecified; I10 Essential (primary) hypertension; Z96.659 Presence of unspecified artificial knee joint; M19.90 Unspecified osteoarthritis, unspecified site; I25.10 Atherosclerotic heart disease of native coronary artery without angina pectoris; K21.9 Gastro-esophageal reflux disease without esophagitis; Z82.3 Family history of stroke; Z82.49 Family history of ischemic heart disease and other diseases of the circulatory system; Z90.710 Acquired absence of both cervix and uterus; Z95.0 Presence of cardiac pacemaker; Z95.5 Presence of coronary angioplasty implant and graft; Z90.49 Acquired absence of other specified parts of digestive tract; Z98.49 Cataract extraction status, unspecified eye
CPT/HCPCS: 36415; 71020; 78582; 80048; 80053; 80061; 81001; 83735; 83880; 84443; 84484; 85007; 85025; 85027; 85651; 86850; 86870; 86900; 86901; 86922; 87804; 93005; 93306; 93970; 94250; 94620; 94640; 96374; A9540; A9558; J7512; J7620; P9016; 99285-25

== ENCOUNTER → 2017-05-19 | Outpatient (CLI) | payer MEDICARE | END | disposition home or self-care (01) | LOC: ECHO 08:09 | DX: I25.10 Atherosclerotic heart disease of native coronary artery without angina pectoris (principal); I35.1 Nonrheumatic aortic (valve) insufficiency; I07.1 Rheumatic tricuspid insufficiency | CPT/HCPCS: 93306 ==

== ENCOUNTER → 2017-07-04 | Outpatient (CLI) | payer MEDICARE ==
[~2017-07-04] MED LIST changes: -ACET325T9 PO; -ALPR0.25 PO; -AMLO5TAB2 PO; -ASPI-482 PO; -ASPI-630 PO; -ASPI325T11 PO; -ATOR20TA PO; -CA C1TAB28 PO; -CHOL10003 PO; -CITA20TA5 PO; -CLOP75TA PO; -CLOP75TA57 PO; -DILT240C2 PO; -DILT240C32 PO; -FERR-26 PO; -GABA-585 PO; -GUAR1TAB6 PO; +IODIXANOL 320 MG/ML 100 ML VIAL.; +IV 1/2 NORMAL SALINE 1,000 ML IV; +LIDOCAINE 2% 20 ML VIAL.; -LOSA25TA4 PO; -LOSA50TA6 PO; -METO25TA4 PO; +MIDAZOLAM HCL/PF 2 MG/2 ML VIAL.; -MULT-245 PO; -NAPR-634 PO; -NAPR500T4 PO; -OMEG100021 PO; -OMEG1CAP38 PO; -PANT40TA3 PO; -PRAV40TA2 PO; -SUCR1TAB PO; +fentaNYL PF VIAL 100 MCG/2 ML VIAL; +hydrALAZINE 20 MG/ML VIAL.
[2017-07-04 08:27] LABS: HEMATOCRIT 38.4 % (36.0-47.0); HEMOGLOBIN 12.9 g/dL (12.0-15.5); MEAN CORPUSCULAR HEMOGLOBIN 29 pg (25-35); MEAN CORPUSCULAR HGB CONC 33 g/dL (31-37); MEAN CORPUSCULAR VOLUME 88 fL (79-100); PLATELET COUNT 306 x10^3/uL (140-400); RED BLOOD COUNT 4.39 x10^6/uL (3.50-5.40); RED CELL DISTRIBUTION WIDTH 12.8 % (11.5-14.5); WHITE BLOOD COUNT 8.2 x10^3/uL (4.0-11.0)
[2017-07-04 08:39] LABS: ANION GAP 14 (6-14); BLOOD UREA NITROGEN 19 mg/dL (7-20); CALCIUM 8.9 mg/dL (8.5-10.1); CARBON DIOXIDE 25 mmol/L (21-32); CHLORIDE 106 mmol/L (98-107); CREATININE 1.2 mg/dL (0.6-1.0); GFR 42.7; GLUCOSE 110 mg/dL (70-99); POTASSIUM 3.8 mmol/L (3.5-5.1); SODIUM 145 mmol/L (136-145)
[2017-07-04] MEDS: LIDOCAINE 2% 20 ML VIAL. IJ (09:15)
[2017-07-04] MEDS: fentaNYL PF VIAL 100 MCG/2 ML VIAL IV (09:15)
[2017-07-04] MEDS: hydrALAZINE 20 MG/ML VIAL. IVP (09:15)
[2017-07-04] MEDS: MIDAZOLAM HCL/PF 2 MG/2 ML VIAL. IV (09:15)
[2017-07-04] MEDS: IODIXANOL 320 MG/ML 100 ML VIAL. IART (09:15)
== END ==
LOC: CCL 08:01
DX: I25.10 Atherosclerotic heart disease of native coronary artery without angina pectoris (principal); I34.0 Nonrheumatic mitral (valve) insufficiency; I25.2 Old myocardial infarction; E78.00 Pure hypercholesterolemia, unspecified; I48.91 Unspecified atrial fibrillation; K21.9 Gastro-esophageal reflux disease without esophagitis; M19.90 Unspecified osteoarthritis, unspecified site; F41.9 Anxiety disorder, unspecified; F32.9 Major depressive disorder, single episode, unspecified; Z82.3 Family history of stroke; Z98.42 Cataract extraction status, left eye; Z98.41 Cataract extraction status, right eye; Z95.5 Presence of coronary angioplasty implant and graft; Z95.0 Presence of cardiac pacemaker; Z90.49 Acquired absence of other specified parts of digestive tract; Z90.710 Acquired absence of both cervix and uterus; Z87.440 Personal history of urinary (tract) infections; Z96.652 Presence of left artificial knee joint; Z86.2 Personal history of diseases of the blood and blood-forming organs and certain disorders involving the immune mechanism; Z82.49 Family history of ischemic heart disease and other diseases of the circulatory system; Z82.5 Family history of asthma and other chronic lower respiratory diseases
CPT/HCPCS: 36415; 80048; 85027; 85610; 93458; 99152; 99153; C1713; C1769; C1892; G0269; J0360; J1644; J2250; J3010

== ENCOUNTER 2017-07-10 16:04 | Inpatient (IN) | payer MEDICARE ==
[2017-07-10] MEDS: MORPHINE SULFATE 4 MG/ML DISP.SYRIN. IV (16:15)
[2017-07-10 16:43] LABS: FECAL OB PT POSITIVE (NEG); NEG OBC FOB NEG; POS OBC FOB POS
[2017-07-10] MEDS: IV NORMAL SALINE 1000ML BAG 1,000 ML IV ×2 (16:43→20:59)
[2017-07-10] MEDS: PANTOPRAZOLE SODIUM IV DRIP 80 MG in IV NORMAL SALINE 100ML 100 ML IV (16:45)
[2017-07-10] MEDS: PANTOPRAZOLE IV PUSH 40 MG VIAL. IVP (16:47)
[2017-07-10] MEDS: ONDANSETRON PF 4 MG/2 ML VIAL. IV (16:49)
[2017-07-10 17:04] LABS: ADD MAN DIFF? NO
[2017-07-10 17:05] LABS: BASO # 0.1 x10^3/uL (0.0-0.2); BASO % 1 % (0-3); EOS # 0.1 x10^3/uL (0.0-0.7); EOS % 1 % (0-3); HEMATOCRIT 32.9 % (36.0-47.0); HEMOGLOBIN 10.6 g/dL (12.0-15.5); LYMPH # 1.6 x10^3/uL (1.0-4.8); LYMPH % 14 % (24-48); MEAN CORPUSCULAR HEMOGLOBIN 28 pg (25-35); MEAN CORPUSCULAR HGB CONC 32 g/dL (31-37); MEAN CORPUSCULAR VOLUME 88 fL (79-100); MONO # 0.5 x10^3/uL (0.0-1.1); MONO % 4 % (0-9); NEUT # 9.1 x10^3uL (1.8-7.7); NEUT % 80 % (31-73); PLATELET COUNT 285 x10^3/uL (140-400); RED BLOOD COUNT 3.73 x10^6/uL (3.50-5.40); WHITE BLOOD COUNT 11.3 x10^3/uL (4.0-11.0)
[2017-07-10 17:15] LABS: ANION GAP 12 (6-14); BLOOD UREA NITROGEN 69 mg/dL (7-20); BUN/CREATININE RATIO 69 (6-20); CALCIUM 8.8 mg/dL (8.5-10.1); CARBON DIOXIDE 25 mmol/L (21-32); CHLORIDE 108 mmol/L (98-107); GFR 52.7; GLUCOSE 143 mg/dL (70-99); SODIUM 145 mmol/L (136-145)
[2017-07-10 17:20] LABS: INR 1.2 (0.8-1.1); PARTIAL THROMBOPLASTIN TIME 24 SEC (24-38)
[2017-07-10 17:21] LABS: ALBUMIN 2.9 g/dL (3.4-5.0); ALBUMIN/GLOBULIN RATIO 0.8 (1.0-1.7); ALK PHOS 84 U/L (46-116); ALT (SGPT) 17 U/L (14-59); AST (SGOT) 14 U/L (15-37); LIPASE 121 U/L (73-393); TOTAL BILIRUBIN 0.4 mg/dL (0.2-1.0); TOTAL PROTEIN 6.4 g/dL (6.4-8.2)
[2017-07-10] MEDS ORDERED: ONDANSETRON PF 4 MG/2 ML VIAL. IV (17:45)
[2017-07-10] MEDS ORDERED: MORPHINE SULFATE 4 MG/ML DISP.SYRIN. IV (17:45)
[2017-07-10] MEDS ORDERED: CONTRAST GIVEN MC (17:45)
[2017-07-10] MEDS: IOHEXOL 300 MG/ML 100ML VIAL. IV (18:00)
[2017-07-10 20:04] LABS: ADD MAN DIFF? NO
[2017-07-10 20:07] LABS: BASO # 0.1 x10^3/uL (0.0-0.2); BASO % 1 % (0-3); EOS % 0 % (0-3); HEMATOCRIT 26.8 % (36.0-47.0); HEMOGLOBIN 8.8 g/dL (12.0-15.5); LYMPH # 1.7 x10^3/uL (1.0-4.8); LYMPH % 19 % (24-48); MEAN CORPUSCULAR HEMOGLOBIN 29 pg (25-35); MEAN CORPUSCULAR HGB CONC 33 g/dL (31-37); MEAN CORPUSCULAR VOLUME 88 fL (79-100); MONO # 0.4 x10^3/uL (0.0-1.1); MONO % 4 % (0-9); NEUT # 6.8 x10^3uL (1.8-7.7); NEUT % 75 % (31-73); PLATELET COUNT 257 x10^3/uL (140-400); RED BLOOD COUNT 3.04 x10^6/uL (3.50-5.40); WHITE BLOOD COUNT 9.1 x10^3/uL (4.0-11.0)
[2017-07-11] MEDS: PANTOPRAZOLE SODIUM IV DRIP 80 MG in IV NORMAL SALINE 100ML 100 ML IV (01:12)
[2017-07-11] MEDS: IV NORMAL SALINE 1000ML BAG 1,000 ML IV ×2 (04:06→07:20)
[2017-07-11 05:57] LABS: ADD MAN DIFF? NO
[2017-07-11 06:07] LABS: BASO # 0.1 x10^3/uL (0.0-0.2); BASO % 1 % (0-3); EOS # 0.2 x10^3/uL (0.0-0.7); EOS % 3 % (0-3); HEMOGLOBIN 7.8 g/dL (12.0-15.5); LYMPH # 2.2 x10^3/uL (1.0-4.8); LYMPH % 28 % (24-48); MEAN CORPUSCULAR HEMOGLOBIN 29 pg (25-35); MEAN CORPUSCULAR HGB CONC 33 g/dL (31-37); MEAN CORPUSCULAR VOLUME 88 fL (79-100); MONO # 0.5 x10^3/uL (0.0-1.1); MONO % 7 % (0-9); NEUT # 4.8 x10^3uL (1.8-7.7); NEUT % 62 % (31-73); PLATELET COUNT 242 x10^3/uL (140-400); RED BLOOD COUNT 2.72 x10^6/uL (3.50-5.40); WHITE BLOOD COUNT 7.8 x10^3/uL (4.0-11.0)
[2017-07-11 06:24] LABS: ALBUMIN 2.3 g/dL (3.4-5.0); ALBUMIN/GLOBULIN RATIO 0.9 (1.0-1.7); ALK PHOS 62 U/L (46-116); ALT (SGPT) 12 U/L (14-59); ANION GAP 10 (6-14); AST (SGOT) 11 U/L (15-37); BLOOD UREA NITROGEN 47 mg/dL (7-20); BUN/CREATININE RATIO 52 (6-20); CALCIUM 7.6 mg/dL (8.5-10.1); CARBON DIOXIDE 24 mmol/L (21-32); CHLORIDE 115 mmol/L (98-107); CREATININE 0.9 mg/dL (0.6-1.0); GFR 59.5; GLUCOSE 99 mg/dL (70-99); POTASSIUM 3.5 mmol/L (3.5-5.1); SODIUM 149 mmol/L (136-145); TOTAL BILIRUBIN 0.3 mg/dL (0.2-1.0)
[2017-07-11] MEDS ORDERED: PROPOFOL 20 ML IV (07:54)
[2017-07-11] MEDS: PANTOPRAZOLE 40 MG TABLET.DR. PO (11:27)
[2017-07-11] MEDS: CITALOPRAM 20 MG TABLET. PO (11:27)
[2017-07-11] MEDS: SUCRALFATE 1 GM/10 ML ORAL.SUSP. PO ×2 (11:27→16:05)
[2017-07-11] MEDS: ACETAMINOPHEN 325 MG TABLET. PO (19:47)
[2017-07-11 20:12] LABS: MRSA BY PCR Negative (Negative)
[2017-07-11] MEDS: ALPRAZolam 0.25 MG TABLET PO (20:36)
[2017-07-11 21:19] LABS: MEAN CORPUSCULAR HEMOGLOBIN 30 pg (25-35); MEAN CORPUSCULAR HGB CONC 34 g/dL (31-37); MEAN CORPUSCULAR VOLUME 88 fL (79-100); PLATELET COUNT 216 x10^3/uL (140-400); RED BLOOD COUNT 2.29 x10^6/uL (3.50-5.40); WHITE BLOOD COUNT 8.4 x10^3/uL (4.0-11.0)
[2017-07-11 21:22] LABS: HEMOGLOBIN 6.8 g/dL (12.0-15.5)
[2017-07-11 21:23] LABS: HEMATOCRIT 20.2 % (36.0-47.0)
[2017-07-12 00:44] LABS: CROSSMATCH AHG 1 1
[2017-07-12 05:20] LABS: HEMATOCRIT 24.3 % (36.0-47.0); MEAN CORPUSCULAR HEMOGLOBIN 30 pg (25-35); MEAN CORPUSCULAR HGB CONC 33 g/dL (31-37); MEAN CORPUSCULAR VOLUME 89 fL (79-100); PLATELET COUNT 219 x10^3/uL (140-400); RED BLOOD COUNT 2.72 x10^6/uL (3.50-5.40); RED CELL DISTRIBUTION WIDTH 13.2 % (11.5-14.5); WHITE BLOOD COUNT 7.2 x10^3/uL (4.0-11.0)
[2017-07-12] MEDS: SUCRALFATE 1 GM/10 ML ORAL.SUSP. PO ×4 (07:38→21:05)
[2017-07-12] MEDS: PANTOPRAZOLE 40 MG TABLET.DR. PO (07:38)
[2017-07-12] MEDS: ACETAMINOPHEN 325 MG TABLET. PO ×2 (07:48→21:07)
[2017-07-12] MEDS: CITALOPRAM 20 MG TABLET. PO (09:12)
[2017-07-12 20:55] LABS: HEMATOCRIT 24.1 % (36.0-47.0); HEMOGLOBIN 8.2 g/dL (12.0-15.5); MEAN CORPUSCULAR HEMOGLOBIN 30 pg (25-35); MEAN CORPUSCULAR HGB CONC 34 g/dL (31-37); MEAN CORPUSCULAR VOLUME 89 fL (79-100); PLATELET COUNT 223 x10^3/uL (140-400); RED BLOOD COUNT 2.71 x10^6/uL (3.50-5.40); WHITE BLOOD COUNT 7.1 x10^3/uL (4.0-11.0)
[2017-07-12] MEDS: ALPRAZolam 0.25 MG TABLET PO (21:07)
[2017-07-13 06:11] LABS: HEMATOCRIT 24.6 % (36.0-47.0); HEMOGLOBIN 8.4 g/dL (12.0-15.5); MEAN CORPUSCULAR HEMOGLOBIN 30 pg (25-35); MEAN CORPUSCULAR HGB CONC 34 g/dL (31-37); MEAN CORPUSCULAR VOLUME 88 fL (79-100); PLATELET COUNT 226 x10^3/uL (140-400); RED BLOOD COUNT 2.79 x10^6/uL (3.50-5.40); RED CELL DISTRIBUTION WIDTH 13.2 % (11.5-14.5); WHITE BLOOD COUNT 5.5 x10^3/uL (4.0-11.0)
[2017-07-13] MEDS: PANTOPRAZOLE 40 MG TABLET.DR. PO (07:40)
[2017-07-13] MEDS: SUCRALFATE 1 GM/10 ML ORAL.SUSP. PO ×4 (07:40→21:56)
[2017-07-13] MEDS: CITALOPRAM 20 MG TABLET. PO (07:41)
[2017-07-13] MEDS: IRON SUCROSE COMPLEX 500 MG in IV NORMAL SALINE 250ML 250 ML IV (09:29)
[2017-07-13] MEDS: ALPRAZolam 0.25 MG TABLET PO ×2 (09:32→21:55)
[2017-07-13 17:24] LABS: HEMATOCRIT 28.2 % (36.0-47.0); HEMOGLOBIN 9.5 g/dL (12.0-15.5); MEAN CORPUSCULAR HEMOGLOBIN 30 pg (25-35); MEAN CORPUSCULAR HGB CONC 34 g/dL (31-37); MEAN CORPUSCULAR VOLUME 89 fL (79-100); PLATELET COUNT 253 x10^3/uL (140-400); RED BLOOD COUNT 3.16 x10^6/uL (3.50-5.40); RED CELL DISTRIBUTION WIDTH 13.3 % (11.5-14.5); WHITE BLOOD COUNT 8.4 x10^3/uL (4.0-11.0)
[2017-07-13] MEDS: ACETAMINOPHEN 325 MG TABLET. PO (21:56)
[2017-07-14] MEDS: CITALOPRAM 20 MG TABLET. PO (08:57)
[2017-07-14] MEDS: ALPRAZolam 0.25 MG TABLET PO (08:57)
[2017-07-14] MEDS: PANTOPRAZOLE 40 MG TABLET.DR. PO (08:57)
[2017-07-14] MEDS: SUCRALFATE 1 GM/10 ML ORAL.SUSP. PO (08:57)
== END 2017-07-14 10:50 | disposition home or self-care (01) | DRG 378 ==
LOC: ER 16:04 → 1 WEST ICU 16:30 → 5 SOUTH 07-11 13:59
PROC: 0DJ08ZZ Inspection of Upper Intestinal Tract, Via Natural or Artificial Opening Endoscopic (ICD-10-PCS; principal; 2017-07-11 08:00)
PROC: 30233N1 Transfusion of Nonautologous Red Blood Cells into Peripheral Vein, Percutaneous Approach (ICD-10-PCS; 2017-07-11 08:00)
DX: K92.2 Gastrointestinal hemorrhage, unspecified (principal); E44.1 Mild protein-calorie malnutrition; D64.9 Anemia, unspecified; I48.91 Unspecified atrial fibrillation; E78.5 Hyperlipidemia, unspecified; I10 Essential (primary) hypertension; I25.10 Atherosclerotic heart disease of native coronary artery without angina pectoris; F32.9 Major depressive disorder, single episode, unspecified; F41.9 Anxiety disorder, unspecified; M19.90 Unspecified osteoarthritis, unspecified site; K21.9 Gastro-esophageal reflux disease without esophagitis; K44.9 Diaphragmatic hernia without obstruction or gangrene; K57.90 Diverticulosis of intestine, part unspecified, without perforation or abscess without bleeding; K59.00 Constipation, unspecified; Z96.659 Presence of unspecified artificial knee joint; Z79.82 Long term (current) use of aspirin; Z82.3 Family history of stroke; Z82.49 Family history of ischemic heart disease and other diseases of the circulatory system; Z90.710 Acquired absence of both cervix and uterus; Z95.5 Presence of coronary angioplasty implant and graft; Z68.27 Body mass index [BMI] 27.0-27.9, adult
CPT/HCPCS: 36415; 74177; 80053; 82274; 83690; 85025; 85027; 85610; 85730; 86850; 86870; 86900; 86901; 86902; 86922; 87641; 93005; 96361; 96374; 96375; 97110-GP; 97116-GP; 97162-GP; 97166-GO; 97530-GO; 97535-GO; 99285-25; C9113; J1756; J2405; J2704; J7030; J7050; P9016; Q9967

== ENCOUNTER 2018-01-27 13:11 | Emergency (ER) | payer MEDICARE ==
[~2018-01-27] VITALS: Ht 157.5 cm; Wt 65.3 kg
[~2018-01-27 13:11] MED LIST changes: +ACET325T9 PO; +ALPR0.25 PO; +AMLO5TAB7 PO; +ASPI-482 PO; +ASPI-630 PO; +ASPI325T11 PO; +ATOR20TA PO; +CA C1TAB28 PO; +CHOL10003 PO; +CITA20TA6 PO; +CLOP75TA PO; +CLOP75TA57 PO; +DILT240C2 PO; +DILT240C32 PO; +FERR325T14 PO; +GABA-585 PO; +GUAR1TAB6 PO; -IODIXANOL 320 MG/ML 100 ML VIAL.; -IV 1/2 NORMAL SALINE 1,000 ML IV; -LIDOCAINE 2% 20 ML VIAL.; +LOSA25TA5 PO; +LOSA50TA7 PO; +METO25TA4 PO; -MIDAZOLAM HCL/PF 2 MG/2 ML VIAL.; +MULT-245 PO; +NAPR-514 PO; +NAPR-634 PO; +OMEG100021 PO; +OMEG1CAP38 PO; +PANT40TA3 PO; +PRAV40TA2 PO; +SUCR1TAB PO; -fentaNYL PF VIAL 100 MCG/2 ML VIAL; -hydrALAZINE 20 MG/ML VIAL.
[2018-01-27] MEDS ORDERED: ONDANSETRON PF 4 MG/2 ML VIAL. IV ONE (14:45)
[2018-01-27] MEDS ORDERED: fentaNYL PF VIAL 100 MCG/2 ML VIAL IV ONE (14:45)
[2018-01-27 15:05] LABS: BASO # 0.1 x10^3/uL (0.0-0.2); BASO % 1 % (0-3); EOS # 0.1 x10^3/uL (0.0-0.7); EOS % 1 % (0-3); HEMATOCRIT 39.2 % (36.0-47.0); LYMPH # 1.4 x10^3/uL (1.0-4.8); LYMPH % 11 % (24-48); MEAN CORPUSCULAR HEMOGLOBIN 28 pg (25-35); MEAN CORPUSCULAR HGB CONC 33 g/dL (31-37); MEAN CORPUSCULAR VOLUME 83 fL (79-100); MONO # 0.9 x10^3/uL (0.0-1.1); MONO % 7 % (0-9); NEUT % 80 % (31-73); PLATELET COUNT 266 x10^3/uL (140-400); RED BLOOD COUNT 4.71 x10^6/uL (3.50-5.40); RED CELL DISTRIBUTION WIDTH 14.1 % (11.5-14.5); WHITE BLOOD COUNT 12.5 x10^3/uL (4.0-11.0)
[2018-01-27 15:30] LABS: CALCIUM 9.1 mg/dL (8.5-10.1); CREATININE 1.1 mg/dL (0.6-1.0); GFR 47.1; POTASSIUM 3.7 mmol/L (3.5-5.1)
--- NOTE | 2018-01-27 15:33 | EKG ---
[facility] [address] [place] [address] Test Date: 2018-01-27 Test Time: 14:54:20 Pat Name: SAILAJA SUTHERLAND Department: Room: Gender: F [employer]: : 1930 Requested By: BASSAM WOODRUFF Order Number: [id number] Reading MD: Carlos Trejo Measurements Intervals [place] Rate: 80 P: 4 TX: 192 QRS: -32 QRSD: 70 T: 54 QT: 374 QTc: 434 Interpretive Statements SINUS RHYTHM ABNORMAL LEFT AXIS DEVIATION QRS(T) CONTOUR ABNORMALITY CONSISTENT WITH ANTERIOR INFARCT AGE UNDETERMINED CONSISTENT WITH INFERIOR INFARCT PROBABLY OLD ABNORMAL ECG Electronically Signed On 01-30-2018 12:25:21 CDT by Carlos Trejo
[2018-01-27 15:36] LABS: ALBUMIN/GLOBULIN RATIO 0.7 (1.0-1.7); TOTAL BILIRUBIN 0.5 mg/dL (0.2-1.0); TOTAL PROTEIN 7.1 g/dL (6.4-8.2)
[2018-01-27] MEDS ORDERED: IOHEXOL 300 MG/ML 100ML VIAL. IV ONE (15:45)
[2018-01-27] MEDS ORDERED: CONTRAST GIVEN. MC PRN (15:45)
--- NOTE | 2018-01-27 16:13 | RAD ---
CT abdomen and pelvis with contrast History: Lower abdominal and bilateral groin pain Technique: After the administration of intravenous contrast, CT imaging was performed of the abdomen and pelvis. No oral contrast was given as per request. Multiplanar images are reviewed. Exposure: One or more of the following individualized dose reduction techniques were utilized for this examination: 1. Automated exposure control 2. Adjustment of the mA and/or kV according to patient size 3. Use of iterative reconstruction technique. Contrast: 60 cc Omnipaque 300 Comparison: July 10, 2017 Findings: Leads from electronic cardiac device are noted. There is coronary calcification. There is small to moderate size hiatal hernia containing part of the stomach. There is mild patchy groundglass density/mosaic attenuation of the visualized lung parenchyma at the lung bases. No focal abnormality is identified of the liver, spleen, small pancreas. There has been cholecystectomy. Both kidneys enhance, no hydronephrosis. There is scattered plaque of the abdominal aorta. Evaluation of bowel is limited without oral contrast. There is now mild to moderate wall thickening of the mid to distal sigmoid colon with adjacent hazy and strandy inflammatory type change and trace nonorganized extraluminal fluid. No discrete abscess or free air is identified. There is again fairly extensive diverticulosis of the colon greatest of the sigmoid colon. Appendix is not seen if still present. There is lipomatosis hypertrophy of the cecal valve. Urinary bladder is somewhat distended. There is [id number] lumbar levoscoliosis. There is multilevel thoracolumbar degenerative disc disease and facet degenerative change. There is lateral recess stenosis most notable right greater than left at L3-L4. Impression: 1. There is wall thickening of the mid to distal sigmoid colon, associated pericolonic inflammatory change and mild nonorganized extraluminal fluid, evidence of diverticulitis. There is extensive diverticulosis of the colon greatest of the sigmoid colon. 2. There is lumbar levoscoliosis and multilevel thoracolumbar degenerative disc disease and facet degenerative change. Electronically signed by: Steven Coleman MD (01/27/2018 4:09 PM) [facility]
[2018-01-27 16:51] LABS: BILIRUBIN,URINE NEGATIVE (NEG); CLARITY,URINE CLEAR; COLOR,URINE YELLOW; NITRITE,URINE NEGATIVE (NEG); PH,URINE 6.5; PROTEIN,URINE NEGATIVE (NEG-TRACE); UROBILINOGEN,URINE 0.2 mg/dL (0.2 mg/dL)
[2018-01-27 16:59] LABS: BACTERIA,URINE 0 /HPF (0-FEW); RBC,URINE OCC /HPF (0-2); SQUAMOUS EPITHELIAL CELL,UR FEW /LPF
[2018-01-27] MEDS ORDERED: SULF1TAB24 PO (17:00)
[2018-01-27] MEDS ORDERED: HYDR-2758 PO (17:00)
--- NOTE | 2018-01-27 17:09 | PHYS DOC ---
Past Medical History Past Medical History: A-Fib, Arthritis, Depression, GERD, GI Bleed, High Cholesterol, Hypertension, Other Additional Past Medical Histor: esophageal varices, GI bleedx2 Past Surgical History: Angioplasty, Appendectomy, Cholecystectomy, Hysterectomy , Knee Replacement, Pacemaker Additional Past Surgical Histo: esophageal dilation,STENT PLACEMENT Alcohol Use: None Drug Use: None Adult General Chief Complaint Chief Complaint: ABDOMINAL PAIN HPI HPI Patient is a 87 year old female with history of chronic intermittent bilateral pelvic pain who presents with increased left lower pelvic pain yesterday with generalized fatigue. Patient has been spending the past 3 days in bed. She was evaluated by her PCP yesterday and prescribed antibiotics. She has a history of extensive and recurrent diverticulitis. She denies nausea, fever chills, sweats. No flank pain, urinary frequency urgency. No other acute symptoms or complaints. Patient's GI physician is Dr. Polanco. [] Review of Systems Review of Systems ROS as per HPI All other systems were reviewed and found to be within normal limits, except as documented in this note. Current Medications Current Medications Current Medications Medications (Trade) Dose Ordered Sig/Mariajose Start Time Stop Time Status Last Admin Dose Admin Fentanyl Citrate (Fentanyl 2ml Vial) 50 mcg 1X ONCE 01/27/18 14:45 01/27/18 14:46 DC 01/27/18 14:44 50 MCG Info (CONTRAST GIVEN -- Rx MONITORING) 1 each PRN DAILY PRN 01/27/18 15:45 01/29/18 15:44 Iohexol (Omnipaque 300 Mg/ml) 75 ml 1X ONCE 01/27/18 15:45 01/27/18 15:46 DC 01/27/18 15:53 60 ML Ondansetron HCl (Zofran) 4 mg 1X ONCE 01/27/18 14:45 01/27/18 14:46 DC 01/27/18 14:43 4 MG Allergies Allergies Allergies Coded Allergies Type Severity Reaction Last Updated Verified No Known Drug Allergies 07/11/17 No Physical Exam Physical Exam Constitutional: Well developed, well nourished, no acute distress, non-toxic appearance. [] HENT: Normocephalic, atraumatic, bilateral external ears normal, oropharynx moist, nose normal. [] Eyes: PERRLA, EOMI, conjunctiva normal, no discharge. [] Neck: Normal range of motion, no tenderness. [] Cardiovascular:Heart rate regular rhythm, no murmur [] Lungs & Thorax: Bilateral breath sounds clear to auscultation [] Abdomen: Bowel sounds normal, soft, suprapubic pain, tenderness, no rebound rigidity or guarding. No palpable masses. [] Skin: Warm, dry, no erythema, no rash. [] Back: No tenderness, no CVA tenderness. [] Neurologic: Alert and oriented X 3, normal motor function, normal sensory function, no focal deficits noted. [] Psychologic: Affect normal, judgement normal, mood normal. [] Current Patient Data Vital Signs Vital Signs Date Time Temp Pulse Resp B/P (MAP) Pulse Ox O2 Delivery O2 Flow Rate FiO2 01/27/18 15:30 74 18 155/70 (98) 98 Room Air 01/27/18 13:22 97.8 97.8 Lab Values Laboratory Tests Test 01/27/18 14:54 01/27/18 16:30 White Blood Count 12.5 x10^3/uL (4.0-11.0) H Red Blood Count 4.71 x10^6/uL (3.50-5.40) Hemoglobin 13.0 g/dL (12.0-15.5) Hematocrit 39.2 % (36.0-47.0) Mean Corpuscular Volume 83 fL (79-100) Mean Corpuscular Hemoglobin 28 pg (25-35) Mean Corpuscular Hemoglobin Concent 33 g/dL (31-37) Red Cell Distribution Width 14.1 % (11.5-14.5) Platelet Count 266 x10^3/uL (140-400) Neutrophils (%) (Auto) 80 % (31-73) H Lymphocytes (%) (Auto) 11 % (24-48) L Monocytes (%) (Auto) 7 % (0-9) Eosinophils (%) (Auto) 1 % (0-3) Basophils (%) (Auto) 1 % (0-3) Neutrophils # (Auto) 10.0 x10^3uL (1.8-7.7) H Lymphocytes # (Auto) 1.4 x10^3/uL (1.0-4.8) Monocytes # (Auto) 0.9 x10^3/uL (0.0-1.1) Eosinophils # (Auto) 0.1 x10^3/uL (0.0-0.7) Basophils # (Auto) 0.1 x10^3/uL (0.0-0.2) Sodium Level 141 mmol/L (136-145) Potassium Level 3.7 mmol/L (3.5-5.1) Chloride Level 103 mmol/L (98-107) Carbon Dioxide Level 26 mmol/L (21-32) Anion Gap 12 (6-14) Blood Urea Nitrogen 13 mg/dL (7-20) Creatinine 1.1 mg/dL (0.6-1.0) H Estimated GFR (Cockcroft-Gault) 47.1 BUN/Creatinine Ratio 12 (6-20) Glucose Level 110 mg/dL (70-99) H Calcium Level 9.1 mg/dL (8.5-10.1) Total Bilirubin 0.5 mg/dL (0.2-1.0) Aspartate Amino Transferase (AST) 15 U/L (15-37) Alanine Aminotransferase (ALT) 16 U/L (14-59) Alkaline Phosphatase 107 U/L (46-116) Total Protein 7.1 g/dL (6.4-8.2) Albumin 3.0 g/dL (3.4-5.0) L Albumin/Globulin Ratio 0.7 (1.0-1.7) L Lipase 105 U/L (73-393) Urine Collection Type Unknown Urine Color Yellow Urine Clarity Clear Urine pH 6.5 Urine Specific [place] 1.020 Urine Protein Negative mg/dL (NEG-TRACE) Urine Glucose (UA) Negative mg/dL (NEG) Urine Ketones (Stick) Negative mg/dL (NEG) Urine Blood Negative (NEG) Urine Nitrite Negative (NEG) Urine Bilirubin Negative (NEG) Urine Urobilinogen Dipstick 0.2 mg/dL (0.2 mg/dL) Urine Leukocyte Esterase Small (NEG) Urine RBC Occ /HPF (0-2) Urine WBC 1-4 /HPF (0-4) Urine Squamous Epithelial Cells Few /LPF Urine Bacteria 0 /HPF (0-FEW) Laboratory Tests 01/27/18 14:54 Laboratory Tests 01/27/18 14:54 EKG EKG [EKG: reviewed] Radiology/Procedures Radiology/Procedures [CT abdomen pelvis: Mild wall thickening of the distal sigmoid colon with associated. Call on a cat inflammatory changes and mild nonorganized extraluminal fluid evidence of diverticulitis per radiology report.] Course & Med Decision Making Course & Med Decision Making Pertinent Labs and Imaging studies reviewed. (See chart for details) [Since consistent with exacerbation of diverticulitis. Patient currently on Bactrim. Will continue Bactrim and extend to 10 days and tx pain. patient [place] hypoxic the ED after receiving fentanyl requiring oxygen and weaned off oxygen prior to departure.] Dragon Disclaimer Dragon Disclaimer This electronic medical record was generated, in whole or in part, using a voice recognition dictation system. Departure Departure Impression: Primary Impression: Abdominal pain Disposition: HOME, SELF-CARE Condition: GOOD Referrals: LUCIO RILEY MD (PCP) Patient Instructions: Diverticulitis, [id number] Additional Instructions: You were evaluated in the emergency department for lower abdominal pain. Lab and imaging studies were performed. Your white blood cell count was mildly elevated and CT scan of your abdomen and pelvis showed diverticulitis of your lower colon. Please continue Bactrim for the next 7 days and follow up with your PCP next week. Take pain medications as directed. Return to the ED if new or worsening symptoms. Scripts Hydrocodone Bit/Acetaminophen (HYDROCODONE-APAP 5-325 ) 1 Each Tablet 1 TAB PO PRN Q6HRS PRN for PAIN for 7 Days, #15 TAB 0 Refills Prov: BASSAM WOODRUFF DO 01/27/18 Sulfamethoxazole/Trimethoprim (BACTRIM DS TABLET) 1 Each Tablet 1 TAB PO BID, #14 TAB Prov: BASSAM WOODRUFF DO 01/27/18 BASSAM WOODRUFF DO Jan 27, 2018 17:09
[2018-01-27 17:40] VITALS: BP 139/65
== END 2018-01-27 17:40 | disposition home or self-care (01) ==
LOC: ER 13:11
DX: R10.30 Lower abdominal pain, unspecified (principal); R10.2 Pelvic and perineal pain; R53.83 Other fatigue; I48.91 Unspecified atrial fibrillation; K21.9 Gastro-esophageal reflux disease without esophagitis; E78.00 Pure hypercholesterolemia, unspecified; I10 Essential (primary) hypertension; Z95.5 Presence of coronary angioplasty implant and graft; Z95.0 Presence of cardiac pacemaker; Z90.89 Acquired absence of other organs; Z90.710 Acquired absence of both cervix and uterus; Z90.49 Acquired absence of other specified parts of digestive tract; Z98.890 Other specified postprocedural states; Z87.19 Personal history of other diseases of the digestive system
CPT/HCPCS: 36415; 74177; 80053; 81001; 83690; 85025; 87086; 93005; 96374; 96375; 99285; J2405; J3010; Q9967

== ENCOUNTER 2018-06-14 12:31 | Inpatient (IN) | payer MEDICARE ==
[~2018-06-14] VITALS: Ht 167.6 cm; Wt 66.9 kg
[~2018-06-14 12:31] MED LIST changes: +AMLO5TAB10 PO; -AMLO5TAB7 PO; +HYDR-2761 PO; +LOSA-73 PO; -LOSA25TA5 PO; +LOSA25TA54 PO; -LOSA50TA7 PO; +SULF1TAB24 PO
[2018-06-14] MEDS ORDERED: ASPIRIN CHEWABLE 81 MG TABLET. PO ONE (12:45)
[2018-06-14 12:55] LABS: BASO # 0.1 x10^3/uL (0.0-0.2); BASO % 1 % (0-3); EOS # 0.1 x10^3/uL (0.0-0.7); EOS % 1 % (0-3); HEMATOCRIT 39.2 % (36.0-47.0); HEMOGLOBIN 12.9 g/dL (12.0-15.5); LYMPH % 29 % (24-48); MEAN CORPUSCULAR HEMOGLOBIN 28 pg (25-35); MEAN CORPUSCULAR HGB CONC 33 g/dL (31-37); MEAN CORPUSCULAR VOLUME 84 fL (79-100); MONO # 0.5 x10^3/uL (0.0-1.1); MONO % 7 % (0-9); NEUT # 4.1 x10^3uL (1.8-7.7); NEUT % 61 % (31-73); PLATELET COUNT 390 x10^3/uL (140-400); RED BLOOD COUNT 4.65 x10^6/uL (3.50-5.40); WHITE BLOOD COUNT 6.8 x10^3/uL (4.0-11.0)
[2018-06-14 13:03] LABS: CALCIUM 9.6 mg/dL (8.5-10.1); CREATININE 1.1 mg/dL (0.6-1.0); GFR 47.1; POTASSIUM 3.6 mmol/L (3.5-5.1)
--- NOTE | 2018-06-14 13:05 | EKG ---
[facility] [address] [place] [address] Test Date: 2018-06-14 Test Time: 12:53:53 Pat Name: SAILAJA SUTHERLAND Department: Room: Gender: F Nurse'S Companion: MAXIMILIANO : [id number] Requested By: SONNY DONAHUE Order Number: [id number] Reading MD: Carlos Trejo Measurements Intervals [place] Rate: 69 P: 2 NV: 180 QRS: -32 QRSD: 74 T: 84 QT: 408 QTc: 439 Interpretive Statements ATRIAL PACED RHYTHM ABNORMAL LEFT AXIS DEVIATION T ABNORMALITY IN HIGH LATERAL LEADS ABNORMAL ECG Electronically Signed On 06-21-2018 8:13:34 LATH HAND by Carlos Trejo
[2018-06-14 13:09] LABS: ALBUMIN 3.3 g/dL (3.4-5.0); ALBUMIN/GLOBULIN RATIO 0.8 (1.0-1.7); TOTAL BILIRUBIN 0.4 mg/dL (0.2-1.0); TOTAL PROTEIN 7.5 g/dL (6.4-8.2)
[2018-06-14] MEDS ORDERED: LIDO:MAALOX 1:1 20 ML SINGLE DOSE. SWSW ONE (13:15)
--- NOTE | 2018-06-14 13:20 | RAD ---
Portable chest, 06/14/2018: HISTORY: Chest pain Comparison is made to a study from 02/11/2017. A left-sided transvenous pacing device remains in place with 2 leads extending into the right heart. The heart appears to be within normal limits in size. There is a moderate size retrocardiac mass containing gas compatible with a hiatal hernia. There is mild tortuosity of the thoracic aorta. There are prominent pulmonary markings, particularly in the lung bases. Previous CT images have suggested the presence of a chronic fibrosing process. No pulmonary consolidation is seen. There is no evidence of pleural fluid. IMPRESSION: 1. Moderate sized hiatal hernia. 2. Prominent bilateral pulmonary markings likely due to fibrosis. An active component such as atypical pneumonia cannot be excluded. Electronically signed by: David Carty MD (06/14/2018 1:18 PM) [facility]
[2018-06-14 13:25] LABS: PROTHROMBIN TIME PATIENT 12.5 SEC (11.7-14.0)
[2018-06-14] MEDS ORDERED: AZITHROMYCIN 250 MG TABLET. PO ONE (13:30)
--- NOTE | 2018-06-14 14:16 | PDOC2 ---
SUBHASH PATRICK RIM FIRE PRIMING OPERATOR 06/14/18 1416: CARDIAC CONSULT DATE OF CONSULT Date of Consult DATE: 06/14/18 TIME: 14:08 REASON FOR CONSULT Reason for Consult: Chest pain REFERRING PHYSICIAN Referring Physician: Dr. Cheng SOURCE Source: Chart review, Patient HISTORY OF PRESENT ILLNESS HISTORY OF PRESENT ILLNESS This is a 87 yo female who presented secondary to chest pain. Patients reports experiencing intermittent chest pressure for the last 3 days. Located across he central chest. Radiated to her left arm and up to the left neck. . No specific worsening or relieving factors. Took nitro x2 with no relief. No precipitating factors. Associated with shortness of breath. Report SBP running in the 180 range over the last couple of days. Hasn't felt well overall. C/o body aches for the last couple of days. Had low fever two days ago. Has also been intermittently dizzy when she gets out of bed in the morning. passed earlier this year and reports decreased stamina since. Gets fatigued quickly with activity. Also reports felling intermittent palpitations, recently. Rell any recent orthopnea or PND. Recently completed round of antibiotics for diverticulitis. Does report pain under her left breast, which is worsened with palpation. Reports this pain is different and not related to the pressure she has been experiencing in her central chest. PAST MEDICAL HISTORY Cardiovascular: AFIB, CAD (s/p PCI/JUNIE to RCA in 2014 and again in 04/2016), CHF, HTN, Other (SSS) Pulmonary: No pertinent hx CENTRAL NERVOUS SYSTEM: Periperal neuropathy GI: Diverticulosis (diverticulitis ), GERD, Peptic Ulcer disease, Other (GI bleed) Heme/Onc: No pertinent hx Hepatobiliary: No pertinent hx Psych: Anxiety, Depression Musculoskeletal: Osteoarthritis Rheumatologic: No pertinent hx Infectious disease: No pertinent hx ENT: No pertinent hx Renal/: No pertinent hx Endocrine: No pertinent hx Dermatology: No pertinent hx PAST SURGICAL HISTORY Past Surgical History: Pacemaker (Medtronic ), Cholecystectomy, Cataract Removal, Total knee replacement (right ), Hysterectomy FAMILY HISTORY Family History: Hypertension SOCIAL HISTORY Smoke: No ALCOHOL: none Drugs: None Lives: with Family CURRENT MEDICATIONS CURRENT MEDICATIONS Current Medications Medications (Trade) Dose Ordered Sig/Mariajose Route PRN Reason Start Time Stop Time Status Last Admin Dose Admin Multi-Ingredient Mouthwash/Gargle (Gi Cocktail) 20 ml 1X ONCE SWSW 06/14/18 13:15 06/14/18 13:16 DC 06/14/18 13:55 Azithromycin (Zithromax) 500 mg 1X ONCE PO 06/14/18 13:30 06/14/18 13:35 DC 06/14/18 13:55 ALLERGIES ALLERGIES: Coded Allergies: No Known Drug Allergies (Unverified , 07/11/17) ROS Review of System 14 point ROS conducted with pertinent positives noted above in HPI. PHYSICAL EXAM General: Alert, Oriented X3, Cooperative, No acute distress HEENT: Atraumatic Lungs: Clear to auscultation, Other (bibasilar crackles ) Heart: Regular rate, Normal S1, Normal S2 Abdomen: Soft, No tenderness Extremities: Normal pulses, Other (trace bilateral LE edema ) Skin: No breakdown, No significant lesion Neuro: Normal speech, Sensation intact Psych/Mental Status: Mental status NL, Other (flat affect) VITALS VITALS Vital Signs Date Time Temp Pulse Resp B/P (MAP) Pulse Ox O2 Delivery O2 Flow Rate FiO2 06/14/18 12:38 97.8 67 18 156/74 (101) 93 Room Air 97.8 LABS Lab: Laboratory Tests Test 06/14/18 12:47 White Blood Count 6.8 x10^3/uL (4.0-11.0) Red Blood Count 4.65 x10^6/uL (3.50-5.40) Hemoglobin 12.9 g/dL (12.0-15.5) Hematocrit 39.2 % (36.0-47.0) Mean Corpuscular Volume 84 fL (79-100) Mean Corpuscular Hemoglobin 28 pg (25-35) Mean Corpuscular Hemoglobin Concent 33 g/dL (31-37) Red Cell Distribution Width 14.0 % (11.5-14.5) Platelet Count 390 x10^3/uL (140-400) Neutrophils (%) (Auto) 61 % (31-73) Lymphocytes (%) (Auto) 29 % (24-48) Monocytes (%) (Auto) 7 % (0-9) Eosinophils (%) (Auto) 1 % (0-3) Basophils (%) (Auto) 1 % (0-3) Neutrophils # (Auto) 4.1 x10^3uL (1.8-7.7) Lymphocytes # (Auto) 2.0 x10^3/uL (1.0-4.8) Monocytes # (Auto) 0.5 x10^3/uL (0.0-1.1) Eosinophils # (Auto) 0.1 x10^3/uL (0.0-0.7) Basophils # (Auto) 0.1 x10^3/uL (0.0-0.2) Prothrombin Time 12.5 SEC (11.7-14.0) Prothromb Time International Ratio 1.0 (0.8-1.1) Sodium Level 142 mmol/L (136-145) Potassium Level 3.6 mmol/L (3.5-5.1) Chloride Level 104 mmol/L (98-107) Carbon Dioxide Level 25 mmol/L (21-32) Anion Gap 13 (6-14) Blood Urea Nitrogen 13 mg/dL (7-20) Creatinine 1.1 mg/dL (0.6-1.0) Estimated GFR (Cockcroft-Gault) 47.1 BUN/Creatinine Ratio 12 (6-20) Glucose Level 171 mg/dL (70-99) Calcium Level 9.6 mg/dL (8.5-10.1) Total Bilirubin 0.4 mg/dL (0.2-1.0) Aspartate Amino Transf (AST/SGOT) 21 U/L (15-37) Alanine Aminotransferase (ALT/SGPT) 22 U/L (14-59) Alkaline Phosphatase 90 U/L (46-116) Troponin I Quantitative < 0.017 ng/mL (0.000-0.055) FS-Sdo-C-Type Natriuretic Peptide 122 pg/mL (0-449) Total Protein 7.5 g/dL (6.4-8.2) Albumin 3.3 g/dL (3.4-5.0) Albumin/Globulin Ratio 0.8 (1.0-1.7) ECHOCARDIOGRAM ECHOCARDIOGRAM <Conclusion> The left ventricular systolic function is normal and the ejection fraction is within normal range. The Ejection Fraction is 60-65%. There is normal LV segmental wall motion. Pacermaker leads noted in the RA/RV Doppler and Color Flow revealed mild aortic regurgitation. Doppler and Color Flow revealed trace to mild tricuspid regurgitation. RVSP 33 mm Hg. DATE: 05/19/17 1039 HEART CATH HEART CATH FINDINGS 1. Hemodynamics: Left ventricular end-diastolic pressure 24 mmHg. No pullback gradient across the aortic valve. 2. Left ventriculography: Normal left ventricle systolic function with ejection fraction estimated at 60%. Significant mitral regurgitation seen. 3. Coronary angiography: a. The left main coronary artery arose from the left sinus of Valsalva, gave rise to the left anterior descending and left circumflex arteries and showed 20 % stenosis involving the ostial segment. b. The left anterior descending artery did not show any significant stenosis. c. The left circumflex artery was a codominant vessel and did not show any significant stenosis. d. The right coronary artery was a codominant vessel arising from the right sinus of Valsalva that showed a widely patent previously placed stent in the midsegment. Conclusion 1. No significant coronary artery disease with widely patent previously placed stent in the right coronary artery 2. Normal left ventricle systolic function with ejection fraction estimated at 60% Recommendations Medical Therapy DATE: 07/04/17 1107 ASSESSMENT/PLAN ASSESSMENT/PLAN Chest pain, mixed features. Initial troponin negative. Possibly secondary to accelerated HTN. Anxiety possible contributing factor as well. Accelerated HTN; CAD: s/p PCI/JUNIE to RCA. Cath last year showed patent stent as noted above. Has been taken off ASA and Plavix in past due to GI bleeding. Hyperlipemia; statin AFIB/flutter; maintaining SR; device check 01/2018 AT/AF <0.1% SSS s/p PPM implantation (Medtronic). Most recent device check with normal function. Depression/anxiety; as per PCP Recommendations check lipids trend troponin Obtain echo to assess LV systolic function/presence of WMA Resume secondary prevention measures. No ASA/Plavix secondary to h/o GI bleeding BP control; Resume home antiHTN therapy. Hydralazine IV PRN Further recommendations pending above diagnostics. HARDY NORRIS MD 06/14/18 1722: CARDIAC CONSULT ASSESSMENT/PLAN ASSESSMENT/PLAN Patient seen and examined. Agree with DEBT RECOVERY OFFICER's assessment and plan. Chest pain with atypical features, reproducible to palpation and most probably musculoskeletal Myocardial infarction has been ruled out Recent cardiac catheterization showed patent RCA stent Resume home antihypertensives and titrate for better blood pressure control Patient refusing statin therapy Continue other medications Thank you for your consultation SUBHASH PATRICK APRN Jun 14, 2018 14:16 HARDY NORRIS MD Jun 14, 2018 17:22
[2018-06-14] MEDS ORDERED: ALPRAZolam 0.25 MG TABLET PO ONE (15:00)
[2018-06-14] MEDS ORDERED: hydrALAZINE 20 MG/ML VIAL. IVP PRN (15:45)
--- NOTE | 2018-06-14 15:55 | PHYS DOC ---
Past Medical History Past Medical History: A-Fib, Arthritis, Depression, Diverticulitis, GERD, GI Bleed, High Cholesterol, Hypertension, Other Additional Past Medical Histor: esophageal varices, GI bleedx2 Past Surgical History: Angioplasty, Appendectomy, Cholecystectomy, Hysterectomy , Knee Replacement, Pacemaker Additional Past Surgical Histo: esophageal dilation,STENT PLACEMENT, CARDIAC CATH IN JULY 2017 Alcohol Use: None Drug Use: None Adult General Chief Complaint Chief Complaint: CHEST PAIN HPI HPI Patient is a 87 year old he female presenting with chest pain positive by ambulance described as a pressure center of the chest lasted for about an hour started after she was eating and then she laid down and is gradually going away she was shaking and tearful on arrival pain was nonradiating no abdominal pain no vomiting similar to prior esophagitis pain but also has a coronary artery history Review of Systems Review of Systems Constitutional: Denies fever or chills [] Eyes: Denies change in visual acuity, redness, or eye pain [] HENT: Denies nasal congestion or sore throat [] Respiratory: Mild shortness of breath GI: Integument: Denies rash or skin lesions [] Neurologic: Denies headache, focal weakness or sensory changes [] Endocrine: Denies polyuria or polydipsia [] All other systems were reviewed and found to be within normal limits, except as documented in this note. Current Medications Current Medications Current Medications Medications (Trade) Dose Ordered Sig/Mariajose Start Time Stop Time Status Last Admin Dose Admin Aspirin (Children'S Aspirin) 324 mg 1X ONCE 06/14/18 12:45 06/14/18 12:46 DC Azithromycin (Zithromax) 500 mg 1X ONCE 06/14/18 13:30 06/14/18 13:35 DC 06/14/18 13:55 500 MG Lorazepam (Ativan) 1 mg 1X ONCE 06/14/18 12:45 06/14/18 12:46 DC Multi-Ingredient Mouthwash/Gargle (Gi Cocktail) 20 ml 1X ONCE 06/14/18 13:15 06/14/18 13:16 DC 06/14/18 13:55 20 ML Allergies Allergies Allergies Coded Allergies Type Severity Reaction Last Updated Verified No Known Drug Allergies 07/11/17 No Physical Exam Physical Exam Constitutional: Well developed, , tearful cachectic, non-toxic appearance. [] HENT: Normocephalic, atraumatic, bilateral external ears normal, oropharynx moist, no oral exudates, nose normal. [] Eyes: PERRLA, EOMI, conjunctiva normal, no discharge. [] Neck: Normal range of motion, no tenderness, supple, no stridor. [] Cardiovascular:Heart rate regular rhythm, 2 a 6 systolic murmur Lungs & Thorax: Bilateral breath sounds clear to auscultation [] Abdomen: Bowel sounds normal, soft, no tenderness, no masses, no pulsatile masses. [] Skin: Warm, dry, no erythema, no rash. [] Back: No tenderness, no CVA tenderness. [] Extremities: No tenderness, no cyanosis, no clubbing, ROM intact, no edema. [] Neurologic: Alert and oriented X 3, normal motor function, normal sensory function, no focal deficits noted. [] Psychologic: Affect normal, judgement normal, mood normal. [] Current Patient Data Vital Signs Vital Signs Date Time Temp Pulse Resp B/P (MAP) Pulse Ox O2 Delivery O2 Flow Rate FiO2 06/14/18 14:36 66 16 187/89 (121) 96 Room Air 06/14/18 12:38 97.8 97.8 Lab Values Laboratory Tests Test 06/14/18 12:47 White Blood Count 6.8 x10^3/uL (4.0-11.0) Red Blood Count 4.65 x10^6/uL (3.50-5.40) Hemoglobin 12.9 g/dL (12.0-15.5) Hematocrit 39.2 % (36.0-47.0) Mean Corpuscular Volume 84 fL (79-100) Mean Corpuscular Hemoglobin 28 pg (25-35) Mean Corpuscular Hemoglobin Concent 33 g/dL (31-37) Red Cell Distribution Width 14.0 % (11.5-14.5) Platelet Count 390 x10^3/uL (140-400) Neutrophils (%) (Auto) 61 % (31-73) Lymphocytes (%) (Auto) 29 % (24-48) Monocytes (%) (Auto) 7 % (0-9) Eosinophils (%) (Auto) 1 % (0-3) Basophils (%) (Auto) 1 % (0-3) Neutrophils # (Auto) 4.1 x10^3uL (1.8-7.7) Lymphocytes # (Auto) 2.0 x10^3/uL (1.0-4.8) Monocytes # (Auto) 0.5 x10^3/uL (0.0-1.1) Eosinophils # (Auto) 0.1 x10^3/uL (0.0-0.7) Basophils # (Auto) 0.1 x10^3/uL (0.0-0.2) Prothrombin Time 12.5 SEC (11.7-14.0) Prothrombin Time INR 1.0 (0.8-1.1) Sodium Level 142 mmol/L (136-145) Potassium Level 3.6 mmol/L (3.5-5.1) Chloride Level 104 mmol/L (98-107) Carbon Dioxide Level 25 mmol/L (21-32) Anion Gap 13 (6-14) Blood Urea Nitrogen 13 mg/dL (7-20) Creatinine 1.1 mg/dL (0.6-1.0) H Estimated GFR (Cockcroft-Gault) 47.1 BUN/Creatinine Ratio 12 (6-20) Glucose Level 171 mg/dL (70-99) H Calcium Level 9.6 mg/dL (8.5-10.1) Total Bilirubin 0.4 mg/dL (0.2-1.0) Aspartate Amino Transferase (AST) 21 U/L (15-37) Alanine Aminotransferase (ALT) 22 U/L (14-59) Alkaline Phosphatase 90 U/L (46-116) Troponin I Quantitative < 0.017 ng/mL (0.000-0.055) DG-Qfg-I-Type Natriuretic Peptide 122 pg/mL (0-449) Total Protein 7.5 g/dL (6.4-8.2) Albumin 3.3 g/dL (3.4-5.0) L Albumin/Globulin Ratio 0.8 (1.0-1.7) L Laboratory Tests 06/14/18 12:47 Laboratory Tests 06/14/18 12:47 EKG EKG [] Interpretation Time: EKG shows a normal sinus rhythm there are some nonspecific ST changes noted in the anterior leads similar to January 27, 2018 no STEMI interpreted by me the timing encounter Radiology/Procedures Radiology/Procedures [] Impressions: IMPRESSION: 1. Moderate sized hiatal hernia. 2. Prominent bilateral pulmonary markings likely due to fibrosis. An active component such as atypical pneumonia cannot be excluded. Electronically signed by: David Carty MD (06/14/2018 1:18 PM) [facility] DICTATED and SIGNED BY: DAVID CARTY MD DATE: 06/14/18 1736 Course & Med Decision Making Course & Med Decision Making Pertinent Labs and Imaging studies reviewed. (See chart for details) []I spoke with Demetra nurse practitioner from cardiology who will consult on this patient I spoke with Dr. aniyah bryant admitted to the hospital for rule out and further evaluation. In summary 87 female known coronary disease presenting with chest pain apparently there was some positional component after eating and she does have a known hiatal hernia she is feeling much better at this time the abdominal exam was benign no chest pain when away first troponin was negative no aspirin because it has caused a GI bleed in the past Dragon Disclaimer Dragon Disclaimer This electronic medical record was generated, in whole or in part, using a voice recognition dictation system. Departure Departure Impression: Primary Impression: Chest pain Disposition: ADMITTED INPATIENT Admitting Physician: Liliana Pelayo Condition: STABLE Referrals: LUCIO RILEY MD (PCP) SONNY DONAHUE MD Jun 14, 2018 15:55
[2018-06-14 16:00] VITALS: BP 190/78
[2018-06-14] MEDS ORDERED: LOSA-73 PO (16:45)
[2018-06-14] MEDS ORDERED: DILT240C2 PO (16:45)
--- NOTE | 2018-06-14 16:56 | NUR ---
Patient admitted to 248 with daughter at bedside. Patient states that she is feeling better with a slight pain under her L breast. Spoke to Dr. Trejo about patient taking lipitor because patient states she decided with Dr. Pelayo to not take it anymore because she "just doesn't". I asked Dr. Trejo about it and he stated that he was ok with the decision. Spoke to Dr. Pelayo about restarting meds and changing code status. Dr. Pelayo stated she is ok with restarting meds today and switching patient to DNR. Order verbalized with ERNESTINA Baker.
[2018-06-14] MEDS ORDERED: C.DIFF MED SCREEN BY RX. MC ONE (18:00)
[2018-06-14] MEDS: PANTOPRAZOLE 40 MG TABLET.DR. PO SCH (18:21)
[2018-06-14] MEDS: CHOLECALCIFEROL (VITAMIN D3) 1,000 UNIT TABLET PO SCH (18:21)
[2018-06-14] MEDS: CITALOPRAM 20 MG TABLET. PO SCH (18:21)
[2018-06-14] MEDS: OMEGA-3 FATTY ACIDS/FISH OIL 1,000 MG CAPSULE. PO SCH (18:21)
[2018-06-14] MEDS: LOSARTAN POTASSIUM 25 MG TABLET. PO SCH (18:21)
[2018-06-14] MEDS ORDERED: ACETAMINOPHEN 325 MG TABLET. PO PRN (18:45)
[2018-06-14 18:52] LABS: INFLUENZA A PATIENT NEGATIVE (NEGATIVE); INFLUENZA B PATIENT NEGATIVE (NEGATIVE)
[2018-06-14 19:05] VITALS: BP 120/55
[2018-06-14] MEDS ORDERED: ATORVASTATIN CALCIUM 20 MG TABLET PO SCH (21:00)
[2018-06-14 23:05] VITALS: BP 112/50
[2018-06-15 02:53] VITALS: BP 132/50
[2018-06-15 05:14] LABS: CHOLESTEROL/HDL RATIO 5.5
[2018-06-15 07:00] VITALS: BP 143/61
--- NOTE | 2018-06-15 09:16 | PDOC ---
Provider Note Provider Note [id number] LUCIO RILEY MD Jun 15, 2018 09:16
[2018-06-15] MEDS: CITALOPRAM 20 MG TABLET. PO SCH (09:28)
[2018-06-15] MEDS: OMEGA-3 FATTY ACIDS/FISH OIL 1,000 MG CAPSULE. PO SCH (09:33)
[2018-06-15] MEDS: CHOLECALCIFEROL (VITAMIN D3) 1,000 UNIT TABLET PO SCH (09:33)
[2018-06-15] MEDS: PANTOPRAZOLE 40 MG TABLET.DR. PO SCH (09:33)
[2018-06-15] MEDS: LOSARTAN POTASSIUM 25 MG TABLET. PO SCH (09:34)
[2018-06-15] MEDS: ALPRAZolam 0.25 MG TABLET PO PRN ×2 (09:35)
--- NOTE | 2018-06-15 09:51 | NUR ---
Pharmacy Medication Review S: Consulted for medication review re: C.diff Risk Assessment score of 4 O: SAILAJA SUTHERLAND is a 87 year old with: Previous C.diff infection: No Previous hospitalization: No Recent antibiotics: Within 30 days Use of gastric acid suppressor: Yes Transfer from [facility]/LTAC: No Current antibiotic regimen: NONE Current acid suppression regimen: protonix 40mg daily A: Patient has been identified as having risk factors for C.diff infection as noted above. P: Antibiotic Regimen recommendation made: n/a Probiotic ordered: n/a (not on antibiotics) PPI changed to [id number]: yes Diana Hatch RPH, 06/15/18 0951
--- NOTE | 2018-06-15 09:52 | SSS ---
ADMIT DATE: 06/14/2018 HISTORY OF PRESENT ILLNESS: The patient came in with chest pain, was felt to be chest wall pain in nature after examination. Laboratory studies including cardiac enzymes and chest x-ray were all within normal limits and an echocardiogram is pending at this time. She will be observed today and discharged later today if Cardiology is comfortable and the patient is comfortable, but her symptoms are reproducible and chest wall noncardiac in origin as she has had multiple cardiac evaluations in the past. FINAL DIAGNOSES: 1. Chest wall pain. 2. Mild coronary artery disease. 3. Anxiety disorder. OPERATIONS, PROCEDURES, COMPLICATIONS: None. CONSULTATIONS: Dr. Trejo. DISPOSITION: Home meds remain the same. Follow up as needed. PROGNOSIS: Good. LUCIO RILEY MD DR: GEETA/nts JOB#: [id number] / [id number]
--- NOTE | 2018-06-15 09:54 | CARD ---
MR#: [id number] Date of Study: 06/15/2018 Ordering Physician: SUBHASH PATRICK, Referring Physician: JAKOB GALLEGOS, Tech: Haley Calderón APPROVED REPORT EXAM: Two-dimensional and M-mode echocardiogram with Doppler and color Doppler. Other Information Quality : AverageHR: 60bpm INDICATION Chest Pain Surgery/Intervention Pacemaker: RISK FACTORS Hypertension 2D DIMENSIONS RVDd3.3 (2.9-3.5cm)Left Atrium(2D)2.5 (1.6-4.0cm) IVSd1.1 (0.7-1.1cm)Aortic Root(2D)3.1 (2.0-3.7cm) LVDd3.8 (3.9-5.9cm)LVOT Diameter2.1 (1.8-2.4cm) PWd0.8 (0.7-1.1cm)LVDs2.4 (2.5-4.0cm) FS (%) 38.1 %SV44.0 ml LVEF(%)69.0 (>50%) Aortic Valve AoV Peak Matias.168.3cm/sAoV VTI36.0cm AO Peak GR.11.3mmHgLVOT Peak Matias.120.1cm/s LVOT VTI 25.81cmAO Mean GR.5mmHg RENZO (VMAX)1.94jw4XVQ (VTI)2.51cm2 AI P 1/2 Ucvi317rp Mitral Valve MV E Cyccbcfp89.5cm/sMV DECEL APFQ681ew MV A Lfodcxkh15.0cm/sMV GSG58es E/A Ratio0.9MVA (PHT)3.23cm2 TDI E/Lateral E'12.0E/Medial E'12.4 Pulmonary Valve PV Peak Qoroonhj390.7cm/sPV Peak Grad.4mmHg Tricuspid Valve TR P. Abztlapg137fb/sRAP WZNKRNTT8ynWe TR Peak Gr.77mlXjUWJL72aeMe Pulmonary Vein S1 Qckiuzdy10.2cm/sD2 Ahklqnxe93.1cm/s LEFT VENTRICLE The left ventricle is normal size. There is borderline to mild concentric left ventricular hypertroph y. The left ventricular systolic function is normal and the ejection fraction is within normal range. The Ejection Fraction is 50-55%. There is normal LV segmental wall motion. Transmitral Doppler flow pattern is Grade I-abnormal relaxation pattern. RIGHT VENTRICLE The right ventricle is mildly dilated. There is normal right ventricular wall thickness. The right ve ntricular systolic function is normal. There is a pacemaker lead in the right ventricle. ATRIA The left atrium size is normal. The right atrium size is normal. The interatrial septum is intact wit h no evidence for an atrial septal defect or patent foramen ovale as noted on 2-D or Doppler imaging. AORTIC VALVE The aortic valve is calcified but opens well. Doppler and Color Flow revealed mild aortic regurgitati on. There is no significant aortic valvular stenosis. MITRAL VALVE The mitral valve is normal in structure and function. There is no evidence of mitral valve prolapse. There is no mitral valve stenosis. Doppler and Color-flow revealed trace mitral regurgitation. TRICUSPID VALVE The tricuspid valve is normal in structure and function. Doppler and Color Flow revealed mild to mode rate tricuspid regurgitation with an estimated PAP of 40 mmHg. There is no tricuspid valve stenosis. PULMONIC VALVE Doppler and Color Flow revealed trace pulmonic valvular regurgitation. There is no pulmonic valvular stenosis. GREAT VESSELS The aortic root is normal in size. The IVC is normal in size and collapses >50% with inspiration. PERICARDIAL EFFUSION There is no evidence of significant pericardial effusion. Critical Notification Critical Value: No <Conclusion> The left ventricular systolic function is normal and the ejection fraction is within normal range. Th e Ejection Fraction is 50-55%. There is normal LV segmental wall motion. There is a pacemaker lead in the right ventricle. Doppler and Color Flow revealed mild aortic regurgitation. Doppler and Color Flow revealed mild to moderate tricuspid regurgitation with an estimated PAP of 40 mmHg. Signed by : Alejandro Sinha, Electronically Approved : 06/15/2018 09:53:26
[2018-06-15 11:00] VITALS: BP 105/42
[2018-06-15 15:00] VITALS: BP 109/52
--- NOTE | 2018-06-15 15:14 | PDOC ---
NEO DAVIS LAYOUT TECHNICIAN 06/15/18 1514: CARDIO Progress Notes Date and Time Date of Service 06/15/2018 Time of Evaluation 1510 Subjective Subjective: No Chest Pain, No shortness of breath, No Palpitations Vitals Vitals Vital Signs Date Time Temp Pulse Resp B/P (MAP) Pulse Ox O2 Delivery O2 Flow Rate FiO2 06/15/18 11:00 98.0 63 18 105/42 (63) 94 Room Air 98.0 Weight Weight [ ] Input and Output Intake and Output Intake and Output 06/15/18 07:00 Intake Total 200 ml Output Total 250 ml Balance -50 ml Intake Oral 200 ml Output Urine Total 250 ml Laboratory Labs Laboratory Tests Test 06/14/18 18:05 06/14/18 18:25 06/14/18 21:00 06/15/18 04:20 Troponin I Quantitative < 0.017 ng/mL (0.000-0.055) < 0.017 ng/mL (0.000-0.055) Influenza Type A Antigen Negative (NEGATIVE) Influenza Type B Antigen Negative (NEGATIVE) Triglycerides Level 113 mg/dL (0-150) Cholesterol Level 197 mg/dL (0-200) LDL Cholesterol, Calculated 138 mg/dL (0-100) VLDL Cholesterol, Calculated 23 mg/dL (0-40) Non-HDL Cholesterol Calculated 161 mg/dL (0-129) HDL Cholesterol 36 mg/dL (40-60) Cholesterol/HDL Ratio 5.5 Physical Exam HEENT: Neck Supple W Full Motion Chest: Symmetric LUNGS: Clear to Auscultation Heart: S1S2, RRR (SR) Abdomen: Soft N/T Extremities: No Calf Tenderness Neurology: alert, oriented, follow commands Assessment Assessment 1. Chest pain, mixed features. Trops normal. possibly anxiety. EF and WM nml 2. Accelerated HTN: controlled 3. CAD: s/p PCI/JUNIE to RCA. Cath last year showed patent stent as noted above. Has been taken off ASA and Plavix in past due to GI bleeding. 4. Hyperlipemia: LDL 138 5. AFIB/flutter; maintaining SR; device check 01/2018 AT/AF <0.1% 6. SSS s/p PPM implantation ([employer]). Most recent device check with normal function. 7. Depression/anxiety; as per PCP 8. Moderate pulmonary HTN Recommendations 1. Recommend statin 2. Continue with current BP regimen including cardizem 3. Again no ASA/plavix, discontinued due to past due to high susceptibility to GI bleed. 4. Follow up in 4 weeks. HARDY NORRIS MD 06/15/18 0107: CARDIO Progress Notes Assessment Assessment Patient seen and examined. Agree with AIRCRAFT PART ASSEMBLER's assessment and plan. Chest pain improved. Blood pressure better controlled. 2-D echo showed normal LV function without any wall motion abnormalities. Recent device check showed normal function. Follow-up with our office in 1 month. NEO DAVIS APRN Jun 15, 2018 15:14 HARDY NORRIS MD Jun 15, 2018 16:57
[2018-06-15] MEDS ORDERED: ATOR20TA58 PO (15:33)
[2018-06-15] MEDS ORDERED: FAMOTIDINE 20 MG TABLET. PO SCH (21:00)
== END 2018-06-15 17:48 | disposition home or self-care (01) | DRG 206 ==
LOC: ER 12:31 → 2 SOUTH 14:50
PROVIDERS: ADMIT Family Medicine; ATTEND Family Medicine
DX: M94.0 Chondrocostal junction syndrome [Tietze] (principal); I48.92 Unspecified atrial flutter; R07.89 Other chest pain; E78.00 Pure hypercholesterolemia, unspecified; E78.5 Hyperlipidemia, unspecified; F32.9 Major depressive disorder, single episode, unspecified; F41.9 Anxiety disorder, unspecified; I11.0 Hypertensive heart disease with heart failure; I25.10 Atherosclerotic heart disease of native coronary artery without angina pectoris; I27.20 Pulmonary hypertension, unspecified; I48.91 Unspecified atrial fibrillation; I50.9 Heart failure, unspecified; K21.9 Gastro-esophageal reflux disease without esophagitis; K44.9 Diaphragmatic hernia without obstruction or gangrene; Z82.49 Family history of ischemic heart disease and other diseases of the circulatory system; Z90.710 Acquired absence of both cervix and uterus; Z95.5 Presence of coronary angioplasty implant and graft; Z96.651 Presence of right artificial knee joint; Z87.11 Personal history of peptic ulcer disease; G62.9 Polyneuropathy, unspecified; K57.90 Diverticulosis of intestine, part unspecified, without perforation or abscess without bleeding; M19.90 Unspecified osteoarthritis, unspecified site
CPT/HCPCS: 36415; 71045; 80053; 80061; 83880; 84484; 85025; 85610; 87804; 93005; 93306; Q0144; 99285-25

== ENCOUNTER 2018-08-03 11:07 | Inpatient (IN) | payer MEDICARE ==
[~2018-08-03] VITALS: Ht 157.5 cm; Wt 66.2 kg
[~2018-08-03 11:07] MED LIST changes: +ATOR20TA58 PO
[2018-08-03] MEDS ORDERED: ALBUTEROL SULFATE 2.5 MG/3 ML NEBU. ONE (11:29)
--- NOTE | 2018-08-03 11:32 | PHYS DOC ---
Past Medical History Past Medical History: A-Fib, Arthritis, Depression, Diverticulitis, GERD, GI Bleed, High Cholesterol, Hypertension, Other Additional Past Medical Histor: esophageal varices, GI bleedx2 Past Surgical History: Angioplasty, Appendectomy, Cholecystectomy, Hysterectomy , Knee Replacement, Pacemaker Additional Past Surgical Histo: esophageal dilation,STENT PLACEMENT, CARDIAC CATH IN JULY 2017 Alcohol Use: None Drug Use: None Adult General Chief Complaint Chief Complaint: DYSPNEA/RESPIRATOY DISTRESS HPI HPI Patient is a 87 year old female who brought in from her home by EMS because of shortness of breath. The patient complaining of nasal congestion and nonproductive cough and chills for 3-4 days and complaining of episodes of shortness of breath that getting worse gradually. Patient denies chest pain, fever, vomiting and diarrhea, urinary symptoms, sick contact. Patient is very anxious and shaking while giving history. Review of Systems Review of Systems Constitutional: Denies fever, reports chills [] Eyes: Denies change in visual acuity, redness, or eye pain [] HENT: Reports nasal congestion Respiratory: Reports cough and shortness of breath Cardiovascular: No additional information not addressed in HPI [] GI: Denies abdominal pain, nausea, vomiting, bloody stools or diarrhea [] : Denies dysuria or hematuria [] Musculoskeletal: Denies back pain or joint pain [] Integument: Denies rash or skin lesions [] Neurologic: Denies headache, focal weakness or sensory changes [] Endocrine: Denies polyuria or polydipsia [] All other systems were reviewed and found to be within normal limits, except as documented in this note. Current Medications Current Medications Current Medications Medications (Trade) Dose Ordered Sig/Mariajose Start Time Stop Time Status Last Admin Dose Admin Albuterol Sulfate (Ventolin Neb Soln) 2.5 mg STK-MED ONCE 08/03/18 11:29 08/03/18 11:30 DC Albuterol/ Ipratropium (Duoneb) 3 ml 1X ONCE 08/03/18 12:00 08/03/18 12:01 DC 08/03/18 11:39 3 ML Lorazepam (Ativan) 0.5 mg 1X ONCE 08/03/18 12:00 08/03/18 12:01 DC 08/03/18 12:11 0.5 MG Methylprednisolone Sodium Succinate (SOLU-Medrol 125MG VIAL) 125 mg 1X ONCE 4/4/19 13:00 08/03/18 13:01 DC 08/03/18 13:03 125 MG Sodium Chloride 1,000 ml @ 1,000 mls/hr 1X ONCE 08/03/18 13:30 08/03/18 14:29 DC 08/03/18 14:27 1,000 MLS/HR Allergies Allergies Allergies Coded Allergies Type Severity Reaction Last Updated Verified No Known Drug Allergies 07/11/17 No Physical Exam Physical Exam Constitutional: Well developed, well nourished, no acute distress, non-toxic appearance. [] HENT: Normocephalic, atraumatic, bilateral external ears normal, oropharynx moist, no oral exudates, nose normal. [] Eyes: PERRLA, EOMI, conjunctiva normal, no discharge. [] Neck: Normal range of motion, no tenderness, supple, no stridor. [] Cardiovascular:Heart rate regular rhythm, no murmur [] Lungs & Thorax: Bilateral breath sounds clear to auscultation [] Abdomen: Bowel sounds normal, soft, no tenderness, no masses, no pulsatile masses. [] Skin: Warm, dry, no erythema, no rash. [] Back: No tenderness, no CVA tenderness. [] Extremities: No tenderness, no cyanosis, no clubbing, ROM intact, no edema. [] Neurologic: Alert and oriented X 3, normal motor function, normal sensory function, no focal deficits noted. [] Psychologic: Affect normal, judgement normal, mood normal. [] Current Patient Data Vital Signs Vital Signs Date Time Temp Pulse Resp B/P (MAP) Pulse Ox O2 Delivery O2 Flow Rate FiO2 08/03/18 13:10 88 20 159/75 (103) 93 Nasal Cannula 2.0 08/03/18 11:20 97.9 97.9 Lab Values Laboratory Tests Test 08/03/18 11:44 08/03/18 12:45 White Blood Count 12.5 x10^3/uL (4.0-11.0) H Red Blood Count 4.42 x10^6/uL (3.50-5.40) Hemoglobin 11.7 g/dL (12.0-15.5) L Hematocrit 36.9 % (36.0-47.0) Mean Corpuscular Volume 84 fL (79-100) Mean Corpuscular Hemoglobin 26 pg (25-35) Mean Corpuscular Hemoglobin Concent 32 g/dL (31-37) Red Cell Distribution Width 15.4 % (11.5-14.5) H Platelet Count 291 x10^3/uL (140-400) Neutrophils (%) (Auto) 72 % (31-73) Lymphocytes (%) (Auto) 20 % (24-48) L Monocytes (%) (Auto) 6 % (0-9) Eosinophils (%) (Auto) 2 % (0-3) Basophils (%) (Auto) 1 % (0-3) Neutrophils # (Auto) 9.1 x10^3uL (1.8-7.7) H Lymphocytes # (Auto) 2.4 x10^3/uL (1.0-4.8) Monocytes # (Auto) 0.7 x10^3/uL (0.0-1.1) Eosinophils # (Auto) 0.2 x10^3/uL (0.0-0.7) Basophils # (Auto) 0.1 x10^3/uL (0.0-0.2) Sodium Level 143 mmol/L (136-145) Potassium Level 3.2 mmol/L (3.5-5.1) L Chloride Level 103 mmol/L (98-107) Carbon Dioxide Level 25 mmol/L (21-32) Anion Gap 15 (6-14) H Blood Urea Nitrogen 12 mg/dL (7-20) Creatinine 1.0 mg/dL (0.6-1.0) Estimated GFR (Cockcroft-Gault) 52.6 BUN/Creatinine Ratio 12 (6-20) Glucose Level 124 mg/dL (70-99) H Lactic Acid Level 2.9 mmol/L (0.4-2.0) H Calcium Level 8.9 mg/dL (8.5-10.1) Total Bilirubin 0.4 mg/dL (0.2-1.0) Aspartate Amino Transferase (AST) 19 U/L (15-37) Alanine Aminotransferase (ALT) 16 U/L (14-59) Alkaline Phosphatase 111 U/L (46-116) Troponin I Quantitative < 0.017 ng/mL (0.000-0.055) DB-Zaf-P-Type Natriuretic Peptide 326 pg/mL (0-449) Total Protein 6.8 g/dL (6.4-8.2) Albumin 3.2 g/dL (3.4-5.0) L Albumin/Globulin Ratio 0.9 (1.0-1.7) L Laboratory Tests 08/03/18 11:44 Laboratory Tests 08/03/18 12:45 EKG EKG EKG interpreted by me. EKG at 1122 showed normal sinus rhythm at rate of 84 with multiple artifacts, left christianson axis, prolonged QT at 434, normal [place] intervals, no acute distress and T-wave abnormalities. Radiology/Procedures Radiology/Procedures [facility] [address] [place] [address] IMAGING REPORT Signed PATIENT: SAILAJA SUTHERLAND ACCOUNT: [id number] : 1930 LOCATION: ER AGE: 87 SEX: F EXAM STATUS: REG ER ORD. PHYSICIAN: MINAL HEBERT MD REASON: shortness of breath PROCEDURE: PORTABLE CHEST 1V EXAM: AP View of the chest DATE: 08/03/2018 11:49 AM INDICATION: Shortness of air COMPARISON: 06/14/2018, 02/11/2017 FINDINGS: Cardiac generator pack obscures a portion left chest with leads projecting over the right atrium and ventricle. The heart is not enlarged. Aorta is tortuous without scarring calcifications. Bilateral perihilar interstitial predominant opacities are seen. Superimposed airspace opacities are seen in the right upper lung. No pleural effusion or pneumothorax. IMPRESSION: There is a background of interstitial opacities with superimposed airspace opacities in the right upper lung. The interstitial opacities may represent interstitial lung disease/fibrosis with superimposed consolidation. Atypical infection may also have similar appearance. Electronically signed by: Sekou Kirk MD (08/03/2018 12:10 PM) [id number] DICTATED and SIGNED BY: SEKOU KIRK MD DATE: 08/03/18 1210 Course & Med Decision Making Course & Med Decision Making Pertinent Labs and Imaging studies reviewed. (See chart for details) Evaluation of patient in ER showed 87-year-old female patient with complaining of shortness of breath and nasal congestion for several days. Patient had O2 sat of 90 bathroom and that improved with nasal cannula. X-ray showed consultation. Patient had mild elevation of lactic acid. Patient treated with IV fluid and antibiotic. Plan to admit patient with diagnose of shortness of breath and SIRS. Dragon Disclaimer Dragon Disclaimer This electronic medical record was generated, in whole or in part, using a voice recognition dictation system. Departure Departure Impression: Primary Impression: SIRS (systemic inflammatory response syndrome) Additional Impressions: Dyspnea Hypoxia Anxiety Hypokalemia Disposition: ADMITTED INPATIENT (at 1331) Admitting Physician: Liliana Pelayo (for Dr. Lucio Chowdhury at 1431) Condition: IMPROVED Referrals: LUCIO CHOWDHURY MD (PCP) Problem Qualifiers Additional Impressions: Dyspnea Dyspnea type: dyspnea on exertion Qualified Codes: R06.09 - Other forms of dyspnea MINAL HEBERT MD Aug 03, 2018 11:32
[2018-08-03 12:00] LABS: BASO # 0.1 x10^3/uL (0.0-0.2); BASO % 1 % (0-3); EOS # 0.2 x10^3/uL (0.0-0.7); EOS % 2 % (0-3); HEMATOCRIT 36.9 % (36.0-47.0); HEMOGLOBIN 11.7 g/dL (12.0-15.5); LYMPH # 2.4 x10^3/uL (1.0-4.8); LYMPH % 20 % (24-48); MEAN CORPUSCULAR HEMOGLOBIN 26 pg (25-35); MEAN CORPUSCULAR HGB CONC 32 g/dL (31-37); MEAN CORPUSCULAR VOLUME 84 fL (79-100); MONO # 0.7 x10^3/uL (0.0-1.1); MONO % 6 % (0-9); NEUT # 9.1 x10^3uL (1.8-7.7); NEUT % 72 % (31-73); PLATELET COUNT 291 x10^3/uL (140-400); RED BLOOD COUNT 4.42 x10^6/uL (3.50-5.40); RED CELL DISTRIBUTION WIDTH 15.4 % (11.5-14.5); WHITE BLOOD COUNT 12.5 x10^3/uL (4.0-11.0)
[2018-08-03] MEDS ORDERED: IPRATRPIUM/ALBUTEROL 0.5/2.5MG 3 ML NEBU. NEB ONE (12:00)
--- NOTE | 2018-08-03 12:13 | RAD ---
EXAM: AP View of the chest DATE: 08/03/2018 11:49 AM INDICATION: Shortness of air COMPARISON: 06/14/2018, 02/11/2017 FINDINGS: Cardiac generator pack obscures a portion left chest with leads projecting over the right atrium and ventricle. The heart is not enlarged. Aorta is tortuous without scarring calcifications. Bilateral perihilar interstitial predominant opacities are seen. Superimposed airspace opacities are seen in the right upper lung. No pleural effusion or pneumothorax. IMPRESSION: There is a background of interstitial opacities with superimposed airspace opacities in the right upper lung. The interstitial opacities may represent interstitial lung disease/fibrosis with superimposed consolidation. Atypical infection may also have similar appearance. Electronically signed by: Sekou Matta MD (08/03/2018 12:10 PM) [id number]
--- NOTE | 2018-08-03 12:36 | EKG ---
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
[2018-08-03] MEDS ORDERED: methylPREDNISolone SOD SUCC PF 125 MG/2 ML VIAL. IV ONE (13:00)
[2018-08-03 13:06] LABS: CALCIUM 8.9 mg/dL (8.5-10.1); GFR 52.6; POTASSIUM 3.2 mmol/L (3.5-5.1)
[2018-08-03 13:11] LABS: ALBUMIN 3.2 g/dL (3.4-5.0); ALBUMIN/GLOBULIN RATIO 0.9 (1.0-1.7); TOTAL BILIRUBIN 0.4 mg/dL (0.2-1.0); TOTAL PROTEIN 6.8 g/dL (6.4-8.2)
[2018-08-03] MEDS ORDERED: IV NORMAL SALINE 1000ML BAG 1,000 ML IV ONE (13:30)
[2018-08-03] MEDS ORDERED: POTASSIUM CHLORIDE 20 MEQ TABLET.ER. PO ONE (13:45)
[2018-08-03] MEDS ORDERED: cefTRIAXone IV Push 1 GM VIAL. IVP ONE (14:00)
[2018-08-03 15:30] VITALS: BP 156/67
[2018-08-03] MEDS ORDERED: guaiFENesin DM 200MG/20MG 10 ML SYRUP PO PRN (17:00)
[2018-08-03] MEDS: DOCUSATE SODIUM 100 MG CAPSULE. PO SCH (17:14)
[2018-08-03] MEDS ORDERED: ACETAMINOPHEN 325 MG TABLET. PO PRN (17:15)
[2018-08-03 19:00] VITALS: BP 158/67
[2018-08-03] MEDS: ALPRAZolam 0.25 MG TABLET PO PRN (21:06)
[2018-08-03 22:58] VITALS: BP 139/70
[2018-08-04 03:00] VITALS: BP 173/84
[2018-08-04 07:00] VITALS: BP 151/69
[2018-08-04] MEDS ORDERED: AZITHRMYCN 500MG IVPB FOR OMNI 250 ML IV ONE (09:00)
[2018-08-04] MEDS: DOCUSATE SODIUM 100 MG CAPSULE. PO SCH (09:00)
--- NOTE | 2018-08-04 09:01 | PDOC1 ---
H & P. HPI: Ms. Hunt is an 87-year-old female with a past medical history of coronary artery disease status post stents 3 in 2015, hypertension, chronic kidney disease stage II, paroxysmal A. fib, hyperlipidemia, GERD with history of recurrent GI bleeding, pacemaker placement, who presented to the emergency room yesterday for increased dyspnea, mildly productive cough, chills, subjective fever at home. She reports the symptoms started approximately 3-4 days ago. She continued to have worsening of her symptoms and presented to the ER yesterday via EMS. Her labs were remarkable for mildly elevated lactic acid at 2.9, mild hypokalemia, mild leukocytosis without left shift, mildly elevated magnesium level. Chest x-ray was significant for interstitial opacies throughout with possible right upper lobe infiltrate. She was given Rocephin, IV fluids and solumedrol in the emergency room. She was admitted for likely pneumonia, sepsis. ROS: Constitutional: Denies fever, fatigue, chills HEENT: Denies sore throat, vision changes Cardio: Denies chest pain, dyspnea with exertion, syncope, palpitations, edema Pulmonary: Denies shortness of breath, cough, wheezing GI: Denies nausea, vomiting, diarrhea, constipation : Denies dysuria, frequency, urgency, incontinence Skin: Denies new lesions Neuro: Denies weakness, paresthesias PMH: As above. FAMILY HX: Mother had hypertension and stroke. Father had no known medical history. Son had cancer of unknown source. SOCIAL HX: Nonsmoker, no significant alcohol use, no recreational drug use. SURGICAL HX: Coronary artery stent placement x 3 in April 2016, hysterectomy, cholecystectomy, right knee replacement, cataract removal. MEDS: Reviewed and reconciled ALLERGIES: Reviewed PE: Alert, oriented, no acute distress EOMI, sclera non-icteric Neck supple RRR, 2/6 systolic murmur Crackles in bilateral bases with few wheezes Soft, NT, ND No edema, cyanosis. Normal capillary refill. Calm, cooperative, mood/affect within normal limits ASSESSMENT & PLAN: Sepsis secondary to likely community acquired pneumonia Acute hypoxic respiratory secondary to above Coronary artery disease status post stents 3 in 2015 Hypertension Chronic kidney disease stage II Paroxysmal A. fib Hyperlipidemia GERD H/o recurrent GI bleeds Supportive care with O2 supplementation as needed Obtain flu test to confirm negative Continue Rocephin and and azithromycin for coverage of community-acquired pneumonia Obtain sputum culture if possible Repeat labs this a.m. including lactic acid Breathing treatments as needed JAKOB GALLEGOS MD Aug 04, 2018 09:01
[2018-08-04 09:53] LABS: BASO % 0 % (0-3); EOS % 0 % (0-3); HEMOGLOBIN 9.9 g/dL (12.0-15.5); LYMPH # 1.2 x10^3/uL (1.0-4.8); LYMPH % 11 % (24-48); MEAN CORPUSCULAR HEMOGLOBIN 27 pg (25-35); MEAN CORPUSCULAR HGB CONC 32 g/dL (31-37); MEAN CORPUSCULAR VOLUME 83 fL (79-100); MONO # 0.3 x10^3/uL (0.0-1.1); MONO % 2 % (0-9); NEUT # 9.6 x10^3uL (1.8-7.7); NEUT % 87 % (31-73); PLATELET COUNT 250 x10^3/uL (140-400); RED BLOOD COUNT 3.74 x10^6/uL (3.50-5.40); RED CELL DISTRIBUTION WIDTH 15.6 % (11.5-14.5); WHITE BLOOD COUNT 11.1 x10^3/uL (4.0-11.0)
[2018-08-04 10:05] LABS: CALCIUM 8.6 mg/dL (8.5-10.1); CREATININE 0.9 mg/dL (0.6-1.0); GFR 59.4
[2018-08-04] MEDS: ALPRAZolam 0.25 MG TABLET PO PRN ×2 (10:06→18:15)
[2018-08-04] MEDS: cefTRIAXone IV Push 1 GM VIAL. IVP SCH (10:07)
[2018-08-04] MEDS: FLUTICASONE 50MCG/NASAL SPRAY 16GM BOTTLE. NS SCH (10:07)
[2018-08-04] MEDS: OMEGA-3 FATTY ACIDS/FISH OIL 1,000 MG CAPSULE. PO SCH (10:07)
[2018-08-04] MEDS: CETIRIZINE HCL 10 MG TABLET. PO SCH (10:07)
[2018-08-04] MEDS: LOSARTAN POTASSIUM 50 MG TABLET. PO SCH (10:10)
[2018-08-04] MEDS: CITALOPRAM 20 MG TABLET. PO SCH (10:10)
[2018-08-04] MEDS: CHOLECALCIFEROL (VITAMIN D3) 1,000 UNIT TABLET PO SCH (10:10)
--- NOTE | 2018-08-04 10:10 | NUR ---
SW consulted for dc needs. Chart reviewed and discussed with RN. Pt lives at home alone. PT/OT pending. SW will await for PT/OT recommendation to assess skilled needs. Will continue to follow.
[2018-08-04] MEDS: PANTOPRAZOLE 40 MG TABLET.DR. PO SCH (10:11)
[2018-08-04 11:00] VITALS: BP 157/71
[2018-08-04 11:45] LABS: INFLUENZA A PATIENT NEGATIVE (NEGATIVE); INFLUENZA B PATIENT NEGATIVE (NEGATIVE)
[2018-08-04] MEDS: ALBUTEROL SULFATE 2.5 MG/3 ML NEBU. NEB PRN (12:33)
[2018-08-04 13:06] LABS: % LYMPHS 12 % (24-48); % MONOS 4 % (0-10); % SEGS 84 % (35-66); ANISOCYTOSIS SLIGHT; PLT ESTIMATE ADEQUATE (ADEQUATE)
--- NOTE | 2018-08-04 16:02 | NUR ---
MANJEET following pt. PT/OT recommends SNU. Spoke with pt at bedside regarding SNU and benefits. Pt agreeable with SNU and chose [facility]. MANJEET phoned and faxed referral to [facility]. Pt admission and acceptance pending. will continue to follow. GERALDO DO. Addendum: 08/04/18 at 1603 by AMMY BURROUGHS Left a voice mail to pt's daughter, Katt regarding dc plan.
[2018-08-04 19:55] VITALS: BP 172/70
[2018-08-04 23:37] VITALS: BP 139/50
[2018-08-05 03:59] VITALS: BP 116/56
[2018-08-05 07:10] VITALS: BP 122/46
[2018-08-05] MEDS: OMEGA-3 FATTY ACIDS/FISH OIL 1,000 MG CAPSULE. PO SCH (08:41)
[2018-08-05] MEDS: CHOLECALCIFEROL (VITAMIN D3) 1,000 UNIT TABLET PO SCH (08:42)
[2018-08-05] MEDS: CETIRIZINE HCL 10 MG TABLET. PO SCH (08:42)
[2018-08-05] MEDS: PANTOPRAZOLE 40 MG TABLET.DR. PO SCH (08:43)
[2018-08-05] MEDS: CITALOPRAM 20 MG TABLET. PO SCH (08:43)
[2018-08-05] MEDS: LOSARTAN POTASSIUM 50 MG TABLET. PO SCH (08:43)
[2018-08-05] MEDS: FLUTICASONE 50MCG/NASAL SPRAY 16GM BOTTLE. NS SCH (08:45)
[2018-08-05] MEDS: DOCUSATE SODIUM 100 MG CAPSULE. PO SCH (08:45)
[2018-08-05] MEDS ORDERED: AZITHROMYCIN 250 MG in IV NORMAL SALINE 250ML 250 ML IV SCH (09:00)
[2018-08-05] MEDS: cefTRIAXone IV Push 1 GM VIAL. IVP SCH (10:47)
[2018-08-05 11:00] VITALS: BP 141/56
--- NOTE | 2018-08-05 11:24 | PDOC ---
Provider Note Provider Note vss, no temp- wbc and lactic better on meds- feels better , not much sputum, some rhonchi- O2 ok on RA- po azith/rocephin another day, then maybe [facility] re PT needs as she is immobile at home LUCIO RILEY MD Aug 05, 2018 11:24
[2018-08-05 15:00] VITALS: BP 127/63
[2018-08-05] MEDS: ALBUTEROL SULFATE 2.5 MG/3 ML NEBU. NEB PRN ×2 (15:56→21:10)
[2018-08-05 19:34] VITALS: BP 142/61
[2018-08-05] MEDS: ALPRAZolam 0.25 MG TABLET PO PRN (20:11)
[2018-08-05] MEDS: LACTOBACILLUS RHAMNOSUS GG 1 CAPSULE. PO SCH (20:11)
[2018-08-05 23:50] VITALS: BP 126/45
[2018-08-06 03:42] VITALS: BP 132/54
[2018-08-06 07:10] VITALS: BP 137/62
[2018-08-06] MEDS: CITALOPRAM 20 MG TABLET. PO SCH (08:32)
[2018-08-06] MEDS: OMEGA-3 FATTY ACIDS/FISH OIL 1,000 MG CAPSULE. PO SCH (08:32)
[2018-08-06] MEDS: DOCUSATE SODIUM 100 MG CAPSULE. PO SCH (08:32)
[2018-08-06] MEDS: CHOLECALCIFEROL (VITAMIN D3) 1,000 UNIT TABLET PO SCH (08:32)
[2018-08-06] MEDS: LACTOBACILLUS RHAMNOSUS GG 1 CAPSULE. PO SCH ×2 (08:33→20:43)
[2018-08-06] MEDS: CETIRIZINE HCL 10 MG TABLET. PO SCH (08:33)
[2018-08-06] MEDS: AZITHROMYCIN 250 MG TABLET. PO SCH (08:33)
[2018-08-06] MEDS: PANTOPRAZOLE 40 MG TABLET.DR. PO SCH (08:33)
[2018-08-06] MEDS: LOSARTAN POTASSIUM 50 MG TABLET. PO SCH (08:34)
[2018-08-06] MEDS: FLUTICASONE 50MCG/NASAL SPRAY 16GM BOTTLE. NS SCH (08:35)
--- NOTE | 2018-08-06 10:15 | PDOC ---
Provider Note Provider Note still tired and coughing, scant sputum, no new sxs- no temp, vss- pt sayss no [facility] eneded- will likely dc home in am, ra today- add LUCIO Foster MD Aug 06, 2018 10:15
[2018-08-06] MEDS: cefTRIAXone IV Push 1 GM VIAL. IVP SCH (10:25)
[2018-08-06] MEDS ORDERED: BENZONATATE 100 MG CAPSULE. PO PRN (10:30)
[2018-08-06 11:14] VITALS: BP 129/52
[2018-08-06 15:06] VITALS: BP 136/77
[2018-08-06] MEDS: ALBUTEROL SULFATE 2.5 MG/3 ML NEBU. NEB PRN (18:37)
[2018-08-06 19:00] VITALS: BP 130/39
[2018-08-06] MEDS: ALPRAZolam 0.25 MG TABLET PO PRN (20:43)
[2018-08-06 23:00] VITALS: BP 136/56
[2018-08-07 03:00] VITALS: BP 127/59
[2018-08-07 07:00] VITALS: BP 146/61
[2018-08-07] MEDS: ALBUTEROL SULFATE 2.5 MG/3 ML NEBU. NEB PRN (07:08)
[2018-08-07] MEDS: FLUTICASONE 50MCG/NASAL SPRAY 16GM BOTTLE. NS SCH (07:46)
[2018-08-07] MEDS: CHOLECALCIFEROL (VITAMIN D3) 1,000 UNIT TABLET PO SCH (07:47)
[2018-08-07] MEDS: LACTOBACILLUS RHAMNOSUS GG 1 CAPSULE. PO SCH (07:47)
[2018-08-07] MEDS: CITALOPRAM 20 MG TABLET. PO SCH (07:47)
[2018-08-07] MEDS: OMEGA-3 FATTY ACIDS/FISH OIL 1,000 MG CAPSULE. PO SCH (07:47)
[2018-08-07] MEDS: AZITHROMYCIN 250 MG TABLET. PO SCH (07:48)
[2018-08-07] MEDS: PANTOPRAZOLE 40 MG TABLET.DR. PO SCH (07:48)
[2018-08-07] MEDS: LOSARTAN POTASSIUM 50 MG TABLET. PO SCH (07:48)
[2018-08-07] MEDS: DOCUSATE SODIUM 100 MG CAPSULE. PO SCH (07:48)
[2018-08-07 07:49] VITALS: BP 146/61
[2018-08-07] MEDS: CETIRIZINE HCL 10 MG TABLET. PO SCH (07:49)
[2018-08-07] MEDS: ALPRAZolam 0.25 MG TABLET PO PRN (07:55)
--- NOTE | 2018-08-07 08:18 | PDOC ---
Provider Note Provider Note [id number] LUCIO RILEY MD Aug 07, 2018 08:18
--- NOTE | 2018-08-07 09:47 | DS ---
DATE OF DISCHARGE: 08/07/2018 HOSPITAL SUMMARY: The patient came in with cough, dyspnea and weakness. She was afebrile with mildly elevated white count of 12,500 and a left shift was present. Chemistry profile was unremarkable except for potassium of 3.2 and this came up to normal the next day. Flu tests were negative. Chest x-ray was read as a scant possible infiltrate in the right upper lobe, but interstitial changes were present from previous exams. She was treated with IV Rocephin and IV and oral azithromycin and felt better the next day and is feeling better at this time and comfortable to be discharged and followed as an outpatient. Oxygen saturations on room air are 91 to 94 and she is qualified through physical therapy to get home therapy, but not necessarily needing a [facility]. FINAL DIAGNOSIS: Acute bacterial bronchitis OPERATIONS, PROCEDURES, COMPLICATIONS AND CONSULTATIONS: None. DISPOSITION: Two more days of azithromycin 250 mg daily and Tessalon 200 t.i.d. as needed. Rest of home meds remain all the same. Office followup in 1 week. Home physical therapy to do home health as she has been depressed and has lost her desire to live given her 's and she wishes to try to improve this mental status at this time. Prognosis is guarded. She remains a DNR patient. LUCIO RILEY MD DR: GEETA/nts JOB#: [id number] / [id number]
[2018-08-07] MEDS: cefTRIAXone IV Push 1 GM VIAL. IVP SCH (10:00)
--- NOTE | 2018-08-07 11:11 | NUR ---
SW following pt. PT/OT recommends home health. Spoke with pt and daughter in room regarding home health. Both agreeable to speak with Tiffanie, nurse navigator from [facility]. GERALDO DO.
--- NOTE | 2018-08-07 13:23 | NUR ---
Discharge Note: SAILAJA SUTHERLAND [address] Discharge instructions and discharge home medications reviewed with Patient and a copy given. All questions have been answered and understanding verbalized. The following instructions and handouts were given: follow up instructions. Discontinued lines and drains: 22 gauge left FA, tip intact. patient tolerated well. Patient discharged to home with home health via daughter.
== END 2018-08-07 13:00 | disposition home health service (06) | DRG 871 ==
LOC: ER 11:07 → 6 SOUTH 13:30
PROVIDERS: ADMIT Family Medicine; ATTEND Family Medicine
DX: A41.9 Sepsis, unspecified organism (principal); J96.01 Acute respiratory failure with hypoxia; E87.6 Hypokalemia; K21.9 Gastro-esophageal reflux disease without esophagitis; E78.00 Pure hypercholesterolemia, unspecified; F41.9 Anxiety disorder, unspecified; J20.9 Acute bronchitis, unspecified; Z90.710 Acquired absence of both cervix and uterus; Z96.659 Presence of unspecified artificial knee joint; F32.9 Major depressive disorder, single episode, unspecified; M19.90 Unspecified osteoarthritis, unspecified site; I25.10 Atherosclerotic heart disease of native coronary artery without angina pectoris; N18.2 Chronic kidney disease, stage 2 (mild); I12.9 Hypertensive chronic kidney disease with stage 1 through stage 4 chronic kidney disease, or unspecified chronic kidney disease; I48.0 Paroxysmal atrial fibrillation; E78.5 Hyperlipidemia, unspecified; Z90.49 Acquired absence of other specified parts of digestive tract
CPT/HCPCS: 36415; 71045; 80048; 80053; 83605; 83880; 84484; 85007; 85025; 87040; 87070; 87205; 87804; 93005; 94640; 94760; 96361; 96374; 96375; J0456; J0696; J2060; J2930; J7030; J7050; J7613; J7620; Q0144; 97110; 97116; 99285-25

== ENCOUNTER 2019-01-30 10:19 | Inpatient (IN) | payer MEDICARE ==
[~2019-01-30] VITALS: Ht 157.5 cm; Wt 60.8 kg
[~2019-01-30 10:19] MED LIST changes: -PANT40TA3 PO; +PANT40TA77 PO
[2019-01-30] MEDS ORDERED: IPRATRPIUM/ALBUTEROL 0.5/2.5MG 3 ML NEBU. NEB ONE (10:45)
[2019-01-30] MEDS ORDERED: methylPREDNISolone SOD SUCC PF 125 MG/2 ML VIAL. IV ONE (10:45)
[2019-01-30 11:04] LABS: CALCIUM 9.8 mg/dL (8.5-10.1); GFR 52.4; POTASSIUM 3.6 mmol/L (3.5-5.1)
--- NOTE | 2019-01-30 11:05 | RAD ---
Examination: PORTABLE CHEST 1V History: Shortness of breath Comparison/Correlation: 08/03/2018 Portable Chest X-ray Exam Findings: Portable upright frontal view of the chest was performed. Dual-lead left-sided pacemaker is present. Heart size is normal. Vasculature congestion is present. No pneumothorax. No pleural effusion. Osteopenia noted. Right upper quadrant surgical clips are present. Dextroconvexity of the thoracic spine noted. Impression: Mild pulmonary vascular congestion. No focal infiltrate. Electronically signed by: Prabhakar Winkler MD (01/30/2019 11:01 AM) [facility]
[2019-01-30 11:06] LABS: BASO # 0.1 x10^3/uL (0.0-0.2); BASO % 1 % (0-3); EOS # 0.3 x10^3/uL (0.0-0.7); EOS % 4 % (0-3); HEMATOCRIT 41.8 % (36.0-47.0); LYMPH # 2.3 x10^3/uL (1.0-4.8); LYMPH % 33 % (24-48); MEAN CORPUSCULAR HEMOGLOBIN 29 pg (25-35); MEAN CORPUSCULAR HGB CONC 33 g/dL (31-37); MEAN CORPUSCULAR VOLUME 86 fL (79-100); MONO # 0.5 x10^3/uL (0.0-1.1); MONO % 7 % (0-9); NEUT # 3.9 x10^3/uL (1.8-7.7); NEUT % 56 % (31-73); PLATELET COUNT 283 x10^3/uL (140-400); RED BLOOD COUNT 4.85 x10^6/uL (3.50-5.40); RED CELL DISTRIBUTION WIDTH 13.6 % (11.5-14.5)
[2019-01-30 11:10] LABS: BASE EXCESS ABG 0 mmol/L (-3-3); HCO3 ABG 24 mmol/L (21-28); PCO2 ABG 38 mmHg (35-46); PO2 ABG 73 mmHg (65-108); SAT O2 ABG 95 % (92-99)
[2019-01-30 11:13] LABS: FIO2 ABG 28
[2019-01-30 11:17] LABS: ALBUMIN 3.5 g/dL (3.4-5.0); ALBUMIN/GLOBULIN RATIO 0.8 (1.0-1.7); TOTAL BILIRUBIN 0.6 mg/dL (0.2-1.0); TOTAL PROTEIN 7.8 g/dL (6.4-8.2)
[2019-01-30 11:44] LABS: BILIRUBIN,URINE NEGATIVE (NEG); CLARITY,URINE CLEAR; COLOR,URINE YELLOW; NITRITE,URINE NEGATIVE (NEG); PH,URINE 6.5; PROTEIN,URINE NEGATIVE (NEG-TRACE); UROBILINOGEN,URINE 0.2 mg/dL (0.2 mg/dL)
[2019-01-30 11:57] LABS: BACTERIA,URINE 0 /HPF (0-FEW); RBC,URINE OCC /HPF (0-2); SQUAMOUS EPITHELIAL CELL,UR MOD /LPF
--- NOTE | 2019-01-30 11:57 | PHYS DOC ---
Past Medical History Past Medical History: A-Fib, Arthritis, Depression, Diverticulitis, GERD, GI Bleed, High Cholesterol, Hypertension, Pneumonia, Other Additional Past Medical Histor: esophageal varices, GI bleedx2, HERNIA Past Surgical History: Angioplasty, Appendectomy, Cholecystectomy, Hysterectomy, Knee Replacement, Pacemaker Additional Past Surgical Histo: esophageal dilation,STENT PLACEMENT, CARDIAC CATH IN JULY 2017 Alcohol Use: None Drug Use: None Adult General Chief Complaint Chief Complaint: CHEST PAIN HPI HPI Patient is a 88 year old female who presents with complaining of shortness of breath and chest pain. Patient was treated for diverticulitis with Flagyl and Cipro and finished a course of medication to weeks ago but at the same time has had exertional shortness of breath and productive cough that became more clear. She had decrease of activity and appetite and complaining of generalized weakness. Patient mother states she had O2 sat of 70s at room air without having home oxygen. Patient had a long history of secondhand exposure without history of smoking. Patient complaining of chest pain intermittently with episodes of shortness of breath today and her daughter decided to bring her to emergency room instead of going for obtaining CT of chest ordered by primary care physician. She had O2 sat of 88% at room air at arrival to ER that increased to 95% with 2 L of oxygen. Review of Systems Review of Systems Constitutional: Denies fever or chills [] Eyes: Denies change in visual acuity, redness, or eye pain [] HENT: Denies nasal congestion or sore throat [] Respiratory: Reports cough and shortness of breath Cardiovascular: No additional information not addressed in HPI [] GI: Denies abdominal pain, nausea, vomiting, bloody stools or diarrhea [] : Denies dysuria or hematuria [] Musculoskeletal: Denies back pain or joint pain [] Integument: Denies rash or skin lesions [] Neurologic: Denies headache, focal weakness or sensory changes [] Endocrine: Denies polyuria or polydipsia [] All other systems were reviewed and found to be within normal limits, except as documented in this note. Current Medications Current Medications Current Medications Medications (Trade) Dose Ordered Sig/Mariajose Start Time Stop Time Status Last Admin Dose Admin Albuterol/ Ipratropium (Duoneb) 3 ml 1X ONCE 01/30/19 10:45 01/30/19 10:46 DC 01/30/19 10:55 3 ML Info (CONTRAST GIVEN -- Rx MONITORING) 1 each PRN DAILY PRN 01/30/19 13:15 02/01/19 13:14 Iohexol (Omnipaque 350 Mg/ml) 75 ml 1X ONCE 01/30/19 13:15 01/30/19 13:16 DC 01/30/19 13:11 75 ML Methylprednisolone Sodium Succinate (SOLU-Medrol 125MG VIAL) 125 mg 1X ONCE 01/30/19 10:45 01/30/19 10:46 DC 01/30/19 11:00 125 MG Sodium Chloride 1,000 ml @ 100 mls/hr Q10H 01/30/19 12:48 01/31/19 12:47 Allergies Allergies Allergies Coded Allergies Type Severity Reaction Last Updated Verified No Known Drug Allergies 07/11/17 No Physical Exam Physical Exam Constitutional: Well developed, well nourished, mild distress, non-toxic appearance. [] HENT: Normocephalic, atraumatic. Eyes: PERRLA, EOMI, conjunctiva normal, no discharge. [] Neck: Normal range of motion, no tenderness, supple, no stridor. [] Cardiovascular:Heart rate regular rhythm, no murmur [] Lungs & Thorax: Decreased air movement bilaterally Abdomen: Bowel sounds normal, soft, no tenderness, no masses, no pulsatile masses. [] Skin: Warm, dry, no erythema, no rash. [] Back: No tenderness, no CVA tenderness. [] Extremities: No tenderness, no cyanosis, no clubbing, ROM intact, no edema. [] Neurologic: Alert and oriented X 3, no focal deficits noted. [] Psychologic: Affect normal, judgement normal, mood normal. [] Current Patient Data Vital Signs Vital Signs Date Time Temp Pulse Resp B/P (MAP) Pulse Ox O2 Delivery O2 Flow Rate FiO2 01/30/19 13:34 73 20 153/67 (95) 93 Nasal Cannula 2.0 01/30/19 10:25 98.3 98.3 Lab Values Laboratory Tests Test 01/30/19 10:30 01/30/19 11:00 01/30/19 11:10 White Blood Count 7.0 x10^3/uL (4.0-11.0) Red Blood Count 4.85 x10^6/uL (3.50-5.40) Hemoglobin 14.0 g/dL (12.0-15.5) Hematocrit 41.8 % (36.0-47.0) Mean Corpuscular Volume 86 fL (79-100) Mean Corpuscular Hemoglobin 29 pg (25-35) Mean Corpuscular Hemoglobin Concent 33 g/dL (31-37) Red Cell Distribution Width 13.6 % (11.5-14.5) Platelet Count 283 x10^3/uL (140-400) Neutrophils (%) (Auto) 56 % (31-73) Lymphocytes (%) (Auto) 33 % (24-48) Monocytes (%) (Auto) 7 % (0-9) Eosinophils (%) (Auto) 4 % (0-3) H Basophils (%) (Auto) 1 % (0-3) Neutrophils # (Auto) 3.9 x10^3/uL (1.8-7.7) Lymphocytes # (Auto) 2.3 x10^3/uL (1.0-4.8) Monocytes # (Auto) 0.5 x10^3/uL (0.0-1.1) Eosinophils # (Auto) 0.3 x10^3/uL (0.0-0.7) Basophils # (Auto) 0.1 x10^3/uL (0.0-0.2) D-Dimer (Elizabeth) 0.88 ug/mlFEU (0.00-0.50) H Sodium Level 143 mmol/L (136-145) Potassium Level 3.6 mmol/L (3.5-5.1) Chloride Level 104 mmol/L (98-107) Carbon Dioxide Level 27 mmol/L (21-32) Anion Gap 12 (6-14) Blood Urea Nitrogen 10 mg/dL (7-20) Creatinine 1.0 mg/dL (0.6-1.0) Estimated GFR (Cockcroft-Gault) 52.4 BUN/Creatinine Ratio 10 (6-20) Glucose Level 106 mg/dL (70-99) H Lactic Acid Level 1.4 mmol/L (0.4-2.0) Calcium Level 9.8 mg/dL (8.5-10.1) Total Bilirubin 0.6 mg/dL (0.2-1.0) Aspartate Amino Transferase (AST) 15 U/L (15-37) Alanine Aminotransferase (ALT) 13 U/L (14-59) L Alkaline Phosphatase 99 U/L (46-116) Creatine Kinase 19 U/L (26-192) L Troponin I Quantitative < 0.017 ng/mL (0.000-0.055) ES-Rui-O-Type Natriuretic Peptide 147 pg/mL (0-449) Total Protein 7.8 g/dL (6.4-8.2) Albumin 3.5 g/dL (3.4-5.0) Albumin/Globulin Ratio 0.8 (1.0-1.7) L O2 Saturation 95 % (92-99) Arterial Blood pH 7.43 (7.35-7.45) Arterial Blood pCO2 at Patient Temp 38 mmHg (35-46) Arterial Blood pO2 at Patient Temp 73 mmHg (65-108) Arterial Blood HCO3 24 mmol/L (21-28) Arterial Blood Base Excess 0 mmol/L (-3-3) FiO2 28 Urine Collection Type Unknown Urine Color Yellow Urine Clarity Clear Urine pH 6.5 Urine Specific [place] 1.010 Urine Protein Negative mg/dL (NEG-TRACE) Urine Glucose (UA) Negative mg/dL (NEG) Urine Ketones (Stick) Negative mg/dL (NEG) Urine Blood Negative (NEG) Urine Nitrite Negative (NEG) Urine Bilirubin Negative (NEG) Urine Urobilinogen Dipstick 0.2 mg/dL (0.2 mg/dL) Urine Leukocyte Esterase Moderate (NEG) Urine RBC Occ /HPF (0-2) Urine WBC 1-4 /HPF (0-4) Urine Squamous Epithelial Cells Mod /LPF Urine Bacteria 0 /HPF (0-FEW) Urine Mucus Mod /LPF Laboratory Tests 01/30/19 10:30 Laboratory Tests 01/30/19 10:30 EKG EKG EKG interpreted by me. EKG at 1031 showed sinus rhythm at rate of 77, left axis deviation, poor R-wave progress in the inferior leads and anterior leads, no acute ST and T-wave elevation. Radiology/Procedures Radiology/Procedures [][facility] [address] [place] [address] IMAGING REPORT Signed PATIENT: SAILAJA SUTHERLAND ACCOUNT: [id number] : 1930 LOCATION: ER AGE: 88 SEX: F EXAM STATUS: REG ER ORD. PHYSICIAN: MINAL HEBERT MD REASON: shortness of breath PROCEDURE: PORTABLE CHEST 1V Examination: PORTABLE CHEST 1V History: Shortness of breath Comparison/Correlation: 08/03/2018 Portable Chest X-ray Exam Findings: Portable upright frontal view of the chest was performed. Dual-lead left-sided pacemaker is present. Heart size is normal. Vasculature congestion is present. No pneumothorax. No pleural effusion. Osteopenia noted. Right upper quadrant surgical clips are present. Dextroconvexity of the thoracic spine noted. Impression: Mild pulmonary vascular congestion. No focal infiltrate. Electronically signed by: Prabhakar Tamayo MD (01/30/2019 11:01 AM) [facility] DICTATED and SIGNED BY: PRABHAKAR TAMAYO MD DATE: 01/30/[address] [facility] [address] [place] [address] IMAGING REPORT Signed PATIENT: SAILAJA SUTHERLAND ACCOUNT: [id number] : 1930 LOCATION: ED HOLD AGE: 88 SEX: F EXAM STATUS: ADM IN ORD. PHYSICIAN: MINAL HEBERT MD REASON: hypoxia, elevated d-dimer PROCEDURE: CT ANGIOGRAPHY CHEST Examination: CT ANGIOGRAPHY CHEST History: Hypoxia, elevated d-dimer Comparison/Correlation: 08/03/2018 Portable Chest X-ray Exam , 02/09/2019 portable chest x-ray exam Findings: Axial images of the chest were obtained following IV contrast according to pulmonary arteriography protocol. Sagittal and coronal reformatted images were provided. Maximum intensity projection images were provided. Respiratory motion limits evaluation in the lower lung field level. Large hiatal hernia incidentally is seen. Main pulmonary artery measures up to 3.6 cm diameter. Right pulmonary artery diameter of up to 2.2 cm identified. No central pulmonary arterial thromboembolic disease is identified. Exam is limited for evaluation more distally due to respiratory motion. No definite pulmonary arterial trauma board to the rotoscoliosis delineated no enlarged supraclavicular lymph nodes and right lower paratracheal borderline size lymph node with diameter of 0.8 cm in short axis is present. Atheromatous involvement of the aortic arch distal to the left subclavian artery is noted. Mild diffuse interstitial fibrotic involvement of the lung joshua is noted. This predominates at the lower lung field region. Mosaic attenuation of the lung joshua is noted. No focal dense consolidation is identified. No pleural or pericardial effusion. Cholecystectomy noted. High-grade left main renal artery stenosis appears to be present with significant atheromatous calcific involvement of the left main artery at the origin. Diverticulosis of the colon. No acute bony process. Impression: Large hiatal hernia. No central pulmonary arterial thromboembolic disease. Evaluation more distally is limited due to motion although no thromboembolic disease is definitely delineated. Dilated main pulmonary artery of concern for pulmonary arterial hypertension. Diffuse fibrotic involvement of the lung joshua with mosaic attenuation which may represent small airways disease. No focal infiltrate or nodule. Left Main renal artery high-grade stenosis. PQRS Compliance Statement: One or more of the following individualized dose reduction techniques were utilized for this examination: 1. Automated exposure control 2. Adjustment of the mA and/or kV according to patient size 3. Use of iterative reconstruction technique Electronically signed by: Prabhakar Tamayo MD (01/30/2019 2:04 PM) [facility] DICTATED and SIGNED BY: PRABHAKAR TAMAYO MD DATE: 01/30/19 140 Course & Med Decision Making Course & Med Decision Making Pertinent Labs and Imaging studies reviewed. (See chart for details) Evaluation of patient in ER showed 88-year-old male patient with complaining of generalized weakness and cough and shortness of breath with unremarkable outpatient evaluation. Patient had O2 sats of 88% at room air that improved with 2 L of oxygen to 95%.Patient requiring admission for further evaluation and treatment. Discussed with Dr. Chowdhury who is in agreement with admission. Discussed findings and plan with patient and family, who acknowledge understanding and agreement. Dragon Disclaimer Dragon Disclaimer This electronic medical record was generated, in whole or in part, using a voice recognition dictation system. Departure Departure Impression: Primary Impression: Hypoxia Additional Impressions: Shortness of breath Generalized weakness Elevated d-dimer Pulmonary hypertension Disposition: ADMITTED INPATIENT (at 1246) Admitting Physician: Lucio Chowdhury (accepted admission at 1245) Condition: IMPROVED Referrals: LUCIO CHOWDHURY MD (PCP) Problem Qualifiers MINAL HEBERT MD Jan 30, 2019 11:57
[2019-01-30] MEDS ORDERED: IV NORMAL SALINE 1000ML BAG 1,000 ML IV SCH (12:48)
--- NOTE | 2019-01-30 13:09 | EKG ---
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
[2019-01-30] MEDS ORDERED: CONTRAST GIVEN. MC PRN (13:15)
[2019-01-30] MEDS ORDERED: IOHEXOL 350 MG/ML 100 ML VIAL. IV ONE (13:15)
--- NOTE | 2019-01-30 14:07 | RAD ---
Examination: CT ANGIOGRAPHY CHEST History: Hypoxia, elevated d-dimer Comparison/Correlation: 08/03/2018 Portable Chest X-ray Exam , 02/09/2019 portable chest x-ray exam Findings: Axial images of the chest were obtained following IV contrast according to pulmonary arteriography protocol. Sagittal and coronal reformatted images were provided. Maximum intensity projection images were provided. Respiratory motion limits evaluation in the lower lung field level. Large hiatal hernia incidentally is seen. Main pulmonary artery measures up to 3.6 cm diameter. Right pulmonary artery diameter of up to 2.2 cm identified. No central pulmonary arterial thromboembolic disease is identified. Exam is limited for evaluation more distally due to respiratory motion. No definite pulmonary arterial trauma board to the rotoscoliosis delineated no enlarged supraclavicular lymph nodes and right lower paratracheal borderline size lymph node with diameter of 0.8 cm in short axis is present. Atheromatous involvement of the aortic arch distal to the left subclavian artery is noted. Mild diffuse interstitial fibrotic involvement of the lung ojshua is noted. This predominates at the lower lung field region. Mosaic attenuation of the lung joshua is noted. No focal dense consolidation is identified. No pleural or pericardial effusion. Cholecystectomy noted. High-grade left main renal artery stenosis appears to be present with significant atheromatous calcific involvement of the left main artery at the origin. Diverticulosis of the colon. No acute bony process. Impression: Large hiatal hernia. No central pulmonary arterial thromboembolic disease. Evaluation more distally is limited due to motion although no thromboembolic disease is definitely delineated. Dilated main pulmonary artery of concern for pulmonary arterial hypertension. Diffuse fibrotic involvement of the lung joshua with mosaic attenuation which may represent small airways disease. No focal infiltrate or nodule. Left Main renal artery high-grade stenosis. PQRS Compliance Statement: One or more of the following individualized dose reduction techniques were utilized for this examination: 1. Automated exposure control 2. Adjustment of the mA and/or kV according to patient size 3. Use of iterative reconstruction technique Electronically signed by: Prabhakar Winkler MD (01/30/2019 2:04 PM) [facility]
[2019-01-30 15:30] VITALS: BP 133/83
[2019-01-30 19:25] VITALS: BP 142/81
[2019-01-30 23:18] VITALS: BP 147/78
[2019-01-30] MEDS: ACETAMINOPHEN 325 MG TABLET. PO PRN (23:42)
[2019-01-30] MEDS: ALPRAZolam 0.25 MG TABLET PO PRN (23:42)
[2019-01-31 03:00] VITALS: BP 149/89
[2019-01-31 07:56] VITALS: BP 142/52
--- NOTE | 2019-01-31 08:26 | PDOC ---
Provider Note Provider Note [id number] LUCIO RILEY MD Jan 31, 2019 08:26
--- NOTE | 2019-01-31 08:42 | HP ---
ADMIT DATE: 01/30/2019 CHIEF COMPLAINT: Weakness. HISTORY OF PRESENT ILLNESS: An 88-year-old who "just felt weak" on the way to get a CT scan of her chest and came to the ER. CTA and chest x-ray were clear and all labs were normal and she was admitted for observation and has no complaints except generally feeling weak and some pain in her upper chest wall area. Denies dysphagia, swallowing, cough, sputum or other specific symptoms. PAST MEDICAL HISTORY: Well documented in the old records. ALLERGIES: No allergies. SOCIAL HISTORY: chronically depressed, nondrinker, lives with family. FAMILY HISTORY: Unremarkable. REVIEW OF SYSTEMS: No other complaints. OBJECTIVE: ENT: All within normal limits. NECK: No masses, nodes or bruits. LUNGS: Clear, without tachypnea. CARDIOVASCULAR: Regular rate. No murmur or irregular beat. Chest wall is tender in the upper sternal area. No masses or swelling are noted. ABDOMEN: Benign, soft and nontender. EXTREMITIES: Reasonably good pedal and radial pulses. No edema. No acute joint or skin lesions. NEUROLOGIC: She is oriented x 4. She is depressed with flat affect. She has no focal findings. Gait was not tested. No tremors are noted. ASSESSMENT: Just general deconditioning and deterioration associated with age. Depression certainly part of the problem despite the antidepressant she is taking. PLAN: Rehab consult at her request, we will try Lidoderm patch for her chest wall pain. She remains a DNR patient. We will consider adding low-dose Wellbutrin for depression. LUCIO RILEY MD DR: GEETA/jenni JOB#: [id number] / [id number]
[2019-01-31] MEDS: LIDOCAINE (700MG/PATCH) PATCH. TD SCH (09:00)
[2019-01-31] MEDS ORDERED: FLU VAX QS 2019-20 (36MOS+)/PF 0.5 ML SYRINGE. VAX IM ONE (09:45)
[2019-01-31] MEDS: OMEGA-3 FATTY ACIDS/FISH OIL 1,000 MG CAPSULE. PO SCH (10:15)
[2019-01-31] MEDS: CHOLECALCIFEROL (VITAMIN D3) 1,000 UNIT TABLET PO SCH (10:15)
[2019-01-31] MEDS: buPROPion XL 150 MG TAB.ER.24H. PO SCH (10:16)
[2019-01-31] MEDS: LOSARTAN POTASSIUM 25 MG TABLET. PO SCH (10:16)
[2019-01-31] MEDS: CITALOPRAM 20 MG TABLET. PO SCH (10:16)
[2019-01-31] MEDS: PANTOPRAZOLE 40 MG TABLET.DR. PO SCH (10:16)
[2019-01-31] MEDS: ALPRAZolam 0.25 MG TABLET PO PRN ×2 (10:37→20:21)
[2019-01-31 11:14] VITALS: BP 118/67
[2019-01-31 14:36] VITALS: BP 141/62
[2019-01-31 19:12] VITALS: BP 137/56
[2019-01-31] MEDS: ACETAMINOPHEN 325 MG TABLET. PO PRN (20:21)
[2019-01-31] MEDS: PATCH REMOVAL. MC SCH (20:25)
[2019-01-31 23:22] VITALS: BP 135/60
[2019-02-01 03:37] VITALS: BP 143/69
[2019-02-01 07:49] VITALS: BP 123/54
--- NOTE | 2019-02-01 07:51 | PDOC ---
Provider Note Provider Note vss, no change- added lidoderm and wellbutrin- awaiting rehab, 6 min walk na LUCIO RILEY MD Feb 01, 2019 07:51
[2019-02-01] MEDS: PANTOPRAZOLE 40 MG TABLET.DR. PO SCH (08:23)
[2019-02-01] MEDS: OMEGA-3 FATTY ACIDS/FISH OIL 1,000 MG CAPSULE. PO SCH (08:24)
[2019-02-01] MEDS: CITALOPRAM 20 MG TABLET. PO SCH (08:24)
[2019-02-01] MEDS: CHOLECALCIFEROL (VITAMIN D3) 1,000 UNIT TABLET PO SCH (08:24)
[2019-02-01] MEDS: buPROPion XL 150 MG TAB.ER.24H. PO SCH (08:24)
[2019-02-01] MEDS: LOSARTAN POTASSIUM 25 MG TABLET. PO SCH (08:25)
[2019-02-01] MEDS: LIDOCAINE (700MG/PATCH) PATCH. TD SCH (08:26)
[2019-02-01 11:00] VITALS: BP 139/61
[2019-02-01 14:59] VITALS: BP 135/54
[2019-02-01 19:55] VITALS: BP 129/52
[2019-02-01] MEDS: ACETAMINOPHEN 325 MG TABLET. PO PRN (21:53)
[2019-02-01] MEDS: ALPRAZolam 0.25 MG TABLET PO PRN (21:53)
[2019-02-01] MEDS: PATCH REMOVAL. MC SCH (21:55)
[2019-02-01 23:15] VITALS: BP 103/50
[2019-02-02 03:39] VITALS: BP 136/70
[2019-02-02 07:45] VITALS: BP 129/56
--- NOTE | 2019-02-02 08:07 | PDOC ---
Provider Note Provider Note no change, willy wellbutrin ok and may be better- awaiting rehab transfer LUCIO RILEY MD Feb 02, 2019 08:07
--- NOTE | 2019-02-02 08:09 | SNU/HH DC ---
DISCHARGE ORDERS DISCHARGE INFORMATION: FINAL DIAGNOSIS Problems Medical Problems: (1) Elevated d-dimer Status: Acute (2) Generalized weakness Status: Acute (3) Hypoxia Status: Acute (4) Pulmonary hypertension Status: Acute (5) Shortness of breath Status: Acute CONDITION ON DISCHARGE: Stable CODE STATUS: Code Status: DNR/DNI MCC: SNF STAY <30 DAYS: Yes POST DISCHARGE ORDERS: ACTIVITY ORDERS: Activity as tolerated WEIGHT BEARING STATUS: Full weight bearing BATHING ORDERS: Shower-keep dressing dry WOUND/INCISION CARE: Other, see below CHECKS AFTER DISCHARGE: CHECKS AFTER DISCHARGE: Check blood press - daily TREATMENT/EQUIPMENT ORDERS: ADAPTIVE EQUIPMENT NEEDED: None DISCHARGE MEDICATIONS: Home Meds Reported Medications Losartan Potassium (LOSARTAN POTASSIUM) 50 Mg Tablet, 25 MG PO DAILY for HYPERTENSION, TAB 06/14/18 Diltiazem Hcl (CARDIZEM CD) 240 Mg Cap.er.24h, 1 CAP PO DAILY for afib, #30 CAP 5 Refills 06/14/18 [place]-3/Dha/Epa/Fish Oil (Fish Oil 1,000 mg Softgel) 1,000 Mg Capsule, 1000 MG PO DAILY, CAP 12/13/16 Cholecalciferol (Vitamin D3) (VITAMIN D3) 1,000 Unit Tablet, 1000 UNIT PO DAILY 04/09/16 Pantoprazole Sodium (PROTONIX ) 40 Mg Tablet.dr, 40 MG PO DAILY, TAB 02/16/14 Acetaminophen (TYLENOL) 325 Mg Tablet, 650 MG PO PRN Q6HRS PRN for PAIN as needed 09/30/13 Alprazolam (XANAX) 0.25 Mg Tablet, 0.25 MG PO PRN Q8HRS PRN for ANXIETY Next dose: as needed 09/30/13 Citalopram Hydrobromide (CITALOPRAM HBR) 20 Mg Tablet, 20 MG PO DAILY 09/30/13 LUCIO RILEY MD Feb 02, 2019 08:09
[2019-02-02] MEDS: ALPRAZolam 0.25 MG TABLET PO PRN (08:18)
[2019-02-02] MEDS: CHOLECALCIFEROL (VITAMIN D3) 1,000 UNIT TABLET PO SCH (08:18)
[2019-02-02] MEDS: PANTOPRAZOLE 40 MG TABLET.DR. PO SCH (08:18)
[2019-02-02] MEDS: buPROPion XL 150 MG TAB.ER.24H. PO SCH (08:18)
[2019-02-02] MEDS: OMEGA-3 FATTY ACIDS/FISH OIL 1,000 MG CAPSULE. PO SCH (08:18)
[2019-02-02] MEDS: CITALOPRAM 20 MG TABLET. PO SCH (08:18)
[2019-02-02] MEDS: LOSARTAN POTASSIUM 25 MG TABLET. PO SCH (08:19)
[2019-02-02] MEDS: LIDOCAINE (700MG/PATCH) PATCH. TD SCH (08:27)
--- NOTE | 2019-02-02 09:55 | NUR ---
MANJEET consulted for dc planning. Chart reviewed and discussed with RN. Pt lives at home with family, PT/OT recommends SNU. Discussed with Pt and pt stated she does not want to go to [facility] but Would like [facility]. MANJEET phoned and faxed referral/orders to [facility]. Pt acceptance and admission pending. MANJEET left a VM to pt's daughter, Dolores, phone: [phone]. Will continue to follow.
--- NOTE | 2019-02-02 11:47 | NUR ---
Report given to Debra DO of [facility] at 1145. All questions have been answered, understanding verbalized.
[2019-02-02 11:49] VITALS: BP 150/69
--- NOTE | 2019-02-02 12:55 | NUR ---
Discharge Note: SAILAJA SUTHERLAND [address] Discharge instructions and discharge home medications reviewed with Debra DO of [facility] and a copy given to the transport personnel. All questions have been answered and understanding verbalized. The following instructions and handouts were given: Follow up with [facility] regarding suture removal( eyelid sutures) Follow up with PCP as needed. Discontinued lines and drains: peripheral IV intact, patient tolerated removal, no complications noted Patient discharged to [facility] at 1240 via wheelchair accompanied by the patient's daughter and transport personnel.
--- NOTE | 2019-02-02 14:15 | NUR ---
Late note: Pt has been accepted at [facility] and will transport via facility arranged w/c van at 1230. Pt and daughter aware of plans and agreeable. MANJEET informed Wainwright at [facility] regarding pt's eye stitch removal appointment at .
--- NOTE | 2019-02-10 12:21 | PDOC ---
Provider Note Provider Note [id number] LUCIO RILEY MD Feb 10, 2019 12:21
--- NOTE | 2019-02-10 12:30 | DS ---
DATE OF DISCHARGE: 02/02/2019 HOSPITAL SUMMARY: The patient was admitted with generalized weakness and no acute new findings or laboratory studies. It was felt that she was depressed and deconditioned and needed rehab. Wellbutrin was started at 150 mg daily with seeming improvement and she was transferred to rehab at [facility] uneventfully without change in medications. FINAL DIAGNOSES: 1. Generalized weakness and deconditioning. 2. Depression. OPERATIONS, PROCEDURES, COMPLICATIONS, CONSULTATIONS: None. DISPOSITION: Home meds remain the same. Added Wellbutrin-XR 150 mg daily. ACTIVITY: As tolerated. Remains a DNR. LUCIO RILEY MD DR: GEETA/jenni JOB#: [id number] / [id number]
== END 2019-02-02 12:44 | DRG 948 ==
LOC: ER 10:19 → ED HOLD 13:44 → 6 SOUTH 15:20
PROVIDERS: ADMIT Family Medicine; ATTEND Family Medicine
DX: R53.1 Weakness (principal); E78.00 Pure hypercholesterolemia, unspecified; F32.9 Major depressive disorder, single episode, unspecified; I10 Essential (primary) hypertension; I27.20 Pulmonary hypertension, unspecified; I48.91 Unspecified atrial fibrillation; K21.9 Gastro-esophageal reflux disease without esophagitis; R09.02 Hypoxemia; Z90.710 Acquired absence of both cervix and uterus; Z96.659 Presence of unspecified artificial knee joint; M19.90 Unspecified osteoarthritis, unspecified site; R07.89 Other chest pain; Z66 Do not resuscitate
CPT/HCPCS: 36415; 36600; 71045; 71275; 80053; 81001; 82550; 82805; 83605; 83880; 84484; 85025; 85379; 87040; 87086; 90471; 90686; 93005; 94640; 96374; J2930; J7620; Q9967; 97110; 97116; 97535; 99285-25; G0378

== ENCOUNTER → 2019-03-08 | Outpatient (CLI) | payer MEDICARE ==
--- NOTE | 2019-03-08 10:05 | CARD ---
MR#: [id number] Date of Study: 03/08/2019 Ordering Physician: JAKOB GALLEGOS, Referring Physician: JAKOB GALLEGOS, Tech: Haley Calderón APPROVED REPORT EXAM: Two-dimensional and M-mode echocardiogram with Doppler and color Doppler. Other Information Quality : AverageHR: 68bpm Rhythm : Pacemaker INDICATION Dyspnea Surgery/Intervention Pacemaker: Date: 2014 2 Stents 2D DIMENSIONS RVDd3.2 (2.9-3.5cm)Left Atrium(2D)2.7 (1.6-4.0cm) IVSd0.9 (0.7-1.1cm)Aortic Root(2D)2.9 (2.0-3.7cm) LVDd4.6 (3.9-5.9cm)LVOT Diameter1.9 (1.8-2.4cm) PWd0.9 (0.7-1.1cm)LVDs3.0 (2.5-4.0cm) FS (%) 34.1 %SV62.2 ml LVEF(%)63.1 (>50%) Aortic Valve AoV Peak Matias.152.1cm/sAoV VTI36.1cm AO Peak GR.9.3mmHgLVOT Peak Matias.110.7cm/s LVOT VTI 23.78cmAO Mean GR.6mmHg RENZO (VMAX)2.91ox4FKQ (VTI)1.84cm2 AI P 1/2 Reqs165ht Mitral Valve MV E Yhgiqopj32.2cm/sMV E Peak Gr.87mmHg MV DECEL [id number] A Mpogdkyh22.5cm/s MV E Mean Gr.2mmHgMV LIG03zy E/A Ratio0.7MVA (PHT)2.64cm2 TDI E/Lateral E'9.1E/Medial E'9.0 Pulmonary Valve PV Peak Mevbpebs132.0cm/sPV Peak Grad.5mmHg Tricuspid Valve TR P. Igdczeka407hj/sRAP LFBTDRWR2yvHw TR Peak Gr.09wxPdDQQK46wkMt Pulmonary Vein S1 Maimirpn98.3cm/sD2 Iwrtlnec57.6cm/s PVa pilohsor953gfgj LEFT VENTRICLE The left ventricle is normal size. There is normal left ventricular wall thickness. The left ventricu lar systolic function is normal. The Ejection Fraction is 55%. There is normal LV segmental wall jina on. Transmitral Doppler flow pattern is Grade I-abnormal relaxation pattern. RIGHT VENTRICLE The right ventricle is normal size. There is normal right ventricular wall thickness. The right ventr icular systolic function is normal. There is a pacemaker lead in the right ventricle. ATRIA The left atrium is mildly dilated. The right atrium size is normal. There is a pacemaker lead seen in the right atrium. The interatrial septum is intact with no evidence for an atrial septal defect or p atent foramen ovale as noted on 2-D or Doppler imaging. AORTIC VALVE The aortic valve is thickened but opens well. Doppler and Color Flow revealed mild aortic regurgitati on. There is no significant aortic valvular stenosis. MITRAL VALVE The mitral valve is thickened but opens well. There is no evidence of mitral valve prolapse. There is no mitral valve stenosis. Doppler and Color-flow revealed trace to mild mitral regurgitation. TRICUSPID VALVE The tricuspid valve is normal in structure and function. Doppler and Color Flow revealed mild to mode rate tricuspid regurgitation with an estimated PAP of 55 mmHg. There is no tricuspid valve stenosis. PULMONIC VALVE The pulmonic valve is not well visualized. Doppler and Color Flow revealed no pulmonic valvular regur gitation. GREAT VESSELS The aortic root is normal in size. The ascending aorta is borderline dilated. The IVC is normal in si ze and collapses >50% with inspiration. PERICARDIAL EFFUSION There is no evidence of significant pericardial effusion. Critical Notification Critical Value: No <Conclusion> The left ventricular systolic function is normal. The Ejection Fraction is 55%. There is normal LV segmental wall motion. Transmitral Doppler flow pattern is Grade I-abnormal relaxation pattern. There is a pacemaker lead in RA/RV. Mild aortic regurgitation. Trace to mild mitral regurgitation. Mild to moderate tricuspid regurgitation with an estimated PAP of 55 mmHg. There is no evidence of significant pericardial effusion. Signed by : Carlos Trejo, Electronically Approved : 03/08/2019 10:04:28
== END | disposition home or self-care (01) ==
LOC: ECHO 08:44
PROVIDERS: ATTEND Family Medicine
DX: I08.3 Combined rheumatic disorders of mitral, aortic and tricuspid valves (principal); Z95.0 Presence of cardiac pacemaker; Z95.5 Presence of coronary angioplasty implant and graft
CPT/HCPCS: 93306

== ENCOUNTER 2019-05-08 09:02 | Outpatient (CLI) | payer MEDICARE ==
[2019-05-08] VITALS (10 sets, daily range): BP systolic 121–170; BP diastolic 56–75
[~2019-05-08] VITALS: Ht 157.5 cm; Wt 65.8 kg
[~2019-05-08 09:02] MED LIST changes: +IODIXANOL 320 MG/ML 100 ML VIAL. ONE; +LIDOCAINE 1% Multi-Dose 20 ML VIAL. ONE
[2019-05-08] MEDS ORDERED: VITA400T6 PO (09:32)
[2019-05-08] MEDS ORDERED: DILT240C66 PO (09:32)
[2019-05-08] MEDS ORDERED: BUPR150T15 PO (09:32)
[2019-05-08] MEDS ORDERED: LACT1CAP6 PO (09:32)
[2019-05-08 09:50] LABS: HEMATOCRIT 36.6 % (36.0-47.0); HEMOGLOBIN 11.9 g/dL (12.0-15.5); RED BLOOD COUNT 4.29 x10^6/uL (3.50-5.40); RED CELL DISTRIBUTION WIDTH 14.2 % (11.5-14.5); WHITE BLOOD COUNT 6.3 x10^3/uL (4.0-11.0)
[2019-05-08 10:00] LABS: CALCIUM 8.7 mg/dL (8.5-10.1); CREATININE 1.1 mg/dL (0.6-1.0); POTASSIUM 3.7 mmol/L (3.5-5.1)
[2019-05-08 10:08] LABS: PROTHROMBIN TIME PATIENT 12.3 SEC (11.7-14.0)
[2019-05-08] MEDS ORDERED: fentaNYL PF VIAL 100 MCG/2 ML VIAL ONE (10:32)
[2019-05-08] MEDS ORDERED: MIDAZOLAM HCL/PF 2 MG/2 ML VIAL. ONE (10:33)
[2019-05-08] MEDS ORDERED: IODIXANOL 320 MG/ML 100 ML VIAL. IART ONE (11:00)
[2019-05-08] MEDS ORDERED: MIDAZOLAM HCL/PF 2 MG/2 ML VIAL. IV ONE (11:00)
[2019-05-08] MEDS ORDERED: IV DEXTROSE 5% 500 ML IV ONE (11:00)
[2019-05-08] MEDS ORDERED: fentaNYL PF VIAL 100 MCG/2 ML VIAL IV ONE (11:00)
[2019-05-08] MEDS ORDERED: LIDOCAINE 1% Multi-Dose 20 ML VIAL. INJ ONE (11:00)
[2019-05-08] MEDS ORDERED: hydrALAZINE 20 MG/ML VIAL. ONE (11:24)
[2019-05-08] MEDS ORDERED: hydrALAZINE 20 MG/ML VIAL. IVP ONE (11:30)
[2019-05-08] MEDS ORDERED: FUROSEMIDE 40 MG/4 ML VIAL. IVP ONE (11:45)
[2019-05-08] MEDS ORDERED: FUROSEMIDE 40 MG/4 ML VIAL. ONE (12:26)
[2019-05-08] MEDS ORDERED: LOSARTAN POTASSIUM 25 MG TABLET. PO SCH (12:30)
--- NOTE | 2019-05-08 12:45 | CARD ---
MR#: [id number] Date of Study: 05/08/2019 Ordering Physician: HARDY TREJO, Referring Physician: HARDY TREJO Tech: RT Chasidy (R) APPROVED REPORT Technologist: Shayne Cloud RT (R) Nurse: Roxana Judd Procedure(s) performed: Right and left heart catheterization, selective coronary angiography and left ventriculography Flouro Time: 8.0 Dose: 37.73 Gycm2 Contrast Total: 78 Sedation Time: 45min INDICATION The indication(s) include : Refractory dyspnea on exertion. [facility] Clinical Frailty Scale [facility] Clinical Frailty Scale: Mildly Frail Heart Failure Heart Failure: No PROCEDURE NARRATIVE After explaining the risks, benefits and alternative options, informed consent was obtained from brent ent. Patient was brought to the cardiac Senior Radiation Protection Technician and her right groin was prepped and draped in the us ual fashion. 20 mL of 2% lidocaine was infiltrated into the skin and subcutaneous tissues for local a nesthesia. Arterial access was obtained in the right common femoral artery and a 6 [place]e sheath was inserted. Venous access was obtained the right common femoral vein an 8 [place] sheath was inserted. A 7.5 [place]-El[place]ar catheter was then advanced through the venous sheath and intracardiac pressures , oxygen saturations and cardiac output by thermodilution method measured. Subsequently, 6 [place] JL4 and 6 [place] JR4 catheters were used to perform selective angiography of the left and right coronary arteries. 6 [place] pigtail catheter was used to perform left ventriculography. Patient tolerated the procedure well. Hemostasis was achieved using Angio-Seal and manual compression. There were no immed iate complications. FINDINGS A. RIGHT HEART CATHETERIZATION 1. Intracardiac pressures: Mean right atrial pressure 9 mmHg, right ventricle pressure 42/5 mmHg, p ulmonary capillary wedge pressure 13 mmHg, pulmonary artery pressure 39/16 mmHg and mean PA pressure 27 mmHg. This is consistent with mild primary hypertension. 2. Oxygen saturations: Right atrium 68.3%, pulmonary artery 68.6% and femoral arterial sheath 93.5% . No evidence of intracardiac shunt. 3. Cardiac output by thermodilution method 4.4 L/min. B. LEFT HEART CATHETERIZATION 1. Hemodynamics: Elevated left ventricle end-diastolic pressure of 31 mmHg consistent with acute on chronic diastolic heart failure. No pullback gradient across the aortic valve. 2. Left ventriculography: Normal left ventricle systolic function with ejection fraction estimated at 50-55%. No significant mitral regurgitation seen. 3. Coronary angiography: a. The left main coronary artery arose from the left sinus of Valsalva, gave rise to the left anteri or descending and left circumflex arteries and showed 20% stenosis. b. The left anterior descending artery itself did not show any significant stenosis. The diagonal br anch which is a small-caliber vessel showed 80% proximal segment stenosis. c. The left circumflex artery did not show any significant stenosis. d. The right coronary artery arose from the right sinus of Valsalva and showed widely patent stent i n the midsegment. Conclusion 1. Patent previously placed stent in the right coronary artery. There was 80% stenosis in a small-ca liber diagonal branch. No lesions needing intervention were noted. 2. Normal left ventricle systolic function with ejection fraction estimated at 50-55%. 3. Mild pulmonary hypertension. 4. No evidence of intracardiac shunt. 5. Elevated LVEDP consistent with acute on chronic diastolic heart failure. Recommendations Medical management. Signed by : Hardy Trejo, Electronically Approved : 05/08/2019 12:44:48
--- NOTE | 2019-05-08 13:05 | NUR ---
Dr Trejo here to see pt for c/o chest pain. Pt is very anxious, encouraged pt to relax and reassured pt that procedure showed nothing from cardiac to worry about. Verbal order for xanax and GI cocktail given. Pt then placed on bedpan. CASSANDRA DO
--- NOTE | 2019-05-08 13:25 | NUR ---
pt family brought home med in for pt to take. Xanax 0.25 PO CASSANDRA RN
[2019-05-08] MEDS ORDERED: ALPRAZolam 0.25 MG TABLET PO ONE (13:30)
--- NOTE | 2019-05-08 15:19 | NUR ---
Discharge Note: SAILAJA SUTHERLAND Discharge instructions and discharge home medications reviewed with Patient and a copy given. All questions have been answered and understanding verbalized. Pt tolerated PO and ambulated with steady gait. The following instructions and handouts were given: groin site care, moderate sedation, information on angioseal Discontinued lines and drains: L forearm IV site intact. Groin site remains dry and intact. Patient discharged to home with family via wheelchair. CASSANDRA RN Addendum: 05/08/19 at 1522 by CARL FERNANDEZ RN Amended: Links added.
== END 2019-05-08 15:10 | disposition home or self-care (01) ==
LOC: CCL 09:02
PROVIDERS: ATTEND Internal Medicine Cardiovascular Disease
DX: R07.9 Chest pain, unspecified (principal); I25.10 Atherosclerotic heart disease of native coronary artery without angina pectoris; I27.20 Pulmonary hypertension, unspecified; I10 Essential (primary) hypertension; E78.5 Hyperlipidemia, unspecified; K21.9 Gastro-esophageal reflux disease without esophagitis; K44.9 Diaphragmatic hernia without obstruction or gangrene; F41.9 Anxiety disorder, unspecified; F32.9 Major depressive disorder, single episode, unspecified; I48.91 Unspecified atrial fibrillation; I48.92 Unspecified atrial flutter; Z90.710 Acquired absence of both cervix and uterus; Z90.49 Acquired absence of other specified parts of digestive tract; Z95.0 Presence of cardiac pacemaker; Z98.49 Cataract extraction status, unspecified eye; Z88.8 Allergy status to other drugs, medicaments and biological substances; Z96.1 Presence of intraocular lens
CPT/HCPCS: 36415; 80048; 85027; 85610; 93460; 99152; 99153; C1760; C1769; C1773; C1892; J0360; J1644; J1940; J2250; J3010; Q9967; G0269; C1771

== ENCOUNTER 2019-12-10 17:23 | Inpatient (IN) | payer MEDICARE ==
[~2019-12-10] VITALS: Ht 157.5 cm; Wt 64.7 kg
[~2019-12-10 17:23] MED LIST changes: +ALPR0.5T6 PO; +AMOX1TAB10 PO; +BUPR150T15 PO; +DILT240C66 PO; -IODIXANOL 320 MG/ML 100 ML VIAL. ONE; +LACT1CAP6 PO; -LIDOCAINE 1% Multi-Dose 20 ML VIAL. ONE; +VITA400T6 PO
[2019-12-10] MEDS: IV NORMAL SALINE 1000ML BAG 1,000 ML IV SCH (18:33)
[2019-12-10] MEDS ORDERED: IV NORMAL SALINE 500ML BAG 500 ML IV ONE (18:45)
[2019-12-10] MEDS ORDERED: ONDANSETRON PF 4 MG/2 ML VIAL. IVP PRN (18:45)
[2019-12-10 19:00] VITALS: BP 157/67
[2019-12-10] MEDS: PIPERACILLIN/TAZOBACTAM 3.375 GM in IV NORMAL SALINE 50ML 50 ML IV SCH (19:50)
[2019-12-10] MEDS: fentaNYL PF VIAL 100 MCG/2 ML VIAL IVP PRN (19:50)
[2019-12-10 19:54] LABS: BASO # 0.1 x10^3/uL (0.0-0.2); BASO % 1 % (0-3); EOS # 0.2 x10^3/uL (0.0-0.7); EOS % 3 % (0-3); HEMATOCRIT 33.7 % (36.0-47.0); HEMOGLOBIN 10.7 g/dL (12.0-15.5); LYMPH # 2.4 x10^3/uL (1.0-4.8); LYMPH % 27 % (24-48); MEAN CORPUSCULAR HEMOGLOBIN 25 pg (25-35); MEAN CORPUSCULAR HGB CONC 32 g/dL (31-37); MEAN CORPUSCULAR VOLUME 78 fL (79-100); MONO # 0.7 x10^3/uL (0.0-1.1); MONO % 8 % (0-9); NEUT # 5.5 x10^3/uL (1.8-7.7); NEUT % 62 % (31-73); PLATELET COUNT 373 x10^3/uL (140-400); RED BLOOD COUNT 4.33 x10^6/uL (3.50-5.40); RED CELL DISTRIBUTION WIDTH 15.8 % (11.5-14.5)
--- NOTE | 2019-12-10 19:58 | NUR ---
Patient arrived on unit at 1800 from the doctors office. Daughter Katt is at the bedside. Admission questions were done at this time and patient was able to answer all of them. Assessment done at this time as well. Call light is within reach with bed in lowest position. Will continue to monitor.
[2019-12-10 20:13] LABS: ALBUMIN/GLOBULIN RATIO 0.8 (1.0-1.7); CALCIUM 8.6 mg/dL (8.5-10.1); CREATININE 1.1 mg/dL (0.6-1.0); GFR 46.9; POTASSIUM 3.6 mmol/L (3.5-5.1); TOTAL BILIRUBIN 0.3 mg/dL (0.2-1.0); TOTAL PROTEIN 6.6 g/dL (6.4-8.2)
[2019-12-10 23:00] VITALS: BP 146/59
[2019-12-11] MEDS: PIPERACILLIN/TAZOBACTAM 3.375 GM in IV NORMAL SALINE 50ML 50 ML IV SCH ×5 (02:35→23:40)
[2019-12-11] MEDS: IV NORMAL SALINE 1000ML BAG 1,000 ML IV SCH ×3 (02:35→19:51)
--- NOTE | 2019-12-11 02:59 | NUR ---
No nuts or seeds. Addendum: 12/11/19 at 0303 by DIEGO LORENZO RN Amended: Links added.
[2019-12-11 03:00] VITALS: BP 152/64
[2019-12-11 07:00] VITALS: BP 144/51
[2019-12-11] MEDS: fentaNYL PF VIAL 100 MCG/2 ML VIAL IVP PRN (07:58)
[2019-12-11] MEDS ORDERED: HYDROcodone/APAP 5/325MG 1 TAB TABLET PO PRN (08:30)
--- NOTE | 2019-12-11 08:34 | PDOC ---
Provider Note Provider Note [id number] Justicifation of Admission Dx: Justifications for Admission: Justification of Admission Dx: Yes Comments: acute diverticulitis LUCIO RILEY MD Dec 11, 2019 08:34
--- NOTE | 2019-12-11 08:52 | PDOC2 ---
GI CONSULT Date of Service: DATE: 12/11/19 TIME: 08:52 Reason For Consult: acute diverticulitis HPI: HPI: 89 y/o female with history of diverticulitis - directly admitted for same last night. No imaging yet - CT ordered this morning per primary. Currently alone in room - she is quite uncomfortable, moaning and asking for pain medication. Tells me has had lower abdominal pain for two weeks w/ decreased PO intake. D enies diarrhea, constipation, bleeding, n/v, dysphagia, and fever. Gradual weight loss of 40 lbs x 2 years. Feels like diverticulitis but has never been this bad. Tylenol didn't work at home. H/o GERD, presbyesophagus and Schatzki's ring, large hiatal hernia w/ Augusto lesions (has declined surgery in the past), and diverticulitis. CT 06/2019: extensive diverticulosis, descending colon diverticulitis. CT 12/2017: wall thickening of the mid to distal sigmoid colon w/ associated pericolonic inflammatory change and mild nonorganized extraluminal fluid, extensive diverticulosis. CT 06/2017: moderate hiatal hernia, diffuse diverticulosis. EGD 06/[address] Contreras for coffee-ground emesis: normal esophagus w/ some tortuosity, medium hiatal hernia w/ Augusto lesions, normal antrum, normal duodenum. CT 11/2016: large sliding hiatal hernia, diverticulosis. EGD 11/[address] Polanco: hiatal hernia, Schatzki's ring, non-erosive gastritis. UGI 11/2016: large hiatal hernia, presbyesophagus, smooth narrowing @ GEJ, Zenker's diverticulum. EGD 10/[address] Polanco: Schatzki's ring dilated to 54Fr, hiatal hernia w/ Augusto lesions. Colonoscopy 2004: diverticulosis. H/o anemia. S/p cholecystectomy. No liver or pancreas history. No NSAIDs, no iron. On pantoprazole 40-80mg QD. PMH: PMH: A Fib, CHF, CAD w/ stents (last cath in 05/2019), HLD, peripheral neuropathy, OA, anxiety/depression, UTI, pelvic fracture cholecystectomy, hysterectomy, right knee surgery FH: Family History: No pertinent hx Social History: Smoke: No ALCOHOL: none Drugs: None ROS: GEN: Denies fevers, chills, sweats HEENT: Denies blurred vision, sore throat CV: Denies chest pain RESP: Denies shortness of air, cough GI: Per HPI : Denies hematuria, dysuria ENDO: +weight loss NEURO: Denies confusion, dizziness MSK: Denies weakness, joint pain/swelling SKIN: Denies jaundice, pruritus Vitals: Vitals: Vital Signs Date Time Temp Pulse Resp B/P (MAP) Pulse Ox O2 Delivery O2 Flow Rate FiO2 12/11/19 07:58 92 Room Air 12/11/19 07:00 98.4 67 18 144/51 (82) 98.4 Labs: Labs: Laboratory Tests Test 12/10/19 19:32 White Blood Count 9.0 x10^3/uL (4.0-11.0) Red Blood Count 4.33 x10^6/uL (3.50-5.40) Hemoglobin 10.7 g/dL (12.0-15.5) Hematocrit 33.7 % (36.0-47.0) Mean Corpuscular Volume 78 fL (79-100) Mean Corpuscular Hemoglobin 25 pg (25-35) Mean Corpuscular Hemoglobin Concent 32 g/dL (31-37) Red Cell Distribution Width 15.8 % (11.5-14.5) Platelet Count 373 x10^3/uL (140-400) Neutrophils (%) (Auto) 62 % (31-73) Lymphocytes (%) (Auto) 27 % (24-48) Monocytes (%) (Auto) 8 % (0-9) Eosinophils (%) (Auto) 3 % (0-3) Basophils (%) (Auto) 1 % (0-3) Neutrophils # (Auto) 5.5 x10^3/uL (1.8-7.7) Lymphocytes # (Auto) 2.4 x10^3/uL (1.0-4.8) Monocytes # (Auto) 0.7 x10^3/uL (0.0-1.1) Eosinophils # (Auto) 0.2 x10^3/uL (0.0-0.7) Basophils # (Auto) 0.1 x10^3/uL (0.0-0.2) Sodium Level 139 mmol/L (136-145) Potassium Level 3.6 mmol/L (3.5-5.1) Chloride Level 103 mmol/L (98-107) Carbon Dioxide Level 28 mmol/L (21-32) Anion Gap 8 (6-14) Blood Urea Nitrogen 13 mg/dL (7-20) Creatinine 1.1 mg/dL (0.6-1.0) Estimated GFR (Cockcroft-Gault) 46.9 BUN/Creatinine Ratio 12 (6-20) Glucose Level 96 mg/dL (70-99) Calcium Level 8.6 mg/dL (8.5-10.1) Total Bilirubin 0.3 mg/dL (0.2-1.0) Aspartate Amino Transf (AST/SGOT) 13 U/L (15-37) Alanine Aminotransferase (ALT/SGPT) 14 U/L (14-59) Alkaline Phosphatase 128 U/L (46-116) Total Protein 6.6 g/dL (6.4-8.2) Albumin 3.0 g/dL (3.4-5.0) Albumin/Globulin Ratio 0.8 (1.0-1.7) Allergies: Coded Allergies: No Known Drug Allergies (Unverified , 07/11/17) Medications: Current Medications Medications (Trade) Dose Ordered Sig/Mariajose Route PRN Reason Start Time Stop Time Status Last Admin Dose Admin Sodium Chloride 1,000 ml @ 125 mls/hr Q8H IV 12/10/19 18:33 12/11/19 02:35 Fentanyl Citrate (Fentanyl 2ml Vial) 50 mcg PRN Q2HR PRN IVP PAIN 12/10/19 18:45 12/11/19 08:32 DC 12/11/19 07:58 Piperacillin Sod/ Tazobactam Sod 3.375 gm/Sodium Chloride 50 ml @ 100 mls/hr Q6HRS IV 12/10/19 19:00 12/11/19 06:55 Imaging: Imaging: - PE: GEN: uncomfortable HEENT: Atraumatic, PERRL LUNGS: CTAB anteriorly HEART: RRR ABD: quiet BS, difficult exam - tender suprapubic area to light touch EXTREMITY: No edema SKIN: No rashes, no jaundice NEURO/PSYCH: A & O 3, moaning A/P: A/P: Lower abdominal pain w/ h/o diverticulitis on CT in 06/2019 and 12/2017 Microcytic anemia GERD, presbyesophagus, h/o Schatzki's ring, large hiatal hernia w/ Augusto lesions CRC screen - 2003 S/p cholecystectomy -- NPO for now. Has IV atbx ordered. Await CT, will return later w/ Dr. Contreras. Check anemia parameters for completeness. Add IV PPI. Pain control per Dr. Chowdhury. EDWIN BARROW Dec 11, 2019 08:52
[2019-12-11] MEDS: LOSARTAN POTASSIUM 25 MG TABLET. PO SCH (09:01)
[2019-12-11] MEDS: buPROPion XL 150 MG TAB.ER.24H. PO SCH (09:01)
--- NOTE | 2019-12-11 09:10 | PDOC2 ---
CONSULT Date of Consult Date of Consult DATE: 12/11/19 TIME: 09:05 Reason for Consult Reason for Consult: abdominal pain Referring Physician Referring Physician: Dr dill Identification/Chief Complaint Chief Complaint abdominal pain Source Source: Chart review, Patient History of Present Illness Reason for Visit: History of multiple episodes of diverticulitis. reports a couple weeks of worsening abdominal pain. NO n/v, no diarrhea, some constipation. We have seen in past for HH and at that point not interested in surgical options--reports has not been having any issues with hernia. She was a direct admit from PCP office Past Medical History Cardiovascular: AFIB, CAD, CHF, HTN, Other Pulmonary: No pertinent hx CENTRAL NERVOUS SYSTEM: Periperal neuropathy GI: Diverticulosis, GERD, Peptic Ulcer disease, Other Heme/Onc: No pertinent hx Hepatobiliary: No pertinent hx Psych: Anxiety, Depression Musculoskeletal: Osteoarthritis Rheumatologic: No pertinent hx Infectious disease: No pertinent hx Renal/: No pertinent hx Endocrine: No pertinent hx Past Surgical History Past Surgical History: Pacemaker, Cholecystectomy, Cataract Removal, Total knee replacement, Hysterectomy Family History Family History: Hypertension Social History ALCOHOL: none Drugs: None Lives: with Family Domestic Violence: Neg Current Medications Current Medications Current Medications Sodium Chloride 1,000 ml @ 125 mls/hr Q8H IV Last administered on 12/11/19at 02:35; Start 12/10/19 at 18:33 Fentanyl Citrate (Fentanyl 2ml Vial) 50 mcg PRN Q2HR PRN IVP PAIN Last administered on 12/11/19at 07:58; Start 12/10/19 at 18:45; Stop 12/11/19 at 08:32; Status DC Ondansetron HCl (Zofran) 4 mg PRN Q6HRS PRN IVP NAUSEA/VOMITING; Start 12/10/19 at 18:45 Piperacillin Sod/ Tazobactam Sod 3.375 gm/Sodium Chloride 50 ml @ 100 mls/hr Q6HRS IV Last administered on 12/11/19at 06:55; Start 12/10/19 at 19:00 Sodium Chloride 500 ml @ 500 mls/hr 1X ONCE IV ; Start 12/10/19 at 18:45; Stop 12/10/19 at 19:44; Status DC Alprazolam (Xanax) 0.5 mg PRN BID PRN PO ANXIETY / AGITATION; Start 12/10/19 at 18:45 Bupropion HCl (Wellbutrin Xl) 150 mg DAILY PO ; Start 12/11/19 at 09:00 Diltiazem HCl (Cardizem 24hr Cd) 240 mg DAILY PO ; Start 12/11/19 at 09:00 Losartan Potassium (Cozaar) 25 mg DAILY PO ; Start 12/11/19 at 09:00 Acetaminophen/ Hydrocodone Bitart (Lortab 5/325) 1 tab PRN Q4HRS PRN PO PAIN; Start 12/11/19 at 08:30 Lorazepam (Ativan Inj) 1 mg 1X ONCE IVP ; Start 12/11/19 at 09:15; Stop 12/11/19 at 09:16 Active Scripts Active Reported Alprazolam 0.5 Mg Tablet 0.5 Mg PO PRN BID PRN Vitamin E (Vitamin E Mixed) 400 Unit Tablet 670 Mg PO DAILY Wellbutrin Xl (Bupropion Hcl) 150 Mg Tab.er.24h 1 Tab PO DAILY Cartia Xt (Diltiazem Hcl) 240 Mg Cap.er.24h 1 Cap PO DAILY 30 Days Losartan Potassium 50 Mg Tablet 25 Mg PO DAILY Vitamin D3 (Cholecalciferol (Vitamin D3)) 1,000 Unit Tablet 1,000 Unit PO DAILY Protonix (Pantoprazole Sodium) 40 Mg Tablet.dr 40 Mg PO DAILY Tylenol (Acetaminophen) 325 Mg Tablet 650 Mg PO PRN Q6HRS PRN as needed Citalopram Hbr (Citalopram Hydrobromide) 20 Mg Tablet 20 Mg PO DAILY Allergies Allergies: Coded Allergies: No Known Drug Allergies (Unverified , 07/11/17) ROS General: YES: Fatigue; No: Chills PSYCHOLOGICAL ROS: No: Anxiety, Depression Eyes: No Blurry vision, No Double vision HEENT: No: Heacaches, Sore Throat Hematological and Lymphatic: No: Bleeding Problems, Blood Clots Respiratory: No: Cough, Shortness of breath Cardiovascular: No Chest Pain, No Palpitations Gastrointestinal: Yes Other (see hpi) Genitourinary: No Dysuria, No Retention Musculoskeletal: No Joint Pain, No Muscle Pain Neurological: No Impaired Coord/balance, No Numbness/Tingling Skin: No Pruritus, No Rash Physical Exam General: Alert, Oriented X3, Cooperative HEENT: Atraumatic, PERRLA Lungs: Clear to auscultation, Normal air movement Heart: Regular rate, Normal S1, Normal S2 Abdomen: Soft, Other (moderate TTP LLQ area, guarding on exam) Extremities: No clubbing, No cyanosis Skin: No rashes, No breakdown Neuro: Normal gait, Normal speech Psych/Mental Status: Mental status NL, Mood NL MUSCULOSKELETAL: No deformity, No swelling Vitals VITALS Vital Signs Date Time Temp Pulse Resp B/P (MAP) Pulse Ox O2 Delivery O2 Flow Rate FiO2 12/11/19 07:58 92 Room Air 12/11/19 07:00 98.4 67 18 144/51 (82) 98.4 Labs Labs Laboratory Tests Test 12/10/19 19:32 White Blood Count 9.0 x10^3/uL (4.0-11.0) Red Blood Count 4.33 x10^6/uL (3.50-5.40) Hemoglobin 10.7 g/dL (12.0-15.5) Hematocrit 33.7 % (36.0-47.0) Mean Corpuscular Volume 78 fL (79-100) Mean Corpuscular Hemoglobin 25 pg (25-35) Mean Corpuscular Hemoglobin Concent 32 g/dL (31-37) Red Cell Distribution Width 15.8 % (11.5-14.5) Platelet Count 373 x10^3/uL (140-400) Neutrophils (%) (Auto) 62 % (31-73) Lymphocytes (%) (Auto) 27 % (24-48) Monocytes (%) (Auto) 8 % (0-9) Eosinophils (%) (Auto) 3 % (0-3) Basophils (%) (Auto) 1 % (0-3) Neutrophils # (Auto) 5.5 x10^3/uL (1.8-7.7) Lymphocytes # (Auto) 2.4 x10^3/uL (1.0-4.8) Monocytes # (Auto) 0.7 x10^3/uL (0.0-1.1) Eosinophils # (Auto) 0.2 x10^3/uL (0.0-0.7) Basophils # (Auto) 0.1 x10^3/uL (0.0-0.2) Sodium Level 139 mmol/L (136-145) Potassium Level 3.6 mmol/L (3.5-5.1) Chloride Level 103 mmol/L (98-107) Carbon Dioxide Level 28 mmol/L (21-32) Anion Gap 8 (6-14) Blood Urea Nitrogen 13 mg/dL (7-20) Creatinine 1.1 mg/dL (0.6-1.0) Estimated GFR (Cockcroft-Gault) 46.9 BUN/Creatinine Ratio 12 (6-20) Glucose Level 96 mg/dL (70-99) Calcium Level 8.6 mg/dL (8.5-10.1) Total Bilirubin 0.3 mg/dL (0.2-1.0) Aspartate Amino Transf (AST/SGOT) 13 U/L (15-37) Alanine Aminotransferase (ALT/SGPT) 14 U/L (14-59) Alkaline Phosphatase 128 U/L (46-116) Total Protein 6.6 g/dL (6.4-8.2) Albumin 3.0 g/dL (3.4-5.0) Albumin/Globulin Ratio 0.8 (1.0-1.7) Laboratory Tests Test 12/10/19 19:32 White Blood Count 9.0 x10^3/uL (4.0-11.0) Red Blood Count 4.33 x10^6/uL (3.50-5.40) Hemoglobin 10.7 g/dL (12.0-15.5) Hematocrit 33.7 % (36.0-47.0) Mean Corpuscular Volume 78 fL (79-100) Mean Corpuscular Hemoglobin 25 pg (25-35) Mean Corpuscular Hemoglobin Concent 32 g/dL (31-37) Red Cell Distribution Width 15.8 % (11.5-14.5) Platelet Count 373 x10^3/uL (140-400) Neutrophils (%) (Auto) 62 % (31-73) Lymphocytes (%) (Auto) 27 % (24-48) Monocytes (%) (Auto) 8 % (0-9) Eosinophils (%) (Auto) 3 % (0-3) Basophils (%) (Auto) 1 % (0-3) Neutrophils # (Auto) 5.5 x10^3/uL (1.8-7.7) Lymphocytes # (Auto) 2.4 x10^3/uL (1.0-4.8) Monocytes # (Auto) 0.7 x10^3/uL (0.0-1.1) Eosinophils # (Auto) 0.2 x10^3/uL (0.0-0.7) Basophils # (Auto) 0.1 x10^3/uL (0.0-0.2) Sodium Level 139 mmol/L (136-145) Potassium Level 3.6 mmol/L (3.5-5.1) Chloride Level 103 mmol/L (98-107) Carbon Dioxide Level 28 mmol/L (21-32) Anion Gap 8 (6-14) Blood Urea Nitrogen 13 mg/dL (7-20) Creatinine 1.1 mg/dL (0.6-1.0) Estimated GFR (Cockcroft-Gault) 46.9 BUN/Creatinine Ratio 12 (6-20) Glucose Level 96 mg/dL (70-99) Calcium Level 8.6 mg/dL (8.5-10.1) Total Bilirubin 0.3 mg/dL (0.2-1.0) Aspartate Amino Transf (AST/SGOT) 13 U/L (15-37) Alanine Aminotransferase (ALT/SGPT) 14 U/L (14-59) Alkaline Phosphatase 128 U/L (46-116) Total Protein 6.6 g/dL (6.4-8.2) Albumin 3.0 g/dL (3.4-5.0) Albumin/Globulin Ratio 0.8 (1.0-1.7) Assessment/Plan Assessment/Plan abdominal pain hx of diverticulitis wbc normal await CT DANGELO HOFFMAN APRN Dec 11, 2019 09:10
--- NOTE | 2019-12-11 09:22 | HP ---
ADMIT DATE: 12/10/2019 CHIEF COMPLAINT: Abdominal pain. HISTORY OF PRESENT ILLNESS: An 89-year-old white female who has had recurrent episodes of diverticulitis on and off for the last few years, came in with increasing left lower quadrant pain, nausea and general malaise. No fever, emesis, hematochezia or melena has been noted. Her last admission was 06/2019. She recovered uneventfully with antibiotics after the CT showed sigmoid diverticulitis. PAST MEDICAL HISTORY: Well documented in the old record. ALLERGIES: No allergies. MEDICATIONS: Multiple meds. She is a DNR patient. SOCIAL HISTORY: She is and lives with family. Nonsmoker, nondrinker. FAMILY HISTORY: Unremarkable. REVIEW OF SYSTEMS: No other complaints. OBJECTIVE: ENT: Within normal limits. NECK: No masses, nodes or bruits. LUNGS: Clear. CARDIOVASCULAR: Regular rate. No irregular beat or murmur. ABDOMEN: Tender in the left lower quadrant and left mid abdomen. No guarding. No masses are felt. BACK: No tenderness to the flanks. EXTREMITIES: Good pedal and radial pulses. NEUROLOGIC: Physiologic. ASSESSMENT: Recurrent left-sided abdominal pain, felt to be recurrent sigmoid diverticulitis. PLAN: IV antibiotics, CT scan and surgical consultation. LUCIO RILEY MD DR: GEETA/jenni JOB#: [id number] / [id number]
[2019-12-11] MEDS ORDERED: IOHEXOL 240 MG/ML 50ML VIAL. PO ONE (10:15)
[2019-12-11] MEDS ORDERED: IOHEXOL 300 MG/ML 100ML VIAL. IV ONE (10:15)
[2019-12-11] MEDS ORDERED: CONTRAST GIVEN. MC PRN (10:30)
[2019-12-11 11:00] VITALS: BP 158/63
--- NOTE | 2019-12-11 11:36 | NUR ---
SW following. Discussed with RN, pt from home alone, gets around fine. Pt having CT scan and consults today. Pt is in a lot of pain. Room air, NPO. SW will continue to follow.
[2019-12-11] MEDS: PANTOPRAZOLE IV PUSH 40 MG VIAL. IVP SCH (12:37)
[2019-12-11] MEDS ORDERED: DICYCLOMINE HCL 10 MG CAPSULE PO PRN (13:45)
[2019-12-11 14:16] LABS: BILIRUBIN,URINE NEGATIVE (NEG); CLARITY,URINE CLEAR; COLOR,URINE YELLOW; NITRITE,URINE NEGATIVE (NEG); PROTEIN,URINE NEGATIVE (NEG-TRACE); UROBILINOGEN,URINE 0.2 mg/dL (0.2 mg/dL)
[2019-12-11 14:28] LABS: BACTERIA,URINE 0 /HPF (0-FEW); RBC,URINE 0 /HPF (0-2); SQUAMOUS EPITHELIAL CELL,UR OCC /LPF; WBC,URINE 0 /HPF (0-4)
[2019-12-11 15:00] VITALS: BP 132/48
--- NOTE | 2019-12-11 15:08 | RAD ---
CT abdomen and pelvis with contrast HISTORY: Acute diverticulitis TECHNIQUE: Computed tomographic imaging of the abdomen and pelvis was performed following the uneventful intravenous administration of 75 cc Omnipaque 300 nonionic contrast material. Patient orally ingested 30 cc of Omnipaque 240 oral contrast. Comparison June 06, 2019 PQRS Compliance Statement: One or more of the following individualized dose reduction techniques were utilized for this examination: 1. Automated exposure control 2. Adjustment of the mA and/or kV according to patient size 3. Use of iterative reconstruction technique FINDINGS: Large hiatal hernia appears unchanged. Trace pericardial effusion stable Chronic scarring in the lungs stable Liver unremarkable Gallbladder surgically absent Spleen unremarkable Pancreas stable Adrenal glands negative Kidneys stable Moderate distention of the bladder. Uterus surgically absent Severe diverticulosis. Pericolonic inflammation of the descending colon with no discrete fluid collection. Prominent L3-4 disc bulge with moderate central stenosis. IMPRESSION: Acute diverticulitis with no diverticular abscess of the descending colon Giant hiatal hernia unchanged Severe interstitial lung disease in the visualized lung bases unchanged Urinary retention Moderate L3-4 disc bulge with central stenosis Electronically signed by: Bhavin Aburto MD (12/11/2019 3:04 PM) [id number]
[2019-12-11 19:00] VITALS: BP 146/60
[2019-12-11 23:00] VITALS: BP 154/65
[2019-12-11] MEDS: ALPRAZolam 0.5 MG TABLET PO PRN (23:25)
[2019-12-12] MEDS: IV NORMAL SALINE 1000ML BAG 1,000 ML IV SCH (02:42)
[2019-12-12 03:00] VITALS: BP 164/72
[2019-12-12] MEDS: PIPERACILLIN/TAZOBACTAM 3.375 GM in IV NORMAL SALINE 50ML 50 ML IV SCH ×3 (06:09→17:13)
[2019-12-12 07:00] VITALS: BP 157/58
--- NOTE | 2019-12-12 08:24 | PDOC ---
Provider Note Provider Note vss, no temp- no norco in 24 hrs- ct cons w/ sigmoid diverticulitis, rest ok- will reduce iv fluid now, same zosyn, follow Justicifation of Admission Dx: Justifications for Admission: Justification of Admission Dx: Yes LUCIO RILEY MD Dec 12, 2019 08:24
[2019-12-12] MEDS: POTASSIUM CL 20MEQ D5-0.45NACL 1,000 ML IV SCH ×2 (08:53→19:58)
[2019-12-12] MEDS: PANTOPRAZOLE IV PUSH 40 MG VIAL. IVP SCH (08:53)
[2019-12-12] MEDS: LOSARTAN POTASSIUM 25 MG TABLET. PO SCH (08:54)
[2019-12-12] MEDS: buPROPion XL 150 MG TAB.ER.24H. PO SCH (08:54)
--- NOTE | 2019-12-12 09:47 | NUR ---
SW following. Discussed with RN, pt from home alone, PT/OT ordered, clear liquid diet, IV abx. SW will continue to follow for any discharge planning needs.
--- NOTE | 2019-12-12 10:22 | PDOC ---
Date of Service: DATE: 12/12/19 TIME: 10:18 Subjective: Subjective: Feels better today. Pain is better, had some diarrhea. Not hungry but wants to try advancing diet. Feels weak. Objective: Objective: Called by nurse yesterday afternoon w/ CT results - pt and daughter were asking about diet - ordered clears. Has not tried Bentyl, also not using Lortab. Vital Signs: Vital Signs Date Time Temp Pulse Resp B/P (MAP) Pulse Ox O2 Delivery O2 Flow Rate FiO2 12/12/19 08:54 60 157/58 12/12/19 07:20 Room Air 12/12/19 07:00 98.2 18 90 98.2 Labs: Laboratory Tests Test 12/11/19 11:35 12/11/19 13:46 Iron Level 72 ug/dL Total Iron Binding Capacity 313 ug/dL Iron Saturation 23 % Vitamin B12 Level 355 pg/mL Urine Collection Type Unknown Urine Color Yellow Urine Clarity Clear Urine pH 7.0 Urine Specific [place] 1.015 Urine Protein Negative mg/dL Urine Glucose (UA) Negative mg/dL Urine Ketones (Stick) Negative mg/dL Urine Blood Negative Urine Nitrite Negative Urine Bilirubin Negative Urine Urobilinogen Dipstick 0.2 mg/dL Urine Leukocyte Esterase Negative Urine RBC 0 /HPF Urine WBC 0 /HPF Urine Squamous Epithelial Cells Occ /LPF Urine Bacteria 0 /HPF Urine Mucus Slight /LPF Imaging: CT A/P 12/12/19 IMPRESSION: Acute diverticulitis with no diverticular abscess of the descending colon Giant hiatal hernia unchanged Severe interstitial lung disease in the visualized lung bases unchanged Urinary retention Moderate L3-4 disc bulge with central stenosis PE: GEN: NAD LUNGS: CTAB HEART: RRR ABD: NABS, S/ND, less tender suprapubic/LLQ NEURO/PSYCH: A & O 3 - much calmer today A/P: Recurrent diverticulitis Microcytic anemia - iron profile okay H/o GERD, presbyesophagus, large hiatal hernia w/ Augusto lesions CRC screen - 2003 -- Try full liquids, change to PO PPI. Justicifation of Admission Dx: Justifications for Admission: Justification of Admission Dx: Yes EDWIN BARROW Dec 12, 2019 10:22
[2019-12-12 11:00] VITALS: BP 138/53
--- NOTE | 2019-12-12 13:19 | PDOC ---
SURGICAL PROGRESS NOTE DATE: 12/12/19 TIME: 13:18 Subjective Patient feeling much better today denies abdominal pain Vital Signs Vital Signs Date Time Temp Pulse Resp B/P (MAP) Pulse Ox O2 Delivery O2 Flow Rate FiO2 12/12/19 11:00 98.1 60 18 138/53 (81) 94 Room Air 98.1 I&O Intake and Output 12/12/19 07:00 Output Total 1100 ml Balance -1100 ml Output Urine Total 1100 ml # Voids 3 PATIENT HAS A BUTTS: No General: Alert, Oriented X3, Cooperative, No acute distress Abdomen: Normal bowel sounds, Soft, No tenderness Labs Laboratory Tests Test 12/10/19 19:32 12/11/19 11:35 12/11/19 13:46 White Blood Count 9.0 x10^3/uL (4.0-11.0) Red Blood Count 4.33 x10^6/uL (3.50-5.40) Hemoglobin 10.7 g/dL (12.0-15.5) Hematocrit 33.7 % (36.0-47.0) Mean Corpuscular Volume 78 fL (79-100) Mean Corpuscular Hemoglobin 25 pg (25-35) Mean Corpuscular Hemoglobin Concent 32 g/dL (31-37) Red Cell Distribution Width 15.8 % (11.5-14.5) Platelet Count 373 x10^3/uL (140-400) Neutrophils (%) (Auto) 62 % (31-73) Lymphocytes (%) (Auto) 27 % (24-48) Monocytes (%) (Auto) 8 % (0-9) Eosinophils (%) (Auto) 3 % (0-3) Basophils (%) (Auto) 1 % (0-3) Neutrophils # (Auto) 5.5 x10^3/uL (1.8-7.7) Lymphocytes # (Auto) 2.4 x10^3/uL (1.0-4.8) Monocytes # (Auto) 0.7 x10^3/uL (0.0-1.1) Eosinophils # (Auto) 0.2 x10^3/uL (0.0-0.7) Basophils # (Auto) 0.1 x10^3/uL (0.0-0.2) Sodium Level 139 mmol/L (136-145) Potassium Level 3.6 mmol/L (3.5-5.1) Chloride Level 103 mmol/L (98-107) Carbon Dioxide Level 28 mmol/L (21-32) Anion Gap 8 (6-14) Blood Urea Nitrogen 13 mg/dL (7-20) Creatinine 1.1 mg/dL (0.6-1.0) Estimated GFR (Cockcroft-Gault) 46.9 BUN/Creatinine Ratio 12 (6-20) Glucose Level 96 mg/dL (70-99) Calcium Level 8.6 mg/dL (8.5-10.1) Total Bilirubin 0.3 mg/dL (0.2-1.0) Aspartate Amino Transf (AST/SGOT) 13 U/L (15-37) Alanine Aminotransferase (ALT/SGPT) 14 U/L (14-59) Alkaline Phosphatase 128 U/L (46-116) Total Protein 6.6 g/dL (6.4-8.2) Albumin 3.0 g/dL (3.4-5.0) Albumin/Globulin Ratio 0.8 (1.0-1.7) Iron Level 72 ug/dL (50-170) Total Iron Binding Capacity 313 ug/dL (250-450) Iron Saturation 23 % (15-34) Vitamin B12 Level 355 pg/mL (247-911) Urine Collection Type Unknown Urine Color Yellow Urine Clarity Clear Urine pH 7.0 (<5.0-8.0) Urine Specific [place] 1.015 (1.000-1.030) Urine Protein Negative mg/dL (NEG-TRACE) Urine Glucose (UA) Negative mg/dL (NEG) Urine Ketones (Stick) Negative mg/dL (NEG) Urine Blood Negative (NEG) Urine Nitrite Negative (NEG) Urine Bilirubin Negative (NEG) Urine Urobilinogen Dipstick 0.2 mg/dL (0.2 mg/dL) Urine Leukocyte Esterase Negative (NEG) Urine RBC 0 /HPF (0-2) Urine WBC 0 /HPF (0-4) Urine Squamous Epithelial Cells Occ /LPF Urine Bacteria 0 /HPF (0-FEW) Urine Mucus Slight /LPF Laboratory Tests Test 12/11/19 13:46 Urine Collection Type Unknown Urine Color Yellow Urine Clarity Clear Urine pH 7.0 (<5.0-8.0) Urine Specific [place] 1.015 (1.000-1.030) Urine Protein Negative mg/dL (NEG-TRACE) Urine Glucose (UA) Negative mg/dL (NEG) Urine Ketones (Stick) Negative mg/dL (NEG) Urine Blood Negative (NEG) Urine Nitrite Negative (NEG) Urine Bilirubin Negative (NEG) Urine Urobilinogen Dipstick 0.2 mg/dL (0.2 mg/dL) Urine Leukocyte Esterase Negative (NEG) Urine RBC 0 /HPF (0-2) Urine WBC 0 /HPF (0-4) Urine Squamous Epithelial Cells Occ /LPF Urine Bacteria 0 /HPF (0-FEW) Urine Mucus Slight /LPF Assessment/Plan Uncomplicated diverticulitis agree with current care No further surgical recommendations, will sign off if further radicular expertise is needed please reconsult Justicifation of Admission Dx: Justifications for Admission: Justification of Admission Dx: Yes SHI RUBY MD Dec 12, 2019 13:19
[2019-12-12 15:00] VITALS: BP 152/58
[2019-12-12 19:00] VITALS: BP 158/71
[2019-12-12] MEDS: LACTOBACILLUS RHAMNOSUS GG 1 CAPSULE. PO SCH (19:57)
[2019-12-12] MEDS: ALPRAZolam 0.5 MG TABLET PO PRN (19:57)
[2019-12-12 23:00] VITALS: BP 150/48
[2019-12-13] MEDS: PIPERACILLIN/TAZOBACTAM 3.375 GM in IV NORMAL SALINE 50ML 50 ML IV SCH ×4 (00:15→17:37)
[2019-12-13 03:00] VITALS: BP 170/83
[2019-12-13 08:00] VITALS: BP 136/59
--- NOTE | 2019-12-13 08:16 | PDOC ---
Provider Note Provider Note feels much better, no temp or tenderness- will dc iv fluid, adv diet at her request, cont zosyn, PT, poss dc in am Justicifation of Admission Dx: Justifications for Admission: Justification of Admission Dx: Yes LUCIO RILEY MD Dec 13, 2019 08:16
[2019-12-13] MEDS: PANTOPRAZOLE 40 MG TABLET.DR. PO SCH (08:47)
[2019-12-13] MEDS: LACTOBACILLUS RHAMNOSUS GG 1 CAPSULE. PO SCH ×2 (08:47→20:24)
[2019-12-13] MEDS: buPROPion XL 150 MG TAB.ER.24H. PO SCH (08:47)
[2019-12-13] MEDS: LOSARTAN POTASSIUM 25 MG TABLET. PO SCH (08:48)
--- NOTE | 2019-12-13 09:41 | NUR ---
SW following. Discussed with RN, PT/OT ordered, advance diet as tolerated, po abx. Dr. Chowdhury states possible discharge in the morning (tomorrow 12/14/2019). MANJEET will continue to follow.
--- NOTE | 2019-12-13 10:20 | PDOC ---
Date of Service: DATE: 12/13/19 TIME: 10:18 Subjective: Subjective: Feeling better today, not really any pain. Objective: Objective: Reviewed primary note - plans for regular diet, continue IV antibiotics, possible DC tomorrow. Vital Signs: Vital Signs Date Time Temp Pulse Resp B/P (MAP) Pulse Ox O2 Delivery O2 Flow Rate FiO2 12/13/19 08:48 136 136/59 12/13/19 08:00 98.8 18 95 Room Air 98.8 Labs: BLOOD CULTURE Preliminary NO GROWTH AFTER 2 DAYS PE: GEN: NAD LUNGS: CTAB HEART: RRR ABD: S/ND/NT NEURO/PSYCH: A & O 3 A/P: Recurrent diverticulitis H/o GERD, presbyesophagus, large hiatal hernia w/ Augusto lesions - on PPI -- Improving, plans as above. Justicifation of Admission Dx: Justifications for Admission: Justification of Admission Dx: Yes EDWIN BARROW Dec 13, 2019 10:20
[2019-12-13 11:00] VITALS: BP 134/50
[2019-12-13] MEDS: ALPRAZolam 0.5 MG TABLET PO PRN ×2 (14:38→20:24)
[2019-12-13 15:00] VITALS: BP 130/49
[2019-12-13 19:00] VITALS: BP 159/73
[2019-12-13 23:00] VITALS: BP 136/49
[2019-12-14] MEDS: PIPERACILLIN/TAZOBACTAM 3.375 GM in IV NORMAL SALINE 50ML 50 ML IV SCH ×2 (00:19→06:09)
[2019-12-14 03:00] VITALS: BP 132/61
[2019-12-14 07:00] VITALS: BP 154/65
--- NOTE | 2019-12-14 08:42 | SNU/HH DC ---
DISCHARGE WITH HOME HEALTH DISCHARGE INFORMATION: Condition on Discharge: Stable CODE STATUS: Code Status: DNR/DNI HOME HEALTH: Face to Face: I certify this patient is under my care and that I, or a nurse practitioner or physician's fitter's assistant working with me, had a face to face encounter that meets the physician face to face encounter requirements with this patient on []. Medical Complications: Falls RN For Eval/Treatment: Yes Physical Therapy For: Evalulation/Treatment Pt Meets Homebound Status: Poor coordination w/ amb. POST DISCHARGE ORDERS: Activity Instructions for Disc: No restrictions, Resume previous activity, Activity as tolerated Weight Bearing Status after Di: No restrictions, Full weight bearing, As tolerated Bathing Instructions: Shower-keep dressing dry DIET AFTER DISCHARGE: Regular Wound/Incision Care: No wound care needed CHECKS AFTER DISCHARGE: Checks after discharge: Check blood press - daily, Check your Temp as needed TREATMENT/EQUIPMENT ORDERS: Adaptive Equipment Issued: None CERTIFICATION STATEMENT: Certification Statement: Certification Statement: Based on the above finding, I certify that this patient is confined to the home and needs intermittent custodial care, physical therapy and/or speech therapy, or continues to need occupational therapy.~ This patient is under my care, and I have initiated the establishment of the plan of care.~ This patient will be followed by myself or a community physician who will periodically review the plan of care. Home Meds Reported Medications Alprazolam (ALPRAZOLAM) 0.5 Mg Tablet, 0.5 MG PO PRN BID PRN for ANXIETY / AGITATION, TAB 0 Refills 06/06/19 Vitamin E Mixed (VITAMIN E) 400 Unit Tablet, 670 MG PO DAILY for supplement, TAB 05/08/19 Bupropion Hcl (WELLBUTRIN XL) 150 Mg Tab.er.24h, 1 TAB PO DAILY for antide pressant, #30 TAB 05/08/19 Diltiazem Hcl (CARTIA XT) 240 Mg Cap.er.24h, 1 CAP PO DAILY for rate control for 30 Days, #30 CAP 0 Refills 05/08/19 Losartan Potassium (LOSARTAN POTASSIUM) 50 Mg Tablet, 25 MG PO DAILY for HYPERTENSION, TAB 06/14/18 Cholecalciferol (Vitamin D3) (VITAMIN D3) 1,000 Unit Tablet, 1000 UNIT PO DAILY 04/09/16 Pantoprazole Sodium (PROTONIX ) 40 Mg Tablet.dr, 40 MG PO DAILY, TAB 02/16/14 Acetaminophen (TYLENOL) 325 Mg Tablet, 650 MG PO PRN Q6HRS PRN for PAIN as needed 09/30/13 Citalopram Hydrobromide (CITALOPRAM HBR) 20 Mg Tablet, 20 MG PO DAILY 09/30/13 LUCIO RILEY MD Dec 14, 2019 08:42
--- NOTE | 2019-12-14 08:44 | PDOC ---
Provider Note Provider Note [id number] Justicifation of Admission Dx: Justifications for Admission: Justification of Admission Dx: Yes LUCIO RILEY MD Dec 14, 2019 08:44
[2019-12-14] MEDS: LOSARTAN POTASSIUM 25 MG TABLET. PO SCH (09:24)
[2019-12-14] MEDS: PANTOPRAZOLE 40 MG TABLET.DR. PO SCH (09:24)
[2019-12-14] MEDS: buPROPion XL 150 MG TAB.ER.24H. PO SCH (09:24)
--- NOTE | 2019-12-14 09:39 | PDOC ---
Date of Service: DATE: 12/14/19 TIME: 09:37 Subjective: Subjective: Feeling better, tolerating diet. Mild lower abd pain - much better than when admitted. Stools more normal. Would like to go home today. Objective: Objective: D/w Dr. Chowdhury - will send home on Augmentin. Vital Signs: Vital Signs Date Time Temp Pulse Resp B/P (MAP) Pulse Ox O2 Delivery O2 Flow Rate FiO2 12/14/19 09:24 69 154/65 12/14/19 07:10 Room Air 12/14/19 07:00 98.1 18 92 98.1 PE: GEN: NAD LUNGS: CTAB HEART: RRR ABD: mildly tender suprapubic to LLQ, soft NEURO/PSYCH: A & O 3 A/P: Recurrent diverticulitis -- DC on PO atbx okay per GI. Continue PPI for h/o large hiatal hernia. Justicifation of Admission Dx: Justifications for Admission: Justification of Admission Dx: Yes EDWIN BARROW Dec 14, 2019 09:39
[2019-12-14 10:55] VITALS: BP 145/60
--- NOTE | 2019-12-14 11:31 | NUR ---
Dr. Trenton neri re: poss. Aviles rx.
--- NOTE | 2019-12-14 12:30 | NUR ---
Dr. Chowdhury returned call, stated he did not want to d/c pt home with yong.
--- NOTE | 2019-12-14 13:22 | NUR ---
Pt. discharged to home, pt and daughter verbalized understanding of discharge instructions.
--- NOTE | 2019-12-14 14:50 | DS ---
DATE OF DISCHARGE: 12/14/2019 HOSPITAL SUMMARY: This is an 89-year-old white female who came in with left-sided abdominal pain with a history of diverticulitis and clinical findings consistent with that. CT scan showed evidence of diffuse diverticular infection on the descending colon and no other abnormalities. The chemistry profile was unremarkable. The B12 level was normal. Urine was clear. Hemoglobin 10.7, white count 9000. Blood cultures had no growth. She was given IV Zosyn and improved clinically within 24-48 hours with ____, afebrile. Seen by GI and Surgery and no interventions were needed. She clinically is better as she has advanced her diet and is able to be followed with Home Health and PT as an outpatient. FINAL DIAGNOSES: 1. Acute sigmoid diverticulitis. 2. Anemia of chronic disease. OPERATIONS, PROCEDURES, COMPLICATIONS: None. CONSULTATIONS: Dr. Polanco, Dr. Mccormack. DISPOSITION: Augmentin 875 twice a day for 1 more week. Home meds remain the same. High-fiber diet. She is a DNR patient. LUCIO RILEY MD DR: GEETA/jenni JOB#: [id number] / [id number]
== END 2019-12-14 13:25 | disposition home health service (06) | DRG 392 ==
LOC: 4 NORTH 17:23
PROVIDERS: ADMIT Family Medicine; ATTEND Family Medicine
DX: K57.32 Diverticulitis of large intestine without perforation or abscess without bleeding (principal); D50.9 Iron deficiency anemia, unspecified; D63.8 Anemia in other chronic diseases classified elsewhere; E78.5 Hyperlipidemia, unspecified; F32.9 Major depressive disorder, single episode, unspecified; K21.9 Gastro-esophageal reflux disease without esophagitis; K22.8 Other specified diseases of esophagus; K44.9 Diaphragmatic hernia without obstruction or gangrene; F41.9 Anxiety disorder, unspecified; G62.9 Polyneuropathy, unspecified; Z96.659 Presence of unspecified artificial knee joint; I11.0 Hypertensive heart disease with heart failure; I25.10 Atherosclerotic heart disease of native coronary artery without angina pectoris; I48.91 Unspecified atrial fibrillation; I50.9 Heart failure, unspecified; Z66 Do not resuscitate; Z90.49 Acquired absence of other specified parts of digestive tract; Z90.710 Acquired absence of both cervix and uterus; Z87.11 Personal history of peptic ulcer disease; Z95.5 Presence of coronary angioplasty implant and graft; Z82.49 Family history of ischemic heart disease and other diseases of the circulatory system; Z87.440 Personal history of urinary (tract) infections
CPT/HCPCS: 36415; 74177; 80053; 81001; 82607; 83540; 83550; 85025; 87040; C9113; J2060; J2543; J3010; J3480; J7030; Q9966; Q9967; 97110-GP; 97530-GP; 97535-GO; G0378

== ENCOUNTER → 2020-03-04 | Outpatient (CLI) | payer MEDICARE ==
[2020-02-13 11:00] VITALS: BP 147/58
[~2020-03-04] MED LIST changes: +AMLO-186 PO; -AMLO5TAB10 PO; +IOHEXOL 240 MG/ML 50ML VIAL. PO ONE; +IOHEXOL 300 MG/ML 100ML VIAL. IV ONE
--- NOTE | 2020-03-04 12:35 | RAD ---
EXAM: Abdomen and pelvis CT with intravenous contrast. HISTORY: Diverticulitis. TECHNIQUE: Computed tomographic images of the abdomen and pelvis were obtained following the administration of intravenous contrast. Multiplanar reformatting was performed. *One or more of the following individualized dose reduction techniques were utilized for this examination: 1. Automated exposure control. 2. Adjustment of the mA and/or kV according to patient size. 3. Use of iterative reconstruction technique. COMPARISON: 02/10/2014. FINDINGS: Evaluation of the lower thorax demonstrates a large hiatal hernia with intrathoracic positioning there is emphysema and there are chronic interstitial changes throughout the visualized lungs. There is superimposed atelectasis. There is cardiomegaly. There is coronary artery atherosclerosis. There is calcification of the aortic valve. There are cardiac pacemaker leads. There are a few hepatic granulomas. There is no suspicious hepatic lesion. The gallbladder is surgically absent. The pancreas, spleen and adrenal glands are unremarkable. There is mild renal atrophy. There are small simple renal cysts. Follow-up is not routinely recommended for simple renal cysts. The urinary bladder is unremarkable. The uterus is absent. The adnexal regions are unremarkable. There is extensive colonic diverticulosis. There has been resolution of previously demonstrated segmental wall thickening and surrounding stranding involving the sigmoid colon due to diverticulitis. There is no free air. There is no abscess. There is no bowel obstruction. There is aortic and aortic branch vessel atherosclerosis. There is no lymphadenopathy. There are degenerative changes throughout the spine and pelvis. There are healed right pubic rami fractures. IMPRESSION: 1. Extensive colonic diverticulosis. There has been resolution of previously demonstrated diverticulitis involving the sigmoid colon. 2. Emphysema and chronic interstitial changes superimposed on atelectasis involving the visualized lungs. No consolidated infiltrate is seen. 3. Bilateral renal atrophy and tiny renal cysts. Follow-up is not routinely recommended for simple renal cysts. 4. Large hiatal hernia. Electronically signed by: Carmel Rose MD (03/04/2020 12:32 PM) [id number]
== END ==
LOC: CT 10:58
PROVIDERS: ATTEND Physician Assistant
DX: K57.32 Diverticulitis of large intestine without perforation or abscess without bleeding (principal); J98.11 Atelectasis; I25.10 Atherosclerotic heart disease of native coronary artery without angina pectoris; I70.0 Atherosclerosis of aorta; K44.9 Diaphragmatic hernia without obstruction or gangrene; N26.1 Atrophy of kidney (terminal); N28.1 Cyst of kidney, acquired
CPT/HCPCS: 74177; Q9966; Q9967

== ENCOUNTER 2020-06-07 08:49 | Inpatient (IN) | payer MEDICARE ==
[~2020-06-07] VITALS: Ht 157.5 cm; Wt 64.6 kg
[~2020-06-07 08:49] MED LIST changes: -IOHEXOL 240 MG/ML 50ML VIAL. PO ONE; -IOHEXOL 300 MG/ML 100ML VIAL. IV ONE
[2020-06-07 09:43] LABS: BASO # 0.2 x10^3/uL (0.0-0.2); BASO % 1 % (0-3); EOS # 0.3 x10^3/uL (0.0-0.7); EOS % 2 % (0-3); HEMATOCRIT 31.5 % (36.0-47.0); HEMOGLOBIN 9.9 g/dL (12.0-15.5); LYMPH # 4.4 x10^3/uL (1.0-4.8); LYMPH % 31 % (24-48); MEAN CORPUSCULAR HEMOGLOBIN 25 pg (25-35); MEAN CORPUSCULAR HGB CONC 31 g/dL (31-37); MEAN CORPUSCULAR VOLUME 81 fL (79-100); MONO # 0.8 x10^3/uL (0.0-1.1); MONO % 6 % (0-9); NEUT # 8.3 x10^3/uL (1.8-7.7); NEUT % 60 % (31-73); PLATELET COUNT 283 x10^3/uL (140-400); RED BLOOD COUNT 3.91 x10^6/uL (3.50-5.40); RED CELL DISTRIBUTION WIDTH 17.3 % (11.5-14.5); WHITE BLOOD COUNT 13.9 x10^3/uL (4.0-11.0)
[2020-06-07 10:02] LABS: CREATININE 1.3 mg/dL (0.6-1.0); GFR 38.7; POTASSIUM 4.5 mmol/L (3.5-5.1)
[2020-06-07 10:03] LABS: PROTHROMBIN TIME PATIENT 13.7 SEC (11.7-14.0)
--- NOTE | 2020-06-07 10:06 | RAD ---
Three-view acute abdominal series. HISTORY: Abdominal pain, vomiting blood 3 views were taken for an acute abdominal series. Heart is within normal limits in size. There is a p acemaker on the left with atrial and ventricular pacing leads. There is chronic interstitial lung dis ease consistent with fibrosis similar to old studies dating back to 2017. There is a hiatus hernia be hind the heart. There is no pleural effusion. There is no confluent infiltrate. Supine and upright views were taken of the abdomen. There is no free air on the upright view or abnor mal air-fluid levels. Bowel pattern is normal. The patient's had a cholecystectomy. There is scoliosi s and degenerative change in the lumbar spine. IMPRESSION: 1. Pulmonary fibrosis, no acute infiltrates. 2. Hiatus hernia. 3. No bowel obstruction or acute finding in the abdomen. Electronically signed by: Blade Yip MD (06/07/2020 10:03 AM) [facility]
[2020-06-07 10:09] LABS: TOTAL BILIRUBIN 0.3 mg/dL (0.2-1.0); TOTAL PROTEIN 6.1 g/dL (6.4-8.2)
[2020-06-07] MEDS ORDERED: PANTOPRAZOLE IV PUSH 40 MG VIAL. IVP ONE (10:30)
[2020-06-07] MEDS: IV NORMAL SALINE 1000ML BAG 1,000 ML IV SCH ×2 (10:52→15:05)
--- NOTE | 2020-06-07 11:09 | PHYS DOC ---
Past Medical History Past Medical History: A-Fib, Arthritis, Depression, Diverticulitis, GERD, GI Bleed, High Cholesterol, Hypertension, Pneumonia, Other Additional Past Medical Histor: esophageal varices, GI bleedx2, HERNIA Past Surgical History: Angioplasty, Appendectomy, Cholecystectomy, Hysterectomy, Knee Replacement, Pacemaker Additional Past Surgical Histo: esophageal dilation,STENT PLACEMENT, CARDIAC CATH IN JULY 2017 Smoking Status: Never Smoker Alcohol Use: None Drug Use: None General Adult EDM: Chief Complaint: NAUSEA/VOMITING/DIARRHA HPI: HPI: Patient is a 89 year old female who presented to ER due to nausea and vomiting blood this morning. Patient had her first COVID-19 vaccine yesterday, she was doing okay last night. This morning she woke up and feels sick in her stomach, has some cramping, she went to the bathroom and then vomited coffee-ground blood. Patient is not on any blood thinner. Patient has history of GI bleeding in the past, she is on Protonix. Patient denies any cough, no fever, no chest pain, no trouble breathing. Patient denies any blood in her stool. Review of Systems: Review of Systems: Constitutional: Denies fever or chills. [] Eyes: Denies change in visual acuity. [] HENT: Denies nasal congestion or sore throat. [] Respiratory: Denies cough or shortness of breath. [] Cardiovascular: Denies chest pain or edema. [] GI: Denies abdominal pain, Positive for nausea or vomiting blood. : Denies dysuria. [] Musculoskeletal: Denies back pain or joint pain. [] Integument: Denies rash. [] Neurologic: Denies headache, focal weakness or sensory changes. [] Endocrine: Denies polyuria or polydipsia. [] Lymphatic: Denies swollen glands. [] Psychiatric: Denies depression or anxiety. [] Heart Score: Risk Factors: Risk Factors: DM, Current or recent (<one month) smoker, HTN, HLP, family history of CAD, obesity. Risk Scores: Score 0 - 3: 2.5% MACE over next 6 weeks - Discharge Home Score 4 - 6: 20.3% MACE over next 6 weeks - Admit for Clinical Observation Score 7 - 10: 72.7% MACE over next 6 weeks - Early Invasive Strategies Current Medications: Current Medications Medications (Trade) Dose Ordered Sig/Mariajose Start Time Stop Time Status Last Admin Dose Admin Pantoprazole Sodium (PROTONIX VIAL for IV PUSH) 40 mg BID 06/07/20 21:00 Sodium Chloride 1,000 ml @ 75 mls/hr [id number] 06/07/20 10:45 06/08/20 10:44 06/07/20 10:52 75 MLS/HR Allergies: Allergies: Allergies Coded Allergies Type Severity Reaction Last Updated Verified No Known Drug Allergies 07/11/17 No Physical Exam: PE: Constitutional: Well developed, well nourished, no acute distress, non-toxic appearance. [] HENT: Normocephalic, atraumatic, bilateral external ears normal, oropharynx moist, no oral exudates, nose normal. [] Eyes: PERRLA, EOMI, conjunctiva normal, no discharge. [] Neck: Normal range of motion, no tenderness, supple, no stridor. [] Cardiovascular:Heart rate regular rhythm, no murmur [] Lungs & Thorax: Bilateral breath sounds clear to auscultation [] Abdomen: Bowel sounds normal, soft, no tenderness, no masses, no pulsatile masses. [] Skin: Warm, dry, no erythema, no rash. [] Back: No tenderness, no CVA tenderness. [] Extremities: No tenderness, no cyanosis, no clubbing, ROM intact, no edema. [] Neurologic: Alert and oriented X 3, normal motor function, normal sensory function, no focal deficits noted. [] Psychologic: Affect normal, judgement normal, mood normal. [] Current Patient Data: Labs: Laboratory Tests Test 06/07/20 09:20 06/07/20 09:50 White Blood Count 13.9 x10^3/uL (4.0-11.0) H Red Blood Count 3.91 x10^6/uL (3.50-5.40) Hemoglobin 9.9 g/dL (12.0-15.5) L Hematocrit 31.5 % (36.0-47.0) L Mean Corpuscular Volume 81 fL (79-100) Mean Corpuscular Hemoglobin 25 pg (25-35) Mean Corpuscular Hemoglobin Concent 31 g/dL (31-37) Red Cell Distribution Width 17.3 % (11.5-14.5) H Platelet Count 283 x10^3/uL (140-400) Neutrophils (%) (Auto) 60 % (31-73) Lymphocytes (%) (Auto) 31 % (24-48) Monocytes (%) (Auto) 6 % (0-9) Eosinophils (%) (Auto) 2 % (0-3) Basophils (%) (Auto) 1 % (0-3) Neutrophils # (Auto) 8.3 x10^3/uL (1.8-7.7) H Lymphocytes # (Auto) 4.4 x10^3/uL (1.0-4.8) Monocytes # (Auto) 0.8 x10^3/uL (0.0-1.1) Eosinophils # (Auto) 0.3 x10^3/uL (0.0-0.7) Basophils # (Auto) 0.2 x10^3/uL (0.0-0.2) Prothrombin Time 13.7 SEC (11.7-14.0) Prothrombin Time INR 1.1 (0.8-1.1) Activated Partial Thromboplast Time 26 SEC (24-38) Sodium Level 142 mmol/L (136-145) Potassium Level 4.5 mmol/L (3.5-5.1) Chloride Level 104 mmol/L (98-107) Carbon Dioxide Level 24 mmol/L (21-32) Anion Gap 14 (6-14) Blood Urea Nitrogen 55 mg/dL (7-20) H Creatinine 1.3 mg/dL (0.6-1.0) H Estimated GFR (Cockcroft-Gault) 38.7 BUN/Creatinine Ratio 42 (6-20) H Glucose Level 160 mg/dL (70-99) H Calcium Level 9.0 mg/dL (8.5-10.1) Total Bilirubin 0.3 mg/dL (0.2-1.0) Aspartate Amino Transferase (AST) 14 U/L (15-37) L Alanine Aminotransferase (ALT) 22 U/L (14-59) Alkaline Phosphatase 84 U/L (46-116) Total Protein 6.1 g/dL (6.4-8.2) L Albumin 3.0 g/dL (3.4-5.0) L Albumin/Globulin Ratio 1.0 (1.0-1.7) Troponin I Quantitative < 0.017 ng/mL (0.000-0.055) KM-Mzd-Y-Type Natriuretic Peptide 210 pg/mL (0-449) Laboratory Tests 06/07/20 09:20 Laboratory Tests 06/07/20 09:20 Vital Signs: Vital Signs Date Time Temp Pulse Resp B/P (MAP) Pulse Ox O2 Delivery O2 Flow Rate FiO2 06/07/20 08:49 98.6 87 17 136/84 (101) 97 Room Air 98.6 EKG: EKG: [] Radiology/Procedures: Radiology/Procedures: [][facility] [address] [place] [address] IMAGING REPORT Signed PATIENT: SAILAJA SUTHERLAND ACCOUNT: [id number] : 1930 LOCATION: ER AGE: 89 SEX: F EXAM STATUS: PRE ER ORD. PHYSICIAN: SOBEIDA MEDEL DO REASON: ABDOMINAL PAIN, VOMITING BLOOD PROCEDURE: ACUTE ABDOMEN SERIES Three-view acute abdominal series. HISTORY: Abdominal pain, vomiting blood 3 views were taken for an acute abdominal series. Heart is within normal limits in size. There is a pacemaker on the left with atrial and ventricular pacing leads. There is chronic interstitial lung disease consistent with fibrosis similar to old studies dating back to 2017. There is a hiatus hernia behind the heart. There is no pleural effusion. There is no confluent infiltrate. Supine and upright views were taken of the abdomen. There is no free air on the upright view or abnormal air-fluid levels. Bowel pattern is normal. The patient's had a cholecystectomy. There is scoliosis and degenerative change in the lumbar spine. IMPRESSION: 1. Pulmonary fibrosis, no acute infiltrates. 2. Hiatus hernia. 3. No bowel obstruction or acute finding in the abdomen. Electronically signed by: Blade Yip MD (06/07/2020 10:03 AM) [facility] DICTATED and SIGNED BY: BLADE YIP MD DATE: 06/07/20 [id number] 0 Course & Med Decision Making: Course & Med Decision Making Pertinent Labs and Imaging studies reviewed. (See chart for details) Patient is an 89-year-old female who presented to ER with coffee-ground emesis, history of GI bleeding in the past, will admit her to hospital for GI consult, put her on Protonix IV for now. Corby Disclaimer: Corby Disclaimer: This electronic medical record was generated, in whole or in part, using a voice recognition dictation system. Departure Departure Impression: Primary Impression: Acute upper GI bleed Disposition: ADMITTED INPT THIS HOSP Admitting Physician: Brennan Chowdhury Condition: STABLE Referrals: JAKOB GALLEGOS MD (PCP) SOBEIDA MEDEL DO Jun 07, 2020 11:09
[2020-06-07 13:55] VITALS: BP 138/65
--- NOTE | 2020-06-07 17:25 | PDOC2 ---
CONSULT Date of Consult Date of Consult DATE: 06/07/20 TIME: 17:20 Reason for Consult Reason for Consult: Coffee-ground emesis History of Present Illness Reason for Visit: This is an 89-year-old female who I know from previous evaluations. I saw her back in 2018 with similar complaints of coffee-ground emesis. Today she describes onset this morning after awakening of vomiting of coffee-ground's a ssociated with some abdominal pain. That has gradually improved. She does describe since then some melena today all of which is new. Yesterday she denied any abdominal pain, nausea or melena symptoms. She has had several bouts of diverticulitis and was admitted to the hospital last year for those complaints. However this is the first significant episode of coffee-ground emesis since her admission in 2018. At that time she had an upper endoscopy revealing a very large hiatal hernia with associated Augusto ulcers as the likely source for her bleeding. There was no evidence for portal hypertension at that time. She responded to conservative management. She states now that she has been on pantoprazole for many years. She denies any use of NSAIDs or aspirin. She takes Tylenol primarily for pain. She denies any recent changes in her medications or diet. She was admitted because of the hematemesis and anemia. She denies any left lower quadrant pain or any other symptoms suggestive of diverticulitis. Past Medical History Cardiovascular: AFIB, CAD, CHF, HTN, Other Pulmonary: No pertinent hx CENTRAL NERVOUS SYSTEM: Periperal neuropathy GI: Diverticulosis, GERD, Peptic Ulcer disease, Other Heme/Onc: No pertinent hx Hepatobiliary: No pertinent hx Psych: Anxiety, Depression Musculoskeletal: Osteoarthritis Rheumatologic: No pertinent hx Infectious disease: No pertinent hx Renal/: No pertinent hx Endocrine: No pertinent hx Past Surgical History Past Surgical History: Pacemaker, Cholecystectomy, Cataract Removal, Total knee replacement, Hysterectomy Family History Family History: Hypertension Social History ALCOHOL: none Drugs: None Lives: with Family Domestic Violence: Neg Current Problem List Problem List Problems Medical Problems: (1) Acute upper GI bleed Status: Acute Current Medications Current Medications Current Medications Pantoprazole Sodium (PROTONIX VIAL for IV PUSH) 40 mg 1X ONCE IVP Last administered on 06/07/20at 10:51; Start 06/07/20 at 10:30; Stop 06/07/20 at 10:33; Status DC Sodium Chloride 1,000 ml @ 75 mls/hr [id number] IV Last administered on 06/07/20at 10:52; Start 06/07/20 at 10:45; Stop 06/08/20 at 10:44 Pantoprazole Sodium (PROTONIX VIAL for IV PUSH) 40 mg BID IVP ; Start 06/07/20 at 21:00 Active Scripts Active Reported Alprazolam 0.5 Mg Tablet 0.5 Mg PO PRN BID PRN Wellbutrin Xl (Bupropion Hcl) 150 Mg Tab.er.24h 1 Tab PO DAILY Cartia Xt (Diltiazem Hcl) 240 Mg Cap.er.24h 1 Cap PO DAILY 30 Days Losartan Potassium 50 Mg Tablet 25 Mg PO DAILY Vitamin D3 (Cholecalciferol (Vitamin D3)) 1,000 Unit Tablet 1,000 Unit PO DAILY Protonix (Pantoprazole Sodium) 40 Mg Tablet.dr 40 Mg PO DAILY Tylenol (Acetaminophen) 325 Mg Tablet 650 Mg PO PRN Q6HRS PRN as needed Citalopram Hbr (Citalopram Hydrobromide) 20 Mg Tablet 20 Mg PO DAILY Allergies Allergies: Coded Allergies: No Known Drug Allergies (Unverified , 07/11/17) Physical Exam General: Oriented X3, Cooperative HEENT: Atraumatic Lungs: Clear to auscultation Heart: Normal S1, Normal S2 Abdomen: Soft, No tenderness, No hepatosplenomegaly, No masses Extremities: No clubbing Skin: No rashes Neuro: Normal speech Psych/Mental Status: Mental status NL Vitals VITALS Vital Signs Date Time Temp Pulse Resp B/P (MAP) Pulse Ox O2 Delivery O2 Flow Rate FiO2 06/07/20 15:23 Room Air 06/07/20 13:55 98.3 88 18 138/65 (89) 95 98.3 Labs Labs Laboratory Tests Test 06/07/20 09:20 06/07/20 09:50 White Blood Count 13.9 x10^3/uL (4.0-11.0) Red Blood Count 3.91 x10^6/uL (3.50-5.40) Hemoglobin 9.9 g/dL (12.0-15.5) Hematocrit 31.5 % (36.0-47.0) Mean Corpuscular Volume 81 fL (79-100) Mean Corpuscular Hemoglobin 25 pg (25-35) Mean Corpuscular Hemoglobin Concent 31 g/dL (31-37) Red Cell Distribution Width 17.3 % (11.5-14.5) Platelet Count 283 x10^3/uL (140-400) Neutrophils (%) (Auto) 60 % (31-73) Lymphocytes (%) (Auto) 31 % (24-48) Monocytes (%) (Auto) 6 % (0-9) Eosinophils (%) (Auto) 2 % (0-3) Basophils (%) (Auto) 1 % (0-3) Neutrophils # (Auto) 8.3 x10^3/uL (1.8-7.7) Lymphocytes # (Auto) 4.4 x10^3/uL (1.0-4.8) Monocytes # (Auto) 0.8 x10^3/uL (0.0-1.1) Eosinophils # (Auto) 0.3 x10^3/uL (0.0-0.7) Basophils # (Auto) 0.2 x10^3/uL (0.0-0.2) Prothrombin Time 13.7 SEC (11.7-14.0) Prothromb Time International Ratio 1.1 (0.8-1.1) Activated Partial Thromboplast Time 26 SEC (24-38) Sodium Level 142 mmol/L (136-145) Potassium Level 4.5 mmol/L (3.5-5.1) Chloride Level 104 mmol/L (98-107) Carbon Dioxide Level 24 mmol/L (21-32) Anion Gap 14 (6-14) Blood Urea Nitrogen 55 mg/dL (7-20) Creatinine 1.3 mg/dL (0.6-1.0) Estimated GFR (Cockcroft-Gault) 38.7 BUN/Creatinine Ratio 42 (6-20) Glucose Level 160 mg/dL (70-99) Calcium Level 9.0 mg/dL (8.5-10.1) Total Bilirubin 0.3 mg/dL (0.2-1.0) Aspartate Amino Transf (AST/SGOT) 14 U/L (15-37) Alanine Aminotransferase (ALT/SGPT) 22 U/L (14-59) Alkaline Phosphatase 84 U/L (46-116) Total Protein 6.1 g/dL (6.4-8.2) Albumin 3.0 g/dL (3.4-5.0) Albumin/Globulin Ratio 1.0 (1.0-1.7) Troponin I Quantitative < 0.017 ng/mL (0.000-0.055) CG-Mxh-Q-Type Natriuretic Peptide 210 pg/mL (0-449) Laboratory Tests Test 06/07/20 09:20 06/07/20 09:50 White Blood Count 13.9 x10^3/uL (4.0-11.0) Red Blood Count 3.91 x10^6/uL (3.50-5.40) Hemoglobin 9.9 g/dL (12.0-15.5) Hematocrit 31.5 % (36.0-47.0) Mean Corpuscular Volume 81 fL (79-100) Mean Corpuscular Hemoglobin 25 pg (25-35) Mean Corpuscular Hemoglobin Concent 31 g/dL (31-37) Red Cell Distribution Width 17.3 % (11.5-14.5) Platelet Count 283 x10^3/uL (140-400) Neutrophils (%) (Auto) 60 % (31-73) Lymphocytes (%) (Auto) 31 % (24-48) Monocytes (%) (Auto) 6 % (0-9) Eosinophils (%) (Auto) 2 % (0-3) Basophils (%) (Auto) 1 % (0-3) Neutrophils # (Auto) 8.3 x10^3/uL (1.8-7.7) Lymphocytes # (Auto) 4.4 x10^3/uL (1.0-4.8) Monocytes # (Auto) 0.8 x10^3/uL (0.0-1.1) Eosinophils # (Auto) 0.3 x10^3/uL (0.0-0.7) Basophils # (Auto) 0.2 x10^3/uL (0.0-0.2) Prothrombin Time 13.7 SEC (11.7-14.0) Prothromb Time International Ratio 1.1 (0.8-1.1) Activated Partial Thromboplast Time 26 SEC (24-38) Sodium Level 142 mmol/L (136-145) Potassium Level 4.5 mmol/L (3.5-5.1) Chloride Level 104 mmol/L (98-107) Carbon Dioxide Level 24 mmol/L (21-32) Anion Gap 14 (6-14) Blood Urea Nitrogen 55 mg/dL (7-20) Creatinine 1.3 mg/dL (0.6-1.0) Estimated GFR (Cockcroft-Gault) 38.7 BUN/Creatinine Ratio 42 (6-20) Glucose Level 160 mg/dL (70-99) Calcium Level 9.0 mg/dL (8.5-10.1) Total Bilirubin 0.3 mg/dL (0.2-1.0) Aspartate Amino Transf (AST/SGOT) 14 U/L (15-37) Alanine Aminotransferase (ALT/SGPT) 22 U/L (14-59) Alkaline Phosphatase 84 U/L (46-116) Total Protein 6.1 g/dL (6.4-8.2) Albumin 3.0 g/dL (3.4-5.0) Albumin/Globulin Ratio 1.0 (1.0-1.7) Troponin I Quantitative < 0.017 ng/mL (0.000-0.055) JA-Xug-V-Type Natriuretic Peptide 210 pg/mL (0-449) Assessment/Plan Assessment/Plan Coffee-ground emesis this morning. New onset followed by some melena. Fortunately at this point her hemoglobin is stable. She denies any further vomiting since this morning. We know from her EGD in 2018 that she has a large hiatal hernia with associated Augusto ulcers and presented in a similar fashion at that time. Since she does not take blood thinners or NSAIDs, if she remains stable, no further endoscopic evaluation is needed for diagnostic purposes. However if she develops further bleeding it may be appropriate from a therapeutic point of view. In the meantime the addition of Carafate slurry, continued Protonix IV. Close clinical monitoring. She can have some ice chips and sips of water today as long as tolerated. We will hold on diet until reevaluated tomorrow. NAZ CASTRO MD Jun 07, 2020 17:25
[2020-06-07 19:00] VITALS: BP 155/88
[2020-06-07] MEDS ORDERED: PANTOPRAZOLE IV PUSH 40 MG VIAL. IVP SCH (21:00)
[2020-06-07] MEDS: ALPRAZolam 0.5 MG TABLET PO PRN (21:03)
[2020-06-07] MEDS: LOSARTAN POTASSIUM 50 MG TABLET. PO SCH (21:04)
[2020-06-07] MEDS: buPROPion XL 150 MG TAB.ER.24H. PO SCH (21:05)
[2020-06-07] MEDS: CITALOPRAM 20 MG TABLET. PO SCH (21:05)
[2020-06-07] MEDS: SUCRALFATE 1 GM/10 ML ORAL.SUSP. PO SCH (21:08)
[2020-06-07] MEDS: PANTOPRAZOLE 40 MG TABLET.DR. PO SCH (21:08)
[2020-06-07] MEDS: ACETAMINOPHEN 325 MG TABLET. PO PRN (21:08)
[2020-06-07 23:00] VITALS: BP 110/50
[2020-06-08 03:00] VITALS: BP 125/55
[2020-06-08 04:05] LABS: HEMATOCRIT 23.6 % (36.0-47.0); HEMOGLOBIN 7.6 g/dL (12.0-15.5); RED BLOOD COUNT 2.93 x10^6/uL (3.50-5.40); RED CELL DISTRIBUTION WIDTH 17.3 % (11.5-14.5); WHITE BLOOD COUNT 8.6 x10^3/uL (4.0-11.0)
[2020-06-08 07:00] VITALS: BP 117/72
[2020-06-08] MEDS: SUCRALFATE 1 GM/10 ML ORAL.SUSP. PO SCH ×3 (07:37→21:07)
[2020-06-08] MEDS: CHOLECALCIFEROL (VITAMIN D3) 1,000 UNIT TABLET PO SCH (08:34)
[2020-06-08] MEDS: buPROPion XL 150 MG TAB.ER.24H. PO SCH (08:35)
[2020-06-08] MEDS: CITALOPRAM 20 MG TABLET. PO SCH (08:35)
[2020-06-08] MEDS: LOSARTAN POTASSIUM 50 MG TABLET. PO SCH (08:35)
--- NOTE | 2020-06-08 09:30 | PDOC ---
Provider Note Date of Service: DATE: 06/08/20 TIME: 09:27 Provider Note [id number] Justifications for Admission Other Justification LUCIO RILEY MD Jun 08, 2020 09:30
--- NOTE | 2020-06-08 09:43 | HP ---
ADMIT DATE: 06/08/2020 CHIEF COMPLAINT: Vomiting blood. HISTORY OF PRESENT ILLNESS: An 89-year-old white female who has multiple chronic medical problems including hypertension, weakness and previous duodenal ulcers. She has had no problem with melena or any problems except for the last 2 weeks, she has noticed some mild dysphagia. There has not been heartburn, emesis, weight loss or any other symptoms until she threw up bright red blood on the morning of admission. She has noted some black stool since then and has had no further emesis. Her hemoglobin was stable and she was monitored overnight and now is down to 7.6. Her vital signs are stable. PAST MEDICAL HISTORY: Well documented in the old record. ALLERGIES: No allergies. She is on no omeprazole or Carafate. Takes no NSAID meds. SOCIAL HISTORY: . Lives with family. Nonsmoker, nondrinker. FAMILY HISTORY: Unremarkable. REVIEW OF SYSTEMS: Unremarkable. OBJECTIVE: ENT: Moderate pallor, otherwise within normal limits. NECK: No masses, nodes or bruits. LUNGS: Clear. CARDIOVASCULAR: Regular rate without tachycardia. There is a grade 2 systolic flow murmur consistent with anemia. ABDOMEN: Mildly tender in the epigastrium. No masses are felt. EXTREMITIES: Nailbeds are pale, otherwise unremarkable. Good pedal pulses. NEUROLOGIC: Physiologic, nonfocal. IMPRESSION: Acute upper gastrointestinal bleed with 2-week history of mild dysphagia. She has some gastritis or esophagitis present. PLAN: We will continue Carafate and Protonix as ordered. Monitor without endoscopy. At this time, she remains a DNR. We will let her have her bland diet and follow daily hemoglobin. LUCIO RILEY MD DR: GEETA/jenni JOB#: [id number] / [id number]
[2020-06-08 11:10] VITALS: BP 81/51
[2020-06-08] MEDS: ACETAMINOPHEN 325 MG TABLET. PO PRN ×2 (13:31→21:10)
--- NOTE | 2020-06-08 14:03 | PDOC ---
GI PROGRESS NOTES Date of Service: Date/Time DATE: 06/08/20 TIME: 14:01 Subjective Subjective Is weak but denies any abdominal pain or further hematemesis. Does have some melena. Describes regurgitation of her breakfast this morning but without blood Objective Vitals Vital Signs Date Time Temp Pulse Resp B/P (MAP) Pulse Ox O2 Delivery O2 Flow Rate FiO2 06/08/20 11:10 98.0 78 20 81/51 (61) 95 Room Air 98.0 06/08/20 08:35 68 117/72 06/08/20 08:34 68 117/72 06/08/20 07:30 Room Air 06/08/20 07:00 97.4 68 20 117/72 (87) 94 Room Air 97.4 06/08/20 03:00 98.4 72 20 125/55 (78) 99 Room Air 98.4 06/07/20 23:00 99.0 82 20 110/50 (70) 91 Room Air 99.0 06/07/20 21:05 90 155/88 06/07/20 21:04 90 155/88 06/07/20 20:10 Room Air 06/07/20 19:00 98.8 90 20 155/88 (110) 95 Room Air 98.8 06/07/20 15:23 Room Air Labs Labs Laboratory Tests Test 06/08/20 03:30 White Blood Count 8.6 x10^3/uL (4.0-11.0) Red Blood Count 2.93 x10^6/uL (3.50-5.40) Hemoglobin 7.6 g/dL (12.0-15.5) Hematocrit 23.6 % (36.0-47.0) Mean Corpuscular Volume 80 fL (79-100) Mean Corpuscular Hemoglobin 26 pg (25-35) Mean Corpuscular Hemoglobin Concent 32 g/dL (31-37) Red Cell Distribution Width 17.3 % (11.5-14.5) Platelet Count 210 x10^3/uL (140-400) Physical Exam Physical Exam Alert Chest clear Abdomen soft nontender Assessment Assessment Hematemesis with melena. Most likely related to prior hiatal hernia with Augusto ulcers although a new ulcer cannot be excluded. Clinically stable at this point but has had a drop in hemoglobin which reflects her bleeding from the other day and suggest that her baseline hemoglobin was low before she started this episode of bleeding. Plan Plan Soft or liquid diet PPI and Carafate IV iron sucrose Monitor hemoglobin. Will defer to Dr. Chowdhury for any potential transfusion if her hemoglobin drops further Justicifation of Admission Dx: Justifications for Admission: Justification of Admission Dx: Yes NAZ CASTRO MD Jun 08, 2020 14:03
[2020-06-08] MEDS ORDERED: IRON SUCROSE COMPLEX 200 MG in IV NORMAL SALINE 100ML 100 ML IV ONE (15:00)
[2020-06-08 15:12] VITALS: BP 105/50
[2020-06-08 19:54] VITALS: BP 129/55
[2020-06-08] MEDS: ALPRAZolam 0.5 MG TABLET PO PRN (21:07)
[2020-06-08] MEDS: PANTOPRAZOLE 40 MG TABLET.DR. PO SCH (21:07)
[2020-06-08 22:48] VITALS: BP 110/62
[2020-06-08 23:13] LABS: RED BLOOD COUNT 2.58 x10^6/uL (3.50-5.40); RED CELL DISTRIBUTION WIDTH 17.5 % (11.5-14.5); WHITE BLOOD COUNT 8.6 x10^3/uL (4.0-11.0)
[2020-06-08 23:21] LABS: HEMOGLOBIN 6.8 g/dL (12.0-15.5)
[2020-06-08 23:22] LABS: HEMATOCRIT 20.8 % (36.0-47.0)
--- NOTE | 2020-06-08 23:29 | NUR ---
Lab called @ 2320 w/ a critical Hgb-6.8 and Hct-20.8. Notified @ 5613 and gave NNO. Will wait to see what the AM labs are.
[2020-06-09] VITALS (9 sets, daily range): BP systolic 115–150; BP diastolic 45–72
[2020-06-09 07:34] LABS: HEMATOCRIT 21.5 % (36.0-47.0); RED BLOOD COUNT 2.66 x10^6/uL (3.50-5.40); RED CELL DISTRIBUTION WIDTH 17.3 % (11.5-14.5); WHITE BLOOD COUNT 6.9 x10^3/uL (4.0-11.0)
[2020-06-09 07:59] LABS: HEMOGLOBIN 6.9 g/dL (12.0-15.5)
--- NOTE | 2020-06-09 08:19 | PDOC ---
Provider Note Date of Service: DATE: 06/09/20 TIME: 08:07 Provider Note still weak, vss, bp ok, hb same at 6.9- no more heme seen, some expected melna- will give another dose iv iron, recheck hb, no egd needed as of now- Justifications for Admission Other Justification LUCIO RILEY MD Jun 09, 2020 08:19
[2020-06-09] MEDS: CHOLECALCIFEROL (VITAMIN D3) 1,000 UNIT TABLET PO SCH (09:01)
[2020-06-09] MEDS: CITALOPRAM 20 MG TABLET. PO SCH (09:02)
[2020-06-09] MEDS: buPROPion XL 150 MG TAB.ER.24H. PO SCH (09:02)
[2020-06-09] MEDS: SUCRALFATE 1 GM/10 ML ORAL.SUSP. PO SCH ×3 (09:02→16:18)
[2020-06-09] MEDS ORDERED: IRON SUCROSE COMPLEX 500 MG in IV NORMAL SALINE 250ML 250 ML IV ONE (10:00)
--- NOTE | 2020-06-09 10:06 | PDOC ---
Date of Service: DATE: 06/09/20 TIME: 09:55 Subjective: Subjective: Feels weak and a bit breathless. Looking forward to having her hair washed. Tolerated breakfast (bland diet) but now maybe no nausea. No bleeding. Objective: Objective: Reviewed primary note - plans for more iron. Past workup: H/o GERD, presbyesophagus and Schatzki's ring, large hiatal hernia w/ Augusto lesions (has declined surgery in the past), and diverticulitis. CT 03/2020: extensive colonic diverticulosis, large hiatal hernia. CT 01/2020: acute sigmoid diverticulitis, hiatal hernia of the upper stomach. CT 12/2019: acute diverticulitis with no diverticular abscess of the descending colon, giant hiatal hernia unchanged CT 06/2019: extensive diverticulosis, descending colon diverticulitis. CT 12/2017: wall thickening of the mid to distal sigmoid colon w/ associated pericolonic inflammatory change and mild nonorganized extraluminal fluid, extensive diverticulosis. CT 06/2017: moderate hiatal hernia, diffuse diverticulosis. EGD 06/[address] Contreras for coffee-ground emesis: normal esophagus w/ some tortuosity, medium hiatal hernia w/ Augusto lesions, normal antrum, normal duodenum. CT 11/2016: large sliding hiatal hernia, diverticulosis. EGD 11/[address] Polanco: hiatal hernia, Schatzki's ring, non-erosive gastritis. UGI 11/2016: large hiatal hernia, presbyesophagus, smooth narrowing @ GEJ, Zenker's diverticulum. EGD 10/[address] Polanco: Schatzki's ring dilated to 54Fr, hiatal hernia w/ Augusto lesions. Colonoscopy 2004: diverticulosis. H/o anemia. S/p cholecystectomy. No liver or pancreas history. Vital Signs: Vital Signs Date Time Temp Pulse Resp B/P (MAP) Pulse Ox O2 Delivery O2 Flow Rate FiO2 06/09/20 09:02 69 125/61 06/09/20 07:00 97.7 18 93 Room Air 97.7 Labs: Laboratory Tests Test 06/08/20 23:00 06/09/20 06:20 White Blood Count 8.6 x10^3/uL 6.9 x10^3/uL Red Blood Count 2.58 x10^6/uL 2.66 x10^6/uL Hemoglobin 6.8 g/dL 6.9 g/dL Hematocrit 20.8 % 21.5 % Mean Corpuscular Volume 80 fL 81 fL Mean Corpuscular Hemoglobin 26 pg 26 pg Mean Corpuscular Hemoglobin Concent 33 g/dL 32 g/dL Red Cell Distribution Width 17.5 % 17.3 % Platelet Count 204 x10^3/uL 213 x10^3/uL Imaging: AAS 06/07 IMPRESSION: 1. Pulmonary fibrosis, no acute infiltrates. 2. Hiatus hernia. 3. No bowel obstruction or acute finding in the abdomen. PE: GEN: looks a bit uncomfortable - holding emesis bucket, eyes closed, taking deep breaths LUNGS: clear anteriorly HEART: RRR ABD: NABS, S/ND/NT NEURO/PSYCH: A & O 3 A/P: SOA, weakness Hematemesis and melena - no recurrence Chronic anemia - iron studies normal and B12 low-normal in 12/2019 - Hgb lower than baseline H/o GERD, presbyesophagus, h/o Schatzki's ring, large hiatal hernia w/ Augusto lesions - on PPI and Carafate CRC screen - 2003 H/o recurrent diverticulitis S/p cholecystectomy -- No recurrent bleeding but not feeling well this morning. Plans for more IV iron. Hgb 6.9 - will give 1 unit Banner. Monitor Hgb. Justicifation of Admission Dx: Justifications for Admission: Justification of Admission Dx: Yes EDWIN BARROW Jun 09, 2020 10:05
--- NOTE | 2020-06-09 10:13 | NUR ---
SW following. Discussed with RN, pt from home with daughter, room air, bland diet. Pt gets around SBA, getting blood today. RN advised no SW needs at this time, and anticipates pt will discharge home tomorrow (06/10/20). Pt's daughter is an RN. SW will continue to follow.
--- NOTE | 2020-06-09 12:00 | EKG ---
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
--- NOTE | 2020-06-09 16:50 | EKG ---
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
[2020-06-09] MEDS: ACETAMINOPHEN 325 MG TABLET. PO PRN ×2 (18:13→21:07)
[2020-06-09] MEDS ORDERED: HYDROcodone/APAP 5/325MG 1 TAB TABLET PO PRN (19:00)
[2020-06-09] MEDS: ALPRAZolam 0.5 MG TABLET PO PRN (21:07)
[2020-06-09] MEDS: PANTOPRAZOLE 40 MG TABLET.DR. PO SCH (21:07)
[2020-06-10 03:00] VITALS: BP 125/45
[2020-06-10 07:00] VITALS: BP 143/60
--- NOTE | 2020-06-10 08:19 | PDOC ---
Provider Note Date of Service: DATE: 06/10/20 TIME: 08:18 Provider Note [id number] Justifications for Admission Other Justification LUCIO RILEY MD Jun 10, 2020 08:19
--- NOTE | 2020-06-10 08:31 | DS ---
DATE OF DISCHARGE: 06/10/2020 HOSPITAL SUMMARY: An 89-year-old white female with chronic medical problems, had abrupt onset of hematemesis x 1 after about 2-week history of some dysphagia. There was no fainting, melena or any use of aspirin or other meds. Hemoglobin on admission was 9.9, went to a malik of 6.8 and today's unit measurement is pending after transfusion and two doses of IV iron. Chemistry profile unremarkable except for elevated BUN of 55 consistent with GI bleeding. Troponin was negative x 2. INR was normal. Abdominal series unremarkable. She received IV and oral Protonix along with Carafate was added and she did receive 2 doses of IV iron, totaling 700 mg and also a unit of packed red blood cells. She will be discharged later today if her hemoglobin is greater than 7.5. She has had no further bleeding and is tolerating a regular diet. FINAL DIAGNOSES: 1. Acute upper gastrointestinal bleed, likely secondary to distal esophagitis and hiatal hernia. 2. Iron deficiency anemia from gastrointestinal bleeding. 3. Prerenal azotemia from gastrointestinal bleeding. OPERATIONS, PROCEDURES, COMPLICATIONS: None. CONSULTATIONS: Dr. Contreras. DISPOSITION: She will add Carafate 1 gram t.i.d. dissolved to her oral Protonix and rest of meds the same. Complete avoidance of aspirin and NSAID meds as she is doing now. Activity as tolerated. We will follow in the office periodically and readmitted if she has further active bleeding. She is a DNR patient. LUCIO RILEY MD DR: GEETA/jenni JOB#: [id number] / [id number]
[2020-06-10 09:35] LABS: HEMATOCRIT 30.4 % (36.0-47.0); HEMOGLOBIN 9.7 g/dL (12.0-15.5); RED BLOOD COUNT 3.59 x10^6/uL (3.50-5.40); WHITE BLOOD COUNT 7.8 x10^3/uL (4.0-11.0)
--- NOTE | 2020-06-10 09:49 | PDOC ---
Date of Service: DATE: 06/10/20 TIME: 09:47 Subjective: Subjective: Feeling a bit better - tolerating diet, enjoyed pancakes for breakfast. Gets to go home today. Denies bleeding. Objective: Vital Signs: Vital Signs Date Time Temp Pulse Resp B/P (MAP) Pulse Ox O2 Delivery O2 Flow Rate FiO2 06/10/20 07:00 98.1 65 18 143/60 (87) 93 98.1 06/09/20 19:30 Room Air Labs: Laboratory Tests Test 06/09/20 16:58 06/10/20 09:10 Troponin I Quantitative < 0.017 ng/mL White Blood Count 7.8 x10^3/uL Red Blood Count 3.59 x10^6/uL Hemoglobin 9.7 g/dL Hematocrit 30.4 % Mean Corpuscular Volume 85 fL Mean Corpuscular Hemoglobin 27 pg Mean Corpuscular Hemoglobin Concent 32 g/dL Red Cell Distribution Width 18.0 % Platelet Count 226 x10^3/uL PE: GEN: NAD - looks better than yesterday LUNGS: CTAB HEART: RRR ABD: NABS, S/ND/NT NEURO/PSYCH: A & O 3 A/P: SOA, weakness - better Hematemesis and melena - resolved Chronic anemia - improved w/ pRBCs and iron H/o GERD and large hiatal hernia w/ Augusto lesions - on PPI and Carafate -- DC per primary, continue PPI and Carafate. Justicifation of Admission Dx: Justifications for Admission: Justification of Admission Dx: Yes EDWIN BARROW Jun 10, 2020 09:49
[2020-06-10] MEDS: CITALOPRAM 20 MG TABLET. PO SCH (10:05)
[2020-06-10] MEDS: buPROPion XL 150 MG TAB.ER.24H. PO SCH (10:05)
[2020-06-10] MEDS: SUCRALFATE 1 GM/10 ML ORAL.SUSP. PO SCH ×2 (10:05→12:59)
[2020-06-10] MEDS: CHOLECALCIFEROL (VITAMIN D3) 1,000 UNIT TABLET PO SCH (10:05)
[2020-06-10 10:20] VITALS: BP 117/44
--- NOTE | 2020-06-10 14:14 | NUR ---
MANJEET following for discharge planning. Spoke with RN and reviewed chart. Pt to discharge home today, self-care. No further SW needs at this time. Addendum: 06/10/20 at 1624 by SIDRA BURROUGHS RN notified that pt would like on discharge. MANJEET met with pt and pt's daughter who are requesting PT/RN from [facility]. MANJEET obtained orders and faxed them to [facility]. Pt choice of vendor form completed. Pt to discharge home today. Addendum: 06/10/20 at 1658 by SIDRA BURROUGHS Copy of discharge orders on chart. [facility] for [facility] admissions to check on status of start date. Addendum: 06/11/20 at 1557 by SIDRA BURROUGHS Confirmed with Kylie fierro [facility] that orders were received at start of care is 06/12. No further SW needs at this time.
[2020-06-10 15:00] VITALS: BP 156/62
--- NOTE | 2020-06-10 16:30 | NUR ---
pt discharged home with family and [facility] home health. meds and follow up reviewed. IV removed, cath intact. pt stabel upon dc.
[2020-08-12] MEDS ORDERED: DOCU-109 PO (12:28)
== END 2020-06-10 16:00 | disposition home health service (06) | DRG 370 ==
LOC: ER 08:49 → 5 NORTH 10:34
PROVIDERS: ADMIT Family Medicine; ATTEND Family Medicine
PROC: 30233N1 Transfusion of Nonautologous Red Blood Cells into Peripheral Vein, Percutaneous Approach (ICD-10-PCS; principal; 2020-06-09)
DX: K21.01 Gastro-esophageal reflux disease with esophagitis, with bleeding (principal); K44.9 Diaphragmatic hernia without obstruction or gangrene; R13.10 Dysphagia, unspecified; K29.70 Gastritis, unspecified, without bleeding; J84.10 Pulmonary fibrosis, unspecified; D50.0 Iron deficiency anemia secondary to blood loss (chronic); E78.00 Pure hypercholesterolemia, unspecified; I11.0 Hypertensive heart disease with heart failure; I25.10 Atherosclerotic heart disease of native coronary artery without angina pectoris; I48.91 Unspecified atrial fibrillation; I50.9 Heart failure, unspecified; M41.9 Scoliosis, unspecified; M51.36 Other intervertebral disc degeneration, lumbar region; Z66 Do not resuscitate; Z96.659 Presence of unspecified artificial knee joint; F32.9 Major depressive disorder, single episode, unspecified; F41.9 Anxiety disorder, unspecified; G62.9 Polyneuropathy, unspecified; M19.90 Unspecified osteoarthritis, unspecified site; Z82.49 Family history of ischemic heart disease and other diseases of the circulatory system; Z87.11 Personal history of peptic ulcer disease; Z90.49 Acquired absence of other specified parts of digestive tract; Z90.710 Acquired absence of both cervix and uterus; Z87.01 Personal history of pneumonia (recurrent); Z79.899 Other long term (current) drug therapy
CPT/HCPCS: 36415; 74022; 80053; 83880; 84484; 85025; 85027; 85610; 85730; 86850; 86870; 86900; 86901; 86922; 93005; 96374; C9113; J1756; J7030; J7050; P9016; 97530-GP; 97535-GO; 99285-25; G0378

== ENCOUNTER → 2020-06-26 | Outpatient (CLI) | payer MEDICARE ==
[2020-06-10 15:00] VITALS: BP 156/62
--- NOTE | 2020-06-26 10:42 | CARD ---
MR#: [id number] Date of Study: 06/26/2020 Ordering Physician: HARDY NORRIS, Referring Physician: HARDY NORRIS Tech: Xiomara Shankar ROGE APPROVED REPORT EXAM: Two-dimensional and M-mode echocardiogram with Doppler and color Doppler. Other Information Quality : Good INDICATION Cardiac Disease: CAD Pacemaker 2D DIMENSIONS RVDd3.2 (2.9-3.5cm)Left Atrium(2D)3.2 (1.6-4.0cm) IVSd1.0 (0.7-1.1cm)Aortic Root(2D)2.8 (2.0-3.7cm) LVDd4.1 (3.9-5.9cm)LVOT Diameter2.0 (1.8-2.4cm) PWd1.0 (0.7-1.1cm)LVDs2.6 (2.5-4.0cm) FS (%) 36.8 %SV51.2 ml LVEF(%)67.1 (>50%) Aortic Valve AoV Peak Matias.184.1cm/sAoV VTI36.9cm AO Peak GR.13.6mmHgLVOT Peak Matias.112.1cm/s LVOT VTI 24.80cmAO Mean GR.7mmHg RENZO (VMAX)1.95nc3TIQ (VTI)2.13cm2 AI P 1/2 Gbkw999jw Mitral Valve MV E Ykosxmaj43.3cm/sMV DECEL [id number] MV A Adxcshlc24.1cm/sMV MLV36fo E/A Ratio0.6MVA (PHT)2.88cm2 TDI E/Lateral E'12.8E/Medial E'15.3 Tricuspid Valve TR P. Mfjxnogb123nh/sRAP WSYUSCTM4zdAv TR Peak Gr.55ueEkMMLL27szCn Pulmonary Vein S1 Ctqvhvjx91.3cm/sD2 Kanfnsjt07.9cm/s LEFT VENTRICLE The left ventricle is normal size. There is normal left ventricular wall thickness. The left ventricu lar systolic function is normal and the ejection fraction is within normal range. The Ejection Fracti on is 60-65%. There is normal LV segmental wall motion. Transmitral Doppler flow pattern is Grade I-a bnormal relaxation pattern. RIGHT VENTRICLE The right ventricle is normal size. The right ventricular systolic function is normal. There is a pac emaker lead in the right ventricle. ATRIA The left atrium size is normal. The right atrium size is normal. The interatrial septum is intact wit h no evidence for an atrial septal defect or patent foramen ovale as noted on 2-D or Doppler imaging. AORTIC VALVE The aortic valve is calcified but opens well. Doppler and Color Flow revealed mild aortic regurgitati on. There is no significant aortic valvular stenosis. MITRAL VALVE The mitral valve is calcified but opens well. Mitral annular calcification is mild. There is no evide nce of mitral valve prolapse. There is no mitral valve stenosis. Doppler and Color-flow revealed trac e mitral regurgitation. TRICUSPID VALVE The tricuspid valve is normal in structure and function. Doppler and Color Flow revealed mild tricusp id regurgitation.There is moderate pulmonary hypertension.The PA pressure was estimated at 48 mmHg. T here is no tricuspid valve stenosis. PULMONIC VALVE Doppler and Color Flow revealed mild pulmonic valvular regurgitation. There is no pulmonic valvular s tenosis. GREAT VESSELS The aortic root is normal in size. The ascending aorta is normal in size. The IVC is normal in size a nd collapses >50% with inspiration. PERICARDIAL EFFUSION There is no evidence of significant pericardial effusion. Critical Notification Critical Value: No <Conclusion> The left ventricular systolic function is normal and the ejection fraction is within normal range. Th e Ejection Fraction is 60-65%. There is normal LV segmental wall motion. There is a pacemaker lead in the right ventricle. Doppler and Color Flow revealed mild aortic regurgitation. Doppler and Color Flow revealed mild tricuspid regurgitation.The PA pressure was estimated at 48 mmHg . Signed by : Alejandro Sinha, Electronically Approved : 06/26/2020 10:42:09
== END ==
LOC: ECHO 08:42
PROVIDERS: ATTEND Internal Medicine Cardiovascular Disease
DX: I08.8 Other rheumatic multiple valve diseases (principal); I25.10 Atherosclerotic heart disease of native coronary artery without angina pectoris; Z95.0 Presence of cardiac pacemaker
CPT/HCPCS: 93306

== ENCOUNTER → 2020-07-23 | Outpatient (CLI) | payer MEDICARE ==
[~2020-07-23] MED LIST changes: +REGADENOSON 0.4 MG/5 ML DISP.SYRIN. IV ONE
--- NOTE | 2020-07-23 15:17 | RAD ---
MR#: [id number] Date of Study: 07/23/2020 Ordering Physician: HARDY NORRIS, Referring Physician: KAT ASHLEY Tech: RT Savanna (R) (N) APPROVED REPORT Test Type: Pharmacological Stress Nurse/Tech: Derick Nielson RN Test Indications: CAD Cardiac History: HTN, PPM, Cardiac stents x3, See EMR. Medications: See EMR. Medical History: See EMR. Resting ECG: A-Paced Resting Heart Rate: 67 bpm Resting Blood Pressure: 130/60mmHg Pretest Chest Pain: No chest pain Nurse/Tech Notes Lungs clear except in RLL; crackles and wheezing ascultated in the right lower lobe. Heart tones regu lar. Consent: The procedure was explained to the patient in lay terms. Informed consent was witnessed. Travis eout was entered into inSparq. History and Stress Test performed by RT Thuy (R) (N) Pharm. Details Pharmacologic stress testing was performed using 0.4mg per 5ml of regadenoson given intravenously ove r 7-10 seconds. Stress Symptoms Dyspnea & Nausea. Pt had extreme anxiety during the test. Mrs. Hunt c/o 10 out of 10 chest pain throughout the test. No changes from baseline EKG noted and VSS. Pt would hyperventilate and when ask ed to slow her breathing and relax she would. The pt needed frequent cues to relax and slow her breat erik. Pt had a anxiety attack after the test @ 11:45 and became very worked up; warm blankets and co ffee given to pt to help reduce anxiety and comfort her. Pt explains she takes 3 anxiety meds and chuckie e and held them today. During this her bp was 127/60 and hr 76. Continued to monitor the Pt. until 12:28; bp 129/52, and hr 69. Pt was able to calm and relax herself. Pt was able to finish an ensure, cup of coffee, and a coke. POST EXERCISE Reason for Termination: Infusion complete Max HR: 99 bpm Max Blood Pressure: 141/53mmHg Blood Pressure response to exercise: Normal blood pressure response during stress. Heart Rate response to exercise: WNL Chest Pain: Yes. See Stress Symptoms Arrhythmia: No. ST Change: No. No changes from baseline EKG. INTERPRETATION Stress EKG Conclusion: Baseline EKG showed atrial paced rhythm. No ischemic changes at peak stress. No arrhythmias. Imaging Protocol IMAGE PROTOCOL: Rest Tc-99m/stress Tc-99m 1 day Rest: Stress: Viability: Radiopharm.Tc99m KmxkeridvLh59p Sestamibi Dose10.8mCi 31.6mCi Duration 13min. 13min. Img Date 07/23/2020 07/23/2020 Inj-Img Zgkt16hlv. 50min. Rest Admin Site:IV - Left AntecubitalAdministrator:Tha Leahy, RT (R)(N) Stress Admin Site: IV - Left AntecubitalAdministrator: Carmel Hinton, RT (R)(N) STRESS DATA End Diast. Vol.55.0mlLVEDV index BSA34.0ml End Syst. Vol.11.0mlLVESV index BSA7.0ml Myocardial Mass96.0gEject. Wgcmqvnj68.0% Stress Scores Regional WT0.00Summed WT2.00 Regional WM0.00Summed WM0.00 Study quality was good. Left Ventricular size was Normal at Rest and Stress. Lung uptake was . Left Ventricular ejection fraction is 88%. The rest and stress images show normal perfusion, normal contraction and thickening. LV Perf. Quant 17 Seg. SSS0.00 17 Seg. SRS1.00 17 Seg. SDS0.00 Stress Defect Extent (% LAD)0.00Rest Defect Extent (% LAD)0.00Rev. Defect Extent (% LAD)0.00 Stress Defect Extent (% LCX) 0.00Rest Defect Extent (% LCX)27.50Rev. Defect Extent (% LCX)0.00 Stress Defect Extent (% RCA)0.00Rest Defect Extent (% RCA)0.00Rev. Defect Extent (% RCA)0.00 Stress Defect Extent (% MIKE)0.00Rest Defect Extent (% MIKE)4.80Rev. Defect Extent (% MIKE)0.00 Conclusion 1. Regadenoson cardioisotope stress test did not show any evidence of ischemia or infarct. 2. Normal left ventricular systolic function with ejection fraction calculated at 88%. 3. Low risk for cardiac events. Signed by : Hardy Norris, Electronically Approved : 07/23/2020 15:16:54
== END ==
LOC: NM 09:45
PROVIDERS: ATTEND Internal Medicine Cardiovascular Disease
DX: I25.10 Atherosclerotic heart disease of native coronary artery without angina pectoris (principal); I10 Essential (primary) hypertension; Z95.5 Presence of coronary angioplasty implant and graft
CPT/HCPCS: 78452; 93017; A9500; J2785

== ENCOUNTER 2020-10-06 22:55 | Emergency (ER) | payer MEDICARE ==
[~2020-10-06] VITALS: Ht 157.5 cm; Wt 60.5 kg
[~2020-10-06 22:55] MED LIST changes: +DOCU-109 PO; -REGADENOSON 0.4 MG/5 ML DISP.SYRIN. IV ONE
--- NOTE | 2020-10-07 00:16 | RAD ---
EXAM: CT Chest and abdomen without IV contrast CLINICAL HISTORY: Reason: L sided blunt trauma / Spl. Instructions: / History: COMPARISON: 08/11/2020 03/04/2020 TECHNIQUE: Helical CT of the chest and abdomen was performed without intravenous contrast. Axial, co williams and sagittal reformatted images were generated. ---PQRS compliance statement - One or more of the following individualized dose reduction techniques were utilized for this study: 1. Automated exposure control 2. Adjustment of the mA and/or kV according to patient size 3. Use of iterative reconstruction technique--- FINDINGS: Lack of intravenous contrast limits evaluation of solid organs, vasculature, and lymph nodes. Chest: Thyroid is grossly unremarkable. 1.7 x 1.6 cm precarinal lymph node is seen. Additional prominent and borderline enlarged mediastinal lymph nodes are seen. Evaluation for hilar lymphadenopathy is limite d on this noncontrast examination. No axillary lymphadenopathy. Moderate hiatal hernia. Heart is not enlarged. Coronary calcifications are seen. Pacer leads are seen within the heart. Aortic root calcif ications are seen. No pleural effusion or pneumothorax. Emphysematous changes are seen. Interstitial prominence. Patchy groundglass opacities. Prominence of pulmonary arterial trunk may be seen with pulmonary arterial hypertension. Abdomen: Cholecystectomy clips are seen. No biliary ductal dilatation. Spleen, adrenal glands, liver and pancr eas are unremarkable. Left lower pole renal cyst. No renal tract calculus. No hydronephrosis. No prox imal hydroureter. Colonic diverticulosis without evidence for acute diverticulitis. Moderate colonic stool content. No small bowel dilatation. No abdominal lymphadenopathy. Trace ectasia of the infrarenal aorta. Small du odenal diverticulum. Bones: Marked osteopenia. No definite acute fractures identified within the constraints of osteopenia. No ag gressive osseous lesion. Multilevel degenerative changes are seen. Thoracolumbar scoliosis. IMPRESSION: 1. No CT evidence for acute thoracic lower abdominal trauma. 2. Mediastinal lymphadenopathy possibly reactive. 3. Moderate hiatal hernia. 4. Pulmonary artery trunk is prominent, likely from pulmonary arterial hypertension. Electronically signed by: Sekou Matta MD (10/07/2020 12:13 AM) [facility]
[2020-10-07] MEDS ORDERED: OXYC1TAB15 PO (00:53)
--- NOTE | 2020-10-07 00:53 | ED.ADGEN ---
Past Medical History Past Medical History: A-Fib, Arthritis, Depression, Diverticulitis, GERD, GI Bleed, High Cholesterol, Hypertension, Pneumonia, Other Additional Past Medical Histor: esophageal varices, GI bleedx2, HERNIA Past Surgical History: Angioplasty, Appendectomy, Cholecystectomy, Hysterectomy, Knee Replacement, Pacemaker Additional Past Surgical Histo: esophageal dilation,STENT PLACEMENT, CARDIAC C ATH IN JULY 2017 Smoking Status: Never Smoker Alcohol Use: None Drug Use: None General Adult EDM: Chief Complaint: MECHANICAL FALL HPI: HPI: Patient is an 89-year-old female who presents to the emergency room complaining of left-sided rib pain after a fall from standing. Patient has a history of falls and typically uses a walker. She was using her walker tonight but fell and wedged herself between a table and the sofa. She states that she has left lower rib pain that is worse with movement or breathing. She rates it a 5 out of 10 at this time. She has not tried to take anything for it. She states that she was unable to get up after her fall so her family called 911. Review of Systems: Review of Systems: Complete ROS is negative unless otherwise documented in HPI Current Medications: Current Medications Medications (Trade) Dose Ordered Sig/Mariajose Start Time Stop Time Status Last Admin Dose Admin Oxycodone/ Acetaminophen (Percocet 5/325) 1 tab 1X ONCE 10/07/20 01:30 10/07/20 01:31 10/07/20 01:16 1 TAB Allergies: Allergies: Allergies Coded Allergies Type Severity Reaction Last Updated Verified No Known Drug Allergies 07/11/17 No Physical Exam: PE: General: Awake, alert, NAD. Well Nourished, well hydrated. Cooperative HEENT: [Atraumatic], EOMI, PERRL, airway patent, moist oral mucosa, no nasal septal hematoma, no facial crepitus or deformity Neck: Supple, trachea midline,[no c-spine tenderness] Respiratory: CTA bilaterally, normal effort, no wheezing/crackles, no crepitus, left lower chest wall tenderness CV: RRR, no murmur, cap refill <2, 2+ bilateral radial/DP pulses GI: Soft, nondistended, nontender, no masses MSK: [No obvious deformities], pelvis stable and nontender Skin: Warm, dry, [intact] Neuro: A&O x3, speech NL, sensory and motor grossly intact, no focal deficits Psych: Normal affect, normal mood, not suicidal or homicidal Current Patient Data: Vital Signs: Vital Signs Date Time Temp Pulse Resp B/P (MAP) Pulse Ox O2 Delivery O2 Flow Rate FiO2 10/07/20 01:16 94 Room Air 10/06/20 23:00 98.0 79 18 185/81 (115) 98.0 EKG: EKG: [] Heart Score: C/O Chest Pain: N/A Risk Factors: Risk Factors: DM, Current or recent (<one month) smoker, HTN, HLP, family histo ry of CAD, obesity. Risk Scores: Score 0 - 3: 2.5% MACE over next 6 weeks - Discharge Home Score 4 - 6: 20.3% MACE over next 6 weeks - Admit for Clinical Observation Score 7 - 10: 72.7% MACE over next 6 weeks - Early Invasive Strategies Radiology/Procedures: Radiology/Procedures: [] Course & Med Decision Making: Course & Med Decision Making Pertinent Labs and Imaging studies reviewed. (See chart for details) Patient is an 89-year-old female who presents to the emergency room complaining of left lower chest wall tenderness after fall from standing. Patient is overall well-appearing. She did not hit her head or lose consciousness. She does not have any C-spine tenderness. CT chest and abdomen will be ordered to rule out any acute traumatic injury. Patient was initially offered pain medicat ion declined. She later did ask for pain medicine and was given Percocet. I discussed with patient the importance of taking deep breaths to prevent getting pneumonia. Patient likely has rib contusions. CT at this time is normal. Patient's test results and vitals while in the ED were fully reviewed and discussed with the patient. Patient is stable and at this time does not need admission to the hospital. We have discussed strict return precautions and the importance of following up with their Primary Care Physician. Patient stated understanding and was given an opportunity to ask any questions. Patient is in agreement with plan. Dragon Disclaimer: Dragon Disclaimer: This electronic medical record was generated, in whole or in part, using a voice recognition dictation system. Departure Departure Impression: Primary Impression: Fall Additional Impression: Rib contusion Disposition: HOME / SELF CARE / HOMELESS Condition: STABLE Referrals: JAKOB GALLEGOS MD (PCP) Patient Instructions: Rib Contusion Scripts Lidocaine (Lidocaine PATCH ) 1 Each Adh..patch 1 EACH TP DAILY for FOR LOCAL PAIN, #7 PATCH REMOVE AFTER 12 HOURS Prov: WON MCCAULEY MD 10/07/20 Oxycodone/Apap 5-325 (PERCOCET 5-325 MG TABLET ) 1 Each Tablet 1 TAB PO PRN Q6HRS PRN for PAIN, #12 TAB 0 Refills Prov: WON MCCAULEY MD 10/07/20 Problem Qualifiers WON MCCAULEY MD Oct 07, 2020 00:53
[2020-10-07] MEDS ORDERED: LIDO700A21 TP (00:55)
[2020-10-07 01:25] VITALS: BP 159/75
[2020-10-07] MEDS ORDERED: oxyCODONE/APAP 5/325 1 TAB TABLET PO ONE (01:30)
== END 2020-10-07 01:40 | disposition home or self-care (01) ==
LOC: ER 22:55
DX: S20.212A Contusion of left front wall of thorax, initial encounter (principal); I48.91 Unspecified atrial fibrillation; M19.90 Unspecified osteoarthritis, unspecified site; K21.9 Gastro-esophageal reflux disease without esophagitis; E78.00 Pure hypercholesterolemia, unspecified; I10 Essential (primary) hypertension; Z95.0 Presence of cardiac pacemaker; Z98.61 Coronary angioplasty status; Z90.89 Acquired absence of other organs; Z90.49 Acquired absence of other specified parts of digestive tract; Z90.710 Acquired absence of both cervix and uterus; W17.89XA Other fall from one level to another, initial encounter; Y93.89 Activity, other specified; Y92.89 Other specified places as the place of occurrence of the external cause; Y99.8 Other external cause status
CPT/HCPCS: 71250; 74150; 99285

== ENCOUNTER 2020-12-16 11:14 | Emergency (ER) | payer MEDICARE ==
[~2020-12-16] VITALS: Ht 157.5 cm; Wt 54.0 kg
[~2020-12-16 11:14] MED LIST changes: +LIDO700A21 TP; +OXYC1TAB15 PO
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
[2020-12-16] MEDS ORDERED: HYDROcodone/APAP 5/325MG 1 TAB TABLET PO ONE (12:45)
[2020-12-16 12:58] LABS: BILIRUBIN,URINE NEGATIVE (NEG); CLARITY,URINE CLEAR; COLOR,URINE YELLOW; NITRITE,URINE NEGATIVE (NEG); PROTEIN,URINE NEGATIVE (NEG-TRACE); UROBILINOGEN,URINE 0.2 mg/dL (0.2 mg/dL)
[2020-12-16] MEDS ORDERED: LIDOCAINE (700MG/PATCH) PATCH. TD ONE (13:00)
[2020-12-16 13:04] LABS: BACTERIA,URINE FEW /HPF (0-FEW); HYALINE CASTS, URINE OCCASIONAL /HPF; RBC,URINE OCC /HPF (0-2); WBC,URINE OCC /HPF (0-4)
--- NOTE | 2020-12-16 13:38 | RAD ---
EXAM: AP View of the chest DATE: 12/16/2020 1:17 PM INDICATION: Reason: cough and lower back pain / Spl. Instructions: / History: COMPARISON: 01/30/2019 FINDINGS: Mild cardiomegaly. Interstitial prominence bilaterally. Trace right pleural effusion. No pneumothorax . Cardiac generator pack obscures a portion of the left chest with leads in stable position. No pneumothorax. IMPRESSION: Cardiac megaly with interstitial prominence and trace right pleural effusion may be seen with pulmona ry edema. Atypical infectious or inflammatory process could also have this appearance. Electronically signed by: Sekou Matta MD (12/16/2020 1:35 PM) [id number]
--- NOTE | 2020-12-16 13:39 | RAD ---
EXAM: AP pelvis DATE: 12/16/2020 1:17 PM INDICATION: Reason: cough and lower back pain / Spl. Instructions: / History: . COMPARISON: No Prior FINDINGS: No acute fracture within the constraints of osteopenia. Chronic right superior and inferior pubic lorenzo i fractures with associated deformity. Large volume stool obscures the sacrum. IMPRESSION: No acute fracture or dislocation. Chronic appearing right superior and inferior pubic rami fractures. If there is clinical concern for superimposed acute fracture, MRI is recommended given degree of osteopenia. Electronically signed by: Sekou Matta MD (12/16/2020 1:36 PM) [id number]
[2020-12-16 13:41] LABS: BASO # 0.1 x10^3/uL (0.0-0.2); BASO % 1 % (0-3); EOS # 0.4 x10^3/uL (0.0-0.7); EOS % 4 % (0-3); HEMATOCRIT 38.2 % (36.0-47.0); HEMOGLOBIN 12.4 g/dL (12.0-15.5); LYMPH # 1.9 x10^3/uL (1.0-4.8); LYMPH % 19 % (24-48); MEAN CORPUSCULAR HEMOGLOBIN 26 pg (25-35); MEAN CORPUSCULAR HGB CONC 32 g/dL (31-37); MEAN CORPUSCULAR VOLUME 80 fL (79-100); MONO # 0.7 x10^3/uL (0.0-1.1); MONO % 7 % (0-9); NEUT # 6.8 x10^3/uL (1.8-7.7); NEUT % 69 % (31-73); PLATELET COUNT 250 x10^3/uL (140-400); RED BLOOD COUNT 4.75 x10^6/uL (3.50-5.40); RED CELL DISTRIBUTION WIDTH 18.6 % (11.5-14.5); WHITE BLOOD COUNT 9.9 x10^3/uL (4.0-11.0)
[2020-12-16 13:43] LABS: CALCIUM 9.1 mg/dL (8.5-10.1); CREATININE 1.1 mg/dL (0.6-1.0); GFR 46.8; POTASSIUM 4.4 mmol/L (3.5-5.1)
--- NOTE | 2020-12-16 13:58 | RAD ---
EXAM: CT lumbar spine without IV contrast CLINICAL HISTORY:Reason: back pain, frequent falls COMPARISON: None available. TECHNIQUE: Helical CT was performed through the lumbar spine. Axial, coronal and sagittal reformatted images were generated. PQRS compliance statement - One or more of the following individualized dose reduction techniques wer e utilized for this study: 1. Automated exposure control 2. Adjustment of the mA and/or kV according to patient size 3. Use of iterative reconstruction technique FINDINGS: There is leftward curvature of the lumbar spine apex L2. Vertebral body heights are preserved. Marked osteopenia limits evaluation for acute fracture. Within these constraints no definite acute fracture . Mild to moderate disc height loss at multiple levels. No spondylolisthesis. Mild facet degenerative changes at multiple levels. Aorta is normal in caliber with atherosclerotic calcifications. Cholecys tectomy clips are seen. IMPRESSION: 1. Levoscoliosis lumbar spine. 2. Decreased bone mineral density. 3. No acute fracture or subluxation. Electronically signed by: Sekou Matta MD (12/16/2020 1:56 PM) [email or web address]
[2020-12-16] MEDS ORDERED: DIAZ2TAB PO (14:30)
[2020-12-16 14:44] VITALS: BP 158/69
--- NOTE | 2020-12-17 19:48 | NUR ---
IP: Informed pt of negative covid test. Pt verbalized understanding.
== END 2020-12-16 15:02 | disposition home or self-care (01) ==
LOC: ER 11:14
DX: M54.5 Low back pain (principal); Z20.822 Contact with and (suspected) exposure to COVID-19; I48.91 Unspecified atrial fibrillation; K21.9 Gastro-esophageal reflux disease without esophagitis; E78.00 Pure hypercholesterolemia, unspecified; I10 Essential (primary) hypertension; Z95.5 Presence of coronary angioplasty implant and graft
CPT/HCPCS: 36415; 71045; 72131; 72170; 80048; 81001; 85025; 87426; 99285; U0003; U0005

== ENCOUNTER 2021-03-22 16:56 | Inpatient (IN) | payer MEDICARE ==
[~2021-03-22] VITALS: Ht 157.5 cm; Wt 78.7 kg
[~2021-03-22 16:56] MED LIST changes: +DIAZ2TAB PO
[2021-03-22] MEDS ORDERED: ONDANSETRON PF 4 MG/2 ML VIAL. IVP ONE (17:15)
[2021-03-22] MEDS ORDERED: PANTOPRAZOLE IV PUSH 40 MG VIAL. IVP ONE (17:15)
[2021-03-22] MEDS ORDERED: IV NORMAL SALINE 1000ML BAG 1,000 ML IV SCH (17:15)
[2021-03-22 17:19] LABS: BILIRUBIN,URINE NEGATIVE (NEG); CLARITY,URINE CLOUDY; COLOR,URINE YELLOW; NITRITE,URINE NEGATIVE (NEG); PH,URINE 7.5 (<5.0-8.0); PROTEIN,URINE NEGATIVE (NEG-TRACE); UROBILINOGEN,URINE 0.2 mg/dL (0.2 mg/dL)
--- NOTE | 2021-03-22 17:30 | PHYS DOC ---
Past Medical History Past Medical History: A-Fib, Arthritis, Depression, Diverticulitis, GERD, GI Bleed, High Cholesterol, Hypertension, Pneumonia, Other Additional Past Medical Histor: esophageal varices, GI bleedx2, HERNIA (BERNICE HENRY APRN) Past Surgical History: Other Additional Past Surgical Histo: esophageal dilation,STENT PLACEMENT, CARDIAC CATH IN JULY 2017 (BERNICE HENRY APRN) Smoking Status: Never Smoker Alcohol Use: None Drug Use: None (BERNICE HENRY APRN) General Adult EDM: Chief Complaint: HEMATEMESIS/VOMITING BLOOD HPI: HPI: Patient is a 89 year old female who presents with 3 days of coffee-ground emesis. She states also today she had chest pain that went from her mid chest through her to her back and her daughter gave her nitroglycerin and it took the pain away. She states she has had 2 GI bleeds before in the past. She had a CVA and was at [facility] 2 months ago. She takes a baby aspirin every 48 hours. Patient is a DNR. She denies any blood in her stool. She states she was having abdominal pain earlier but is no longer having any abdominal pain. She denies any type of pain at this time. Patient denies shortness of breath, headache, dizziness, diarrhea, constipation, blood in her stool, numbness or tingling, s yncope, vision change, focal weakness. She has a history of A. fib, depression, diverticulitis, esophageal varices, GI bleed x2, GERD, esophageal dilation, hypertension, cardiac stent, high cholesterol, pneumonia and CVA. (BERNICE HENRY UNEMPLOYMENT SPECIALIST) Review of Systems: Review of Systems: Constitutional: Denies fever or chills. + Hot and cold chills [] Eyes: Denies change in visual acuity. [] HENT: Denies nasal congestion or sore throat. [] Respiratory: Denies cough or shortness of breath. [] Cardiovascular: + chest pain or denies edema. [] GI: + abdominal pain, +nausea, +hematemesis, denies bloody stools or diarrhea. [] : Denies dysuria. [] Musculoskeletal: Denies back pain or joint pain. [] Integument: Denies rash. [] Neurologic: Denies headache, focal weakness or sensory changes. + Generalized weakness [] Endocrine: Denies polyuria or polydipsia. [] Lymphatic: Denies swollen glands. [] Psychiatric: Denies depression or anxiety. [] (BERNICE HENRY APRN) Heart Score: C/O Chest Pain: Yes HEART Score for Chest Pain: HEART Score for Chest Pain Response (Comments) Value History Slighlty/Non-Suspicious 0 ECG Nonspecific Repolarizatio 1 Age > 65 2 Risk Factors >3 Risk Factors or Hx CAD 2 Troponin < Normal Limit 0 Total 5 Risk Factors: Risk Factors: DM, Current or recent (<one month) smoker, HTN, HLP, family h istory of CAD, obesity. Risk Scores: Score 0 - 3: 2.5% MACE over next 6 weeks - Discharge Home Score 4 - 6: 20.3% MACE over next 6 weeks - Admit for Clinical Observation Score 7 - 10: 72.7% MACE over next 6 weeks - Early Invasive Strategies (BERNICE HENRY APRN) Current Medications: Current Medications Medications (Trade) Dose Ordered Sig/Mariajose Start Time Stop Time Status Last Admin Dose Admin Ondansetron HCl (Zofran) 4 mg 1X ONCE 03/22/21 17:15 03/22/21 17:16 DC Pantoprazole Sodium (PROTONIX VIAL for IV PUSH) 40 mg 1X ONCE 03/22/21 17:15 03/22/21 17:16 DC Sodium Chloride 1,000 ml @ 1,000 mls/hr Q1H 03/22/21 17:15 03/22/21 18:14 (BERNICE HENRY APRN) Allergies: Allergies: Allergies Coded Allergies Type Severity Reaction Last Updated Verified No Known Drug Allergies 12/16/20 No (BERNICE HENRY APRN) Physical Exam: PE: Constitutional: Well developed, well nourished, no acute distress, non-toxic appearance. [] HENT: Normocephalic, atraumatic, bilateral external ears normal, oropharynx moist, no oral exudates, nose normal. [] Eyes: PERRLA, EOMI, conjunctiva normal, no discharge. [] Neck: Normal range of motion, no tenderness, supple, no stridor. [] Cardiovascular:Heart rate regular rhythm, no murmur [] Lungs & Thorax: Bilateral breath sounds clear to auscultation [] Abdomen: Bowel sounds normal, soft, no tenderness, no masses, no pulsatile masses. [] Skin: Warm, dry, no erythema, no rash. Pale [] Back: No tenderness, no CVA tenderness. [] Extremities: No tenderness, no cyanosis, no clubbing, ROM intact, no edema. [] Neurologic: Alert and oriented X 3, normal motor function, normal sensory function, no focal deficits noted. [] Psychologic: Affect normal, judgement normal, mood normal. [] (BERNICE HENRY APRN) EKG: EK and read by Dr Galo as Sinus Rhythm and no STEMI (BERNICE HENRY APRN) Radiology/Procedures: Radiology/Procedures: [] Impression: [facility] [address] [place] [address] IMAGING REPORT Signed PATIENT: SAILAJA SUTHERLAND ACCOUNT: [id number] : 1930 LOCATION: ER AGE: 89 SEX: F EXAM STATUS: REG ER ORD. PHYSICIAN: BERNICE HENRY APRN REASON: chest pain/LABS/EKG @ 1725 PROCEDURE: PORTABLE CHEST 1V EXAMINATION: Chest radiograph. VIEWS: 1 COMPARISON: 12/16/2020 INDICATION:89 years, Female, chest pain. FINDINGS: Normal cardiomediastinal silhouette. Similar diffuse bilateral pulmonary reticulations. No pleural effusion or pneumothorax. No acute osseous process. Left chest wall pacemaker device remains unchanged. Stable moderate size hiatal hernia. IMPRESSION: Diffuse bilateral pulmonary reticulations, unchanged since November 2020. No focal consolidation. Electronically signed by: Aneudy Olguin MD (03/22/2021 7:20 PM) [facility] DICTATED and SIGNED BY: ANEUDY OLGUIN MD DATE: 03/22/[id number] 0 (BERNICE HENRY APRN) Radiology/Procedures: IMAGING REPORT Signed PATIENT: SAILAJA SUTHERLAND Wilber ACCOUNT: [id number] : 1930 LOCATION: ER AGE: 89 SEX: F EXAM STATUS: REG ER ORD. PHYSICIAN: BERNICE HENRY APRN REASON: CHEST PAIN FROM MID CHEST INTO BACK coffee ground emesis PROCEDURE: CT ANGIO CHEST W ABD PEL W/ Study: CT angiography of the chest, abdomen and pelvis Indication: Chest pain. Coffee-ground emesis. Comparison: 10/06/2020 CT chest, abdomen and pelvis. Technique: Helical CT imaging performed of the chest, abdomen and pelvis after the intravenous administration of 80 cc Omnipaque 350 contrast. Sagittal and coronal 3D MIP reconstructions were obtained. One or more of the following individualized dose reduction techniques were utilized for this examination: 1. Automated exposure control 2. Adjustment of the mA and/or kV according to patient size 3. Use of iterative reconstruction technique. Findings: Vasculature: Extensive calcified and noncalcified atheromatous plaque throughout the thoracic and abdominal aorta. Several areas of ulcerative plaque but there is no dissection or pseudoaneurysm. No significant stenosis at the great vessel origins. Dilatation of the main pulmonary artery as can be seen with underlying pulmonary hypertension. Calcific coronary artery disease. 50 percent stenosis at the celiac origin and less than 50 percent stenosis at the SMA origin. Probable severe stenosis at the left renal artery origin an estimated moderate/50 percent at the right renal artery origin. Normal opacification of the ALFONSO medially distal to its origin. Approximate 40 percent stenosis at the proximal aspect of the left common iliac artery. Approximate 60 percent stenosis at the far distal aspect of the right external iliac artery. No flow-limiting stenosis of the visualized femoral arteries. Non-vascular Findings: Chest: Mildly prominent mediastinal lymph node on image 55 series 3 measuring 1.3 cm short axis. Additional lymph nodes are less than a centimeter. A reactive etiology is favored. Large hiatal hernia. Small focus of increased density which appears to be within the lumen of the herniated stomach, image 85 series 3, indeterminate for contrast without unenhanced images. No pericardial or paraesophageal fluid. No pneumomediastinum. Fibrotic changes of the lungs. No pleural effusion. Unremarkable axilla. Left chest wall pacer. Use osteopenia and multifocal degenerative changes. No acute appearing compression deformity. Abdomen/pelvis: No focal hepatic parenchymal abnormality. Absent gallbladder. Within normal limits biliary tree. Limited assessment of the pancreas but there is no large mass or ductal dilatation. The spleen is within normal limits for size. Normal adrenal gland morphology. Asymmetric renal cortical thinning on the left and the left kidney is smaller than the right. A few small cystic foci bilaterally not fully evaluated. No hydronephrosis. Unremarkable bladder. Absent prostate. No adnexal mass. Mild/moderate volume rectal distention with well-formed stool. Extensive colonic diverticulosis without diverticulitis. Nonobstructed small bowel. No pneumatosis. No discrete gastric wall abnormality below the diaphragm. No lymphadenopathy. No free fluid or pneumoperitoneum. Diffuse osteopenia. Chronic right hemipelvis fracture deformities. No acute abnormality. Levoscoliosis with the apex at L2-L3. Impression: 1. Extensive calcified and noncalcified atheromatous plaque with several areas of ulcerative plaque but there is no aneurysm, dissection or pseudoaneurysm. Multiple stenoses estimated to be severe at the left renal artery origin and mild to moderate elsewhere as described in the body of the report. 2. Large hiatal hernia with approximately half of the stomach above the diaphragm. Within the lumen of the herniated stomach there is an ovoid focus of increased density, image 85 series 3, which could potentially represent a contrast blush from a site of hemorrhage but difficult to confirm without precontrast images. Consider endoscopic evaluation given the history of coffee- ground emesis. No pericardial or paraesophageal fluid collection or pneumomediastinum. 3. Numerous chronic observations described in the body of the report. Electronically signed by: BRAYDON PINK MD (03/22/2021 10:08 PM) [id number] DICTATED and SIGNED BY: BRAYDON PINK MD DATE: 03/22/21 [id number] (KELLY REY DO) Course & Med Decision Making: Course & Med Decision Making Pertinent Labs and Imaging studies reviewed. (See chart for details) See HPI. Alert and oriented x4. Abdomen is soft and nontender. Speaks in full clear sentences. Skin pink warm and dry. No extremity edema. Lungs are clear in upper lobes and diminished in lower lobes. 2102: UTI. Awaiting CT scans. Patient signed over to Dr. Rey. Blood work is stable. [] (BERNICE HENRY APRN) Course & Med Decision Making This patient was initially seen by the nurse practitioner. Please see her note for further details of HPI. I assumed care at 2100. At that time, CT of the chest abdomen pelvis was pending. CT did not reveal any acute pathology, she does have a hiatal hernia. The patient is aware of this. The patient has not demonstrated any recurrent hematemesis here. She is resting comfortably. She had been given a dose of IV Rocephin for treatment of UTI. She has another urine culture result at [facility], the results of which we are not able to obtain at this time. Urine culture is ordered and pending at time of admission. The patient has no physical complaints of any pain or discomfort. She denies any active nausea at this time. I explained my recommendation for admission to the hospital, GI consultation, and awaiting further culture results. She is comfortable with this plan. I contacted Dr. Allred, and he accepts her for admission. Also, the patient had type and screen ordered for possible transfusion. This does not appear to be warranted clinically at present, but she has multiple antibodies, and they will have to send her blood out to another lab, and she may not be able to receive blood products until tomorrow. So, should the patient require transfusion, that will be available tomorrow. (KELLY REY DO) Dragon Disclaimer: Dragon Disclaimer: This electronic medical record was generated, in whole or in part, using a voice recognition dictation system. (BERNICE HENRY APRN) Departure Departure Impression: Primary Impression: GI bleed Qualified Codes: K92.2 - Gastrointestinal hemorrhage, unspecified Additional Impressions: UTI (urinary tract infection) Qualified Codes: N39.0 - Urinary tract infection, site not specified Hiatal hernia Disposition: ADMITTED INPATIENT Admitting Physician: Steven Allred (KELLY REY DO) Condition: GUARDED Referrals: JAKOB GALLEGOS MD (PCP) BERNICE HENRY APRN Mar 22, 2021 17:30 KELLY REY DO Mar 22, 2021 21:48
[2021-03-22 17:31] LABS: BACTERIA,URINE FEW /HPF (0-FEW)
[2021-03-22] MEDS ORDERED: cefTRIAXone IV Push 1 GM VIAL. IVP ONE ×2 (18:15→23:30)
[2021-03-22 19:06] LABS: BASO # 0.1 x10^3/uL (0.0-0.2); BASO % 1 % (0-3); EOS # 0.1 x10^3/uL (0.0-0.7); EOS % 1 % (0-3); HEMATOCRIT 31.3 % (36.0-47.0); HEMOGLOBIN 10.1 g/dL (12.0-15.5); LYMPH # 1.9 x10^3/uL (1.0-4.8); LYMPH % 15 % (24-48); MEAN CORPUSCULAR HEMOGLOBIN 28 pg (25-35); MEAN CORPUSCULAR HGB CONC 32 g/dL (31-37); MEAN CORPUSCULAR VOLUME 86 fL (79-100); MONO # 0.5 x10^3/uL (0.0-1.1); MONO % 4 % (0-9); NEUT # 9.8 x10^3/uL (1.8-7.7); NEUT % 80 % (31-73); PLATELET COUNT 266 x10^3/uL (140-400); RED BLOOD COUNT 3.66 x10^6/uL (3.50-5.40); RED CELL DISTRIBUTION WIDTH 15.8 % (11.5-14.5); WHITE BLOOD COUNT 12.2 x10^3/uL (4.0-11.0)
[2021-03-22 19:14] LABS: PROTHROMBIN TIME PATIENT 12.7 SEC (11.7-14.0)
[2021-03-22 19:23] LABS: CALCIUM 8.4 mg/dL (8.5-10.1); GFR 52.2; POTASSIUM 4.3 mmol/L (3.5-5.1)
--- NOTE | 2021-03-22 19:23 | RAD ---
EXAMINATION: Chest radiograph. VIEWS: 1 COMPARISON: 12/16/2020 INDICATION:89 years, Female, chest pain. FINDINGS: Normal cardiomediastinal silhouette. Similar diffuse bilateral pulmonary reticulations. No pleural ef fusion or pneumothorax. No acute osseous process. Left chest wall pacemaker device remains unchanged. Stable moderate size hiatal hernia. IMPRESSION: Diffuse bilateral pulmonary reticulations, unchanged since November 2020. No focal consolidation. Electronically signed by: Piero Olguin MD (03/22/2021 7:20 PM) [facility]
[2021-03-22 19:29] LABS: ALBUMIN 2.8 g/dL (3.4-5.0); TOTAL BILIRUBIN 0.2 mg/dL (0.2-1.0); TOTAL PROTEIN 5.7 g/dL (6.4-8.2)
[2021-03-22] MEDS ORDERED: IOHEXOL 350 MG/ML 100 ML VIAL. IV ONE (19:45)
[2021-03-22] MEDS ORDERED: CONTRAST GIVEN. MC PRN (20:00)
--- NOTE | 2021-03-22 22:10 | RAD ---
Study: CT angiography of the chest, abdomen and pelvis Indication: Chest pain. Coffee-ground emesis. Comparison: 10/06/2020 CT chest, abdomen and pelvis. Technique: Helical CT imaging performed of the chest, abdomen and pelvis after the intravenous admini stration of 80 cc Omnipaque 350 contrast. Sagittal and coronal 3D MIP reconstructions were obtained. One or more of the following individualized dose reduction techniques were utilized for this examinat ion: 1. Automated exposure control 2. Adjustment of the mA and/or kV according to patient size 3. Use of iterative reconstruction technique. Findings: Vasculature: Extensive calcified and noncalcified atheromatous plaque throughout the thoracic and abdominal aorta. Several areas of ulcerative plaque but there is no dissection or pseudoaneurysm. No significant sten osis at the great vessel origins. Dilatation of the main pulmonary artery as can be seen with underly ing pulmonary hypertension. Calcific coronary artery disease. 50 percent stenosis at the celiac origin and less than 50 percent stenosis at the SMA origin. Probabl e severe stenosis at the left renal artery origin an estimated moderate/50 percent at the right renal artery origin. Normal opacification of the ALFONSO medially distal to its origin. Approximate 40 percent stenosis at the proximal aspect of the left common iliac artery. Approximate 60 percent stenosis at the far distal aspect of the right external iliac artery. No flow-limiting stenosis of the visualized femoral arteries. Non-vascular Findings: Chest: Mildly prominent mediastinal lymph node on image 55 series 3 measuring 1.3 cm short axis. Additional lymph nodes are less than a centimeter. A reactive etiology is favored. Large hiatal hernia. Small fo cus of increased density which appears to be within the lumen of the herniated stomach, image 85 seri es 3, indeterminate for contrast without unenhanced images. No pericardial or paraesophageal fluid. N o pneumomediastinum. Fibrotic changes of the lungs. No pleural effusion. Unremarkable axilla. Left chest wall pacer. Use o steopenia and multifocal degenerative changes. No acute appearing compression deformity. Abdomen/pelvis: No focal hepatic parenchymal abnormality. Absent gallbladder. Within normal limits biliary tree. Limi la nena assessment of the pancreas but there is no large mass or ductal dilatation. The spleen is within normal limits for size. Normal adrenal gland morphology. Asymmetric renal cortical thinning on the le ft and the left kidney is smaller than the right. A few small cystic foci bilaterally not fully evalu ated. No hydronephrosis. Unremarkable bladder. Absent prostate. No adnexal mass. Mild/moderate volume rectal distention with well-formed stool. Extensive colonic diverticulosis without diverticulitis. N onobstructed small bowel. No pneumatosis. No discrete gastric wall abnormality below the diaphragm. No lymphadenopathy. No free fluid or pneumoperitoneum. Diffuse osteopenia. Chronic right hemipelvis fracture deformities. No acute abnormality. Levoscoliosi s with the apex at L2-L3. Impression: 1. Extensive calcified and noncalcified atheromatous plaque with several areas of ulcerative plaque but there is no aneurysm, dissection or pseudoaneurysm. Multiple stenoses estimated to be severe at t he left renal artery origin and mild to moderate elsewhere as described in the body of the report. 2. Large hiatal hernia with approximately half of the stomach above the diaphragm. Within the lumen of the herniated stomach there is an ovoid focus of increased density, image 85 series 3, which could potentially represent a contrast blush from a site of hemorrhage but difficult to confirm without pr econtrast images. Consider endoscopic evaluation given the history of coffee-ground emesis. No perica rdial or paraesophageal fluid collection or pneumomediastinum. 3. Numerous chronic observations described in the body of the report. Electronically signed by: BRAYDON PINK MD (03/22/2021 10:08 PM) [id number]
[2021-03-22] MEDS ORDERED: ONDANSETRON PF 4 MG/2 ML VIAL. IVP PRN (23:45)
[2021-03-22] MEDS ORDERED: PANTOPRAZOLE SODIUM IV DRIP 80 MG in IV NORMAL SALINE 100ML 100 ML IV ONE (23:45)
[2021-03-23] VITALS (7 sets, daily range): BP systolic 108–144; BP diastolic 50–66
[2021-03-23] MEDS ORDERED: IV NORMAL SALINE 1000ML BAG 1,000 ML IV ONE
--- NOTE | 2021-03-23 00:30 | NUR ---
The patient, SAILAJA SUTHERLAND, 89 y/o, F admitted by SERGEI GREENE MD, was given written information regarding hospital policies, unit procedures and contact persons. Valuables were checked and left with her.
--- NOTE | 2021-03-23 09:26 | PDOC2 ---
GI CONSULT Date of Service: DATE: 03/23/21 TIME: 09:26 Reason For Consult: hematemesis HPI: HPI: 89 y/o female who we've seen in the past. To ER yesterday after three bags of coffee-ground emesis at home. Had not felt like herself earlier in the day but worked with therapy at home. Reports admitted to last weekend with "little" stroke (describes facial drooping), had "lots of tests." No abd pain, no melena or hematochezia. No dysphagia or diarrhea. H/o constipation controlled w/ Miralax. No recurrence of vomiting at the hospital. On Protonix QD, ASA QOD (has only taken one since recent DC from ). Past workup: H/o GERD, presbyesophagus and Schatzki's ring, large hiatal hernia w/ Augusto lesions (has declined surgery in the past), and diverticulitis. Mentions she saw Dr. Contreras in clinic in 07/2020. CT 09/2020: colonic diverticulosis (mentioned also in duodenum), moderate hiatal hernia. CT 03/2020: extensive colonic diverticulosis, large hiatal hernia. CT 01/2020: acute sigmoid diverticulitis, hiatal hernia of the upper stomach. CT 12/2019: acute diverticulitis with no diverticular abscess of the descending colon, giant hiatal hernia unchanged CT 06/2019: extensive diverticulosis, descending colon diverticulitis. CT 12/2017: wall thickening of the mid to distal sigmoid colon w/ associated pericolonic inflammatory change and mild nonorganized extraluminal fluid, extensive diverticulosis. CT 06/2017: moderate hiatal hernia, diffuse diverticulosis. EGD 06/[address] Contreras for coffee-ground emesis: normal esophagus w/ some tortuosity, medium hiatal hernia w/ Augusto lesions, normal antrum, normal duodenum. CT 11/2016: large sliding hiatal hernia, diverticulosis. EGD 11/[address] Polanco: hiatal hernia, Schatzki's ring, non-erosive gastritis. UGI 11/2016: large hiatal hernia, presbyesophagus, smooth narrowing @ GEJ, Zenker's diverticulum. EGD 10/[address] Polanco: Schatzki's ring dilated to 54Fr, hiatal hernia w/ Augusto lesions. Colonoscopy 2004: diverticulosis. H/o anemia - B12 and iron okay in 2019. S/p cholecystectomy. No liver or pancreas history. ER notes mention esophageal varices - no h/o this to my knowledge. PMH: PMH: A Fib, CHF, CAD w/ stents (last cath in 05/2019), HLD, peripheral neuropathy, OA, anxiety/depression, UTI, pelvic fracture, CVA cholecystectomy, hysterectomy, right knee surgery FH: Family History: No pertinent hx Social History: ALCOHOL: none Drugs: None ROS: GEN: Denies fevers, chills, sweats HEENT: Denies blurred vision, sore throat CV: Denies chest pain RESP: Denies shortness of air, cough GI: Per HPI : Denies hematuria, dysuria ENDO: Denies weight changes NEURO: +short term memory loss MSK: Denies weakness, joint pain/swelling SKIN: Denies jaundice, pruritus Vitals: Vitals: Vital Signs Date Time Temp Pulse Resp B/P (MAP) Pulse Ox O2 Delivery O2 Flow Rate FiO2 03/23/21 07:00 97.7 72 16 108/66 (80) 97 Room Air 97.7 Labs: Labs: Laboratory Tests Test 03/22/21 17:10 Urine Collection Type Unknown Urine Color Yellow Urine Clarity Cloudy Urine pH 7.5 (<5.0-8.0) Urine Specific Gamaliel 1.025 (1.000-1.030) Urine Protein Negative mg/dL (NEG-TRACE) Urine Glucose (UA) Negative mg/dL (NEG) Urine Ketones (Stick) Negative mg/dL (NEG) Urine Blood Negative (NEG) Urine Nitrite Negative (NEG) Urine Bilirubin Negative (NEG) Urine Urobilinogen Dipstick 0.2 mg/dL (0.2 mg/dL) Urine Leukocyte Esterase Moderate (NEG) Urine RBC 1-2 /HPF (0-2) Urine WBC 5-10 /HPF (0-4) Urine Squamous Epithelial Cells Few /LPF Urine Bacteria Few /HPF (0-FEW) Allergies: Coded Allergies: LIZANDRO Inhibitors (Verified Allergy, Intermediate, 03/22/21) mirtazapine (Verified Allergy, Intermediate, 03/22/21) Medications: Current Medications Medications (Trade) Dose Ordered Sig/Mariajose Route PRN Reason Start Time Stop Time Status Last Admin Dose Admin Sodium Chloride 1,000 ml @ 1,000 mls/hr Q1H IV 03/22/21 17:15 03/22/21 18:14 DC 03/22/21 18:48 Ondansetron HCl (Zofran) 4 mg 1X ONCE IVP 03/22/21 17:15 03/22/21 17:16 DC 03/22/21 18:47 Pantoprazole Sodium (PROTONIX VIAL for IV PUSH) 40 mg 1X ONCE IVP 03/22/21 17:15 03/22/21 17:16 DC 03/22/21 18:48 Ceftriaxone Sodium (Rocephin) 1 gm 1X ONCE IVP 03/22/21 18:15 03/22/21 18:16 DC 03/22/21 18:48 Iohexol (Omnipaque 350 Mg/ml) 80 ml 1X ONCE IV 03/22/21 19:45 03/22/21 19:47 DC 03/22/21 20:15 Pantoprazole Sodium 80 mg/ Sodium Chloride 100 ml @ 10 mls/hr 1X ONCE IV 03/22/21 23:45 03/23/21 09:44 03/23/21 00:27 Sodium Chloride 1,000 ml @ 75 mls/hr 1X ONCE IV 03/23/21 00:00 03/23/21 13:19 03/23/21 00:27 Imaging: Imaging: C/A/P CT 03/22/21 Impression: 1. Extensive calcified and noncalcified atheromatous plaque with several areas of ulcerative plaque but there is no aneurysm, dissection or pseudoaneurysm. Multiple stenoses estimated to be severe at the left renal artery origin and mild to moderate elsewhere as described in the body of the report. 2. Large hiatal hernia with approximately half of the stomach above the diaphragm. Within the lumen of the herniated stomach there is an ovoid focus of increased density, image 85 series 3, which could potentially represent a contrast blush from a site of hemorrhage but difficult to confirm without precontrast images. Consider endoscopic evaluation given the history of coffee- ground emesis. No pericardial or paraesophageal fluid collection or pneumomediastinum. 3. Numerous chronic observations described in the body of the report. PE: GEN: NAD HEENT: Atraumatic, PERRL LUNGS: CTAB HEART: RRR ABD: NABS, S/ND/NT EXTREMITY: No edema SKIN: No rashes, no jaundice NEURO/PSYCH: A & O 3 A/P: A/P: Coffee-ground emesis - no recurrence Anemia - history of same, Hgb not below baseline, unclear if on iron as outpt Large hiatal hernia, h/o Augusto lesions Diverticular disease S/p cholecystectomy Recent stroke @ [facility] -- Extensive past GI workup as above. Try clears, observe. Continue PPI, add Carafate susp. EDWIN BARROW Mar 23, 2021 09:26
[2021-03-23 10:50] LABS: BASO # 0.1 x10^3/uL (0.0-0.2); BASO % 1 % (0-3); EOS # 0.2 x10^3/uL (0.0-0.7); EOS % 2 % (0-3); HEMOGLOBIN 8.6 g/dL (12.0-15.5); LYMPH # 2.4 x10^3/uL (1.0-4.8); LYMPH % 29 % (24-48); MEAN CORPUSCULAR HEMOGLOBIN 28 pg (25-35); MEAN CORPUSCULAR HGB CONC 32 g/dL (31-37); MEAN CORPUSCULAR VOLUME 86 fL (79-100); MONO # 0.5 x10^3/uL (0.0-1.1); MONO % 7 % (0-9); NEUT % 62 % (31-73); PLATELET COUNT 223 x10^3/uL (140-400); RED BLOOD COUNT 3.12 x10^6/uL (3.50-5.40); RED CELL DISTRIBUTION WIDTH 16.1 % (11.5-14.5); WHITE BLOOD COUNT 8.1 x10^3/uL (4.0-11.0)
--- NOTE | 2021-03-23 11:25 | NUR ---
SW following. Discussed with RN, pt from home with family, room air, NPO. Protonix drip. GI following. RN advised no SW needs at this time. SW will continue to follow.
[2021-03-23] MEDS: PANTOPRAZOLE IV PUSH 40 MG VIAL. IVP SCH ×2 (11:38→16:51)
[2021-03-23] MEDS: SUCRALFATE 1 GM/10 ML ORAL.SUSP. PO SCH ×3 (11:38→20:30)
--- NOTE | 2021-03-23 13:55 | EKG ---
[facility] [address] [place] [address] Test Date: 2021-03-22 Test Time: 17:32:24 Pat Name: SAILAJA SUTHERLAND Department: Room: 519 Gender: F Hand Rigger: : 1930 Requested By: BERNICE HENRY Order Number: [id number] Reading MD: Dmitry Dennis Measurements Intervals [place] Rate: 94 P: -14 PA: 166 QRS: 90 QRSD: 66 T: 77 QT: 348 QTc: 441 Interpretive Statements SINUS RHYTHM QRS(T) CONTOUR ABNORMALITY CONSISTENT WITH POSSIBLE OLD ANTEROSEPTAL INFARCT Electronically Signed On 03-30-2021 11:44:42 AUDIENCE DEVELOPMENT MANAGER by Dmitry Dennis
[2021-03-23] MEDS ORDERED: BUPR150T21 PO (14:39)
[2021-03-23] MEDS ORDERED: BUPR300T92 PO (14:39)
[2021-03-23] MEDS ORDERED: DILT240C33 PO (14:39)
[2021-03-23] MEDS ORDERED: LOSA50TA15 PO (14:39)
[2021-03-23] MEDS ORDERED: ATOR80TA72 PO (14:39)
[2021-03-23] MEDS: CHOLECALCIFEROL (VITAMIN D3) 1,000 UNIT TABLET PO SCH (16:50)
[2021-03-23] MEDS: ATORVASTATIN CALCIUM 40 MG TABLET. PO SCH (16:50)
[2021-03-23] MEDS: LOSARTAN POTASSIUM 25 MG TABLET. PO SCH (16:50)
[2021-03-23] MEDS: cefTRIAXone IV Push 1 GM VIAL. IVP SCH (16:51)
--- NOTE | 2021-03-23 17:32 | HP ---
DATE OF SERVICE: 03/23/2021 ADMIT DATE: 03/22/2021 CHIEF COMPLAINT AND HISTORY OF PRESENT ILLNESS: This 89-year-old female patient of Dr. Brennan Chowdhury's presented with 3 days of coffee-ground emesis. She has also had some chest pain, mid chest that went through to her back. Nitroglycerin seemed to help. She does have a history of GI bleeds and felt like she was doing it again. She does report CVA a couple months ago and was at [facility] and takes an aspirin every 48 hours for the same. She denied any blood in her stool. She became much weaker, lightheaded with the same, was admitted with a GI bleed. PAST MEDICAL HISTORY: Remarkable for AFib, arthritis, diverticulitis, depression, GERD, prior GI bleeds, hypertension, pneumonia, hyperlipidemia, esophageal varices, hiatal hernia. PAST SURGICAL HISTORY: Remarkable for esophageal dilation and cardiac catheterization with stents. MEDICATIONS: Brought with the patient, listed on the computer have been addressed. ALLERGIES: SHE IS ALLERGIC TO LIZANDRO INHIBITORS AND MIRTAZAPINE. SOCIAL HISTORY: She is a lifetime nonsmoker, nondrinker, does not use alcohol. FAMILY HISTORY: Noncontributory. REVIEW OF SYSTEMS: As mentioned above. PHYSICAL EXAMINATION: GENERAL: She is well-developed, well-nourished white female, appears in no severe distress at the time of my examination. VITAL SIGNS: Stable. She is afebrile. Her daughter is present during the exam. HEAD, EYES, EARS, NOSE AND THROAT: Unremarkable. NECK: Supple, without adenopathy or thyromegaly. CHEST: Clear to auscultation and percussion. HEART: Regular rate and rhythm without S3, S4 or murmur. ABDOMEN: Soft, nontender, without hepatosplenomegaly or masses. EXTREMITIES: Without cyanosis, clubbing or edema. NEUROLOGIC: She is intact. LABORATORY DATA: Initial EKG is normal. Initial hemoglobin is 10.1. I checked another after seeing her this morning before this dictation has dropped to 8.6 and we will continue to follow the same. Her CMP is essentially unremarkable with an albumin of 2.8 and normal troponin. INR is within normal limits and urine shows 5-10 white cells, few bacteria and she has been given Rocephin and will continue this until cultures come back. Chest x-ray: Diffuse bilateral pulmonary reticulations unchanged since 11/2020 and chest, abdomen and pelvis CT shows extensive calcified and noncalcified atheromatous plaque, but no aneurysms. 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 IMPRESSION: 1. Upper gastrointestinal bleed with hematemesis. 2. Recent cerebrovascular accident. 3. Hypertension. 4. History of atrial fibrillation. 5. History of esophageal varices. PLAN: Gastroenterology consult. Follow up CBCs, transfuse as needed. Appears that she has had extensive gastrointestinal workup in the past and further workup will be based on symptomatology. AAYUSH DR: Linda TID: [id number]
[2021-03-23] MEDS: LACTOBACILLUS RHAMNOSUS GG 1 CAPSULE. PO SCH (20:30)
[2021-03-23] MEDS: ALPRAZolam 0.5 MG TABLET PO PRN (20:58)
[2021-03-24 03:25] VITALS: BP 123/52
[2021-03-24 05:28] LABS: BASO # 0.1 x10^3/uL (0.0-0.2); BASO % 1 % (0-3); EOS # 0.3 x10^3/uL (0.0-0.7); EOS % 5 % (0-3); HEMATOCRIT 23.6 % (36.0-47.0); HEMOGLOBIN 7.6 g/dL (12.0-15.5); LYMPH # 2.1 x10^3/uL (1.0-4.8); LYMPH % 29 % (24-48); MEAN CORPUSCULAR HEMOGLOBIN 28 pg (25-35); MEAN CORPUSCULAR HGB CONC 32 g/dL (31-37); MEAN CORPUSCULAR VOLUME 86 fL (79-100); MONO # 0.5 x10^3/uL (0.0-1.1); MONO % 6 % (0-9); NEUT # 4.5 x10^3/uL (1.8-7.7); NEUT % 60 % (31-73); PLATELET COUNT 212 x10^3/uL (140-400); RED BLOOD COUNT 2.73 x10^6/uL (3.50-5.40); RED CELL DISTRIBUTION WIDTH 15.9 % (11.5-14.5); WHITE BLOOD COUNT 7.5 x10^3/uL (4.0-11.0)
[2021-03-24 07:00] VITALS: BP 122/61
[2021-03-24] MEDS ORDERED: ACETAMINOPHEN 325 MG TABLET. PO PRN (08:00)
--- NOTE | 2021-03-24 08:13 | PN ---
DATE: 03/24/2021 DAILY PROGRESS NOTE LOCATION: She is in room 519. SUBJECTIVE: This 89-year-old female remains hospitalized with upper GI bleed with hematemesis and now is having melanotic stools as it passes through. She generally feels fairly decent, is very sore from the bed and requests some Tylenol, which has been ordered. She is wondering about discharge and I explained with her hemoglobin continuing to drop, we need to watch her at least until it leveled out. Her hemoglobin dropped further from yesterday at 8.6-7.6 this morning. OBJECTIVE: VITAL SIGNS: Stable. She is afebrile. GENERAL: She is awake and alert. CHEST: Clear. HEART: Regular. ABDOMEN: Benign. ASSESSMENT: 1. Upper gastrointestinal bleed with hematemesis and no melena and symptomatic anemia. 2. Hypertension. 3. Hyperlipidemia. PLAN: Continue to trend CBCs. GI help appreciated. Anticipate likely discharge tomorrow as I believe she is probably not bleeding at this point in time. PLACIDO DR: Linda TID: [id number]
[2021-03-24] MEDS: SUCRALFATE 1 GM/10 ML ORAL.SUSP. PO SCH ×4 (08:24→20:18)
[2021-03-24] MEDS: CHOLECALCIFEROL (VITAMIN D3) 1,000 UNIT TABLET PO SCH (08:24)
[2021-03-24] MEDS: ATORVASTATIN CALCIUM 40 MG TABLET. PO SCH (08:25)
[2021-03-24] MEDS: CITALOPRAM 20 MG TABLET. PO SCH (08:25)
[2021-03-24] MEDS: LACTOBACILLUS RHAMNOSUS GG 1 CAPSULE. PO SCH ×2 (08:25→20:18)
[2021-03-24] MEDS: PANTOPRAZOLE IV PUSH 40 MG VIAL. IVP SCH (08:27)
[2021-03-24] MEDS ORDERED: buPROPion XL 150 MG TAB.ER.24H. PO SCH (09:00)
[2021-03-24] MEDS: POLYETHYLENE GLYCOL 3350 17 GM PACKET. PO SCH (09:00)
--- NOTE | 2021-03-24 09:49 | PDOC ---
Date of Service: DATE: 03/24/21 TIME: 09:40 Subjective: Subjective: Epigastric ache - apparently started before vomiting according to daughter who is present this morning - not severe. Tolerating clears, no vomiting. Did have a stool "black as tar" yesterday. These are her typical symptoms during these episodes. She again reviewed wish to not pursue any surgeries. Daughter, a nurse here at [facility], asks how to prevent this. They discuss her chronic swallowing issues - sometimes food just comes back up - this is stable. Poor appetite for awhile, 10 lb weight loss - drinks Boost at home - food just isn't appetizing, nothing tastes good. Objective: Vital Signs: Vital Signs Date Time Temp Pulse Resp B/P (MAP) Pulse Ox O2 Delivery O2 Flow Rate FiO2 03/24/21 07:00 98.5 74 16 122/61 (81) 95 Room Air 98.5 Labs: Laboratory Tests Test 03/23/21 10:05 03/24/21 04:00 White Blood Count 8.1 x10^3/uL 7.5 x10^3/uL Red Blood Count 3.12 x10^6/uL 2.73 x10^6/uL Hemoglobin 8.6 g/dL 7.6 g/dL Hematocrit 27.0 % 23.6 % Mean Corpuscular Volume 86 fL 86 fL Mean Corpuscular Hemoglobin 28 pg 28 pg Mean Corpuscular Hemoglobin Concent 32 g/dL 32 g/dL Red Cell Distribution Width 16.1 % 15.9 % Platelet Count 223 x10^3/uL 212 x10^3/uL Neutrophils (%) (Auto) 62 % 60 % Lymphocytes (%) (Auto) 29 % 29 % Monocytes (%) (Auto) 7 % 6 % Eosinophils (%) (Auto) 2 % 5 % Basophils (%) (Auto) 1 % 1 % Neutrophils # (Auto) 5.0 x10^3/uL 4.5 x10^3/uL Lymphocytes # (Auto) 2.4 x10^3/uL 2.1 x10^3/uL Monocytes # (Auto) 0.5 x10^3/uL 0.5 x10^3/uL Eosinophils # (Auto) 0.2 x10^3/uL 0.3 x10^3/uL Basophils # (Auto) 0.1 x10^3/uL 0.1 x10^3/uL PE: GEN: NAD LUNGS: CTAB HEART: RRR ABD: NABS, S/ND/NT NEURO/PSYCH: A & O 3 A/P: Coffee-ground emesis (resolved), epigastric discomfort, dark stool - recurrent issues w/ extensive past workup Anemia - Hgb has drifted from 10.1 to 7.6 - daughter reports normal Hgb at [facility] last week Large hiatal hernia, 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 Continue PPI - change to PO, continue Carafate. Probably should resume iron in some form. Hgb has drifted, did have a black stool yesterday - they seem to desire mostly a conservative approach considering many scopes in the past; however, would be agreeable to EGD if indicated. For now we will plan to advance diet and recheck labs in the morning. Will review all w/ Dr. Contreras. Justicifation of Admission Dx: Justifications for Admission: Justification of Admission Dx: Yes EDWIN BARROW Mar 24, 2021 09:49
[2021-03-24 11:00] VITALS: BP 116/43
--- NOTE | 2021-03-24 11:33 | NUR ---
SW following. Discussed with RN, pt advanced to full liquid diet. Hgn 7.6 today. Pt current with [facility]. SW will continue to follow.
[2021-03-24] MEDS: LOSARTAN POTASSIUM 25 MG TABLET. PO SCH (11:45)
[2021-03-24] MEDS: cefTRIAXone IV Push 1 GM VIAL. IVP SCH (14:33)
[2021-03-24 15:00] VITALS: BP 124/52
[2021-03-24] MEDS: PANTOPRAZOLE 40 MG TABLET.DR. PO SCH (16:48)
[2021-03-24 19:00] VITALS: BP 118/51
[2021-03-24] MEDS: ALPRAZolam 0.5 MG TABLET PO PRN (20:18)
[2021-03-24 23:00] VITALS: BP 122/45
[2021-03-25 03:00] VITALS: BP 111/38
[2021-03-25 05:14] LABS: BASO # 0.1 x10^3/uL (0.0-0.2); BASO % 1 % (0-3); EOS # 0.3 x10^3/uL (0.0-0.7); EOS % 4 % (0-3); HEMATOCRIT 23.7 % (36.0-47.0); HEMOGLOBIN 7.6 g/dL (12.0-15.5); LYMPH # 2.1 x10^3/uL (1.0-4.8); LYMPH % 26 % (24-48); MEAN CORPUSCULAR HEMOGLOBIN 29 pg (25-35); MEAN CORPUSCULAR HGB CONC 32 g/dL (31-37); MEAN CORPUSCULAR VOLUME 89 fL (79-100); MONO # 0.5 x10^3/uL (0.0-1.1); MONO % 6 % (0-9); NEUT % 63 % (31-73); PLATELET COUNT 237 x10^3/uL (140-400); RED BLOOD COUNT 2.65 x10^6/uL (3.50-5.40); RED CELL DISTRIBUTION WIDTH 15.4 % (11.5-14.5); WHITE BLOOD COUNT 7.9 x10^3/uL (4.0-11.0)
[2021-03-25 07:00] VITALS: BP 139/54
[2021-03-25] MEDS: SUCRALFATE 1 GM/10 ML ORAL.SUSP. PO SCH ×2 (08:01→12:02)
[2021-03-25] MEDS ORDERED: SUCR1ORA14 PO (08:03)
[2021-03-25] MEDS: PANTOPRAZOLE 40 MG TABLET.DR. PO SCH (08:05)
[2021-03-25] MEDS: CHOLECALCIFEROL (VITAMIN D3) 1,000 UNIT TABLET PO SCH (09:00)
[2021-03-25] MEDS: CITALOPRAM 20 MG TABLET. PO SCH (09:00)
[2021-03-25] MEDS: ATORVASTATIN CALCIUM 40 MG TABLET. PO SCH (09:01)
[2021-03-25] MEDS: POLYETHYLENE GLYCOL 3350 17 GM PACKET. PO SCH (09:05)
[2021-03-25] MEDS: LACTOBACILLUS RHAMNOSUS GG 1 CAPSULE. PO SCH (09:05)
[2021-03-25] MEDS: LOSARTAN POTASSIUM 25 MG TABLET. PO SCH (09:11)
--- NOTE | 2021-03-25 09:41 | PDOC ---
Date of Service: DATE: 03/25/21 TIME: 09:38 Subjective: Subjective: Feels better. Says she ate a big breakfast and gets to go home today. No vomiting or bleeding. Hasn't stooled again. Objective: Vital Signs: Vital Signs Date Time Temp Pulse Resp B/P (MAP) Pulse Ox O2 Delivery O2 Flow Rate FiO2 03/25/21 09:12 82 121/52 03/25/21 07:00 98.1 18 92 98.1 03/25/21 03:00 Room Air Labs: Laboratory Tests Test 03/25/21 04:20 White Blood Count 7.9 x10^3/uL Red Blood Count 2.65 x10^6/uL Hemoglobin 7.6 g/dL Hematocrit 23.7 % Mean Corpuscular Volume 89 fL Mean Corpuscular Hemoglobin 29 pg Mean Corpuscular Hemoglobin Concent 32 g/dL Red Cell Distribution Width 15.4 % Platelet Count 237 x10^3/uL Neutrophils (%) (Auto) 63 % Lymphocytes (%) (Auto) 26 % Monocytes (%) (Auto) 6 % Eosinophils (%) (Auto) 4 % Basophils (%) (Auto) 1 % Neutrophils # (Auto) 5.0 x10^3/uL Lymphocytes # (Auto) 2.1 x10^3/uL Monocytes # (Auto) 0.5 x10^3/uL Eosinophils # (Auto) 0.3 x10^3/uL Basophils # (Auto) 0.1 x10^3/uL URINE CULTURE Final Final 30,000 CFU/ML GRAM NEGATIVE RODS on 03/24/21 at 0744 FINAL ID= [PSEUDOMONAS AERUGINOSA] PSEUDOMONAS AERUGINOSA PE: GEN: NAD - up in chair LUNGS: CTAB HEART: RRR ABD: NABS, S/ND/NT NEURO/PSYCH: A & O 3, in good spirits A/P: UGI bleeding - resolved Anemia - stable Large hiatal hernia, h/o Augusto lesions Recent CVA UTI - per primary -- Improved - stable Hgb and tolerating PO. DC per primary. Follow-up w/ Dr. Pelayo. Continue PPI and Carafate, probably a good idea to add iron (she says she has at home). Justicifation of Admission Dx: Justifications for Admission: Justification of Admission Dx: Yes EDWIN BARROW Mar 25, 2021 09:41
--- NOTE | 2021-03-25 10:46 | NUR ---
SW following. Discussed with RN, discharge order for home with self care. Pt is current with [facility]. Paper med rec with [facility] RN advised no other SW needs.
[2021-03-25 11:00] VITALS: BP 143/80
--- NOTE | 2021-03-25 13:08 | NUR ---
Discharge instructions given. Answered questions and concern. Both patient and daughter verbalized understanding. Pt discharged home with home health. Escorted out by w/c.
--- NOTE | 2021-03-25 16:57 | DS ---
DATE OF DISCHARGE: 03/25/2021 PRIMARY DIAGNOSIS: Upper gastrointestinal bleed. ADDITIONAL DIAGNOSES: Symptomatic anemia, atrial fibrillation, hypertension, hyperlipidemia. CHIEF COMPLAINT AND HISTORY OF PRESENT ILLNESS: This 89-year-old female patient of Dr. Brennan Chowdhury's who presented with 3 days of coffee-ground emesis. She also had some chest pain associated with this. She does have a history of prior GI bleeds and exhaustive workup in the past without any significant findings. She did report a CVA a couple of months ago for which she was taken to and uses aspirin on a daily basis now. She was admitted for the above. SUMMARY OF STAY: The patient was admitted, was hemodynamically stable. During the stay, he had IV access in case there was decompensation. Initial hemoglobin 10.1 on the , dropped to 8.6 on the , but down to 7.6 for the remainder of the stay. Symptomatically, she was still somewhat weak, but felt she could be dismissed, was eating. GI had no further planned workup at this time, and it was felt she could be dismissed with return immediately to the Emergency Room for any further bleeding and this was accomplished. DISPOSITION: The patient is discharged to home. DIET: Regular diet. ACTIVITY: As tolerated, office of Dr. Chowdhury in one week. DISCHARGE MEDICATIONS: Listed on the med rec and have been addressed and she is going to restart her home iron therapy. MARY DR: Linda TID: [id number] CC: BRENNAN CHOWDHURY MD
== END 2021-03-25 13:08 | disposition home or self-care (01) | DRG 378 ==
LOC: ER 16:56 → 5 NORTH 23:28
PROVIDERS: ADMIT Family Medicine; ATTEND Family Medicine
DX: K92.2 Gastrointestinal hemorrhage, unspecified (principal); N39.0 Urinary tract infection, site not specified; D64.9 Anemia, unspecified; E78.00 Pure hypercholesterolemia, unspecified; E78.5 Hyperlipidemia, unspecified; F32.A Depression, unspecified; F41.9 Anxiety disorder, unspecified; G62.9 Polyneuropathy, unspecified; I11.0 Hypertensive heart disease with heart failure; I25.10 Atherosclerotic heart disease of native coronary artery without angina pectoris; I48.91 Unspecified atrial fibrillation; I50.9 Heart failure, unspecified; I85.00 Esophageal varices without bleeding; K44.9 Diaphragmatic hernia without obstruction or gangrene; R13.10 Dysphagia, unspecified; Z66 Do not resuscitate; Z86.73 Personal history of transient ischemic attack (TIA), and cerebral infarction without residual deficits; Z90.49 Acquired absence of other specified parts of digestive tract; Z90.710 Acquired absence of both cervix and uterus; Z95.5 Presence of coronary angioplasty implant and graft; K21.9 Gastro-esophageal reflux disease without esophagitis; Z88.8 Allergy status to other drugs, medicaments and biological substances; B96.5 Pseudomonas (aeruginosa) (mallei) (pseudomallei) as the cause of diseases classified elsewhere
CPT/HCPCS: 36415; 71045; 71275; 74177; 80053; 81001; 83690; 84484; 85025; 85610; 85730; 86850; 86870; 86900; 86901; 87077; 87086; 87186; 93005; 96361; 96365; 96375; C9113; J0696; J2405; J7030; Q9967; 99285-25; G0378